=== PATIENT | male | born 1935 | race Two or more races ===

== ENCOUNTER 2020-01-14 07:43 | Outpatient (REF) | payer MEDICARE, SELFPAY ==
[2020-01-14 08:23] LABS: MANUAL DIFF FLAG NO
[2020-01-14 08:27] LABS: Basophils Absolute Auto 0.1 X10*3/uL (0.0-0.2); Basophils Percent Auto 0.8 % (0-2); Eosinophils Absolute Auto 0.1 X10*3/uL (0.0-0.4); Hematocrit 44.2 % (42-52); Imm Gran Abs Auto 0.01 X10*3/uL (0.00-0.03); Imm Gran Pct Auto 0.2 % (0.0-0.4); Lymphocytes Percent Auto 32.6 % (20-40); Mean Corpuscular HGB Conc 33.9 g/dl (31.0-36.0); Mean Corpuscular Hemoglobin 32.1 pg (27.0-33.0); Mean Corpuscular Volume 94.6 fL (80-98); Mean Platelet Volume 9.3 fL (9.4-12.4); Monocytes Absolute Auto 0.7 X10*3/uL (0.1-1.2); Monocytes Percent Auto 11.2 % (2-11); Neutrophils Absolute Auto 3.3 X10*3/uL (2.0-8.3); Neutrophils Percent Auto 54.2 % (45-73); Platelet Count 171 X10*3/uL (160-400); Red Blood Count 4.67 X10*6/uL (4.60-5.80); Red Cell Distribution Width 12.5 % (11.0-16.0); White Blood Count 6.2 X10*3/uL (4.8-10.8)
[2020-01-14 08:42] LABS: Alanine Aminotransferase 19 U/L (0-40); Alkaline Phosphatase 80 U/L (39-117); Anion Gap 11 (12-20); Aspartate Amino Transferase 17 U/L (5-37); Bilirubin Total 0.9 mg/dL (0.0-1.0); Blood Urea Nitrogen 17 mg/dL (9-16); Calcium 8.4 mg/dL (8.4-10.2); Carbon Dioxide 26 mmol/L (22-29); Chloride 109 mmol/L (96-108); Cholesterol 120 mg/dL; Estimated Glomerular Filt Rate > 60; Glucose Fasting 109 mg/dL (60-99); HDL Cholesterol 41 mg/dL; LDL Cholesterol Calculated 60 mg/dl; Potassium 4.1 mmol/l (3.3-5.1); Sodium 142 mmol/L (135-145); Total Protein 6.3 g/dL (6.5-8.0); Triglycerides 96 mg/dL
[2020-01-14 09:02] LABS: Glucose Urine UA NEG (NEG); Leukocyte Esterase Urine NEG (NEG); Nitrite Urine NEG (NEG); PH 6.5 (5.0-8.0); Urine Blood 2+ (NEG); Urine Ketones NEG (NEG); Urine Protein TRACE MG/DL (NEG-TRACE)
[2020-01-14 09:05] LABS: Appearance Urine CLEAR; Color Urine YELLOW
[2020-01-14 09:10] LABS: RBC Urine 30-49 /HPF (0); WBC Urine 0 /HPF (0-4)
[2020-01-14 09:15] LABS: Prostate Specific Antigen 1.95 ng/mL (<0.05-4.0)
[2020-01-14 09:22] LABS: Reflex LDLD? No
== END 2020-01-14 07:44 | disposition home or self-care (01) ==
LOC: HO.LAB 07:43
PROVIDERS: PCP Internal Medicine; Visit Provider Internal Medicine
DX: I10 Essential (primary) hypertension (principal); E78.00 Pure hypercholesterolemia, unspecified; R97.20 Elevated prostate specific antigen [PSA]; I25.10 Atherosclerotic heart disease of native coronary artery without angina pectoris; N40.1 Benign prostatic hyperplasia with lower urinary tract symptoms; D72.820 Lymphocytosis (symptomatic)
CPT/HCPCS: 36415; 80053; 80061; 81001; 81003; 84153; 85025

== ENCOUNTER → 2020-01-20 12:44 | Outpatient (BNVA) | payer MEDICARE, SELFPAY | PROVIDERS: PCP Internal Medicine; Visit Provider Internal Medicine Cardiovascular Disease | DX: Z45.018 Encounter for adjustment and management of other part of cardiac pacemaker (principal); I25.10 Atherosclerotic heart disease of native coronary artery without angina pectoris; R53.83 Other fatigue | CPT/HCPCS: 99212 ==

== ENCOUNTER → 2020-02-04 10:35 | Outpatient (REF) | payer MEDICARE, SELFPAY ==
--- NOTE | 2020-02-04 10:38 | CA_ITS ---
Transthoracic Echocardiogram Patient (Last, First, Middle): Faisal Leiva M Gender: Male Date of : 1935 Age: 84 Procedure Date: 02/04/2020 Procedure Type: Transthoracic Echocardiogram Location: OP Height: 180.34 cm Weight: 87.09 kg BSA: 2.07 m2 Heart Rate: bpm BP: 130 / 80 mmHg [id number] Operator: GIULIA Referring MD: Boyd Gay MD Symptoms: I10 - Essential (primary) hypertension Study Quality: Fair ECG Rhythm: Sinus Conclusions: - The left ventricular systolic function is normal. The visually estimated ejection fraction is between 55-60%. - There is mild aortic valve regurgitation. - There is mild mitral valve regurgitation. - There is mild tricuspid valve regurgitation. Findings Left Ventricle Normal left ventricular cavity size. There is mildly increased left ventricular wall thickness. The left ventricular systolic function is normal. The visually estimated ejection fraction is between 55-60%. There is no evidence of regional wall motion abnormalities. Diastolic function is normal for age. E/E prime ratio is <8, consistent with normal filling pressures. Right Ventricle Normal right ventricular cavity size and systolic function. Atria The left atrium is normal in size. The right atrium is normal in size. Aortic Valve There is a normal trileaflet aortic valve. There is mild calcification of the aortic valve. There is no aortic valve stenosis. There is mild aortic valve regurgitation. Mitral Valve The mitral valve appears normal. There is mild mitral valve regurgitation. There is no mitral valve stenosis. Pulmonic Valve The pulmonic valve was not well visualized. Tricuspid Valve Normal tricuspid valve structure. There is mild tricuspid valve regurgitation. The pulmonary artery systolic pressure is normal. Great Vessels The aortic annulus, sinuses of valsalva, and asc aorta are normal in size. Venous The inferior vena cava is normal in size and collapses greater than 50% with inspiration. Pericardium/Pleural There is no evidence of pericardial effusion. Prior Study Comparison No significant change compared to prior study dated: 02/07/2019. Measurements 2D Linear Measurements IVSd: 1.10 0.6-0.9/0.6-1.0 cm LVIDd: 4.08 3.9-5.3/4.2-5.9 cm LVIDd Index: 1.97 2.4-3.2/2.2-3.1 cm/m2 LVIDs: 3.02 2.0-3.6 cm LVPWd: 1.06 0.7-1.1 cm Ao Root: 3.50 2.1-3.5 cm LA Diam: 3.60 2.7-3.8/3.0-4.0 cm LAIDs Index: 1.74 1.5-2.3 cm/m2 LV Mass: 182.06 67-162/88-224 g LV Mass Index: 87.95 43-95/49-115 g/m2 LVOT Diam: 2.00 3.0+(-)1.3 cm 2D Systolic Function EF 4C: 61.00 >55% EF 2C: 57.50 >55% EF BiP: 59.80 >55% Mitral Valve MV Pk E: 0.55 MV PK A: 0.86 MV Decel Time: 345.00 E/A: 0.60 E'Lateral: 8.22 E'Medial: 5.80 E/E' Med: 9.40 E/E' Lat: 6.70 PHT: 101.00 MVA PHT: 2.18 Decel Benson: 1.59 Aortic Valve AoV Pk Nitin: 1.49 AoV Mn Nitin: 0.95 AoV VTI: 0.30 AoV Pk Grad: 9.00 Aov Mn Grad: 4.00 TAYLER Cont.VTI: 2.66 AI Pk Nitin: 3.41 AI Benson: 2.38 LVOT LVOT Pk Nitin: 1.07 LVOT Mn Nitin: 0.81 LVOT VTI: 0.25 LVOT Pk Grad: 5.00 LVOT Mn Grad: 3.00 LVOT Diam: 2.00 LVOT Area: 3.14 Diastolic Function MV Pk E: 0.55 MV Pk A: 0.86 E/A: 0.60 E'Medial: 5.80 E/E' Med: 9.40 E' Laterial: 8.22 E/E' Lat: 6.70 Tricuspid Valve TR Pk Nitin: 2.20 TR Pk Grad: 19.00 RA Press: 3.00 RVSP: 22.00 Great Vessels Aorta Ao Root-2D: 3.50 2.0-3.7 cm Ao Asc: 3.60 2.1-3.4 cm Ao Arch: 3.20 Updated in Other Vendor System with Status of Final Leo Hinkle MD electronically signed on 02/07/2020 12:47:26 PM with status of Final
== END ==
LOC: HO.CARD 10:35
PROVIDERS: Visit Provider Internal Medicine Cardiovascular Disease
DX: I10 Essential (primary) hypertension (principal); I25.10 Atherosclerotic heart disease of native coronary artery without angina pectoris; Z95.0 Presence of cardiac pacemaker
CPT/HCPCS: 93306

== ENCOUNTER → 2020-07-20 10:59 | Outpatient (BNVA) | payer MEDICARE, SELFPAY | PROVIDERS: PCP Internal Medicine; Referring Provider Internal Medicine; Visit Provider Internal Medicine Cardiovascular Disease | DX: I25.10 Atherosclerotic heart disease of native coronary artery without angina pectoris (principal); Z95.0 Presence of cardiac pacemaker; Z79.899 Other long term (current) drug therapy | CPT/HCPCS: 99212 ==

== ENCOUNTER 2020-07-21 10:26 | Outpatient (REF) | payer MEDICARE, SELFPAY ==
[2020-07-21 11:54] LABS: Alanine Aminotransferase 16 U/L (0-40); Albumin Level 3.9 g/dL (3.5-5.0); Alkaline Phosphatase 84 U/L (39-117); Aspartate Amino Transferase 17 U/L (5-37); Bilirubin Direct 0.4 mg/dL (0.0-0.5); Bilirubin Total 0.8 mg/dL (0.0-1.0); Cholesterol 131 mg/dL; HDL Cholesterol 45 mg/dL; LDL Cholesterol Calculated 71 mg/dl; Total Protein 6.2 g/dL (6.5-8.0); Triglycerides 76 mg/dL
[2020-07-21 12:22] LABS: Reflex LDLD? No
== END 2020-07-21 10:27 | disposition home or self-care (01) ==
LOC: HO.LNP 10:26
PROVIDERS: Visit Provider Internal Medicine
DX: E78.00 Pure hypercholesterolemia, unspecified (principal)
CPT/HCPCS: 80061; 80076

== ENCOUNTER → 2020-09-07 14:26 | Outpatient (BNVA) | payer MEDICARE, SELFPAY | PROVIDERS: PCP Internal Medicine; Referring Provider Internal Medicine; Visit Provider Internal Medicine Cardiovascular Disease ==

== ENCOUNTER → 2021-01-20 13:41 | Outpatient (REF) | payer MEDICARE, SELFPAY ==
--- NOTE | 2021-01-20 13:44 | CA_ITS ---
Transthoracic Echocardiogram Patient (Last, First, Middle): Faisal Leiva M Gender: Male Date of : 1935 Age: 85 Procedure Date: 01/20/2021 Procedure Type: Transthoracic Echocardiogram Location: OP Height: 180.34 cm Weight: 88.45 kg BSA: 2.09 m2 Heart Rate: bpm BP: 133 / 78 mmHg Director Check: GIULIA Referring MD: Boyd Gay MD Connie Cleaner: Boyd Gay MD Symptoms: I25.10 - Atherosclerotic heart disease of elim ira coronary... Study Quality: Fair ECG Rhythm: Sinus Conclusions: - 1. Normal LV systolic function with impaired relaxation filling pattern 2. Normal cardiac valvular Doppler 3. Normal RV systolic pressure 4. No gross pericardial effusion Findings Left Ventricle Normal left ventricular size, thickness, and systolic function. The visually estimated ejection fraction is between 55-60%. Spectral Doppler is indicative of an impaired relaxation filling pattern. Wall Motion Rest Echo Findings The basal inferior, mid inferior, and basal inferolateral segments are hypokinetic. All other scored wall segments showed normal motion. Right Ventricle Normal right ventricular cavity size and systolic function. Atria The left atrium is likely dilated. There is lipomatous hypertrophy of the interatrial septum. There is no evidence of interatrial shunt. The right atrium is normal in size. Aortic Valve The aortic valve was not well visualized. There is no aortic valve stenosis. There is trace (trivial) aortic valve regurgitation. Mitral Valve There is mild anterior and posterior mitral leaflet thickening. There is trace mitral valve regurgitation. There is no mitral valve stenosis. Pulmonic Valve The pulmonic valve was not well visualized. Tricuspid Valve Likely normal tricuspid valve structure and function. There is mild tricuspid valve regurgitation. The right ventricular systolic pressure is normal. The right ventricular systolic pressure is 24 mmHg. Normal right atrial pressure. There is no evidence of pulmonary hypertension. Great Vessels The aorta was not well visualized. The pulmonary artery was not well visualized. Venous The inferior vena cava is normal in size and collapses greater than 50% with inspiration. Pericardium/Pleural There is no evidence of pericardial effusion. Prior Study Comparison No significant change compared to prior study dated: 02/04/2020. wall motion abnormality is apparent on this study Measurements 2D Linear Measurements IVSd: 1.11 0.6-0.9/0.6-1.0 cm LVIDd: 4.42 3.9-5.3/4.2-5.9 cm LVIDd Index: 2.11 2.4-3.2/2.2-3.1 cm/m2 LVIDs: 2.99 2.0-3.6 cm LVPWd: 1.10 0.7-1.1 cm Ao Root: 3.20 2.1-3.5 cm LA Diam: 3.80 2.7-3.8/3.0-4.0 cm LAIDs Index: 1.82 1.5-2.3 cm/m2 LV Mass: 213.29 67-162/88-224 g LV Mass Index: 102.05 43-95/49-115 g/m2 LVOT Diam: 2.20 3.0+(-)1.3 cm 2D Systolic Function EF 4C: 53.30 >55% EF 2C: 59.00 >55% EF BiP: 57.70 >55% Mitral Valve MV Pk E: 0.53 MV PK A: 0.83 MV Decel Time: 211.00 E/A: 0.60 E'Lateral: 8.81 E'Medial: 5.87 E/E' Med: 9.00 E/E' Lat: 6.00 PHT: 62.00 MVA PHT: 3.55 Decel Kleberg: 2.49 Aortic Valve AoV Pk Nitin: 1.58 AoV Mn Nitin: 1.06 AoV VTI: 0.30 AoV Pk Grad: 10.00 Aov Mn Grad: 5.00 TAYLER Cont.VTI: 2.55 AI Pk Nitin: 3.49 AI Kleberg: 1.95 LVOT LVOT Pk Nitin: 1.06 LVOT Mn Nitin: 0.75 LVOT VTI: 0.20 LVOT Pk Grad: 4.00 LVOT Mn Grad: 2.00 LVOT Diam: 2.20 LVOT Area: 3.80 Diastolic Function MV Pk E: 0.53 MV Pk A: 0.83 E/A: 0.60 E'Medial: 5.87 E/E' Med: 9.00 E' Laterial: 8.81 E/E' Lat: 6.00 Right Ventricle TAPSE (mm): 1.94 TVS' Nitin: 9.57 Tricuspid Valve TR Pk Nitin: 2.29 TR Pk Grad: 21.00 RA Press: 3.00 RVSP: 24.00 Great Vessels Aorta Ao Root-2D: 3.20 2.0-3.7 cm Ao Asc: 3.50 2.1-3.4 cm Ao Arch: 2.30 Updated in Other Vendor System with Status of Final Boyd Gay MD electronically signed on 01/21/2021 4:28:51 PM with status of Final
== END ==
LOC: HO.CARD 13:41
PROVIDERS: PCP Internal Medicine; Visit Provider Internal Medicine Cardiovascular Disease
DX: I25.10 Atherosclerotic heart disease of native coronary artery without angina pectoris (principal); I10 Essential (primary) hypertension; R53.83 Other fatigue
CPT/HCPCS: 93306

== ENCOUNTER 2021-02-02 10:13 | Outpatient (REF) | payer MEDICARE, SELFPAY ==
[2021-02-02 10:16] LABS: MANUAL DIFF FLAG NO
[2021-02-02 10:28] LABS: Appearance Urine CLEAR; Color Urine YELLOW; Glucose Urine UA NEG (NEG); Leukocyte Esterase Urine NEG (NEG); Nitrite Urine NEG (NEG); PH 6.5 (5.0-8.0); Urine Blood NEG (NEG); Urine Ketones NEG (NEG); Urine Protein NEG (NEG-TRACE)
[2021-02-02 10:40] LABS: Basophils Percent Auto 0.4 % (0-2); Eosinophils Absolute Auto 0.1 X10*3/uL (0.0-0.4); Eosinophils Percent Auto 1.3 % (0-4); Hematocrit 46.3 % (42.0-52.0); Hemoglobin 15.7 g/dl (14.0-18.0); Imm Gran Abs Auto 0.02 X10*3/uL (0.00-0.03); Imm Gran Pct Auto 0.3 % (0.0-0.4); Lymphocytes Absolute Auto 2.5 X10*3/uL (1.2-4.9); Mean Corpuscular HGB Conc 33.9 g/dl (31.0-36.0); Mean Corpuscular Hemoglobin 32.3 pg (27.0-33.0); Mean Corpuscular Volume 95.3 fL (80.0-98.0); Mean Platelet Volume 9.2 fL (9.4-12.4); Monocytes Absolute Auto 0.9 X10*3/uL (0.1-1.2); Monocytes Percent Auto 11.9 % (2-11); Neutrophils Absolute Auto 3.6 x10*3/uL (2.0-8.3); Neutrophils Percent Auto 51.1 % (45-73); Platelet Count 173 X10*3/uL (160-400); Red Blood Count 4.86 X10*6/uL (4.60-5.80); Red Cell Distribution Width 12.7 % (11.0-16.0); White Blood Count 7.1 X10*3/uL (4.8-10.8)
[2021-02-02 11:48] LABS: Alanine Aminotransferase 38 U/L (0-40); Alkaline Phosphatase 85 U/L (39-117); Anion Gap 11 (12-20); Aspartate Amino Transferase 25 U/L (5-37); Bilirubin Total 1.1 mg/dL (0.0-1.0); Blood Urea Nitrogen 18 mg/dL (9-16); Carbon Dioxide 27 mmol/L (22-29); Chloride 109 mmol/L (96-108); Cholesterol 149 mg/dL; Estimated Glomerular Filt Rate 60; Glucose Fasting 105 mg/dL (60-99); HDL Cholesterol 47 mg/dL; LDL Cholesterol Calculated 81 mg/dl; Potassium 4.2 mmol/L (3.3-5.1); Sodium 143 mmol/L (135-145); Total Protein 6.7 g/dL (6.5-8.0); Triglycerides 105 mg/dL
[2021-02-02 11:54] LABS: PSA,Total (Free>4and<10) 2.02 ng/mL (0.00-4.00)
[2021-02-02 12:08] LABS: Reflex LDLD? No
== END 2021-02-02 10:14 | disposition home or self-care (01) ==
LOC: HO.LNP 10:13
PROVIDERS: Visit Provider Internal Medicine
DX: I10 Essential (primary) hypertension (principal); R97.20 Elevated prostate specific antigen [PSA]; D72.820 Lymphocytosis (symptomatic); Z12.5 Encounter for screening for malignant neoplasm of prostate
CPT/HCPCS: 80053; 80061; 81003; 84153; 85025

== ENCOUNTER → 2021-02-11 12:19 | Outpatient (BNVA) | payer MEDICARE, SELFPAY | PROVIDERS: PCP Internal Medicine; Referring Provider Internal Medicine; Visit Provider Internal Medicine Cardiovascular Disease | DX: Z45.018 Encounter for adjustment and management of other part of cardiac pacemaker (principal); I25.10 Atherosclerotic heart disease of native coronary artery without angina pectoris; Z79.82 Long term (current) use of aspirin | CPT/HCPCS: 99212 ==

== ENCOUNTER 2021-05-10 12:07 | Outpatient (REF) | payer MEDICARE, SELFPAY ==
--- NOTE | ~2021-05-10 | XR_ITS ---
EXAMINATION: XR HIP, RIGHT CLINICAL INFORMATION: Right hip pain COMPARISON: None TECHNIQUE: Two views of the right hip. Frontal view of the pelvis. FINDINGS: No fracture or dislocation. The femoral heads are well-seated within their acetabula. Mild joint space narrowing bilaterally with osteophyte formation. The pelvic rim is intact. The sacroiliac joints and pubic symphysis are intact. XR/XR hip RT w PEL1V IMPRESSION: Mild degenerative change of both hips. No acute osseous abnormality.
== END 2021-05-10 12:08 | disposition home or self-care (01) ==
LOC: HO.HMGCX 12:07
PROVIDERS: Visit Provider Internal Medicine
DX: M25.551 Pain in right hip (principal)
CPT/HCPCS: 73502

== ENCOUNTER 2021-08-10 10:31 | Outpatient (REF) | payer MEDICARE, SELFPAY ==
[2021-08-10 12:38] LABS: Alanine Aminotransferase 30 U/L (0-40); Alkaline Phosphatase 82 U/L (39-117); Aspartate Amino Transferase 22 U/L (5-37); Bilirubin Direct 0.4 mg/dL (0.0-0.5); Bilirubin Total 0.9 mg/dL (0.0-1.0); Cholesterol 140 mg/dL; HDL Cholesterol 45 mg/dL; LDL Cholesterol Calculated 82 mg/dl; Total Protein 6.5 g/dL (6.5-8.0); Triglycerides 69 mg/dL
[2021-08-10 13:59] LABS: Reflex LDLD? No
== END 2021-08-10 10:32 | disposition home or self-care (01) ==
LOC: HO.LNP 10:31
PROVIDERS: PCP Internal Medicine; Visit Provider Internal Medicine
DX: E78.00 Pure hypercholesterolemia, unspecified (principal)
CPT/HCPCS: 80061; 80076

== ENCOUNTER → 2021-08-17 12:42 | Outpatient (BNVA) | payer MEDICARE, SELFPAY | PROVIDERS: PCP Internal Medicine; Referring Provider Internal Medicine; Visit Provider Internal Medicine Cardiovascular Disease | DX: Z45.018 Encounter for adjustment and management of other part of cardiac pacemaker (principal); I25.10 Atherosclerotic heart disease of native coronary artery without angina pectoris | CPT/HCPCS: 93005; 93280; 99212 ==

== ENCOUNTER 2021-12-24 09:36 | Outpatient (REF) | payer MEDICARE, SELFPAY ==
[2021-12-24 11:50] LABS: Appearance Urine Cloudy; Color Urine Yellow; Glucose Urine UA Negative (Negative); Leukocyte Esterase Urine Large (3+) (Negative); Nitrite Urine Negative (Negative); PH 5.5 (5.0-9.0); Specific Gravity - Urine 1.015 (1.005-1.025); UMIC TRIGGER UA YES; Urine Blood Moderate (2+) (Negative); Urine Ketones Negative (Negative); Urine Protein Trace mg/dL (Neg-Trace)
[2021-12-24 12:00] LABS: Bacteria Urine None Seen (None Seen); Hyaline Casts Urine 0-2 /LPF (0-2); Squamous Epithelial Cell Urine 0-2 /HPF (0-2); WBC Urine >50 /HPF (0-5)
== END 2021-12-24 09:37 | disposition home or self-care (01) ==
LOC: HO.HMGCLDS 09:36
PROVIDERS: PCP Internal Medicine; Visit Provider Internal Medicine
DX: N30.00 Acute cystitis without hematuria (principal)
CPT/HCPCS: 81001; 87086; 87088; 87186

== ENCOUNTER → 2022-02-15 08:05 | Outpatient (REF) | payer MEDICARE, SELFPAY ==
--- NOTE | ~2022-02-15 | NM_ITS ---
Lexiscan Myocardial perfusion study Indication: Coronary disease, assess for ischemia Technique: The patient was brought in for a Lexiscan perfusion study on 02/15/2022 and was injected 0.4 mg of Lexiscan intravenously. Within a minute of this injection 30 mCi of sestamibi was given intravenously. Images were obtained using the SPECT gamma camera interlaced with the gating device. Images were obtained in supine position. Resting perfusion study was performed on 02/16/2022. Patient was administered 30 mCi of sestamibi intravenously at rest. Images were then obtained in supine position. Images were processed with the software and compared side to side in short axis, horizontal long axis and vertical long axis views. Total DLP 155mGy-cm. Findings: Raw acquisition reviewed. Arms by the patient's side. The stress perfusion study showed mildly diminished tracer uptake in the basal part of inferolateral wall. There is improvement with CT attenuation correction suggestive of diaphragmatic attenuation artifact. The gated study shows normal LV systolic function with calculated LVEF of > 70%. LV cavity is normal in size. The gated study shows normal wall thickening and contraction of segments. Resting study shows mildly diminished tracer uptake in the basal part of inferolateral wall. Improvement with CT attenuation correction suggestive of diaphragmatic attenuation artifact. Gating at rest reveals normal wall motion with ejection fraction at 51%. The findings are consistent with no clear reversible defects. Fixed basal inferolateral defect suspected to be from diaphragmatic attenuation artifact. NM/NM corey perf SPECT rest & str Impression: 1. Myocardial perfusion imaging study shows no clear evidence of any ischemia or infarction. Likely normal perfusion. 2. Gated LVEF is > 70% during stress. 51% during rest. 3. Transient ischemic dilatation not present. EKG component of the test reported separately.
--- NOTE | 2022-02-15 08:08 | CA_ITS ---
Acquisition Time: 2022-02-15 08:26:49 Total Exercise Time: 00:02:00 Test Indications: SOB Medications: Protocol: LEXISCAN Max HR: 102 BPM 76% of Pred: 133 BPM Max BP: 142/074 mmHG Max Work Load: 1.0 METS Pharmacological stress test with Lexiscan injection, while sitting and kicking his legs, without anginal symptoms, with isolaterd, with normotensive response to injection, with nondiagnostic EKG for ischemia. Nuclear images pending. Test reviewed with Dr Rosado. Referred By: Boyd Gay Overread By: LUIS DAVIS
== END ==
LOC: HO.CARD 08:05
PROVIDERS: PCP Internal Medicine; Visit Provider Internal Medicine Cardiovascular Disease
DX: I10 Essential (primary) hypertension (principal); I25.10 Atherosclerotic heart disease of native coronary artery without angina pectoris; Z95.0 Presence of cardiac pacemaker
CPT/HCPCS: 78452; 93017; 93280; 99212; A9500; J2785

== ENCOUNTER 2022-03-14 10:25 | Outpatient (REF) | payer MEDICARE, SELFPAY ==
[2022-03-14 10:28] LABS: MANUAL DIFF FLAG NO
[2022-03-14 11:22] LABS: Basophils Absolute Auto 0.1 X10*3/uL (0.0-0.2); Basophils Percent Auto 0.7 % (0-2); Eosinophils Absolute Auto 0.2 X10*3/uL (0.0-0.4); Eosinophils Percent Auto 2.3 % (0-4); Hematocrit 43.1 % (42.0-52.0); Hemoglobin 14.4 g/dl (14.0-18.0); Imm Gran Abs Auto 0.01 X10*3/uL (0.00-0.03); Imm Gran Pct Auto 0.1 % (0.0-0.4); Lymphocytes Absolute Auto 3.1 X10*3/uL (1.2-4.9); Lymphocytes Percent Auto 41.5 % (20-40); Mean Corpuscular HGB Conc 33.4 g/dl (31.0-36.0); Mean Corpuscular Hemoglobin 31.6 pg (27.0-33.0); Mean Corpuscular Volume 94.5 fL (80.0-98.0); Mean Platelet Volume 9.7 fL (9.4-12.4); Monocytes Absolute Auto 0.8 X10*3/uL (0.1-1.2); Monocytes Percent Auto 11.1 % (2-11); Neutrophils Absolute Auto 3.3 x10*3/uL (2.0-8.3); Neutrophils Percent Auto 44.3 % (45-73); Platelet Count 225 X10*3/uL (160-400); Red Blood Count 4.56 X10*6/uL (4.60-5.80); Red Cell Distribution Width 13.2 % (11.0-16.0); White Blood Count 7.4 X10*3/uL (4.8-10.8)
[2022-03-14 12:35] LABS: Alanine Aminotransferase 18 U/L (0-40); Albumin Level 3.8 g/dL (3.5-5.0); Alkaline Phosphatase 83 U/L (39-117); Anion Gap 11 (12-20); Aspartate Amino Transferase 16 U/L (5-37); Bilirubin Total 0.9 mg/dL (0.0-1.0); Blood Urea Nitrogen 15 mg/dL (9-16); Calcium 8.8 mg/dL (8.4-10.2); Carbon Dioxide 26 mmol/L (22-29); Chloride 110 mmol/L (96-108); Cholesterol 137 mg/dL; Estimated Glomerular Filt Rate > 60; Glucose Fasting 111 mg/dL (60-99); HDL Cholesterol 39 mg/dL; LDL Cholesterol Calculated 79 mg/dl; Potassium 3.8 mmol/L (3.3-5.1); Sodium 143 mmol/L (135-145); Total Protein 6.1 g/dL (6.5-8.0); Triglycerides 95 mg/dL
[2022-03-14 12:38] LABS: PSA,Total (Free>4and<10) 0.72 ng/mL (0.00-4.00)
== END 2022-03-14 10:26 | disposition home or self-care (01) ==
LOC: HO.LNP 10:25
PROVIDERS: Visit Provider Internal Medicine
DX: I10 Essential (primary) hypertension (principal); E78.00 Pure hypercholesterolemia, unspecified; R97.20 Elevated prostate specific antigen [PSA]; Z12.5 Encounter for screening for malignant neoplasm of prostate
CPT/HCPCS: 80053; 80061; 84153; 85025

== ENCOUNTER 2022-08-18 14:01 | Outpatient (REF) | payer MEDICARE, SELFPAY ==
[2022-08-18 15:41] LABS: Hematocrit 45.7 % (42.0-52.0); Hemoglobin 15.7 g/dl (14.0-18.0); Mean Corpuscular HGB Conc 34.4 g/dl (31.0-36.0); Mean Corpuscular Hemoglobin 31.9 pg (27.0-33.0); Mean Corpuscular Volume 92.9 fL (80.0-98.0); Mean Platelet Volume 9.2 fL (9.4-12.4); Platelet Count 170 X10*3/uL (160-400); Red Blood Count 4.92 X10*6/uL (4.60-5.80); Red Cell Distribution Width 12.8 % (11.0-16.0); White Blood Count 7.3 X10*3/uL (4.8-10.8)
[2022-08-18 16:08] LABS: Anion Gap 10 (12-20); Blood Urea Nitrogen 15 mg/dL (9-16); Calcium 9.1 mg/dL (8.4-10.2); Carbon Dioxide 27 mmol/L (22-29); Chloride 110 mmol/L (96-108); Estimated Glomerular Filt Rate > 60; Glucose Random 95 mg/dL (60-115); Potassium 4.5 mmol/L (3.3-5.1); Sodium 142 mmol/L (135-145)
== END 2022-08-18 14:02 | disposition home or self-care (01) ==
LOC: HO.LAB 14:01
PROVIDERS: PCP Internal Medicine; Visit Provider Internal Medicine Cardiovascular Disease
DX: I25.10 Atherosclerotic heart disease of native coronary artery without angina pectoris (principal); I48.0 Paroxysmal atrial fibrillation; Z95.0 Presence of cardiac pacemaker
CPT/HCPCS: 36415; 80048; 85027; 93280; 99212

== ENCOUNTER 2022-08-18 14:01 | Outpatient (AMB) | payer MEDICARE, SELFPAY ==
[2022-08-18 14:27] VITALS: BP 138/70; PULSE 64; BMI 28.0
--- NOTE | 2022-08-18 14:27 | A.OFFVIS_ITS ---
Intake Vital Signs 08/18/22 14:27 Height 5 ft 11 in Weight 200 lb 9.93 oz BMI 28.0 BP 138/70 Blood Pressure Location Lt brachial Position Sitting Pulse 64 Intake Visit Reasons: 6 mth f/up w/ pacer ck per ns Intake Note: 6 month follow-up with [facility] pacer check feeling good Glass Pulverizer Equipment Operator Required: No Project Development Manager: Project Development Manager Present Accompanied by: Spouse Allergies apixaban [From Eliquis] Allergy (Mild, Verified 02/04/22 18:16) Rash Sulfa (Sulfonamide Antibiotics) [Sulfa (Sulfonamides)] Allergy (Mild, Verified 05/10/21 11:26) RASH Medication List - Last Reconciled 08/18/22 by Boyd Gay MD atorvastatin 20 mg PO DAILY metoprolol tartrate 50 mg PO BID rivaroxaban (Xarelto) 20 mg PO DAILY vitamins A,C,V-ulqt-vfhipj 4,296 mcg-226 mg-90 mg (PreserVision AREDS) 1 cap PO BID HPI HPI Comments History of Present Illness Details Patient comes for follow-up, accompanied by his . He said he had a very bad experience when he was at [facility] for COVID infection. thinks that he has some memory issues. He denies any symptoms of palpitations or lightheadedness. Denies any exertional chest pain. Denies any shortness of breath, orthopnea, PND. Takes all his medications. No overt bleeding issues or neurologic events. [facility] Medical History CAD (coronary artery disease) Cardiac pacemaker in situ HTN (hypertension) Hyperlipidemia Left bundle branch block Second degree AV block, Mobitz type II Surgical History History of eye surgery History of heart artery stent History of permanent cardiac pacemaker placement Hx of cholecystectomy Family History Father No problems noted. Mother Cancer Brother Cancer Social History Alcohol intake: former Patient Tobacco Use Status: Former Tobacco user Quit Date: Tobacco use type: Pipe Years Smoked: 20 +/- Review of Systems Const Denies chills, Denies fatigue, Denies fever(s), Denies frequent falls, Denies weakness, Denies weight gain and Denies weight loss ENT Denies dizziness Card Denies chest pain, Denies leg edema, Denies lightheadedness, Denies palpitations, Denies dyspnea, Denies dyspnea on exertion, Denies orthopnea and Denies other (loss of consciousness) Resp Denies cough, Denies dyspnea and Denies dyspnea on exertion GI Denies hematochezia and Denies change in stool character Musc Denies abnormal gait, Denies muscle weakness, Denies numbness, Denies radiating pain into limb and Denies tingling Neuro Denies abnormal gait, Denies dizziness, Denies frequent falls, Denies numbness, Denies tingling and Denies weakness Endo Denies fatigue and Denies palpitations Physical Exam Vital Signs: Last Vital Signs Pulse 64 08/18/22 14:27 BP 138/70 08/18/22 14:27 BMI result Body Mass Index 28.0 Const General: cooperative, comfortable, no acute distress, alert and awake Nutritional Appearance: average body habitus Orientation/consciousness: patient oriented x3 Limitations: no limitations Neck Neck: Yes trachea midline, Yes supple and Yes no JVD Resp Effort & Inspection: normal respiratory effort Auscultation: clear to auscultation bilaterally Cardio Jugular venous distension: no JVD Palpation: normal PMI Rate: regular rate Rhythm: regular rhythm Heart sounds: S1 normal heart sound present and S2 normal heart sound present GI Auscultation: normal bowel sounds Skin General skin exam: no rashes or lesions noted and ecchymosis Neuro General: patient oriented x3 and no focal motor deficits Extrem General: Yes no clubbing, cyanosis or edema Psych Appearance: grossly normal Office Procedures Cardiac Device Check Cardiac Device Check Details: Dual-chamber [facility] pacemaker in place. Programmed in DDDR at 60 beats per minute. Atrial pacing 43% of time and ventricular pacing 69% of time. No significant episodes of atrial fibrillation noted. Atrial and ventricular pacing thresholds adequate and in our capture mode. Atrial ventricular sensing is adequate. Pacing lead impedance is stable. Battery life is excellent at 10.2 years [id number] Cardiac Device Check, pacemaker dual lead Procedure code (CPT) selection complete Assessment & Plan Assessment & Plan (1) Cardiac pacemaker in situ: Comment: Dual-chamber [facility]ony pacemaker placed, January 2017 for second-degree Mobitz type 2 av block with underlying left bundle-branch block Code(s): Z95.0 - Presence of cardiac pacemaker Plan: Cardiac pacemaker in-situ for advanced AV block. Patient is doing well from that perspective. Pacemaker is working well. Will continue to monitor remotely. Follow up in the clinic in 6 months time. Will follow with echocardiogram. (2) CAD (coronary artery disease): Comment: CAD status post stenting of dominant circumflex artery, July of 2003. Known chronically occluded ramus and 60% diagonal disease. Repeat catheterization in 2009 showed no changes Code(s): I25.10 - Atherosclerotic heart disease of inupiat coronary artery without angina pectoris Plan: CAD with prior stenting of the circumflex artery. Currently not having any symptoms of angina. Currently on full oral anticoagulation with Xarelto and avoid antiplatelet therapy. Continue statin therapy with target goal LDL less than 70 mg/dL. Blood pressure is currently well optimized. (3) Paroxysmal atrial fibrillation: Code(s): I48.0 - Paroxysmal atrial fibrillation Plan: Paroxysmal atrial fibrillation without any obvious significant clinical recurrence at this point time. Advise to monitor by cardiac telemetry. Continue full oral anticoagulation, currently on Xarelto therapy. No obvious complication related to it. Quarterly renal function test should be pursued. Will follow up in the clinic in 6 months time, sooner p.r.n.. Thank you for allowing me to partake in his care Orders: Orders CA echo transthoracic complete 08/18/22 I48.0 - Paroxysmal atrial fibrillation Basic Metabolic Panel 08/18/22 I48.0 - Paroxysmal atrial fibrillation Complete Blood Count no Diff 08/18/22 I48.0 - Paroxysmal atrial fibrillation Coding Level of Care Code Est Pt Level 4 (92814) Diagnoses Cardiac pacemaker in situ Z95.0 CAD (coronary artery disease) I25.10 Paroxysmal atrial fibrillation I48.0 CPT Codes Cardiac Device Check - Cardiac Device 2: 84027-DP Cardiac Device Check, pacemaker dual lead ([id number])
== END 2022-08-18 14:58 | disposition home or self-care (01) ==
PROVIDERS: Visit Provider Internal Medicine Cardiovascular Disease
DX: I25.10 Atherosclerotic heart disease of native coronary artery without angina pectoris (principal); I48.0 Paroxysmal atrial fibrillation; Z95.0 Presence of cardiac pacemaker
CPT/HCPCS: 93280; 99214

== ENCOUNTER → 2022-08-25 23:59 | Outpatient (BNV) | payer MEDICARE, SELFPAY ==
--- NOTE | 2022-09-07 12:26 | MHC.OFFVIS ---
Intake Intake Visit Reasons: Remote Device Check- [facility] Allergies apixaban [From Eliquis] Allergy (Mild, Verified 02/04/22 18:16) Rash Sulfa (Sulfonamide Antibiotics) [Sulfa (Sulfonamides)] Allergy (Mild, Verified 05/10/21 11:26) RASH [facility] Medical History CAD (coronary artery disease) Cardiac pacemaker in situ HTN (hypertension) Hyperlipidemia Left bundle branch block Second degree AV block, Mobitz type II Surgical History History of eye surgery History of heart artery stent History of permanent cardiac pacemaker placement Hx of cholecystectomy Family History Father No problems noted. Mother Cancer Brother Cancer Social History Alcohol intake: former Patient Tobacco Use Status: Former Tobacco user Quit Date: Tobacco use type: Pipe Years Smoked: 20 +/- Office Procedures Cardiac Device Check Cardiac Device Check Details: Remote pacemaker report generated 09/02/2022. Pacemaker function is adequate [id number] Cardiac Device Interrogation, pacemaker Procedure code (CPT) selection complete Coding Level of Care Code Procedure Only Diagnoses CPT Codes Cardiac Device Check - Cardiac Device 12: [id number] Cardiac Device Interrogation, pacemaker ([id number])
== END ==
PROVIDERS: PCP Internal Medicine; Visit Provider Internal Medicine Cardiovascular Disease
DX: I48.0 Paroxysmal atrial fibrillation (principal); Z95.0 Presence of cardiac pacemaker
CPT/HCPCS: 93294

== ENCOUNTER 2022-09-16 12:07 | Outpatient (REF) | payer MEDICARE, SELFPAY ==
[2022-09-16 14:44] LABS: Alanine Aminotransferase 16 U/L (0-40); Albumin Level 3.8 g/dL (3.5-5.0); Alkaline Phosphatase 81 U/L (39-117); Aspartate Amino Transferase 18 U/L (5-37); Bilirubin Direct 0.4 mg/dL (0.0-0.5); Total Protein 6.3 g/dL (6.5-8.0)
[2022-09-16 15:04] LABS: Cholesterol 135 mg/dL; HDL Cholesterol 42 mg/dL; LDL Cholesterol Calculated 76 mg/dl; Triglycerides 86 mg/dL
[2022-09-16 17:39] LABS: Reflex LDLD? No
== END 2022-09-16 12:08 | disposition home or self-care (01) ==
LOC: HO.LNP 12:07
PROVIDERS: Visit Provider Internal Medicine
DX: E78.00 Pure hypercholesterolemia, unspecified (principal)
CPT/HCPCS: 80061; 80076

== ENCOUNTER → 2022-09-19 12:39 | Outpatient (REF) | payer MEDICARE, SELFPAY ==
--- NOTE | 2022-09-19 12:43 | CA_ITS ---
Transthoracic Echocardiogram Patient (Last, First, Middle): Faisal Leiva M Gender: Male Date of : 1935 Age: 86 Procedure Date: 09/19/2022 Procedure Type: Transthoracic Echocardiogram Location: OP Height: 180.34 cm Weight: 88.91 kg BSA: 2.09 m2 Heart Rate: 60 bpm BP: 152 / 68 mmHg Engine Dispatcher: TRENA Referring MD: Boyd Gay MD Certification Officer: Boyd Gay MD Symptoms: I48.0 - Paroxysmal atrial fibrillation Study Quality: Adequate w contrast ECG Rhythm: Paced Conclusions: - 1. Normal LV ejection fraction 55-60% with impaired relaxation filling pattern 2. Normal cardiac valvular Doppler 3. Mildly dilated ascending aorta at 3.7 cm 4. No gross pericardial effusion Findings Procedure Information Contrast agent, definity, is being given per protocol without apparent complications. Left Ventricle Normal left ventricular size, thickness, and systolic function. The visually estimated ejection fraction is between 55-60%. Spectral Doppler is indicative of an impaired relaxation filling pattern. E/E prime ratio is between 8 and 15 consistent with indeterminate filling pressures. Right Ventricle Normal right ventricular cavity size and systolic function. There is a pacemaker wire seen in the right ventricle. Atria The left atrium is likely dilated. Interatrial shunt cannot be excluded. The right atrium was not well visualized. Aortic Valve There is mild calcification of the aortic valve. There is no aortic valve stenosis. There is no aortic valve regurgitation. Mitral Valve Normal mitral valve structure and function. There is trace mitral valve regurgitation. There is no mitral valve stenosis. Pulmonic Valve The pulmonic valve was not well visualized. Tricuspid Valve Likely normal tricuspid valve structure and function. Tricuspid regurgitation envelope is inadequate for calculation of right ventricular systolic pressure. Normal right atrial pressure. Great Vessels The pulmonary artery was not well visualized. There is mild dilatation of the ascending aorta measuring 3.70 cm. Venous The inferior vena cava is normal in size and collapses greater than 50% with inspiration. Pericardium/Pleural There is no evidence of pericardial effusion. Prior Study Comparison No significant change compared to prior study dated: 01/20/2021. Measurements 2D Linear Measurements IVSd: 1.08 0.6-0.9/0.6-1.0 cm LVIDd: 5.24 3.9-5.3/4.2-5.9 cm LVIDd Index: 2.51 2.4-3.2/2.2-3.1 cm/m2 LVIDs: 3.38 2.0-3.6 cm LVPWd: 0.74 0.7-1.1 cm LA Diam: 3.70 2.7-3.8/3.0-4.0 cm LAIDs Index: 1.77 1.5-2.3 cm/m2 LV Mass: 216.34 67-162/88-224 g LV Mass Index: 103.51 43-95/49-115 g/m2 LVOT Diam: 2.20 3.0+(-)1.3 cm 2D Systolic Function EF 4C: 55.50 >55% EF 2C: 57.90 >55% EF BiP: 57.70 >55% Mitral Valve MV Pk E: 0.57 MV PK A: 0.81 MV Decel Time: 229.00 E/A: 0.70 E'Lateral: 7.18 E'Medial: 5.66 E/E' Med: 10.10 E/E' Lat: 7.90 PHT: 67.00 MVA PHT: 3.28 Decel Thurston: 2.49 Aortic Valve AoV Pk Nitin: 1.53 AoV Pk Grad: 9.00 TAYLER: 2.26 AI Pk Nitin: 3.00 AI Thurston: 1.50 LVOT LVOT Pk Nitin: 1.02 LVOT Mn Nitin: 0.73 LVOT VTI: 0.21 LVOT Pk Grad: 4.00 LVOT Mn Grad: 2.00 LVOT Diam: 2.20 LVOT Area: 3.80 Diastolic Function MV Pk E: 0.57 MV Pk A: 0.81 E/A: 0.70 E'Medial: 5.66 E/E' Med: 10.10 E' Laterial: 7.18 E/E' Lat: 7.90 Right Ventricle TVS' Nitin: 10.30 Tricuspid Valve TR Pk Nitin: 2.11 TR Pk Grad: 18.00 RA Press: 3.00 Great Vessels Aorta Sinus of Valsalva: 3.50 2.0-3.5 cm Ao Asc: 3.70 2.1-3.4 cm Pulmonary Veins Pulm Vein S/D 1.60 Pulmonary Valve PV Pk Nitin: 1.18 Peak PV Grad: 6.00 Updated in Other Vendor System with Status of Final Boyd Victor Hugo MD electronically signed on 09/19/2022 4:42:44 PM with status of Final
== END ==
LOC: HO.CARD 12:39
PROVIDERS: PCP Internal Medicine; Visit Provider Internal Medicine Cardiovascular Disease
DX: I48.0 Paroxysmal atrial fibrillation (principal)
CPT/HCPCS: 93306; Q9957

== ENCOUNTER → 2022-09-19 12:43 | Outpatient (BNV) | payer MEDICARE, SELFPAY | PROVIDERS: PCP Internal Medicine; Visit Provider Internal Medicine Cardiovascular Disease | DX: I48.0 Paroxysmal atrial fibrillation (principal) | CPT/HCPCS: 93306 ==

== ENCOUNTER 2022-11-21 13:44 | Outpatient (REF) | payer MEDICARE, SELFPAY ==
[2022-11-21 16:06] LABS: Vitamin B12 262 pg/mL (200-900)
== END 2022-11-21 13:45 | disposition home or self-care (01) ==
LOC: HO.LAB 13:44
PROVIDERS: PCP Internal Medicine; Visit Provider Psychiatry & Neurology Neurology
DX: G31.83 Neurocognitive disorder with Lewy bodies (principal)
CPT/HCPCS: 36415; 82607

== ENCOUNTER → 2022-11-24 23:59 | Outpatient (BNV) | payer MEDICARE, SELFPAY ==
--- NOTE | 2022-11-28 08:24 | MHC.OFFVIS ---
Intake Intake Visit Reasons: Remote Device Check- [facility] Allergies apixaban [From Eliquis] Allergy (Mild, Verified 02/04/22 18:16) Rash Sulfa (Sulfonamide Antibiotics) [Sulfa (Sulfonamides)] Allergy (Mild, Verified 05/10/21 11:26) RASH [facility] Medical History CAD (coronary artery disease) Cardiac pacemaker in situ HTN (hypertension) Hyperlipidemia Left bundle branch block Second degree AV block, Mobitz type II Surgical History History of eye surgery History of heart artery stent History of permanent cardiac pacemaker placement Hx of cholecystectomy Family History Father No problems noted. Mother Cancer Brother Cancer Social History Alcohol intake: former Patient Tobacco Use Status: Former Tobacco user Quit Date: Tobacco use type: Pipe Years Smoked: 20 +/- Office Procedures Cardiac Device Check Cardiac Device Check Details: Remote pacemaker report generated 11/24/2022. Pacemaker function is adequate. [id number] Cardiac Device Interrogation, pacemaker Procedure code (CPT) selection complete Coding Level of Care Code Procedure Only CPT Codes Cardiac Device Check - Cardiac Device 12: [id number] Cardiac Device Interrogation, pacemaker ([id number])
== END ==
PROVIDERS: PCP Internal Medicine; Visit Provider Internal Medicine Cardiovascular Disease
DX: I44.1 Atrioventricular block, second degree (principal); Z95.0 Presence of cardiac pacemaker
CPT/HCPCS: 93294

== ENCOUNTER 2022-12-27 09:36 | Outpatient (REF) | payer MEDICARE, SELFPAY ==
--- NOTE | ~2022-12-27 | CT_ITS ---
EXAMINATION: CT HEAD WITHOUT CONTRAST CLINICAL INFORMATION: Neurocognitive disorder with Lewy body. COMPARISON: None. TECHNIQUE: Contiguous axial imaging was performed from the skull base to vertex without intravenous administration of contrast. This CT examination was performed using dose optimization techniques as appropriate, variously including the following: *Automated exposure control *Adjustment of mA and/or kV according to patient size (this includes techniques or standardized protocols for targeted exams where dose is matched to indication/reason for exam; i.e. extremities or head) *Use of iterative reconstruction technique DLP: 797 mGy-cm. FINDINGS: There is no intracranial hemorrhage, extra-axial collection, mass effect, or territorial infarction. There is moderate patchy hypoattenuation throughout the cerebral white matter, typical of chronic microangiopathy. A mild degree of brain parenchymal volume loss is noted with commensurate prominence of the ventricles and sulci. There is no evidence of hydrocephalus. Chronic lacunar infarcts are seen within the right thalamus. There is mild paranasal sinus mucosal thickening without fluid levels. Dense atheromatous calcifications are seen at the carotid siphons and intradural vertebral arteries. CT/CT head/brain wo IV con IMPRESSION: No acute intracranial abnormality. Background changes of chronic microangiopathy and mild brain parenchymal volume loss. No evidence of disproportionate brain parenchymal volume loss. Chronic right thalamic infarcts.
== END 2022-12-27 09:37 | disposition home or self-care (01) ==
LOC: HO.CT 09:36
PROVIDERS: PCP Internal Medicine; Visit Provider Psychiatry & Neurology Neurology
DX: G31.83 Neurocognitive disorder with Lewy bodies (principal)
CPT/HCPCS: 70450

== ENCOUNTER 2023-02-21 13:03 | Outpatient (REF) | payer MEDICARE, SELFPAY | END 2023-02-21 13:04 | disposition home or self-care (01) | LOC: HO.LAB 13:03 | PROVIDERS: PCP Internal Medicine; Visit Provider Internal Medicine Cardiovascular Disease | DX: I48.0 Paroxysmal atrial fibrillation (principal); I25.10 Atherosclerotic heart disease of native coronary artery without angina pectoris; Z95.0 Presence of cardiac pacemaker | CPT/HCPCS: 36415; 80048; 93005; 93280; 99212 ==

== ENCOUNTER 2023-02-21 13:03 | Outpatient (AMB) | payer MEDICARE, SELFPAY ==
--- NOTE | 2023-02-21 13:39 | MHC.OFFVIS ---
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 Currently having some more cognitive issues and currently is not driving. Although remains functionally very active. Denies any prolonged palpitation irregular heartbeat. Denies any chest pain. He is accompanied by his . Takes all his medications. No bleeding issues or neurologic events. 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 Mother Cancer Brother Cancer Social History Alcohol intake: former Patient Tobacco Use Status: Former Tobacco user Quit Date: Tobacco use type: Pipe Years Smoked: 20 +/- Review of Systems Const Denies chills, Denies fatigue, Denies fever(s), Denies frequent falls, Denies weakness, Denies weight gain and Denies weight loss ENT Denies dizziness Card Denies chest pain, Denies leg edema, Denies lightheadedness, Denies palpitations, Denies dyspnea, Denies dyspnea on exertion, Denies orthopnea and Denies other (loss of consciousness) Resp Denies cough, Denies dyspnea and Denies dyspnea on exertion GI Denies hematochezia and Denies change in stool character Musc Denies abnormal gait, Denies muscle weakness, Denies numbness, Denies radiating pain into limb and Denies tingling Neuro Denies abnormal gait, Denies dizziness, Denies frequent falls, Denies numbness, Denies tingling and Denies weakness Endo Denies fatigue and Denies palpitations Physical Exam Vital Signs: Last Vital Signs Pulse 60 02/21/23 13:40 BP 126/74 02/21/23 13:40 BMI result Body Mass Index 28.0 Const General: cooperative, comfortable, no acute distress, alert and awake Nutritional Appearance: average body habitus Orientation/consciousness: patient oriented x3 Limitations: no limitations Neck Neck: Yes trachea midline, Yes supple and Yes no JVD Resp Effort & Inspection: normal respiratory effort Auscultation: clear to auscultation bilaterally Cardio Jugular venous distension: no JVD Palpation: normal PMI Rate: regular rate Rhythm: regular rhythm Heart sounds: S1 normal heart sound present and S2 normal heart sound present GI Auscultation: normal bowel sounds Skin General skin exam: no rashes or lesions noted and ecchymosis Neuro General: patient oriented x3 and no focal motor deficits Extrem General: Yes no clubbing, cyanosis or edema Psych Appearance: grossly normal Office Procedures Cardiac Device Check Cardiac Device Check Details: Dual-chamber [facility] [place] pacemaker in place. Programmed in DDDR at 60 beats per minute. Atrial pacing 48% of time. Ventricular pacing 74% of time. No obvious episodes of atrial fibrillation noted. Atrial ventricular capture thresholds adequate. Atrial ventricular sensing is adequate. Pacing lead impedance is stable. Battery life is at 10.3 years [id number] Cardiac Device Check, pacemaker dual lead Procedure code (CPT) selection complete EKG Details: EKG shows normal sinus rhythm with ventricular paced rhythm 40593-[id number], Complete Assessment & Plan Assessment & Plan (1) Paroxysmal atrial fibrillation: Code(s): I48.0 - Paroxysmal atrial fibrillation Plan: Paroxysmal atrial fibrillation without any overt significant recurrence at this point time. Continue metoprolol therapy. Continue full oral anticoagulation, currently on Xarelto 20 mg daily which is tolerating well. Semi annual renal function test is recommended. Avoidance of stimulants was discussed. Will follow-up by pacer telemetry. No indication for antiarrhythmic drug therapy at this point time. (2) CAD (coronary artery disease): Comment: CAD status post stenting of dominant circumflex artery, July of 2003. Known chronically occluded ramus and 60% diagonal disease. Repeat catheterization in 2009 showed no changes Code(s): I25.10 - Atherosclerotic heart disease of [place] coronary artery without angina pectoris Plan: CAD status post stenting of the circumflex artery with no recurrent anginal sounding chest discomfort. Continue aggressive blood pressure control which is currently well optimized continue statin therapy with target goal LDL less than 70 mg/dL. Currently on full oral anticoagulation with Xarelto and therefore would avoid antiplatelet therapy. (3) Cardiac pacemaker in situ: Comment: Dual-chamber Saint Thony pacemaker placed, January 2017 for second-degree Mobitz type 2 av block with underlying left bundle-branch block Code(s): Z95.0 - Presence of cardiac pacemaker Plan: Cardiac pacemaker in-situ for advanced AV block. No symptoms related to it. Will follow remotely in 3 months and follow up in the clinic in 6 months time. Follow up in the clinic in 6 months time, sooner p.r.n.. Thank you for allowing me to partake in his care Orders: Orders Basic Metabolic Panel Today I48.0 - Paroxysmal atrial fibrillation Coding Level of Care Code Est Pt Level 4 (00983) Diagnoses Paroxysmal atrial fibrillation I48.0 CAD (coronary artery disease) I25.10 Cardiac pacemaker in situ Z95.0 CPT Codes Cardiac Device Check - Cardiac Device 2: [id number] Cardiac Device Check, pacemaker dual lead ([id number]) EKG - CPT: 56503-Pxemzcievsixpfoxz, Complete ([id number])
[2023-02-21 13:40] VITALS: BP 126/74; PULSE 60; BMI 28.0
== END 2023-02-21 14:00 | disposition home or self-care (01) ==
PROVIDERS: PCP Internal Medicine; Visit Provider Internal Medicine Cardiovascular Disease
DX: I48.0 Paroxysmal atrial fibrillation (principal); I25.10 Atherosclerotic heart disease of native coronary artery without angina pectoris; Z95.0 Presence of cardiac pacemaker
CPT/HCPCS: 93280; 99214

== ENCOUNTER → 2023-02-23 23:59 | Outpatient (BNV) | payer MEDICARE, SELFPAY ==
--- NOTE | 2023-02-23 10:13 | MHC.OFFVIS ---
Intake Intake Visit Reasons: Remote Device Check- 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 Mother Cancer Brother Cancer Social History Alcohol intake: former Patient Tobacco Use Status: Former Tobacco user Quit Date: Tobacco use type: Pipe Years Smoked: 20 +/- Office Procedures Cardiac Device Check Cardiac Device Check Details: Remote pacemaker report generated 02/23/2023. Pacemaker function is adequate [id number] Cardiac Device Interrogation, pacemaker Procedure code (CPT) selection complete Assessment & Plan Assessment & Plan (1) Cardiac pacemaker in situ: Comment: Dual-chamber [place]ony pacemaker placed, January 2017 for second-degree Mobitz type 2 av block with underlying left bundle-branch block Code(s): Z95.0 - Presence of cardiac pacemaker Plan: See above Coding Level of Care Code Procedure Only Diagnoses Cardiac pacemaker in situ Z95.0 CPT Codes Cardiac Device Check - Cardiac Device 12: [id number] Cardiac Device Interrogation, pacemaker ([id number])
== END ==
PROVIDERS: PCP Internal Medicine; Visit Provider Internal Medicine Cardiovascular Disease
DX: I44.1 Atrioventricular block, second degree (principal); Z95.0 Presence of cardiac pacemaker
CPT/HCPCS: 93294

== ENCOUNTER 2023-03-16 11:00 | Outpatient (REF) | payer MEDICARE, SELFPAY ==
[2023-03-16 11:05] LABS: MANUAL DIFF FLAG NO
[2023-03-16 11:34] LABS: Basophils Percent Auto 0.6 % (0-2); Eosinophils Absolute Auto 0.1 X10*3/uL (0.0-0.4); Eosinophils Percent Auto 1.1 % (0-4); Hemoglobin 15.8 g/dl (14.0-18.0); Imm Gran Abs Auto 0.01 X10*3/uL (0.00-0.03); Imm Gran Pct Auto 0.1 % (0.0-0.4); Lymphocytes Absolute Auto 2.8 X10*3/uL (1.2-4.9); Mean Corpuscular HGB Conc 34.3 g/dl (31.0-36.0); Mean Corpuscular Hemoglobin 32.2 pg (27.0-33.0); Mean Corpuscular Volume 93.9 fL (80.0-98.0); Mean Platelet Volume 9.4 fL (9.4-12.4); Monocytes Absolute Auto 0.9 X10*3/uL (0.1-1.2); Monocytes Percent Auto 11.7 % (2-11); Neutrophils Absolute Auto 3.5 x10*3/uL (2.0-8.3); Neutrophils Percent Auto 48.5 % (45-73); Platelet Count 167 X10*3/uL (160-400); Red Cell Distribution Width 12.7 % (11.0-16.0); White Blood Count 7.2 X10*3/uL (4.8-10.8)
[2023-03-16 11:51] LABS: Appearance Urine Clear; Color Urine Yellow; Glucose Urine UA Negative (Negative); Leukocyte Esterase Urine Small (1+) (Negative); Nitrite Urine Negative (Negative); PH 6.5 (5.0-9.0); UMIC TRIGGER UACC YES; Urine Blood Moderate (2+) (Negative); Urine Ketones Negative (Negative); Urine Protein Negative (Neg-Trace)
[2023-03-16 11:52] LABS: Alanine Aminotransferase 24 U/L (0-40); Alkaline Phosphatase 77 U/L (39-117); Anion Gap 11 (12-20); Aspartate Amino Transferase 20 U/L (5-37); Bilirubin Total 0.9 mg/dL (0.0-1.0); Blood Urea Nitrogen 15 mg/dL (9-16); Calcium 8.8 mg/dL (8.4-10.2); Carbon Dioxide 26 mmol/L (22-29); Chloride 108 mmol/L (96-108); Cholesterol 137 mg/dL (<200); Estimated Glomerular Filt Rate > 60; Glucose Fasting 101 mg/dL (60-99); HDL Cholesterol 43 mg/dL (>40); LDL Cholesterol Calculated 77 mg/dL (<100); Sodium 141 mmol/L (135-145); Total Protein 6.4 g/dL (6.5-8.0); Triglycerides 87 mg/dL (<150)
[2023-03-16 12:01] LABS: Bacteria Urine None Seen (None Seen); Hyaline Casts Urine 0-2 /LPF (0-2); RBC Urine >20 /HPF (0-2); Squamous Epithelial Cell Urine 0-2 /HPF (0-2); UACC Culture Trigger YES
[2023-03-16 12:08] LABS: PSA,Total (Free>4and<10) 1.17 ng/mL (0.00-4.00)
== END 2023-03-16 11:01 | disposition home or self-care (01) ==
LOC: HO.LNP 11:00
PROVIDERS: Visit Provider Internal Medicine
DX: I10 Essential (primary) hypertension (principal); R97.20 Elevated prostate specific antigen [PSA]; E78.00 Pure hypercholesterolemia, unspecified; D72.820 Lymphocytosis (symptomatic); Z12.5 Encounter for screening for malignant neoplasm of prostate
CPT/HCPCS: 80053; 80061; 81001; 84153; 85025; 87086

== ENCOUNTER → 2023-05-25 23:59 | Outpatient (BNV) | payer MEDICARE, SELFPAY ==
--- NOTE | 2023-05-25 14:41 | MHC.OFFVIS ---
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 Mother Cancer Brother Cancer Social History Alcohol intake: former Patient Tobacco Use Status: Former Tobacco user Quit Date: Tobacco use type: Pipe Years Smoked: 20 +/- Office Procedures Cardiac Device Check Cardiac Device Check Details: Remote pacemaker report generated 05/25/2023. Pacemaker function is adequate [id number] Cardiac Device Interrogation, pacemaker Procedure code (CPT) selection complete Assessment & Plan Assessment & Plan (1) Cardiac pacemaker in situ: Comment: Dual-chamber [place] Thony pacemaker placed, January 2017 for second-degree Mobitz type 2 av block with underlying left bundle-branch block Code(s): Z95.0 - Presence of cardiac pacemaker Category: Medical Plan: See above
== END ==
PROVIDERS: PCP Internal Medicine; Visit Provider Internal Medicine Cardiovascular Disease
DX: Z45.018 Encounter for adjustment and management of other part of cardiac pacemaker (principal)
CPT/HCPCS: 93294

== ENCOUNTER 2023-08-24 13:04 | Outpatient (AMB) | payer MEDICARE, SELFPAY ==
--- NOTE | 2023-08-24 13:30 | A.OFFVIS_ITS ---
Vital Signs 08/24/23 13:31 Height 5 ft 11 in Weight 198 lb 6.656 oz BMI 27.7 BP 126/68 Blood Pressure Location Lt brachial Position Sitting Pulse 70 Intake Visit Reasons: 6 mth w/ pacer ck Intake Note: 6 month follow-up st thony Crisis Manager Required: No Chief Nurse Anesthetist: Chief Nurse Anesthetist Present Accompanied by: Spouse Allergies apixaban [From Eliquis] Allergy (Mild, Verified 02/04/22 18:16) Rash Sulfa (Sulfonamide Antibiotics) [Sulfa (Sulfonamides)] Allergy (Mild, Verified 05/10/21 11:26) RASH Medication List - Last Reconciled 08/24/23 by Boyd Gay MD atorvastatin 20 mg PO DAILY memantine 5 mg PO BID metoprolol tartrate 50 mg PO BID rivaroxaban (Xarelto) 20 mg PO DAILY vitamins A,C,S-emfr-crggea 4,296 mcg-226 mg-90 mg (PreserVision AREDS) 1 cap PO BID HPI Comments Details: Faisal comes for follow-up, accompanied by his . He has been overall doing well but he said he has been getting recently bilateral jaw discomfort when he is rushing to do something or doing LV exertional activity. This is a new symptom in the last few days. The last episode was this morning when he was rushing to crab picker quickly from his yd. Denies any prolonged palpitation irregular heartbeat. No lightheadedness, syncope. No orthopnea, PND, leg edema. No bleeding issues or neurologic events. 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 Mother Cancer Brother Cancer Social History Alcohol intake: former Patient Tobacco Use Status: Former Tobacco user Tobacco use type: Pipe Years Smoked: 20 +/- Review of Systems Const Denies chills, Denies fatigue, Denies fever(s), Denies frequent falls, Denies weakness, Denies weight gain and Denies weight loss ENT Denies dizziness Card Denies chest pain, Denies leg edema, Denies lightheadedness, Denies palpitations, Denies dyspnea, Denies dyspnea on exertion, Denies orthopnea and Denies other (loss of consciousness) Resp Denies cough, Denies dyspnea and Denies dyspnea on exertion GI Denies hematochezia and Denies change in stool character Musc Denies abnormal gait, Denies muscle weakness, Denies numbness, Denies radiating pain into limb and Denies tingling Neuro Denies abnormal gait, Denies dizziness, Denies frequent falls, Denies numbness, Denies tingling and Denies weakness Endo Denies fatigue and Denies palpitations Physical Exam Vital Signs: Last Vital Signs Pulse 70 08/24/23 13:31 BP 126/68 08/24/23 13:31 BMI result Body Mass Index 27.7 Const General: cooperative, comfortable, no acute distress, alert and awake Nutritional Appearance: average body habitus Orientation/consciousness: patient oriented x3 Limitations: no limitations Neck Neck: Yes trachea midline, Yes supple and Yes no JVD Resp Effort & Inspection: normal respiratory effort Auscultation: clear to auscultation bilaterally Cardio Jugular venous distension: no JVD Palpation: normal PMI Rate: regular rate Rhythm: regular rhythm Heart sounds: S1 normal heart sound present and S2 normal heart sound present GI Auscultation: normal bowel sounds Skin General skin exam: no rashes or lesions noted and ecchymosis Neuro General: patient oriented x3 and no focal motor deficits Extrem General: Yes no clubbing, cyanosis or edema Psych Appearance: grossly normal Office Procedures Cardiac Device Check Cardiac Device Check Details: Dual-chamber [place]ony pacemaker in place. Programmed in DDDR at 60 beats per minute. Ventricular pacing 87% of time. No episodes of atrial fibrillation noted. Atrial sensing was excellent. Pacing thresholds adequate. Pacing lead impedance is stable. Battery life is adequate. [id number] Cardiac Device Check, pacemaker dual lead Procedure code (CPT) selection complete Assessment & Plan Assessment & Plan (1) CAD (coronary artery disease): Comment: CAD status post stenting of dominant circumflex artery, July of 2003. Known chronically occluded ramus and 60% diagonal disease. 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 However recently he is having symptoms which are concerning for exertional angina with bilateral jaw discomfort with exertional activity. Would suggest a vasodilating myocardial perfusion imaging to assess for myocardial ischemia and further treatment based on the findings. Continue metoprolol therapy as well as atorvastatin therapy. Based on the myocardial perfusion imaging treatment might be conservative and medical. Currently on Xarelto therapy will avoid aspirin therapy to reduce bleeding risk. Continue statin therapy with target goal LDL less than 70 mg/dL. Blood pressure is currently well optimized. (2) Paroxysmal atrial fibrillation: Code(s): I48.0 - Paroxysmal atrial fibrillation Category: Medical Plan: Paroxysmal atrial fibrillation has remained suppressed. Continue to monitor by pacer telemetry. Continue metoprolol therapy. No indication for antiarrhythmic drug therapy at this point time. Continue full oral anticoagulation, currently on Xarelto 20 mg daily. (3) Cardiac pacemaker in situ: Comment: Dual-chamber Saint Thony pacemaker placed, January 2017 for second-degree Mobitz type 2 av block with underlying left bundle-branch block Code(s): Z95.0 - Presence of cardiac pacemaker Category: Medical Plan: Cardiac pacemaker in-situ, for complete heart block. Patient is currently mostly pacer dependent. Pacemaker is working well. Will follow remotely. Follow up in the clinic in 6 months time, sooner p.r.n.. Thank you for allowing me to partake in his care Orders: Orders CA lexiscan stress w corey 08/24/23 I20.89 - Other forms of angina pectoris, I25.10 - Atherosclerotic heart disease of [place] coronary artery without angina pectoris Coding Level of Care Code Est Pt Level 4 (71613) Diagnoses CAD (coronary artery disease) I25.10 Paroxysmal atrial fibrillation I48.0 Cardiac pacemaker in situ Z95.0 CPT Codes Cardiac Device Check - Cardiac Device 2: [id number] Cardiac Device Check, pacemaker dual lead ([id number])
[2023-08-24 13:31] VITALS: BP 126/68; PULSE 70; BMI 27.7
== END 2023-08-24 14:16 | disposition home or self-care (01) ==
PROVIDERS: PCP Internal Medicine; Visit Provider Internal Medicine Cardiovascular Disease
DX: I44.2 Atrioventricular block, complete (principal); I48.0 Paroxysmal atrial fibrillation; Z95.0 Presence of cardiac pacemaker
CPT/HCPCS: 93280; 99214

== ENCOUNTER → 2023-08-24 13:04 | Outpatient (BNVA) | payer MEDICARE, SELFPAY | PROVIDERS: PCP Internal Medicine; Visit Provider Internal Medicine Cardiovascular Disease | DX: I25.118 Atherosclerotic heart disease of native coronary artery with other forms of angina pectoris (principal); I48.0 Paroxysmal atrial fibrillation; Z45.018 Encounter for adjustment and management of other part of cardiac pacemaker; Z87.891 Personal history of nicotine dependence | CPT/HCPCS: 93280; 99212 ==

== ENCOUNTER → 2023-08-24 23:59 | Outpatient (BNV) | payer MEDICARE, SELFPAY ==
--- NOTE | 2023-08-28 16:02 | MHC.OFFVIS ---
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 Mother Cancer Brother Cancer Social History Alcohol intake: former Patient Tobacco Use Status: Former Tobacco user Tobacco use type: Pipe Years Smoked: 20 +/- Office Procedures Cardiac Device Check Cardiac Device Check Details: Remote pacemaker report generated 08/24/2023. Pacemaker function is adequate [id number] Cardiac Device Interrogation, pacemaker Procedure code (CPT) selection complete Assessment & Plan Assessment & Plan (1) Cardiac pacemaker in situ: Comment: Dual-chamber [place]ony pacemaker placed, January 2017 for second-degree Mobitz type 2 av block with underlying left bundle-branch block Code(s): Z95.0 - Presence of cardiac pacemaker Category: Medical Plan: See above Coding Level of Care Code Procedure Only Diagnoses Cardiac pacemaker in situ Z95.0 CPT Codes Cardiac Device Check - Cardiac Device 12: [id number] Cardiac Device Interrogation, pacemaker ([id number])
== END ==
PROVIDERS: PCP Internal Medicine; Visit Provider Internal Medicine Cardiovascular Disease
DX: I44.1 Atrioventricular block, second degree (principal); Z95.0 Presence of cardiac pacemaker
CPT/HCPCS: 93294

== ENCOUNTER → 2023-09-04 07:39 | Outpatient (REF) | payer MEDICARE, SELFPAY ==
--- NOTE | ~2023-09-04 | NM_ITS ---
Myocardial perfusion study Indication: Exertional chest pain to evaluate for myocardial ischemia Technique: The patient was brought in for a Lexiscan perfusion study on 09/04/2023. Patient performed low-level exercise and was injected 0.4 mg of Lexiscan intravenously. Within a minute of injection, 30 mCi of sestamibi was given intravenously. Images were obtained using the SPECT gamma camera interlaced with the gating device. Images were obtained in supine position. Resting perfusion study was performed on 09/05/2023. Patient was administered 30 mCi of sestamibi intravenously at rest. Images were then obtained in supine position. Images obtained with and without CT attenuation. Total DLP 144 mGy-cm. Images were processed with the software and compared side to side in short axis, horizontal long axis and vertical long axis views. Findings: The stress perfusion study showed non attenuated images show mildly to moderately reduced uptake in the basal and mid inferolateral wall of the LV myocardium. Remainder of the LV myocardium is normally perfused. Attenuation corrected images are suboptimal.. The gated study shows normal LV systolic function with calculated LVEF of 65%. LV cavity is normal in size. The gated study shows systolic wall thickening and contraction of segments. Resting study shows uptake in the basal and mid inferolateral wall suggestive of ischemia. Gating at rest was not performed.. The findings are consistent with mild to moderate intensity basal and mid inferolateral reversible defect suggestive of ischemia in circumflex.. NM/NM corey perf SPECT rest & str Impression: 1. Myocardial perfusion imaging study shows mild to moderate inferolateral ischemia in circumflex territory 2. Gated LVEF is 65% 3. Transient ischemic dilatation not present EKG is nondiagnostic for ischemia
--- NOTE | 2023-09-04 07:44 | CA_ITS ---
Acquisition Time: 2023-09-04 07:57:49 Total Exercise Time: 00:02:00 Test Indications: CP, AFIB, LBBB Medications: SEE H Protocol: LEXISCAN Max HR: 093 BPM 70% of Pred: 132 BPM Max BP: 172/078 mmHG Max Work Load: 1.0 METS Pharmacological stress test with Lexiscan injection while sitting, without anginal symptoms, with episodes of PMT, isolated PVCs, with normotensive response to injection, with nondiagnoisitic EKGs. Aminophylline 75mg IVP given to reverse Lexiscan. Nuclear images pending. Test reviewed with Dr. Rosado Referred By: Boyd Gay Overread By: Felicitas Parnell
== END ==
LOC: HO.CARD 07:39
PROVIDERS: Visit Provider Internal Medicine Cardiovascular Disease
DX: I25.119 Atherosclerotic heart disease of native coronary artery with unspecified angina pectoris (principal)
CPT/HCPCS: 78452; 93017; A9500; J0280; J2785

== ENCOUNTER → 2023-09-04 07:44 | Outpatient (BNV) | payer MEDICARE, SELFPAY | PROVIDERS: Visit Provider Nurse Practitioner | DX: R07.9 Chest pain, unspecified (principal); I49.9 Cardiac arrhythmia, unspecified; Z95.0 Presence of cardiac pacemaker | CPT/HCPCS: 78452; 93016; 93018 ==

== ENCOUNTER 2023-09-14 10:21 | Outpatient (AMB) | payer MEDICARE, SELFPAY ==
--- NOTE | 2023-09-14 10:48 | AM.OFFWIN_ITS ---
Intake Vital Signs 09/14/23 10:49 Height 5 ft 11 in Weight 196 lb BMI 27.3 BP 122/70 Blood Pressure Location Rt brachial Position Sitting Pulse 60 Pulse Source Pulse Oximeter Temp 97.8 F Temp Source Oral Pulse Oximetry (%) 95 Oxygen Delivery Method Room Air Intake Visit Reasons: EP- RT ear blocked Intake Note: pt c/o RT ear blocked Patient Tobacco Use Status: Former Tobacco user Allergies apixaban [From Eliquis] Allergy (Mild, Verified 09/14/23 10:48) Rash Sulfa (Sulfonamide Antibiotics) [Sulfa (Sulfonamides)] Allergy (Mild, Verified 09/14/23 10:48) RASH Do you need a note to return to daycare/school/sports/work: No HPI HPI Comments History of Present Illness Details Patient is an 87-year-old male complaining of wax impaction in his right ear. He states he went to the hearing aid placed to find out why his hearing aid was not working in his right ear. They removed his hearing aids and said that his right ear was completely impacted with wax and that he should come to this clinic to have the wax removed. He denies any pain or fevers or change in hearing besides the reduction from his hearing aid. 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 Mother Cancer Brother Cancer Social History Alcohol intake: former Patient Tobacco Use Status: Former Tobacco user Tobacco use type: Pipe Years Smoked: 20 +/- Review of Systems Const All systems reviewed & are unremarkable except as noted in HPI and below Physical Exam Vital Signs: Last Vital Signs Temp 97.8 F 09/14/23 10:49 Pulse 60 09/14/23 10:49 BP 122/70 09/14/23 10:49 Pulse Ox 95 09/14/23 10:49 Oxygen Delivery Method Room Air 09/14/23 10:49 BMI result Body Mass Index 27.3 Const General: cooperative, healthy appearing, comfortable and no acute distress Orientation/consciousness: patient oriented x3 HEENT Head: Yes normal to inspection Ears: TM normal on the left, mastoids normal, Abnormal EAC present (right side) cerumen impaction and unable to visualize TM (cerumen blockage) on the right General nose exam: Normal external nose present Face and sinus: Yes normal facial exam Resp Effort & Inspection: normal respiratory effort and able to speak in complete sentences Neuro General: patient oriented x3 Office Procedures Cerumen Removal Details: Able to scoop some of the cerumen out, tried irrigation but unable to get all the cerumen out From which ear canal was the cerumen removed: right Removal: irrigation and cerumen loop/spoon Notes: patient tolerated procedure well and no complications [id number] Wax Removal by Spoon/Curette Assessment & Plan Assessment & Plan (1) Cerumen impaction: Code(s): H61.20 - Impacted cerumen, unspecified ear Qualifiers: Laterality: right Qualified Code(s): H61.21 - Impacted cerumen, right ear Plan: Removed with curette and then irrigated to try to get all the cerumen out but we are unsuccessful, recommended patient purchase Debrox drops use him for the next 4-5 nights and then return next week for a 2nd flush to try to remove all of the cerumen. Plan See above Coding Level of Care Code Est Pt Level 3 (93168) Diagnoses Impacted cerumen of right ear H61.21 Laterality: right CPT Codes Office Procedure - CPT: 67656-Ouu Wax Removal by Spoon/Curette ([id number])
[2023-09-14 10:49] VITALS: BP 122/70; PULSE 60; TEMP 36.6; O2SAT 95; BMI 27.3
== END 2023-09-14 12:04 | disposition home or self-care (01) ==
PROVIDERS: PCP Internal Medicine; Visit Provider Physician Assistant
DX: H61.21 Impacted cerumen, right ear (principal)
CPT/HCPCS: 69210; 99213

== ENCOUNTER 2023-09-15 10:33 | Outpatient (REF) | payer MEDICARE, SELFPAY ==
[2023-09-15 11:40] LABS: Alanine Aminotransferase 24 U/L (0-40); Alkaline Phosphatase 80 U/L (39-117); Aspartate Amino Transferase 17 U/L (5-37); Bilirubin Direct 0.2 mg/dL (0.0-0.5); Bilirubin Total 0.8 mg/dL (0.0-1.0); Cholesterol 128 mg/dL (<200); HDL Cholesterol 41 mg/dL (>40); LDL Cholesterol Calculated 70 mg/dL (<100); Total Protein 6.4 g/dL (6.5-8.0); Triglycerides 87 mg/dL (<150)
[2023-09-15 12:24] LABS: Reflex LDLD? No
== END 2023-09-15 10:34 | disposition home or self-care (01) ==
LOC: HO.LNP 10:33
PROVIDERS: Visit Provider Internal Medicine
DX: E78.00 Pure hypercholesterolemia, unspecified (principal)
CPT/HCPCS: 80061; 80076

== ENCOUNTER 2023-09-18 13:41 | Outpatient (AMB) | payer MEDICARE, SELFPAY ==
--- NOTE | 2023-09-18 13:41 | MHC.OFFWIV ---
Intake Vital Signs 09/18/23 13:42 Height 5 ft 11 in Weight 196 lb BMI 27.3 BP 122/68 Blood Pressure Location Rt brachial Position Sitting Pulse 73 Pulse Source Pulse Oximeter Temp 98.2 F Temp Source Oral Pulse Oximetry (%) 98 Oxygen Delivery Method Room Air Intake Visit Reasons: EP- RT ear blocked Intake Note: pt here for RT ear lavage. Patient Tobacco Use Status: Former Tobacco user Allergies apixaban [From Eliquis] Allergy (Mild, Verified 09/18/23 13:42) Rash Sulfa (Sulfonamide Antibiotics) [Sulfa (Sulfonamides)] Allergy (Mild, Verified 09/18/23 13:42) RASH Do you need a note to return to daycare/school/sports/work: No HPI HPI Comments History of Present Illness Details Patient is an 87-year-old male who was here last week complaining of his hearing aids not working. He was found to have a cerumen impaction in his right ear. We were able to scoop some out but could not flush it completely so he was told to go home and use Debrox drops for the next 4 or 5 days and to come back for us to flush them today. 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 Mother Cancer Brother Cancer Social History Alcohol intake: former Patient Tobacco Use Status: Former Tobacco user Tobacco use type: Pipe Years Smoked: 20 +/- Review of Systems Const All systems reviewed & are unremarkable except as noted in HPI and below Physical Exam Vital Signs: Last Vital Signs Temp 98.2 F 09/18/23 13:42 Pulse 73 09/18/23 13:42 BP 122/68 09/18/23 13:42 Pulse Ox 98 09/18/23 13:42 Oxygen Delivery Method Room Air 09/18/23 13:42 BMI result Body Mass Index 27.3 Const General: cooperative, healthy appearing, comfortable and no acute distress Orientation/consciousness: patient oriented x3 HEENT Head: Yes normal to inspection Ears: TM normal on the left, mastoids normal, Abnormal EAC present cerumen impaction and unable to visualize TM (cerumen blockage) on the right General nose exam: Normal external nose present Face and sinus: Yes normal facial exam Resp Effort & Inspection: normal respiratory effort and able to speak in complete sentences Neuro General: patient oriented x3 Office Procedures Cerumen Removal From which ear canal was the cerumen removed: right Removal: irrigation Notes: patient tolerated procedure well, no complications and ear canal clear [id number] Irrigation/Lavage Assessment & Plan Assessment & Plan (1) Impacted cerumen of right ear: Code(s): H61.21 - Impacted cerumen, right ear Plan: Flushed right ear with success, ear canal clean, patient tolerated procedure well. Plan See above Coding Level of Care Code Est Pt Level 3 (39949) Diagnoses Impacted cerumen of right ear H61.21 CPT Codes Office Procedure - CPT: 63925-Yjx Irrigation/Lavage ([id number])
[2023-09-18 13:42] VITALS: BP 122/68; PULSE 73; TEMP 36.8; O2SAT 98; BMI 27.3
== END 2023-09-18 14:27 | disposition home or self-care (01) ==
PROVIDERS: PCP Internal Medicine; Visit Provider Physician Assistant
DX: H61.21 Impacted cerumen, right ear (principal)
CPT/HCPCS: 69209; 99213

== ENCOUNTER → 2023-11-23 23:59 | Outpatient (BNV) | payer MEDICARE, SELFPAY ==
--- NOTE | 2023-12-11 17:33 | MHC.OFFVIS ---
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 Mother Cancer Brother Cancer Social History Alcohol intake: former Patient Tobacco Use Status: Former Tobacco user Tobacco use type: Pipe Years Smoked: 20 +/- Office Procedures Cardiac Device Check Cardiac Device Check Details: Remote pacemaker report generated 11/23/2023. Pacemaker function is adequate [id number] Cardiac Device Interrogation, pacemaker Procedure code (CPT) selection complete Assessment & Plan Assessment & Plan (1) Cardiac pacemaker in situ: Comment: Dual-chamber [employer]ony pacemaker placed, January 2017 for second-degree Mobitz type 2 av block with underlying left bundle-branch block Code(s): Z95.0 - Presence of cardiac pacemaker Category: Medical Plan: See above Coding Level of Care Code Procedure Only Diagnoses Cardiac pacemaker in situ Z95.0 CPT Codes Cardiac Device Check - Cardiac Device 12: [id number] Cardiac Device Interrogation, pacemaker ([id number])
== END ==
PROVIDERS: PCP Internal Medicine; Visit Provider Internal Medicine Cardiovascular Disease
DX: Z45.018 Encounter for adjustment and management of other part of cardiac pacemaker (principal)
CPT/HCPCS: 93294

== ENCOUNTER 2024-02-20 12:37 | Outpatient (AMB) | payer MEDICARE, SELFPAY ==
[2024-02-20 12:47] VITALS: BP 130/80; PULSE 61; BMI 27.1
--- NOTE | 2024-02-20 12:47 | MHC.OFFVIS ---
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: Electric Stop Installer Present Accompanied by: Spouse Allergies apixaban [From Eliquis] Allergy (Mild, Verified 09/18/23 13:42) Rash Sulfa (Sulfonamide Antibiotics) [Sulfa (Sulfonamides)] Allergy (Mild, Verified 09/18/23 13:42) RASH Medication List - Last Reconciled 02/20/24 by Boyd Gay MD atorvastatin 20 mg PO DAILY isosorbide mononitrate ER 30 mg PO DAILY memantine 5 mg PO BID metoprolol tartrate 50 mg PO BID rivaroxaban (Xarelto) 20 mg PO DAILY vitamins A,C,D-gsvi-iqdyzz 4,296 mcg-226 mg-90 mg (PreserVision AREDS) 1 cap PO BID HPI Comments Details: Faisal comes for follow-up after 6 months. He is accompanied by his . Continues to have some cognitive decline but overall doing well. Remains active. Denies any exertional chest pain or shortness of breath. Denies any orthopnea, PND, leg edema. No prolonged palpitation irregular heartbeat. No lightheadedness, syncope. No bleeding issues or neurologic events. 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 Mother Cancer Brother Cancer Social History Alcohol intake: former Patient Tobacco Use Status: Former Tobacco user Tobacco use type: Pipe Years Smoked: 20 +/- Review of Systems Const Denies chills, Denies fatigue, Denies fever(s), Denies frequent falls, Denies weakness, Denies weight gain and Denies weight loss ENT Denies dizziness Card Denies chest pain, Denies leg edema, Denies lightheadedness, Denies palpitations, Denies dyspnea, Denies dyspnea on exertion, Denies orthopnea and Denies other (loss of consciousness) Resp Denies cough, Denies dyspnea and Denies dyspnea on exertion GI Denies hematochezia and Denies change in stool character Musc Denies abnormal gait, Denies muscle weakness, Denies numbness, Denies radiating pain into limb and Denies tingling Neuro Denies abnormal gait, Denies dizziness, Denies frequent falls, Denies numbness, Denies tingling and Denies weakness Endo Denies fatigue and Denies palpitations Physical Exam Vital Signs: Last Vital Signs Pulse 61 02/20/24 12:47 BP 130/80 02/20/24 12:47 BMI result Body Mass Index 27.1 Const General: cooperative, comfortable, no acute distress, alert and awake Nutritional Appearance: average body habitus Orientation/consciousness: patient oriented x3 Limitations: no limitations Neck Neck: Yes trachea midline, Yes supple and Yes no JVD Resp Effort & Inspection: normal respiratory effort Auscultation: clear to auscultation bilaterally Cardio Jugular venous distension: no JVD Palpation: normal PMI Rate: regular rate Rhythm: regular rhythm Heart sounds: S1 normal heart sound present and S2 normal heart sound present GI Auscultation: normal bowel sounds Skin General skin exam: no rashes or lesions noted and ecchymosis Neuro General: patient oriented x3 and no focal motor deficits Extrem General: Yes no clubbing, cyanosis or edema Psych Appearance: grossly normal Office Procedures Cardiac Device Check Cardiac Device Check Details: Dual-chamber [place] pacemaker in place. Programmed in DDDR at 60 beats per minute. Atrial pacing 36% of time. Ventricular pacing 55% of time. Episodes of PMT noted. Atrial sensing is excellent. Ventricular sensing is borderline. Atrial ventricular capture thresholds are adequate. Pacing lead impedance is stable. Battery life is at 3.3 years [id number] Cardiac Device Check, pacemaker dual lead Procedure code (CPT) selection complete EKG Details: EKG shows normal sinus rhythm with ventricular pacing [id number], Complete Assessment & Plan Assessment & Plan (1) Paroxysmal atrial fibrillation: Code(s): I48.0 - Paroxysmal atrial fibrillation Category: Medical Plan: Paroxysmal atrial fibrillation without any overt symptoms. Continue current medical issues. No indication for antiarrhythmic drug therapy as he is not having significant burden of atrial fibrillation. Continue full oral anticoagulation, currently on Xarelto 20 mg daily. Semi annual renal function test should be pursued. (2) CAD (coronary artery disease): Comment: CAD status post stenting of dominant circumflex artery, July of 2003. Known chronically occluded ramus and 60% diagonal disease. Repeat catheterization in 2009 showed no changes Code(s): I25.10 - Atherosclerotic heart disease of [place] coronary artery without angina pectoris Category: Medical Plan: CAD with remote stenting of the circumflex artery. No current symptoms. No further interventions or invasive procedure testing required. Continue high-intensity statin therapy. Target goal LDL less than 70 mg/dL. Currently on Xarelto therapy and therefore would advised to avoid antiplatelet therapy to reduce bleeding risk. Continue aggressive blood pressure control. Advised to maintain activity level as tolerated. (3) Cardiac pacemaker in situ: Comment: Dual-chamber [employer]ony pacemaker placed, January 2017 for second-degree Mobitz type 2 av block with underlying left bundle-branch block Code(s): Z95.0 - Presence of cardiac pacemaker Category: Medical Plan: Cardiac pacemaker in-situ, working well. Reprogrammed for adequate function. Will follow remotely. Follow up in the clinic in 6 months time, sooner p.r.n.. Thank you for allowing me to partake in his care Coding Level of Care Code Est Pt Level 4 (90414) Complex EM visit Add On G2211 Diagnoses Paroxysmal atrial fibrillation I48.0 CAD (coronary artery disease) I25.10 Cardiac pacemaker in situ Z95.0 CPT Codes Cardiac Device Check - Cardiac Device 2: [id number] Cardiac Device Check, pacemaker dual lead ([id number]) EKG - CPT: 68955-[id number], Complete ([id number])
--- OUTSIDE RECORDS SUMMARY | 2024-02-20 14:40 | XMS_ITS ---
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 Press Operator Name Role Phone Yeyo Mason Primary Care Provider [phone] ALLERGIES Allergen (clinical drug ingredient) Drug/Non Drug Allergy documented on EMR Reaction Allergy Type Onset Date Status Substance with sulfonamide structure and antibacterial mechanism of action (substance) sulfa (uncoded) rash Allergy Active REASON FOR VISIT 6 MO F/U, Accompanied by MEDICATIONS Medication SIG (Take, Route, Frequency, Duration) Notes Start Date End Date Status Isosorbide Mononitrate ER 30 MG 1 tablet in the morning Orally Once a day for 30 day(s) Active Xarelto 20 MG 1 tablet with food Orally Once a day for 30 day(s) 02/08/2022 Active PreserVision AREDS - as directed Orally Active Memantine HCl 5 MG 1 tablet Orally Twic e a day Active Metoprolol Tartrate 50 MG TAKE ONE TABLE T BY MOUTH TWICE A DAY for 90 Active Atorvastatin Calcium 20 MG TAKE ONE TABLET BY MOUTH EVERY DAY for 90 Active Cipro 500 MG 1 tablet Orally ever y 12 hrs for 7 days 12/23/2021 Not-Taking PROBLEMS Problem Type ICD Code Onset Dates Problem Status W/U Status Risk SNOMED Code Notes Problem Angina pectoris (I20.9) Active confirmed [id number] VITAL SIGNS BMI 29.38 kg/m2 09/22/2023 Blood pressure systolic 132 mm Hg 09/22/19 24 Blood pressure diastolic 66 mm Hg 024 Height 69 in 09/22/2023 Weight 199 lbs 09/22/2023 weight is up 3 pounds since 01-01-23 Encounters Encounter Location Date Provider Diagnosis Yeyo Mason MD [address] [place] [address] [address] [place], [place] [phone] 09/22/2023 Yeyo Mason Angina pectoris I20. 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 Neurocognitive disorder with Lewy bodies is being seen by dr jay in [place] History of coronary artery stent placeme nt sounds as though it was positive stress test Next Appt Details Provider Name:Yeyo Esteban suzanne, 03/19/2024 07:30:00 AM, [address], [address], [place], [place], [phone], Provider Name:Yeyo Esteban suzanne, 03/26/2024 01:00:00 PM, [address], [address], [place], [place], [id number], Progress Notes * Examination Category Sub-Category Detail Notes General Examination GENERAL APPEARANCE: alert, w ell hydrated, in no distress HEAD: normocephalic HEART: no murmurs, rubs, ga llops, regular rate and rhythm LUNGS: no wheezes, rales, r honchi, good air movement, clear to auscultation bilaterally SKIN: good turgor
--- OUTSIDE RECORDS SUMMARY | 2024-02-20 14:40 | XMS_ITS | Data Portability ---
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 illnesses(HTN, DM, CA, chronic respiratorydisease, SC, CVA, arthritis (or RA), CKD, or liver disease): NoWeight loss > 5% in the past 6 months: noneScore: 1 (Robust: 0, Pre-frail: 1-2, Frail: >=3) Social History:[place]Educational level: HSLiving situation: [facility]ual orientation: straightPartnership status: marriedOccupation:retire d, [employer] [facility] IChildren: 2In contact with them? yesETOH: used to drink but quitConcern about amount of ETOH? noTobacco: no, used to smoke a pipeOther drugs: n/a FH: non contributoryFather left family when Maxwell was very young Anat Lees MD [address], [address], [email or web address] 08/27/2023 07:56:28 4 text/html Subjective:Since last visit: date: 08/2023 Falls/change in gait: noED visits/hospitalizations: noChanges in function: noChanges in medication: A little jaw pain, gave him a stress test, now on isosorbide.Was diagnosis from initial visit discussed?: Briefly.We talked about moving to a smaller place - she has always wanted to move to a smaller but he wanted to stay there. It is a lot to keep up for her. It is too much for her. Maxwell now says he would be open to moving. Faisal is wearing his hearing aides - which is amazing. Right ear was full of wax, he had it cleaned. Feeling okay overall.Mood: Says his mood is okay, denies anxiety. Anat Lees MD [address] [address], [place], [address], [email or web address] 10/18/2023 14:07:55
--- OUTSIDE RECORDS SUMMARY | 2024-02-20 14:40 | XMS_ITS ---
Author Organization Yeyo Mason MD Address [address] [place] [phone] Care Team Providers Care Bee Producer Name Role Phone Yeyo Mason Primary Care Provider [phone] REASON FOR VISIT fill out HCP and Mo MEDICATIONS Medication SIG (Take, Route, Frequency, Duration) Notes Start Date End Date Status Cipro 500 MG 1 tablet Orally ever y 12 hrs for 7 days 12/23/2021 Not-Taking Atorvastatin Calcium 20 MG TAKE ONE TABLET BY MOUTH EVERY DAY for 90 Active Metoprolol Tartrate 50 MG TAKE ONE TABLE T BY MOUTH TWICE A DAY for 90 Active Memantine HCl 5 MG 1 tablet Orally Twic e a day Active Xarelto 20 MG 1 tablet with food Orally Once a day for 30 day(s) 02/08/2022 Active PreserVision AREDS - as directed Orally Active Isosorbide Mononitrate ER 30 MG 1 tablet in the morning Orally Once a day for 30 day(s) Active VITAL SIGNS BMI 29.68 kg/m2 12/28/2023 Blood pressure systolic 130 mm Hg 12/28/19 24 Blood pressure diastolic 80 mm Hg 024 Height 69 in 12/28/2023 Weight 201 lbs 12/28/2023 201 Encounters Encounter Location Date Provider Diagnosis Yeyo Mason MD [address] [place] [phone] 12/28/2023 Yeyo Mason Memory loss R41.3 ; 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 and Advance care planning Z71.89 ASSESSMENTS Encounter Date Diagnosis Assessment Notes Treatment Notes Treatment Clinical Notes 12/28/2023 Memory loss (ICD-10 - R41.3) staying stable 12/28/2023 Neurocognitive disorder with Lewy bodies (ICD-10 - G31.83) seems stable 12/28/2023 Advance care plannin g (ICD-10 - Z71.89) discused MOLST with patient and , patient verbalized understanding, document signed and scanned into chart. PLAN OF TREATMENT Treatment Notes Assessment Notes Memory loss staying stable Neurocognitive disorder with Lewy bodies seems stable Advance care planning discused MOLST wit h patient and , patient verbalized understanding, document signed and scanned into chart. Next Appt Details Provider Name:Yeyo palacios, 03/19/2024 07:30:00 AM, [address] [place] [address], [phone], Provider Name:Yeyo palacios, 03/26/2024 01:00:00 PM, [address] [place] [address], [place], [place], [phone], Progress Notes * Examination Category Sub-Category Detail Notes General Examination GENERAL APPEARANCE: alert, w ell hydrated, in no distress HEART: regular rate and rhy thm , no murmurs, rubs, gallops LUNGS: no wheezes, rales, r honchi , good air movement , clear to auscultation bilaterally SKIN: good turgor
--- OUTSIDE RECORDS SUMMARY | 2024-02-20 14:41 | XMS_ITS | Patient Health Record ---
Author Organization Yeyo Mason MD Address [address] [place], [place] [id number] Care Team Providers Care Cross Country And Track And Field Coach Name Role Phone Yeyo Mason Primary Care Provider ALLERGIES Allergen (clinical drug ingredient) Drug/Non Drug Allergy documented on EMR Reaction Allergy Type Onset Date Status Substance with sulfonamide structure and antibacterial mechanism of action (substance) sulfa (uncoded) rash Allergy Active RESULTS Component Value Reference Range Notes Urine Culture Reviewed date:03/18/2023 06:45:36 PM Interpretation: Performing Lab:[address] [phone] Notes/Report: Urine Culture No growth. Complete Blood Count Auto Di ff Reviewed date:03/16/2023 12:40:51 PM Interpretation: Performing Lab:[address] [phone] Notes/Report: White Blood Count 7.2 4.8-10.8 X10*3/uL Red Blood Count 4.90 4.60-5.80 X10*6/uL Hemoglobin 15.8 14.0-18.0 g/dl Hematocrit 46.0 42.0-52.0 % Mean Corpuscular Volume 93.9 80.0-98.0 fL Mean Corpuscular Hemoglobin 32.2 27.0-33.0 pg Mean Corpuscular HGB Conc 34.3 31.0-36.0 g/dl Red Cell Distribution Width 12.7 11.0-16.0 % Platelet Count 167 160-400 X10*3/uL Mean Platelet Volume 9.4 9.4-12.4 fL Neutrophils Percent Auto 48.5 45-73 % Imm Gran Pct Auto 0.1 0.0-0.4 % Lymphocytes Percent Auto 38.0 20-40 % Monocytes Percent Auto 11.7 2-11 % Eosinophils Percent Auto 1.1 0-4 % Basophils Percent Auto 0.6 0-2 % NRBC Pct Auto 0.0 0.0-0.2 /100WBC Neutrophils Absolute Auto 3.5 2.0-8.3 x10*3/u L Imm Gran Abs Auto 0.01 0.00-0.03 X10*3/uL Lymphocytes Absolute Auto 2.8 1.2-4.9 X10*3/u L Monocytes Absolute Auto 0.9 0.1-1.2 X10*3/uL Eosinophils Absolute Auto 0.1 0.0-0.4 X10*3/u L Basophils Absolute Auto 0.0 0.0-0.2 X10*3/uL NRBC Abs Auto 0.000 0.0-0.012 X10*3/uL Comprehensive [place]. Panel Fa st Reviewed date:03/16/2023 12:44:30 PM Interpretation: Performing Lab:[facility], [address] [place] [phone] Notes/Report: Sodium 141 135-145 mmol/L Potassium 4.0 3.3-5.1 mmol/L Chloride 108 96-108 mmol/L Carbon Dioxide 26 22-29 mmol/L Anion Gap 11 12-20 Blood Urea Nitrogen 15 9-16 mg/dL Creatinine 0.95 0.5-1.4 mg/dL Estimated Glomerular Filt Rate > 60 NOTE: For -Mosotho individuals, multiply the result by 1.210. Chronic Kidney Disease: Estimated GFR < 60 mL/min/1.73m2 Severe Kidney Disease: Estimated GFR < 15 mL/min/1.73m2 Glucose Fasting 101 60-99 mg/dL A fasting glucose from 100-125 mg/dl is considered impaired (pre-diabetes). Calcium 8.8 8.4-10.2 mg/dL Bilirubin Total 0.9 0.0-1.0 mg/dL Aspartate Amino Transferase 20 5-37 U/L Alanine Aminotransferase 24 0-40 U/L Total Protein 6.4 6.5-8.0 g/dL Albumin Level 4.0 3.5-5.0 g/dL Alkaline Phosphatase 77 39-117 U/L Lipid Panel Reviewed date:03/16/2023 12:35:17 PM Interpretation: Performing Lab:[address] [phone] Notes/Report: Triglycerides 87 <150 mg/dL Desirable Triglyceride: less than 150 mg/dL Borderline High Triglyceride 150-199 mg/dL High Triglyceride: 200-499 mg/dL Very High Triglyceride: greater than or equal to 5OO mg/dL Cholesterol 137 <200 mg/dL Desirable Cholesterol: less than 200 mg/dL Borderline High Cholesterol: 200-239 mg/dL High Cholesterol: greater than 239 mg/dL LDL Cholesterol Calculated 77 <100 mg/dL Desirable LDL: less than 100 mg/dL Near Optimal/Above Optimal LDL: 110-129 mg/dL Borderline High LDL: 130-159 mg/dL High LDL: 160-189 mg/dL Very High LDL: greater than or equal to 190 mg/dL HDL Cholesterol 43 >40 mg/dL Desirable HDL: greater than 40 mg/dL Note: This HDL assay may give artificially low results in patients with liver disease. PSA,Total (Free>4and<10) Reviewed date:03/16/2023 12:31:52 PM Interpretation: Performing Lab:[address] [phone] Notes/Report: PSA,Total (Free>4and<10) 1.17 0.00-4.00 ng/mL A Free PSA was not performed: The percentage of Free PSA can be used to enhance the differentiation of prostate cancer from benign prostatic disease in subjects whose PSA levels are between 4.0 and 10.0 ng/mL. For subjects whose PSA levels are below 4.0 or above 10.0 ng/mL, the risk of prostate cancer is determined on the basis of the PSA alone. Therefore the % Free PSA is recommended only for those subjects whose PSA levels are between 4.0 and 10.0 ng/mL. PSA methodology: Morris Alinity i Chemiluminescent Microparticle Immunoassay (CMIA) UA ClnCatch+Micro w/rflx Cul t Reviewed date:03/23/2023 02:20:43 PM Interpretation:see back 03-23-2023 Performing Lab:[facility], [address] [place] [phone] Notes/Report: [id number] Urine, Clean Catch Color Urine Yellow Appearance Urine Clear PH 6.5 5.0-9.0 Glucose Urine UA Negative Negative mg/dL Urine Blood Moderate (2+) Negative Specific Coyle - Urine 1.020 1.005-1.025 Urine Protein Negative Neg-Trace mg/dL Urine Ketones Negative Negative mg/dL Nitrite Urine Negative Negative Leukocyte Esterase Urine Small (1+) Negative RBC Urine >20 0-2 /HPF WBC Urine 6-10 0-5 /HPF Squamous Epithelial Cell Urine 0-2 0-2 /HPF Bacteria Urine None Seen None Seen Hyaline Casts Urine 0-2 0-2 /LPF Hold Reinaldo Reviewed date:09/15/2023 03:26:44 PM Interpretation: Performing Lab:[facility], [address] [place] [phone] Notes/Report: Daylin Najera See Note Specimen held untested for 24 hours; Call to request Chemistry testing. Liver Panel Reviewed date:09/15/2023 03:29:24 PM Interpretation: Performing Lab:[address] [phone] Notes/Report: Bilirubin Total 0.8 0.0-1.0 mg/dL Bilirubin Direct 0.2 0.0-0.5 mg/dL Aspartate Amino Transferase 17 5-37 U/L Alanine Aminotransferase 24 0-40 U/L Total Protein 6.4 6.5-8.0 g/dL Albumin Level 4.0 3.5-5.0 g/dL Alkaline Phosphatase 80 39-117 U/L Lipid Panel with Reflex Reviewed date:09/15/2023 03:38:04 PM Interpretation: Performing Lab:[facility], [address] [place] [phone] Notes/Report: Triglycerides 87 <150 mg/dL Desirable Triglyceride: less than 150 mg/dL Borderline High Triglyceride 150-199 mg/dL High Triglyceride: 200-499 mg/dL Very High Triglyceride: greater than or equal to 5OO mg/dL Cholesterol 128 <200 mg/dL Desirable Cholesterol: less than 200 mg/dL Borderline High Cholesterol: 200-239 mg/dL High Cholesterol: greater than 239 mg/dL LDL Cholesterol Calculated 70 <100 mg/dL Desirable LDL: less than 100 mg/dL Near Optimal/Above Optimal LDL: 110-129 mg/dL Borderline High LDL: 130-159 mg/dL High LDL: 160-189 mg/dL Very High LDL: greater than or equal to 190 mg/dL HDL Cholesterol 41 >40 mg/dL Desirable HDL: greater than 40 mg/dL Note: This HDL assay may give artificially low results in patients with liver disease. REASON FOR REFERRAL No Information MEDICATIONS Medication SIG (Take, Route, Frequency, Duration) Notes Start Date End Date Status PreserVision AREDS - as directed Orally Active Isosorbide Mononitrate ER 30 MG 1 tablet in the morning Orally Once a day for 30 day(s) Active Cipro 500 MG 1 tablet Orally [...] a day for 30 day(s) 02/08/2022 Active IMMUNIZATIONS Vaccine Route Administration Date Status Comme nts Flu Vaccine Unknown 11/16/2011 Administered [facility] Fluarix Quadrivalent IM Intramuscular 12/01/2014 Administered Flu Vaccine Unknown 11/26/2015 Administered thinks abou t 4 days ago at [facility] Flu Vaccine IM Intramuscular 11/21/2016 Administered pt wa s given the vaccine at [facility]. Tetanus Unknown 03/13/2017 Administered Pt was given the vaccine in [facility] urgent care Influenza High Dose IM Intramuscular 10/26/2017 Administered pt was given th e vaccine at [place] Fluarix Quadrivalent Unknown 11/13/2017 Administered [facility] Fluarix Quadrivalent Unknown 11/01/2018 Administered [facility] Influenza High Dose Unknown 11/18/2019 Administered [facility] SARS-COV-2 Moderna Unknown 03/17/2020 Administered SARS-COV-2 Moderna Unknown 04/14/2020 Administered SARS-COV-2 Moderna Unknown 12/16/2020 Administered Influenza High Dose Unknown 11/04/2020 Administered Influenza High Dose Unknown 11/30/2021 Administered [facility] Flu Vaccine Unknown 11/05/2013 Refused PPSV23 (Pnemovax) Unknown 11/07/2013 Refused PPSV23 (Pnemovax) Unknown 05/15/2014 Refused Shingles Unknown 12/08/2014 Refused PPSV23 (Pnemovax) Unknown 12/08/2014 Refused Prevnar 13 Unknown 01/20/2017 Refused PPSV23 (Pnemovax) Unknown 03/23/2017 Refused Prevnar 13 Unknown 03/23/2017 Refused PPSV23 (Pnemovax) Unknown 07/03/2018 Refused Prevnar 13 Unknown 07/03/2018 Refused PPSV23 (Pnemovax) Unknown 07/15/2019 Refused Prevnar 13 Unknown 07/15/2019 Refused SOCIAL HISTORY Tobacco Use: Social History Observation Description Date Details (start date - stop date) Former Smoker NA - NA Sex Assigned At : Social History Observation Description Sex Assigned At Unknown Tobacco Use/Smoking Question Answer Notes Patient is a former smoker How long has it been since y ou last smoked? > 10 years Additional Findings: Tobacco Non-User Fo rmer smoker, currently using no form of tobacco Alcohol Screen Question Answer Notes Did you have a drink containing alcohol in the p ast year? 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) Active confirmed 96931965 Problem Lymphocytosis (D72.820) Active confirmed 70589425 Problem Essential hypertension (I10) Active confirmed 67615107 Problem Memory loss (R41.3) Active confirmed 48 599331 Problem History of coronary artery stent placement (Z95.5) Active confirmed 959488213 Problem Angina pectoris (I20.9) Active confirmed 484996454 Problem History of cardiac pacemaker (Z95.0) Active confirmed 394562846 Problem Atrial fibrillation, unspecified type (I48.91) Active confirmed 03430536 Problem LBBB (left bundle branch block) (I44.7) Active confirmed 72921720 Problem 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) Active confirmed 775944967 Problem Pure hypercholesterolemia (E78.00) Active confirmed 776363952 Problem Elevated PSA (R97.20) Active confirmed 884999330 Problem CHRISTINE (obstructive sleep apnea) (G47.33) Active confirmed 51984494 Problem Hallucination (R44.3) Active confirmed 0369497 Problem Elevated serum cholesterol (E78.9) Active confirmed 083515975 Problem 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 213816022 VITAL SIGNS Blood pressure diastolic 80 mm Hg 12/28/2023 201 Height 69 in 12/28/2023 201 Blood pressure systolic 130 mm Hg 12/28/2023 201 Weight 201 lbs 12/28/2023 201 BMI 29.68 kg/m2 12/28/2023 201 Encounters Encounter Location Date Provider Diagnosis Yeyo Mason MD [address] [place] [id number] 03/23/2023 Yeyo Mason Essential hypertensi on I10 ; Pure hypercholesterolemia E78.00 ; Elevated PSA R97.20 ; Atherosclerotic heart disease of morongo coronary artery without angina pectoris I25.10 ; 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 and Advance care planning Z71.89 Yeyo Mason MD [address] [place] [id number] 08/04/2023 Yeyo Mason MD [address] [place] [id number] 02/28/2023 Yeyo Mason Hallucination R44.3 ; 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 and URI, acute J06.9 ASSESSMENTS Encounter Date Diagnosis Assessment Notes Treatment Notes Treatment Clinical Notes 03/23/2023 Essential hypertensi on (ICD-10 - I10) bp at goal 03/23/2023 Pure hypercholestero lemia (ICD-10 - E78.00) well controllled on med 03/16/2023 Essential hypertensi on (ICD-10 - I10) 03/16/2023 Elevated PSA (ICD-10 - R97.20) 09/15/2023 Pure hypercholestero lemia (ICD-10 - E78.00) 09/22/2023 Angina pectoris (ICD -10 - I20.9) need the results from stress test in august/ that he get some nitro and he doesn't want any/ REQUEST MADE TO HIM @ [facility], Total time spent on the date of the encounter is 35 minutes including both face to face time spent and time spent reviewing documentation, and counseling the patient. 09/22/2023 Neurocognitive disor juno with Lewy bodies (ICD-10 - G31.83) is being seen by dr jay in [place] 12/28/2023 Memory loss (ICD-10 - R41.3) staying stable 12/28/2023 Neurocognitive disor juno with Lewy bodies (ICD-10 - G31.83) seems stable 02/28/2023 Hallucination (ICD-1 0 - R44.3) sounds stable. 02/28/2023 Neurocognitive disor juno with Lewy bodies (ICD-10 - G31.83) stable 03/23/2023 Elevated PSA (ICD-10 - R97.20) has had a turp. followed by urology 03/16/2023 Pure hypercholestero lemia (ICD-10 - E78.00) 09/22/2023 History of coronary artery stent placement (ICD-10 - Z95.5) sounds as though it was positive stress test 12/28/2023 Advance care plannin joi (ICD-10 - Z71.89) discused MOLST with patient and , patient verbalized understanding, document signed and scanned into chart. 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 not having any chest pain 03/16/2023 Lymphocytosis (ICD-1 0 - D72.820) 03/23/2023 Neurocognitive disor juno with Lewy bodies (ICD-10 - G31.83) had a long discussion with he and his about the medicines that are unhelpful and that there is no way of knnowing a time frame of what the disease will do 03/23/2023 Atrial fibrillation, unspecified type (ICD-10 - I48.91) well controlled rate and taking anticoags 03/23/2023 Microscopic hematuri a (ICD-10 - R31.29) he is going to see dr garcia in next few weeks and will discuss it with him PLAN OF TREATMENT Pending Test Test Name Order Date Electrocardiogram (EKG) 12/11/2015 Electrocardiogram (EKG) 12/23/2016 Electrocardiogram (EKG) 01/10/2019 Next Appt Details Provider Name:Yeyo palacios, 03/19/2024 07:30:00 AM, [address] [place] [address], [address], [place], [place], [phone], Provider Name:Yeyo palacios, 03/26/2024 01:00:00 PM, [address] [place] [address], [address], [place], [place], [phone], Insurance Providers Payer Name Payer Address Payer Phone Subscriber Number Group Number Insured Name Patient Relationship to Insured Coverage Start Date Coverage End Date [employer] [address] [place] [address] [id number] Faisal Leiva Self - patient is the insured [employer] [id number] [place] [phone] [id number] Faisal Leiva Self - patient is the insured MEDICAL (GENERAL) HISTORY Medical History History ICD Code angioplasty 2004 colonoscopy 2008; colonoscop y - 01/20/2014 Dr. Sanchez - no further colonoscopies necessary; HX of tubular adenoma of colon Hx Bloody Stools
--- OUTSIDE RECORDS SUMMARY | 2024-02-20 14:41 | XMS_ITS ---
Author Organization Yeyo Mason MD Address [address] [place] [id number] Care Team Providers Care Recruiting Team Lead Name Role Phone Yeyo Mason Primary Care Provider [phone] RESULTS Component Value Reference Range Notes Liver Panel Reviewed date:09/15/2023 03:29:24 PM Interpretation: Performing Lab:[facility], [address] [place] [phone] Notes/Report: Bilirubin Total 0.8 0.0-1.0 mg/dL Bilirubin Direct 0.2 0.0-0.5 mg/dL Aspartate Amino Transferase 17 5-37 U/L Alanine Aminotransferase 24 0-40 U/L Total Protein 6.4 6.5-8.0 g/dL Albumin Level 4.0 3.5-5.0 g/dL Alkaline Phosphatase 80 39-117 U/L Lipid Panel with Reflex Reviewed date:09/15/2023 03:38:04 PM Interpretation: Performing Lab:[facility], [address] [place] [address] Notes/Report: Triglycerides 87 <150 mg/dL Desirable Triglyceride: [...] in patients with liver disease. REASON FOR VISIT FASTING LIPIDS Encounters Encounter Location Date Provider Diagnosis Yeyo Mason MD [address] [place] [address] [place] [id number] 09/15/2023 Yeyo Mason Pure hypercholestero lemia E78.00 ASSESSMENTS Encounter Date Diagnosis Assessment Notes Treatment Notes Treatment Clinical Notes 09/15/2023 Pure hypercholestero lemia (ICD-10 - E78.00) PLAN OF TREATMENT Next Appt Details Provider Name:Yeyo palacios, 03/19/2024 07:30:00 AM, [address] [place] [address], Suite [facility], [place], [place], [phone], Provider Name:Yeyo palacios, 03/26/2024 01:00:00 PM, [address] [place] [address], Suite [facility], [place], [place], [phone],
== END 2024-02-20 13:13 | disposition home or self-care (01) ==
PROVIDERS: PCP Internal Medicine; Visit Provider Internal Medicine Cardiovascular Disease
DX: I48.0 Paroxysmal atrial fibrillation (principal); I25.10 Atherosclerotic heart disease of native coronary artery without angina pectoris; Z95.0 Presence of cardiac pacemaker
CPT/HCPCS: 93010; 93280; 99214; G2211

== ENCOUNTER → 2024-02-20 12:37 | Outpatient (BNVA) | payer MEDICARE, SELFPAY | PROVIDERS: PCP Internal Medicine; Visit Provider Internal Medicine Cardiovascular Disease | DX: Z45.018 Encounter for adjustment and management of other part of cardiac pacemaker (principal); I48.0 Paroxysmal atrial fibrillation; I25.10 Atherosclerotic heart disease of native coronary artery without angina pectoris; R94.31 Abnormal electrocardiogram [ECG] [EKG] | CPT/HCPCS: 93005; 93280; 99212 ==

== ENCOUNTER → 2024-02-22 23:59 | Outpatient (BNV) | payer MEDICARE, SELFPAY ==
--- NOTE | 2024-02-27 13:42 | MHC.OFFVIS ---
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 Mother Cancer Brother Cancer Social History Alcohol intake: former Patient Tobacco Use Status: Former Tobacco user Tobacco use type: Pipe Years Smoked: 20 +/- Office Procedures Cardiac Device Check Cardiac Device Check Details: Remote pacemaker report generated 02/21/2023. Pacemaker function is adequate [id number] Cardiac Device Interrogation, pacemaker Procedure code (CPT) selection complete Assessment & Plan Assessment & Plan (1) Cardiac pacemaker in situ: Comment: Dual-chamber [facility] pacemaker placed, January 2017 for second-degree Mobitz type 2 av block with underlying left bundle-branch block Code(s): Z95.0 - Presence of cardiac pacemaker Category: Medical Plan: See above Coding Level of Care Code Procedure Only Diagnoses Cardiac pacemaker in situ Z95.0 CPT Codes Cardiac Device Check - Cardiac Device 12: [id number] Cardiac Device Interrogation, pacemaker ([id number])
== END ==
PROVIDERS: PCP Internal Medicine; Visit Provider Internal Medicine Cardiovascular Disease
DX: I44.1 Atrioventricular block, second degree (principal); Z95.0 Presence of cardiac pacemaker
CPT/HCPCS: 93294

== ENCOUNTER 2024-03-19 11:11 | Outpatient (REF) | payer MEDICARE, SELFPAY ==
[2024-03-19 11:14] LABS: MANUAL DIFF FLAG NO
[2024-03-19 11:29] LABS: Appearance Urine Clear; Color Urine Yellow; Glucose Urine UA Negative (Negative); Leukocyte Esterase Urine Trace (Negative); Nitrite Urine Negative (Negative); Specific Gravity - Urine 1.025 (1.005-1.025); UMIC TRIGGER UACC YES; Urine Blood Negative (Negative); Urine Ketones Negative (Negative); Urine Protein Negative (Neg-Trace)
[2024-03-19 11:31] LABS: Basophils Percent Auto 0.5 % (0-2); Eosinophils Percent Auto 0.7 % (0-4); Hemoglobin 15.3 g/dl (14.0-18.0); Imm Gran Abs Auto 0.01 X10*3/uL (0.00-0.03); Imm Gran Pct Auto 0.2 % (0.0-0.4); Lymphocytes Absolute Auto 2.2 X10*3/uL (1.2-4.9); Lymphocytes Percent Auto 37.2 % (20-40); Mean Corpuscular HGB Conc 33.3 g/dl (31.0-36.0); Mean Corpuscular Hemoglobin 32.3 pg (27.0-33.0); Mean Platelet Volume 9.5 fL (9.4-12.4); Monocytes Absolute Auto 0.7 X10*3/uL (0.1-1.2); Monocytes Percent Auto 10.9 % (2-11); Neutrophils Percent Auto 50.5 % (45-73); Platelet Count 153 X10*3/uL (160-400); Red Blood Count 4.74 X10*6/uL (4.60-5.80); Red Cell Distribution Width 12.7 % (11.0-16.0)
[2024-03-19 11:48] LABS: Bacteria Urine None Seen (None Seen); Hyaline Casts Urine 0-2 /LPF (0-2); RBC Urine 0-2 /HPF (0-2); Squamous Epithelial Cell Urine 0-2 /HPF (0-2); WBC Urine 0-5 /HPF (0-5)
[2024-03-19 11:55] LABS: Alanine Aminotransferase 19 U/L (0-40); Alkaline Phosphatase 78 U/L (39-117); Anion Gap 8 (12-20); Aspartate Amino Transferase 24 U/L (5-37); Bilirubin Total 1.2 mg/dL (0.0-1.0); Blood Urea Nitrogen 19 mg/dL (9-16); Calcium 8.6 mg/dL (8.4-10.2); Carbon Dioxide 27 mmol/L (22-29); Chloride 113 mmol/L (96-108); Cholesterol 128 mg/dL (<200); Estimated Glomerular Filt Rate > 60; Glucose Fasting 96 mg/dL (60-99); HDL Cholesterol 44 mg/dL (>40); LDL Cholesterol Calculated 68 mg/dL (<100); Sodium 144 mmol/L (135-145); Total Protein 6.6 g/dL (6.5-8.0); Triglycerides 82 mg/dL (<150)
--- OUTSIDE RECORDS SUMMARY | 2024-03-19 12:47 | XMS_ITS ---
Author Organization Yeyo Mason MD Address [address] [place] [phone] Care Team Providers Care Game Manager Name Role Phone Yeyo Mason Primary Care Provider Allergies Allergen (clinical drug ingredient) Drug/Non Drug Allergy documented on EMR Reaction Allergy Type Onset Date Status Substance with sulfonamide structure and antibacterial mechanism of action (substance) sulfa (uncoded) rash Allergy Active REASON FOR VISIT 6 MO F/U, Accompanied by Medications Medication SIG (Take, Route, Frequency, Duration) Notes [...] 12 hrs for 7 days 12/23/2021 Not-Taking Problems Problem Type SNOMED Code ICD Code Onset Dates Problem Status W/U Status Risk Notes Problem [id number] Angina pectoris (I20.9) Active confirmed Vital Signs Blood pressure systolic 132 mm Hg 09/22/19 24 Blood pressure diastolic 66 mm Hg 024 Height 69 in 09/22/2023 Weight 199 lbs 09/22/2023 BMI 29.38 kg/m2 09/22/2023 weight is up 3 pounds since 01-01-23 Encounters Encounter Location Date Provider Diagnosis Yeyo Mason MD [address] [place] [address] [address] [place], [place] [phone] 09/22/2023 Yeyo Mason Angina pectoris I20. 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 09/22/2023 Neurocognitive disorder with Lewy bodies (ICD-10 - G31.83) is being seen by dr jay in [place] 09/22/2023 History of coronary artery stent placement (ICD-10 - Z95.5) sounds as though it was positive stress test Plan Of Treatment Treatment Notes Assessment Notes Angina pectoris need the results fro m stress test in august/ suggested that he get some nitro and he doesn't want any/ REQUEST MADE TO HIM @ [facility], Total time spent on the date of the encounter is 35 minutes including both face to face time spent and time spent reviewing documentation, and counseling the patient. Neurocognitive disorder with Lewy bodies is being seen by dr jay in [place] History of coronary artery stent placeme nt sounds as though it was positive stress test Next Appt Details Provider Name:Yeyo Esteban ier, 03/26/2024 01:00:00 PM, [address], [address], [place], [place], [phone], Progress Notes * Faisal GARCIA MDOB:[birth year] (87 yo M)Acc No.[id number]:09/22/2023 Progress Notes Patient:?VietMaxwellFaisal Shayla Provider:?Yeyo Mason MD :1935???Age:87 Y???Sex:Male Mitul e:09/22/2023 Address:[address] [place] [address] [id number] Subjective: * Chief Complaints: * ???6 MO F/UAccompanied by marcos miramontes * HPI: ???Symptom(s):? vernell is a 87 yo male here for 6 month follow up visit. had been at walk in for ear wax. * ROS:?General/Constitutional:?Denies?Chills.?Denies?Fatigue.?Denies?Fever.?Denies?Headache.?ENT:?Patient denies?decreased sense of smell , any loss of taste , sore throat.?Denies?Sore throat.?Respiratory:?Denies?Cough.?Denies?Shortness of breath at rest.?Denies?Shortness of breath with exertion.?Cardiovascular:?Comments?had jaw pain and dr gay did stress test that was okay.?Gastrointestinal:?Denies?Diarrhea.?Denies?Nausea.?Musculoskeletal:?Patient denies?muscle aches.?Peripheral Vascular:?Patient denies?red and blue toes.? * Medical History:? * Surgical History:? * Hospitalization/Major Diagno stic Procedure:? * Medications:?TakingIsosorbid e Mononitrate ER 30 MG Tablet Extended Release 24 Hour 1 tablet in the morning Orally Once a dayPreserVision AREDS - Capsule as directed Orally Memantine HCl 5 MG Tablet 1 tablet Orally Twice a dayXarelto 20 MG Tablet 1 tablet with food Orally Once a dayMetoprolol Tartrate 50 MG Tablet TAKE ONE TABLET BY MOUTH TWICE A DAY Atorvastatin Calcium 20 MG Tablet TAKE ONE TABLET BY MOUTH EVERY DAY Taking Isosorbide Mononitrate ER 30 MG Tablet Extended Release 24 Hour 1 tablet in the morning Orally Once a dayTaking PreserVision AREDS - Capsule as directed Orally Taking Memantine HCl 5 MG Tablet 1 tablet Orally Twice a dayTaking Xarelto 20 MG Tablet 1 tablet with food Orally Once a dayTaking Metoprolol Tartrate 50 MG Tablet TAKE ONE TABLET BY MOUTH TWICE A DAY Taking Atorvastatin Calcium 20 MG Tablet TAKE ONE TABLET BY MOUTH EVERY DAY Not-Taking/PRNCipro 500 MG Tablet 1 tablet Orally every 12 hrsNot-Taking/PRN Cipro 500 MG Tablet 1 tablet Orally every 12 hrsDiscontinuedIsosorbide Mononitrate 10 MG Tablet 1 tablet Orally Twice a dayMedication List reviewed and reconciled with the patientDiscontinued Isosorbide Mononitrate 10 MG Tablet 1 tablet Orally Twice a dayMedication List reviewed and reconciled with the patient * Allergies:?sulfa: keyshas[Macho wheeler Verified] Objective: * Vitals:?Ht: 69, Wt:199, BMI: 29.38, BP:132/66 weight is up 3 pounds since 01-01-23. * ???Past Orders: ???Lab:Liver Panel (Order Da te - 09/15/2023) (Collection Date - 09/15/2023) ? Value Reference Range ?Bilirubin Total 0.8 0.0- 1.0 - mg/dL ?Bilirubin Direct 0.2 0.0 -0.5 - mg/dL ?Aspartate Amino Transferase 17 5-37 - U/L ?Alanine Aminotransferase 24 0-40 - U/L ?Total Protein 6.4 L 6.5-8. 0 - g/dL ?Albumin Level 4.0 3.5-5. 0 - g/dL ?Alkaline Phosphatase 80 39-117 - U/L ???Lab:Lipid Panel with Refl ex (Order Date - 09/15/2023) (Collection Date - 09/15/2023) ? Value Reference Range ?Triglycerides 87 <150 - mg/dL ?Cholesterol 128 <200 - m g/dL ?LDL Cholesterol Calculated 70 <100 - mg/dL ?HDL Cholesterol 41 >40 - mg/dL * Examination: ???General Examination: ?GENERAL APPEARANCE:? alert, well hydrated, in no distress .?HEAD:? normocephalic.?SKIN:? good turgor.?HEART:? no murmurs, rubs, gallops, regular rate and rhythm.?LUNGS:? no wheezes, rales, rhonchi, good air movement, clear to auscultation bilaterally.? Assessment: * Assessment: 1.?Angina pectoris - I20.9 ( Primary)?2.?Neurocognitive disorder with Lewy bodies - G31.83?3.?History of coronary artery stent placement - Z95.5? Plan: * Treatment: 2.?Neurocognitive disorder w ith Lewy bodies? Notes: is being seen by dr jay in [place].?? 3.?History of coronary arter y stent placement? Notes: sounds as though it was positive stress test.?? * Procedure Codes:? * * Sign off status: Completed true * Provider:?Yeyo Mason MD Date:?0 09/22/2023 Generated for Saturnino gallegos/Sumeet/eTarmindaitting on:?03/19/2024 12:47 PM EST History and Physical Notes * HPI (History of Present Illness) Category Sub-Category Detail Notes Category Not es Symptom(s) vernell is a 87 yo male here for 6 month follow up visit. had been at walk in for ear wax Examination Category Sub-Category Detail Notes Category Not es General Examination GENERAL APPEARANCE: alert, w ell hydrated, in no distress HEAD: normocephalic HEART: no murmurs, rubs, ga llops, regular rate and rhythm LUNGS: no wheezes, rales, r honchi, good air movement, clear to auscultation bilaterally SKIN: good turgor
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
--- OUTSIDE RECORDS SUMMARY | 2024-03-19 12:47 | XMS_ITS ---
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 Role Phone Yeyo Mason Primary Care Provider [phone] Results Component Value Reference Range Notes Complete Blood Count Auto Di ff (Not yet reviewed by provider) Interpretation: Performing Lab:[facility], [address] [place] [phone] Notes/Report: White Blood Count 6.0 4.8-10.8 X10*3/uL [...] X10*3/uL NRBC Abs Auto 0.000 0.0-0.012 X10*3/uL UA ClnCatch+Micro w/rflx Cul t (Not yet reviewed by provider) Interpretation: Performing Lab:[facility], [address] [place] [phone] Notes/Report: Urine, Clean Catch Color Urine Yellow Appearance Urine Clear PH 6.0 5.0-9.0 Glucose Urine UA Negative Negative mg/dL Urine Blood Negative Negative Specific [place] - Urine 1.025 1.005-1.025 Urine Protein Negative [...] Date Provider Diagnosis Yeyo Mason MD [address] [place], [place] [phone] 03/19/2024 Yeyo Mason Blood tests for rout [...] (ICD-1 0 - D72.820) Plan Of Treatment Pending Test Test Name Order Date Complete Blood Count Auto Diff 5 Comprehensive [place]. Panel Fast 5 Lipid Panel 03/19/2024 PSA,Total (Free>4and<10) 03/19/2024 UA ClnCatch+Micro w/rflx Cult 03/19/2024 Next Appt Details Provider Name:Yeyo Esteban ier, 03/26/2024 01:00:00 PM, [address] [facility], [address], [place], [place], [phone], Progress Notes * Faisal GARCIA MDOB:[birth year] (88 yo M)Acc No.[id number]:03/19/2024 Progress Note Patient:?Faisal GARCIA Provider:?Yeyo Mason MD :1935???Age:88 Y???Sex:Male Mitul e:03/19/2024 Address:[address] [place] [address] [id number] Subjective: * Chief Complaints: * ???1. FASTING LABS. * Medical History:? Objective: * Vitals:? Assessment: * Assessment: 1.?Blood tests for routine g eneral physical examination - Z00.00 (Primary)???2.?Essential hypertension - I10???3.?Pure hypercholesterolemia - E78.00???4.?Elevated PSA - R97.20???5.?Lymphocytosis - D72.820??? Plan: * Treatment: 2.?Essential hypertension?LAB: Complete Blood Count Auto Diff (Collection Date & Time - 03/19/2024 07:30 AM) ?LAB: Comprehensive [place]. Panel Fast ?LAB: Lipid Panel ?LAB: PSA,Total (Free>4and<10) ?LAB: UA ClnCatch+Micro w/rflx Cult (Collection Date & Time - 03/19/2024 07:30 AM) 3.?Pure hypercholesterolemia ?LAB: Complete Blood Count Auto Diff (Collection Date & Time - 03/19/2024 07:30 AM) ?LAB: Comprehensive [place]. Panel Fast ?LAB: Lipid Panel ?LAB: PSA,Total (Free>4and<10) ?LAB: UA ClnCatch+Micro w/rflx Cult (Collection Date & Time - 03/19/2024 07:30 AM) 4.?Elevated PSA?LAB: Complete Blood Count Auto Diff (Collection Date & Time - 03/19/2024 07:30 AM) ?LAB: Comprehensive [place]. Panel Fast ?LAB: Lipid Panel ?LAB: PSA,Total (Free>4and<10) ?LAB: UA ClnCatch+Micro w/rflx Cult (Collection Date & Time - 03/19/2024 07:30 AM) 5.?Lymphocytosis?LAB: Complete Blood Count Auto Diff (Collection Date & Time - 03/19/2024 07:30 AM) ?LAB: Comprehensive [place]. Panel Fast ?LAB: Lipid Panel ?LAB: PSA,Total (Free>4and<10) ?LAB: UA ClnCatch+Micro w/rflx Cult (Collection Date & Time - 03/19/2024 07:30 AM) * Procedure Codes:?12802 VENIP UNCT, ROUTINE* * * The named appointment provid er may or may not be the originator of this progress note, and it is not deemed complete until electronically signed by the appointment provider. Sign off status: Pending * Provider:?Yeyo Mason MD Date:?0 03/19/2024 Generated for Saturnino gallegos/Sumeet/George on:?03/19/2024 12:47 PM EST
--- OUTSIDE RECORDS SUMMARY | 2024-03-19 12:47 | XMS_ITS ---
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 Phone Yeyo Mason Primary Care Provider REASON FOR VISIT fill out HCP and Mo Medications Medication SIG (Take, Route, Frequency, Duration) [...] Once a day for 30 day(s) Active Vital Signs Blood pressure systolic 130 mm Hg 12/28/19 24 Blood pressure diastolic 80 mm Hg 024 Height 69 in 12/28/2023 Weight 201 lbs 12/28/2023 BMI 29.68 kg/m2 12/28/2023 201 Encounters Encounter Location Date Provider Diagnosis Yeyo Mason MD [address] [place] [address] [address] [place], [place] [phone] 12/28/2023 Yeyo Mason Memory loss R41.3 ; 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 Plan Of Treatment Treatment Notes Assessment Notes Memory loss staying stable Neurocognitive disorder with Lewy bodies seems stable Advance care planning discused MOLST wit h patient and , patient verbalized understanding, document signed and scanned into chart. Next Appt Details Provider Name:Yeyo arandar, 03/26/2024 01:00:00 PM, [address] [place] [address], [address], [place], [place], [phone], Progress Notes * Faisal GARCIA MDOB:[birth year] (88 yo M)Acc No.[id number]:12/28/2023 Progress Notes Patient:?Faisal GARCIA Provider:?Yeyo Mason MD :1935???Age:88 Y???Sex:Male Mitul e:12/28/2023 Address:[address] [place] [address] [id number] Subjective: * Chief Complaints: * ???1. fill out HCP and Mo. * HPI: ???Symptom(s):? patient is a 88 yo male here to complete paperwork, for advanced care planning. * ROS:?General/Constitutional:?Patient denies?chills, fatigue, fever, headache.?ENT:?Patient denies?decreased sense of smell, any loss of taste, sore throat.?Musculoskeletal:?Patient denies?muscle aches.?Peripheral Vascular:?Patient denies?red and blue toes.? * Medical History:? * Medications:?Taking Isosorbi de Mononitrate ER 30 MG Tablet Extended Release 24 Hour 1 tablet in the morning Orally Once a day , Taking PreserVision AREDS - Capsule as directed Orally , Taking Memantine HCl 5 MG Tablet 1 tablet Orally Twice a day , Taking Xarelto 20 MG Tablet 1 tablet with food Orally Once a day , Taking Atorvastatin Calcium 20 MG Tablet TAKE ONE TABLET BY MOUTH EVERY DAY , Taking Metoprolol Tartrate 50 MG Tablet TAKE ONE TABLET BY MOUTH TWICE A DAY , Not-Taking/PRN Cipro 500 MG Tablet 1 tablet Orally every 12 hrs , Medication List reviewed and reconciled with the patient Objective: * Vitals:?Ht: 69, Wt:201, BMI: 29.68, BP:130/80. 201. * Examination: ???General Examination: ?GENERAL APPEARANCE:?alert, well hydrated, in no distress.?SKIN:?good turgor.?HEART:?regular rate and rhythm , no murmurs, rubs, gallops.?LUNGS:?no wheezes, rales, rhonchi , good air movement , clear to auscultation bilaterally.? 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 Plan: * Treatment: 2.?Neurocognitive disorder w ith Lewy bodies? Notes: seems stable?? 3.?Advance care planning? Notes: discused MOLST with patient and , patient verbalized understanding, document signed and scanned into chart. ?? * * The named appointment provid er may or may not be the originator of this progress note, and it is not deemed complete until electronically signed by the appointment provider. Sign off status: Pending * Provider:?Yeyo Mason MD Date:?1 02/26/2023 Generated for Saturnino gallegos/Sumeet/Deepikasmitting on:?03/19/2024 12:47 PM EST History and Physical Notes * HPI (History of Present Illness) Category Sub-Category Detail Notes Category Not es Symptom(s) patient is a 88 yo male here to complete paperwork, for advanced care planning Examination Category Sub-Category Detail Notes Category Not es General Examination GENERAL APPEARANCE: alert, w ell hydrated, in no distress HEART: regular rate and rhy thm , no murmurs, rubs, gallops LUNGS: no wheezes, rales, r honchi , good air movement , clear to auscultation bilaterally SKIN: good turgor
[2024-03-19 13:15] LABS: PSA,Total (Free>4and<10) 1.16 ng/mL (0.00-4.00)
== END 2024-03-19 11:12 | disposition home or self-care (01) ==
LOC: HO.LNP 11:11
PROVIDERS: Visit Provider Internal Medicine
DX: Z00.00 Encounter for general adult medical examination without abnormal findings (principal); I10 Essential (primary) hypertension; E78.00 Pure hypercholesterolemia, unspecified; R97.20 Elevated prostate specific antigen [PSA]; D72.820 Lymphocytosis (symptomatic); Z12.5 Encounter for screening for malignant neoplasm of prostate
CPT/HCPCS: 80053; 80061; 81001; 84153; 85025

== ENCOUNTER 2024-05-16 11:46 | Observation (INO) | payer MEDICARE, SELFPAY ==
--- NOTE | ~2024-05-16 | XR_ITS ---
EXAMINATION: XR CHEST CLINICAL INFORMATION: cp COMPARISON: 01/14/2017 TECHNIQUE: 2 views of the chest were obtained. FINDINGS: Left-sided dual-lead pacer device in place with leads extending into the right atrium and right ventricle. Borderline cardiac enlargement. The hilar and mediastinal contours are normal. Aortic mural calcifications. The lungs are mildly hyperaerated, however clear bilaterally. Mild stable biapical pleural thickening/scarring. There is no pneumothorax or pleural effusion. There is no focal osseous or soft tissue abnormality. There are spinal degenerative changes. XR/XR chest 2V IMPRESSION: No active pulmonary disease. Electronically signed by: Christoph Parnell MD 05/16/2024 12:29 PM EDT
--- NOTE | 2024-05-16 11:47 | ECG_ITS ---
Test Reason : chest pain Blood Pressure : */* mmHG Vent. Rate : 64 BPM Atrial Rate : 64 BPM P-R Int : 246 ms QRS Dur : 152 ms QT Int : 420 ms P-R-T Axes : 42 -75 82 degrees QTcB Int : 433 ms AV dual-paced rhythm with prolonged AV conduction with Premature atrial complexes with Aberrant conduction Abnormal ECG When compared with ECG of 14-Jan-2017 11:01, Electronic ventricular pacemaker has replaced Sinus rhythm Referred By: Generic ED Physician Electronically Signed By: Jeronimo Rosado
--- NOTE | 2024-05-16 11:59 | ED.CHESTPAIN ---
HPI - Chest Pain General Chief Complaint: Chest Pain Stated Complaint: CP, jaw pain down to shoulders Time Seen by Provider: 05/16/24 12:48 Related Data Home Medications ?Medication ?Instructions ?Recorded ?Confirmed atorvastatin 20 mg tablet 20 mg PO DAILY 01/20/20 02/20/24 metoprolol tartrate 50 mg tablet 50 mg PO BID 01/20/20 02/20/24 vitamins A,C,W-lqlb-flnwvx 4,296 1 cap PO BID 01/20/20 02/20/24 mcg-226 mg-90 mg capsule (PreserVision AREDS) memantine 5 mg tablet 5 mg PO BID 08/24/23 02/20/24 Previous Rx's ?Medication ?Instructions ?Recorded rivaroxaban 20 mg tablet (Xarelto) 20 mg PO DAILY #30 tabs 05/23/23 isosorbide mononitrate 30 mg 30 mg PO DAILY #30 tabs 03/01/24 tablet,extended release 24 hr Allergies Allergy/AdvReac Type Severity Reaction Status Date / Time apixaban [From Eliquis] Allergy Mild Rash Verified 05/16/24 12:02 Sulfa (Sulfonamide Allergy Mild RASH Verified 05/16/24 12:02 Antibiotics) [Sulfa (Sulfonamides)] [facility] Past Medical History Medical History CAD (coronary artery disease) Left bundle branch block Hyperlipidemia HTN (hypertension) Cardiac pacemaker in situ Second degree AV block, Mobitz type II Surgical History History of permanent cardiac pacemaker placement History of eye surgery History of heart artery stent Hx of cholecystectomy Family History Family History Father No problems noted. Mother Cancer Brother Cancer Social History Social History Alcohol intake: former Patient Tobacco Use Status: Former Tobacco user Tobacco use type: Pipe Years Smoked: 20 +/- Smoked in Last 30 Days: No Use of substances other than those prescribed or required for medical reasons: No Advance Directives: Yes Advance Directives Information Provided: No Advance Directives on File: No Physical Exam Vital Signs: Vital Signs: Last Vital Signs Temp 97.6 F 05/16/24 14:01 Pulse 60 05/16/24 14:01 Resp 18 05/16/24 14:01 BP 130/69 05/16/24 14:01 Pulse Ox 94 05/16/24 14:01 O2 Del Method Room Air 05/16/24 13:16 BMI result Body Mass Index 26.9 Course Course Course Narrative: This is a Rapid Medical Exam performed in triage by Natalie August PA-C. Full HPI, ROS and PE to be performed by primary ED provider. 88 yo M w/PMMHx CAD s/p stent, pacemaker, HLD, A.fib, presenting to the ED c/o CP yesterday while on walk radiating to jaw & shoulder. States sx resolved with rest but recurred this AM during walk again. Admits to some assoc SOB & dizziness. denies CP at present. On Xarelto PE: ambulating w/steady gait, talking in complete sentences, nontoxic appearing. Plan: EKG, labs, CXR, SARs Medical Decision Making Medical Decision Making [facility] Narrative: Patient is 88 years old presented today with a history of coronary artery disease. History of atrial fibrillation currently on Eliquis. Has a good history for possibly angina. Patient claims when he ambulates he gets short of breath and he had pressure in his chest that goes to his neck in his arm. Troponin x2 sets were negative. When patient rested the symptoms goes away any tried to walk again today the symptoms returned. He then came to the ED. I discussed his case with cardiology agreed patient needs further risk stratification agreed patient should be admitted for stress test. Patient's case was further consulted by the hospitalist team. Being admitted for angina. Differential Diagnosis Differential Diagnoses: The differential diagnosis associated with the presentation includes Unstable angina, ACS, musculoskeletal chest pain Admission/Observation Consideration of admission/observation: Escalation of care including admission/observation considered Consult Healthcare Provider Management of the patient was discussed with: Hospitalist and Manager Clinical Research ( cardiology) Lab Data [facility] Lab Attestation statement: I reviewed the patient's lab results. 05/16/24 11:59 05/16/24 11:59 Labs: Lab Results 05/16/24 05/16/24 05/16/24 Range/Units 11:59 12:09 14:11 WBC 6.6 (4.8-10.8) X10*3/uL RBC 4.68 (4.60-5.80) X10*6/uL Hgb 15.6 (14.0-18.0) g/dl Hct 43.3 (42.0-52.0) % MCV 92.5 (80.0-98.0) fL MCH 33.3 H (27.0-33.0) pg MCHC 36.0 (31.0-36.0) g/dl RDW 12.9 (11.0-16.0) % Plt Count 145 L (160-400) X10*3/uL MPV 8.9 L (9.4-12.4) fL Immature Gran % (Auto) 0.5 H (0.0-0.4) % Neut % (Auto) 62.1 (45-73) % Lymph % (Auto) 26.2 (20-40) % [place] % (Auto) 9.8 (2-11) % Eos % (Auto) 0.9 (0-4) % Baso % (Auto) 0.5 (0-2) % Lymph # (Auto) 1.7 (1.2-4.9) X10*3/uL [place] # (Auto) 0.7 (0.1-1.2) X10*3/uL Eos # (Auto) 0.1 (0.0-0.4) X10*3/uL Baso # (Auto) 0.0 (0.0-0.2) X10*3/uL Abs Immat Gran (auto) 0.03 (0.00-0.03) X10*3/uL Absolute Neuts (auto) 4.1 (2.0-8.3) x10*3/uL Absolute Nucleated RBC 0.000 (0.0-0.012) X10*3/uL Nucleated RBC % (auto) 0.0 (0.0-0.2) /100WBC PT 16.9 H (10.9-12.4) SEC INR 1.4 H (0.9-1.1) Sodium 144 (135-145) mmol/L Potassium 4.0 (3.3-5.1) mmol/L Chloride 114 H (96-108) mmol/L Carbon Dioxide 23 (22-29) mmol/L Anion Gap 11 L (12-20) BUN 22 H (9-16) mg/dL Creatinine 0.92 (0.5-1.4) mg/dL Estim Creat Clear Calc 57.9 Estimated GFR > 60 Random Glucose 121 H (60-115) mg/dL Calcium 8.5 (8.4-10.2) mg/dL Magnesium 2.2 (1.6-2.6) mg/dL Total Bilirubin 0.9 (0.0-1.0) mg/dL Direct Bilirubin 0.3 (0.0-0.5) mg/dL AST 21 (5-37) U/L ALT 22 (0-40) U/L Alkaline Phosphatase 82 (39-117) U/L Troponin I High Sens 5.7 8.0 (<3.5-35.0) ng/L Total Protein 6.1 L (6.5-8.0) g/dL Albumin 3.9 (3.5-5.0) g/dL Influenza Type A (PCR) NEGATIVE (Negative) Influenza Type B (PCR) NEGATIVE (Negative) RSV RNA Qual (PCR) NEGATIVE (Negative) SARS-CoV-2 RNA (RT-PCR) NEGATIVE (Negative) Independent Interpretation I performed an independent interpretation of an: EKG ( paste) and Plain X-Ray ( grossly negative) Radiology Impression Discussion of test interpretation with radiology: I have reviewed the radiologist's reading. External Record Review External record reviewed: Inpatient record and Office record Chronic Conditions Patient?s care impacted by: Hypertension Social Determinants Patient?s care significantly limited by Social Determinants of Health including: Problems related to primary support group Discharge Plan Discharge Clinical Impression: Angina of effort Patient Disposition: Admitted As Inpatient Prescriptions: No Action Xarelto 20 mg tablet 20 mg PO DAILY Qty: 30 11RF Rx Instructions: must administer with evening meal isosorbide mononitrate 30 mg tablet extended release 24 hr 30 mg PO DAILY Qty: 30 5RF metoprolol tartrate 50 mg tablet 50 mg PO BID atorvastatin 20 mg tablet 20 mg PO DAILY PreserVision AREDS [id number],[id number] wxmc-wm-[id number] capsule 1 cap PO BID memantine 5 mg tablet 5 mg PO BID Print Language: Kyrgyz
[2024-05-16 12:00] VITALS: BP 144/78; PULSE 59; RESP 18; TEMP 36.5; O2SAT 95; BMI 26.9
[2024-05-16 12:04] LABS: MANUAL DIFF FLAG NO
[2024-05-16 12:11] LABS: Basophils Percent Auto 0.5 % (0-2); Eosinophils Absolute Auto 0.1 X10*3/uL (0.0-0.4); Eosinophils Percent Auto 0.9 % (0-4); Hematocrit 43.3 % (42.0-52.0); Hemoglobin 15.6 g/dl (14.0-18.0); Imm Gran Abs Auto 0.03 X10*3/uL (0.00-0.03); Imm Gran Pct Auto 0.5 % (0.0-0.4); Lymphocytes Absolute Auto 1.7 X10*3/uL (1.2-4.9); Lymphocytes Percent Auto 26.2 % (20-40); Mean Corpuscular Hemoglobin 33.3 pg (27.0-33.0); Mean Corpuscular Volume 92.5 fL (80.0-98.0); Mean Platelet Volume 8.9 fL (9.4-12.4); Monocytes Absolute Auto 0.7 X10*3/uL (0.1-1.2); Monocytes Percent Auto 9.8 % (2-11); Neutrophils Absolute Auto 4.1 x10*3/uL (2.0-8.3); Neutrophils Percent Auto 62.1 % (45-73); Platelet Count 145 X10*3/uL (160-400); Red Blood Count 4.68 X10*6/uL (4.60-5.80); Red Cell Distribution Width 12.9 % (11.0-16.0); White Blood Count 6.6 X10*3/uL (4.8-10.8)
[2024-05-16 12:14] LABS: INTERNATIONAL NORM RATIO 1.4 (0.9-1.1); Prothrombin Time 16.9 SEC (10.9-12.4)
[2024-05-16 12:22] LABS: Alanine Aminotransferase 22 U/L (0-40); Albumin Level 3.9 g/dL (3.5-5.0); Alkaline Phosphatase 82 U/L (39-117); Anion Gap 11 (12-20); Aspartate Amino Transferase 21 U/L (5-37); Bilirubin Direct 0.3 mg/dL (0.0-0.5); Bilirubin Total 0.9 mg/dL (0.0-1.0); Blood Urea Nitrogen 22 mg/dL (9-16); Calcium 8.5 mg/dL (8.4-10.2); Carbon Dioxide 23 mmol/L (22-29); Chloride 114 mmol/L (96-108); Creatinine Clr Calc Pharmacy 57.9; Estimated Glomerular Filt Rate > 60; Glucose Random 121 mg/dL (60-115); Magnesium 2.2 mg/dL (1.6-2.6); Sodium 144 mmol/L (135-145); Total Protein 6.1 g/dL (6.5-8.0)
[2024-05-16 12:30] LABS: Troponin-I High Sensitivity 5.7 ng/L (<3.5-35.0)
[2024-05-16 12:55] LABS: Influenza A PCR NEGATIVE (Negative); Influenza B PCR NEGATIVE (Negative); Resp Syncy Virus RNA Qual PCR NEGATIVE (Negative); SARS COV2 PCR INHOUSE NEGATIVE (Negative)
[2024-05-16 12:59] VITALS: PULSE 76
[2024-05-16 13:16] VITALS: BP 130/79; PULSE 60; RESP 18; O2SAT 96
[2024-05-16 14:01] VITALS: BP 130/69; PULSE 60; RESP 18; TEMP 36.4; O2SAT 94
[2024-05-16 15:43] LABS: Troponin-I High Sensitivity 8.2 ng/L (<3.5-35.0)
--- NOTE | 2024-05-16 15:43 | PM.IMHP ---
History of Present Illness Date of Service: 05/16/24 Chief Complaint: chest pain 88M Pafib on xarelto, CAD with stent to circ in 2003, second degree AVB s/p pacer, presented with chest pain. Patient reports that he routinely walks 1 mile every day. On his walk the past 2 days he has had to stop for midsternal chest pain radiating to jaw and shortness of breath that was similar to previous symptoms that led to his stent. Pain resolves quickly at rest. Denies any fever, cough, nausea vomiting. 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 Mother Cancer Brother Cancer Surgical History History of permanent cardiac pacemaker placement History of eye surgery History of heart artery stent Hx of cholecystectomy Social History Alcohol intake: former Patient Tobacco Use Status: Former Tobacco user Tobacco use type: Pipe Years Smoked: 20 +/- Smoked in Last 30 Days: No Use of substances other than those prescribed or required for medical reasons: No Advance Directives: Yes Advance Directives Information Provided: No Advance Directives on File: No Meds Allergies Allergy/AdvReac Type Severity Reaction Status Date / Time apixaban [From Eliquis] Allergy Mild Rash Verified 05/16/24 12:02 Sulfa (Sulfonamide Allergy Mild RASH Verified 05/16/24 12:02 Antibiotics) [Sulfa (Sulfonamides)] Active Medications: Current Medications Acetaminophen (Acetaminophen 325 Mg Tablet) 650 mg PO Q6H PRN PRN Reason: Pain, Mild 1-3,fever,headache Calcium Carbonate (Calcium Carbonate 750 Mg Tab.Chew) 750 mg PO Q4H PRN PRN Reason: Heartburn Magnesium Hydroxide (Milk Of Magnesia 30 Ml Oral.Susp) 30 ml PO DAILY PRN PRN Reason: Constipation Melatonin (Melatonin 3 Mg Tablet) 6 mg PO BEDTIME PRN PRN Reason: Insomnia Sodium Chloride (0.9 % Sodium Chloride Flush 3 Ml Syringe) 3 ml IVFLUSH QSHIFT [facility] Medications ?Medication ?Instructions ?Recorded ?Confirmed ?Last Taken ?Type atorvastatin 20 mg tablet 20 mg PO DAILY 01/20/20 02/20/24 Unknown History metoprolol tartrate 50 mg tablet 50 mg PO BID 01/20/20 02/20/24 Unknown History vitamins A,C,J-sagg-cjgbfy 4,296 1 cap PO BID 01/20/20 02/20/24 Unknown History mcg-226 mg-90 mg capsule (PreserVision AREDS) memantine 5 mg tablet 5 mg PO BID 08/24/23 02/20/24 Unknown History Physical Exam Vital Signs and Narrative: Vital Signs: Last Vital Signs Temp 97.6 F 05/16/24 14:01 Pulse 60 05/16/24 14:01 Resp 18 05/16/24 14:01 BP 130/69 05/16/24 14:01 Pulse Ox 94 05/16/24 14:01 O2 Del Method Room Air 05/16/24 13:16 BMI result Body Mass Index 26.9 General: AO X 3, no acute distress Resp: CTA bilateral, no accessory muscles used CVS: S1,S2,RRR GI: soft, non tender, non distended Neuro: motor grossly intact, alert Psych: appropriate affect, appropriate insight Results Labs 05/16/24 11:59 05/16/24 11:59 Labs: Laboratory Results - last 24 hr 05/16/24 05/16/24 11:59 12:09 MCV 92.5 MCH 33.3 H MCHC 36.0 RDW 12.9 Plt Count 145 L MPV 8.9 L Immature Gran % (Auto) 0.5 H Neut % (Auto) 62.1 Lymph % (Auto) 26.2 [place] % (Auto) 9.8 Eos % (Auto) 0.9 Baso % (Auto) 0.5 Lymph # (Auto) 1.7 [place] # (Auto) 0.7 Eos # (Auto) 0.1 Baso # (Auto) 0.0 Abs Immat Gran (auto) 0.03 Absolute Neuts (auto) 4.1 Absolute Nucleated RBC 0.000 Nucleated RBC % (auto) 0.0 PT 16.9 H INR 1.4 H Anion Gap 11 L Estim Creat Clear Calc 57.9 Estimated GFR > 60 Random Glucose 121 H Calcium 8.5 Magnesium 2.2 Total Bilirubin 0.9 Direct Bilirubin 0.3 AST 21 ALT 22 Alkaline Phosphatase 82 Total Protein 6.1 L Albumin 3.9 Influenza Type A (PCR) NEGATIVE Influenza Type B (PCR) NEGATIVE RSV RNA Qual (PCR) NEGATIVE SARS-CoV-2 RNA (RT-PCR) NEGATIVE Imaging Radiologist's Impressions: Impressions Chest X-Ray 05/16/24 11:54 IMPRESSION: No active pulmonary disease. Electronically signed by: Christoph Parnell MD 05/16/2024 12:29 PM EDT RP Assessment and Plan (1) CAD (coronary artery disease): Status: Acute Plan 88M Pafib on xarelto, CAD with stent to circ in 2003, second degree AVB s/p pacer, presented with chest pain Chest pain and known Cad - unstable angina Follow up troponin, continue statin, Imdur hold xarelto - heparin iv potential [place] [facility] Paroxysmal afib hep iv, metoprolol DVT prophylaxis on hep iv DNR/dNI Quality Stroke Does the patient have a stroke diagnosis?: No VTE Prior VTE?: No VTE Risk Level:: Medical - moderate - high VTE Device Contraindication: Treatment Not Indicated VTE Drug Contraindication: N/A - Med Ordered
--- NOTE | 2024-05-16 16:05 | P.CONCA_ITS ---
History of Present Illness History of Present Illness Date of Service: 05/16/24 Requesting physician: Yaron Dumont Chief complaint: Unstable angina Narrative: [age] year gentleman who we have been asked to assess for unstable angina. He has known history of coronary disease with previous circumflex PCI in the past. The details are unclear to me what I will look at his record at [facility]. He said he was stable and was able to walk 1 mi few days ago but yesterday while walking he started feeling discomfort in his shoulders and jaw along with shortness of breath. He said he stopped and then continued to walk. Today while walking even shorter distance than yesterday he started having same symptoms. He decided to come to the emergency department. He has known history of atrial fibrillation and is currently on Xarelto. He also has a permanent pacemaker and has a paced rhythm. Biomarkers so far were negative. No bleeding issues. He has history of Lewy body dementia which is a new diagnosis for him. He is independent and walks and does activities without any problem. He does have mild memory problems and at times hallucinating due to leave body dementia. 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 Mother Cancer Brother Cancer Surgical History Surgical History History of permanent cardiac pacemaker placement History of eye surgery History of heart artery stent Hx of cholecystectomy Social History Social History Alcohol intake: former Patient Tobacco Use Status: Former Tobacco user Tobacco use type: Pipe Years Smoked: 20 +/- Smoked in Last 30 Days: No Use of substances other than those prescribed or required for medical reasons: No Advance Directives: Yes Advance Directives Information Provided: No Advance Directives on File: No Meds Allergies Allergy/AdvReac Type Severity Reaction Status Date / Time apixaban [From Eliquis] Allergy Mild Rash Verified 05/16/24 12:02 Sulfa (Sulfonamide Allergy Mild RASH Verified 05/16/24 12:02 Antibiotics) [Sulfa (Sulfonamides)] Active Medications: Current Medications Acetaminophen (Acetaminophen 325 Mg Tablet) 650 mg PO Q6H PRN PRN Reason: Pain, Mild 1-3,fever,headache Calcium Carbonate (Calcium Carbonate 750 Mg Tab.Chew) 750 mg PO Q4H PRN PRN Reason: Heartburn Magnesium Hydroxide (Milk Of Magnesia 30 Ml Oral.Susp) 30 ml PO DAILY PRN PRN Reason: Constipation Melatonin (Melatonin 3 Mg Tablet) 6 mg PO BEDTIME PRN PRN Reason: Insomnia Sodium Chloride (0.9 % Sodium Chloride Flush 3 Ml Syringe) 3 ml IVFLUSH QSHIFT [facility] Home Medications ?Medication ?Instructions ?Recorded ?Confirmed ?Last Taken ?Type atorvastatin 20 mg tablet 20 mg PO DAILY 01/20/20 05/16/24 05/15/24 History yes metoprolol tartrate 50 mg tablet 50 mg PO BID 01/20/20 05/16/24 05/16/24 History 50 mg vitamins A,C,K-ibjj-jfvvbd 4,296 1 cap PO BID 01/20/20 05/16/24 05/16/24 History mcg-226 mg-90 mg capsule 1 cap (PreserVision AREDS) memantine 5 mg tablet 10 mg PO BID 08/24/23 05/16/24 05/16/24 History yes Physical Exam 2 Vital Signs: Vital Signs: Last Vital Signs Temp 97.6 F 05/16/24 14:01 Pulse 60 05/16/24 14:01 Resp 18 05/16/24 14:01 BP 130/69 05/16/24 14:01 Pulse Ox 94 05/16/24 14:01 O2 Del Method Room Air 05/16/24 13:16 BMI result Body Mass Index 26.9 GENERAL APPEARANCE: in no acute distress, pleasant. NECK: no carotid bruit, no jugular venous distention. SKIN: no suspicious lesions, warm and dry. HEART: no murmurs, regular rate and rhythm. LUNGS: clear to auscultation bilaterally. ABDOMEN: soft, nontender. EXTREMITIES: no edema. PERIPHERAL PULSES: equal. NEUROLOGIC: No gross deficits, AAO X 3 Objective Labs and Meds 05/16/24 17:45 05/16/24 11:59 Lab results: Laboratory Results - last 24 hr 05/16/24 05/16/24 05/16/24 11:59 12:09 14:11 WBC 6.6 RBC 4.68 Hgb 15.6 Hct 43.3 MCV 92.5 MCH 33.3 H MCHC 36.0 RDW 12.9 Plt Count 145 L MPV 8.9 L Immature Gran % (Auto) 0.5 H Neut % (Auto) 62.1 Lymph % (Auto) 26.2 [place] % (Auto) 9.8 Eos % (Auto) 0.9 Baso % (Auto) 0.5 Lymph # (Auto) 1.7 [place] # (Auto) 0.7 Eos # (Auto) 0.1 Baso # (Auto) 0.0 Abs Immat Gran (auto) 0.03 Absolute Neuts (auto) 4.1 Absolute Nucleated RBC 0.000 Nucleated RBC % (auto) 0.0 PT 16.9 H INR 1.4 H Sodium 144 Potassium 4.0 Chloride 114 H Carbon Dioxide 23 Anion Gap 11 L BUN 22 H Creatinine 0.92 Estim Creat Clear Calc 57.9 Estimated GFR > 60 Random Glucose 121 H Calcium 8.5 Magnesium 2.2 Total Bilirubin 0.9 Direct Bilirubin 0.3 AST 21 ALT 22 Alkaline Phosphatase 82 Troponin I High Sens 5.7 8.0 Total Protein 6.1 L Albumin 3.9 Influenza Type A (PCR) NEGATIVE Influenza Type B (PCR) NEGATIVE RSV RNA Qual (PCR) NEGATIVE SARS-CoV-2 RNA (RT-PCR) NEGATIVE 05/16/24 15:16 WBC RBC Hgb Hct MCV MCH MCHC RDW Plt Count MPV Immature Gran % (Auto) Neut % (Auto) Lymph % (Auto) [place] % (Auto) Eos % (Auto) Baso % (Auto) Lymph # (Auto) [place] # (Auto) Eos # (Auto) Baso # (Auto) Abs Immat Gran (auto) Absolute Neuts (auto) Absolute Nucleated RBC Nucleated RBC % (auto) PT INR Sodium Potassium Chloride Carbon Dioxide Anion Gap BUN Creatinine Estim Creat Clear Calc Estimated GFR Random Glucose Calcium Magnesium Total Bilirubin Direct Bilirubin AST ALT Alkaline Phosphatase Troponin I High Sens 8.2 Total Protein Albumin Influenza Type A (PCR) Influenza Type B (PCR) RSV RNA Qual (PCR) SARS-CoV-2 RNA (RT-PCR) Imaging Radiologist's impression: Impressions Chest X-Ray 05/16/24 11:54 IMPRESSION: No active pulmonary disease. Electronically signed by: Christoph Parnell MD 05/16/2024 12:29 PM EDT RP Assessment and Plan (1) Unstable angina: Status: Acute Plan [age] year gentleman who is presenting with unstable angina. He has known history of coronary disease with previous circumflex PCI. Clinical story is quite concerning with exertional symptoms which are rapidly progressive over the last 2 days. EKGs paced. He is on Xarelto which we will hold for now. Give him full-dose aspirin and start him on baby aspirin. Start heparin drip. I have discussed with him in detail about cardiac catheterization. He is 88 years old but he is a robust gentleman who is independent and has been quite active walking up to 1 mi per day till few days ago. I think he is a reasonable candidate to do diagnostic angiography and potential PCI. He is agreeable after discussing the pros and cons and we will transfer to [facility]. Keep NPO after midnight PA potential cardiac catheterization tomorrow. Thank you for allowing me to participate in the care of your patient. Please feel free to contact me if you have any questions. Procedures Date of Service Date of Service: 05/16/24
[2024-05-16 16:07] VITALS: BP 142/80; PULSE 60; RESP 18; O2SAT 96
[2024-05-16] MEDS: 0.9 % Sodium Chloride Flush 3 ML SYRINGE IVFLUSH (16:26)
--- NOTE | 2024-05-16 16:37 | P.DS_ITS ---
DS: Providers Provider Date of Service: 05/16/24 Date of admission: 05/16/24 15:41 Date of discharge: 05/16/24 Primary care physician: Yeyo Mason MD Consults: 05/16/24 15:41 Consult to Cardiology Routine Consulting Provider: [facility] Reason for consultation: cad, chest pain Has provider been notified: Yes DS: Diagnosis Discharge Diagnosis (1) CAD (coronary artery disease): Status: Acute DS: Summary Hospital Course Hospital Course: from initial hpi: 88M Pafib on xarelto, CAD with stent to circ in 2003, second degree AVB s/p pacer, presented with chest pain. Patient reports that he routinely walks 1 mile every day. On his walk the past 2 days he has had to stop for midsternal chest pain radiating to jaw and shortness of breath that was similar to previous symptoms that led to his stent. Pain resolves quickly at rest. Denies any fever, cough, nausea vomiting. In ED EKG shows paced rhythm, troponins negative, chest x-ray unremarkable hospital course: Patient was admitted for unstable angina started on IV heparin, statin, Imdur fine to transfer to [facility] for cardiac catheterization. Troponins were negative. For paroxysmal AFib continued on heparin, metoprolol, Xarelto held Time Attestation Discharge Coordination Time (in mins): 33 Quality: Safe Use of Opioids Does Pt have an Active Cancer Diagnosis on the Problem List?: No Quality: Stroke Does the patient have a stroke diagnosis?: No Physical Exam Vital Signs: Vital Signs: Last Vital Signs Temp 97.6 F 05/16/24 14:01 Pulse 60 05/16/24 16:07 Resp 18 05/16/24 16:07 BP 142/80 H 05/16/24 16:07 Pulse Ox 96 05/16/24 16:07 O2 Del Method Room Air 05/16/24 16:07 BMI result Body Mass Index 26.9 General: AO X 3, no acute distress Resp: CTA bilateral, no accessory muscles used CVS: S1,S2,RRR GI: soft, non tender, non distended Neuro: motor grossly intact, alert Psych: appropriate affect, appropriate insight DS: Data Data Completed and Pending Labs on day of discharge: Laboratory Results - last 24 hr 05/16/24 05/16/24 05/16/24 11:59 12:09 14:11 WBC 6.6 RBC 4.68 Hgb 15.6 Hct 43.3 MCV 92.5 MCH 33.3 H MCHC 36.0 RDW 12.9 Plt Count 145 L MPV 8.9 L Immature Gran % (Auto) 0.5 H Neut % (Auto) 62.1 Lymph % (Auto) 26.2 [place] % (Auto) 9.8 Eos % (Auto) 0.9 Baso % (Auto) 0.5 Lymph # (Auto) 1.7 [place] # (Auto) 0.7 Eos # (Auto) 0.1 Baso # (Auto) 0.0 Abs Immat Gran (auto) 0.03 Absolute Neuts (auto) 4.1 Absolute Nucleated RBC 0.000 Nucleated RBC % (auto) 0.0 PT 16.9 H INR 1.4 H Sodium 144 Potassium 4.0 Chloride 114 H Carbon Dioxide 23 Anion Gap 11 L BUN 22 H Creatinine 0.92 Estim Creat Clear Calc 57.9 Estimated GFR > 60 Random Glucose 121 H Calcium 8.5 Magnesium 2.2 Total Bilirubin 0.9 Direct Bilirubin 0.3 AST 21 ALT 22 Alkaline Phosphatase 82 Troponin I High Sens 5.7 8.0 Total Protein 6.1 L Albumin 3.9 Influenza Type A (PCR) NEGATIVE Influenza Type B (PCR) NEGATIVE RSV RNA Qual (PCR) NEGATIVE SARS-CoV-2 RNA (RT-PCR) NEGATIVE 05/16/24 15:16 WBC RBC Hgb Hct MCV MCH MCHC RDW Plt Count MPV Immature Gran % (Auto) Neut % (Auto) Lymph % (Auto) [place] % (Auto) Eos % (Auto) Baso % (Auto) Lymph # (Auto) [place] # (Auto) Eos # (Auto) Baso # (Auto) Abs Immat Gran (auto) Absolute Neuts (auto) Absolute Nucleated RBC Nucleated RBC % (auto) PT INR Sodium Potassium Chloride Carbon Dioxide Anion Gap BUN Creatinine Estim Creat Clear Calc Estimated GFR Random Glucose Calcium Magnesium Total Bilirubin Direct Bilirubin AST ALT Alkaline Phosphatase Troponin I High Sens 8.2 Total Protein Albumin Influenza Type A (PCR) Influenza Type B (PCR) RSV RNA Qual (PCR) SARS-CoV-2 RNA (RT-PCR) Discharge Plan Discharge Anticipated Discharge Date/Time: 05/16/24 16:34 Patient Disposition: [facility] Discharge Diagnosis: unstable angina Referrals: Yeyo Mason MD [Primary Care Provider] - 1 Week Discharge Medications: Continued isosorbide mononitrate 30 mg tablet extended release 24 hr 30 mg PO DAILY Qty: 30 5RF metoprolol tartrate 50 mg tablet 50 mg PO BID atorvastatin 20 mg tablet 20 mg PO DAILY Patient Comments: took dose last night PreserVision AREDS [id number] mgin-pz-odto capsule 1 cap PO BID memantine 5 mg tablet 10 mg PO BID Held Xarelto 20 mg tablet 20 mg PO DAILY Qty: 30 11RF Hold Instructions: Resume on 05/21/24. Rx Instructions: must administer with evening meal Diet: Advance to usual diet Activity on Discharge: As tolerated Stand Alone Forms: Patient Portal Discharge page Print Language: Spanish Care Plan Goals: manage unstable angina Health Concerns: unstable angina Plan of Treatment: transfer to [facility] for cath Assessment: see above Discharge Date/Time: 05/16/24 19:51
--- OUTSIDE RECORDS SUMMARY | 2024-05-16 16:46 | XMS_ITS | Patient Health Record ---
Author Organization Yeyo Mason MD Address [address] [place], [place] [id number] Care Team Providers Care Customs Director Name Role Phone Yeyo Mason Primary Care Provider Allergies Allergen (clinical drug ingredient) Drug/Non Drug Allergy documented on EMR Reaction Allergy Type Onset Date Status Substance with sulfonamide structure and antibacterial mechanism of action (substance) sulfa (uncoded) rash Allergy Active Results Component Value Reference Range Notes Liver Panel Reviewed date:09/15/2023 03:29:24 PM Interpretation: Performing Lab:[facility], [address] [place] [phone] Notes/Report: Bilirubin Total 0.8 0.0-1.0 mg/dL Bilirubin Direct 0.2 0.0-0.5 mg/dL Aspartate Amino Transferase 17 5-37 U/L Alanine Aminotransferase 24 0-40 U/L Total Protein 6.4 6.5-8.0 g/dL Albumin Level 4.0 3.5-5.0 g/dL Alkaline Phosphatase 80 39-117 U/L Lipid Panel with Reflex Reviewed date:09/15/2023 03:38:04 PM Interpretation: Performing Lab:[facility], [address] [place] [phone] Notes/Report: Triglycerides 87 <150 mg/dL Desirable Triglyceride: [...] low results in patients with liver disease. Complete Blood Count Auto Di ff Reviewed date:03/22/2024 05:34:13 PM Interpretation: Performing Lab:[facility], [address] [place] [phone] Notes/Report: White Blood Count 6.0 4.8-10.8 X10*3/uL [...] NRBC Abs Auto 0.000 0.0-0.012 X10*3/uL Comprehensive [place]. Panel Fa st Reviewed date:03/22/2024 05:05:12 PM Interpretation: Performing Lab:[address] [phone] Notes/Report: Sodium 144 135-145 mmol/L Potassium 4.0 [...] Panel Reviewed date:03/22/2024 05:04:48 PM Interpretation: Performing Lab:[address] [phone] Notes/Report: Triglycerides 82 <150 mg/dL Desirable Triglyceride: [...] (Free>4and<10) Reviewed date:03/22/2024 05:04:56 PM Interpretation: Performing Lab:[address] [phone] Notes/Report: PSA,Total (Free>4and<10) 1.16 0.00-4.00 ng/mL A [...] t Reviewed date:03/26/2024 01:33:19 PM Interpretation: Performing Lab:[address] [phone] Notes/Report: Urine, Clean Catch Color Urine Yellow Appearance Urine Clear PH 6.0 5.0-9.0 Glucose Urine UA Negative Negative mg/dL Urine Blood Negative Negative Specific [place] - Urine 1.025 1.005-1.025 Urine Protein Negative Neg-Trace mg/dL Urine Ketones Negative Negative mg/dL Nitrite Urine Negative Negative Leukocyte Esterase Urine Trace Negative RBC Urine 0-2 0-2 /HPF WBC Urine 0-5 0-5 /HPF Squamous Epithelial Cell Urine 0-2 0-2 /HPF Bacteria Urine None Seen None Seen Hyaline Casts Urine 0-2 0-2 /LPF Hold Gold Reviewed date:09/15/2023 03:26:44 PM Interpretation: Performing Lab:[facility], [address] [place] [phone] Notes/Report: Daylin Najera See Note Specimen held untested for 24 hours; Call to request Chemistry testing. Complete Blood Count Auto Di ff (Not yet reviewed by provider) Interpretation: Performing Lab:[facility], [address] [place] [phone] Notes/Report: White Blood Count 6.6 4.8-10.8 X10*3/uL Red Blood Count 4.68 4.60-5.80 X10*6/uL Hemoglobin 15.6 14.0-18.0 g/dl Hematocrit 43.3 42.0-52.0 % Mean Corpuscular Volume 92.5 80.0-98.0 fL Mean Corpuscular Hemoglobin 33.3 27.0-33.0 pg Mean Corpuscular HGB Conc 36.0 31.0-36.0 g/dl Red Cell Distribution Width 12.9 11.0-16.0 % Platelet Count 145 160-400 X10*3/uL Mean Platelet Volume 8.9 9.4-12.4 fL Neutrophils Percent Auto 62.1 45-73 % Imm Gran Pct Auto 0.5 0.0-0.4 % Lymphocytes Percent Auto 26.2 20-40 % Monocytes Percent Auto 9.8 2-11 % Eosinophils Percent Auto 0.9 0-4 % Basophils Percent Auto 0.5 0-2 % NRBC Pct Auto 0.0 0.0-0.2 /100WBC Neutrophils Absolute Auto 4.1 2.0-8.3 x10*3/u L Imm Gran Abs Auto 0.03 0.00-0.03 X10*3/uL Lymphocytes Absolute Auto 1.7 1.2-4.9 X10*3/u L Monocytes Absolute Auto 0.7 0.1-1.2 X10*3/uL Eosinophils Absolute Auto 0.1 0.0-0.4 X10*3/u L Basophils Absolute Auto 0.0 0.0-0.2 X10*3/uL NRBC Abs Auto 0.000 0.0-0.012 X10*3/uL Prothrombin Time INR (Not y et reviewed by provider) Interpretation: Performing Lab:[address] [phone] Notes/Report: Prothrombin Time 16.9 10.9-12.4 SEC INTERNATIONAL NORM RATIO 1.4 0.9-1.1 INTERNATIONAL NORMALIZED RATIO (INR) REFERENCE RANGES Reference Range For patients not on anticoagulant therapy: 0.9 - 1.1 INR ranges for oral anticoagulant therapy: For prevention and treatment of venous thrombosis and pulmonary embolism: 2.0 - 3.0 For acute myocardial infarction with aspirin therapy: 2.0 - 3.0 For acute myocardial infarction without aspirin therapy: 3.0 - 4.0 For patients with mechanical prosthetic heart valves: 2.5 - 3.5 Liver Panel (Not yet reviewe d by provider) Interpretation: Performing Lab:[address] [phone] Notes/Report: Bilirubin Total 0.9 0.0-1.0 mg/dL Bilirubin Direct 0.3 0.0-0.5 mg/dL Aspartate Amino Transferase 21 5-37 U/L Alanine Aminotransferase 22 0-40 U/L Total Protein 6.1 6.5-8.0 g/dL Albumin Level 3.9 3.5-5.0 g/dL Alkaline Phosphatase 82 39-117 U/L Basic Metabolic Panel (Not y et reviewed by provider) Interpretation: Performing Lab:[address] [phone] Notes/Report: Sodium 144 135-145 mmol/L Potassium 4.0 3.3-5.1 mmol/L Chloride 114 96-108 mmol/L Carbon Dioxide 23 22-29 mmol/L Anion Gap 11 12-20 Blood Urea Nitrogen 22 9-16 mg/dL Creatinine 0.92 0.5-1.4 mg/dL Creatinine Clr Calc Pharmacy 57.9 eGFR (calculated from the MDRD study equation) and eCrCl (calculated from the Cockcroft-Gault equation) are based on different parameters and may not yield comparable results. If eCrCl result is absurd, please check patient's height/weight. Estimated Glomerular Filt Rate > 60 Chronic Kidney Disease: Estimated GFR < 60 mL/min/1.73m2 Severe Kidney Disease: Estimated GFR < 15 mL/min/1.73m2 Glucose Random 121 60-115 mg/dL Calcium 8.5 8.4-10.2 mg/dL Magnesium (Not yet reviewed by provider) Interpretation: Performing Lab:[address] [phone] Notes/Report: Magnesium 2.2 1.6-2.6 mg/dL Troponin-I High Sensitivity (Not yet reviewed by provider) Interpretation: Performing Lab:[address] [phone] Notes/Report: Troponin-I High Sensitivity 5.7 <3.5-35.0 ng/L [place] high sensitivity Troponin-I results should be used in conjunction with other diagnostic information such as ECG, clinical observations and information, and patient symptoms to aid in the diagnosis of VA. SARS-CoV2/FLU/RSV (Not yet r eviewed by provider) Interpretation: Performing Lab:[address] [id number] Notes/Report: Influenza A PCR NEGATIVE Negative Influenza B PCR NEGATIVE Negative Resp Syncy Virus RNA Qual PCR NEGATIVE Negative SARS COV2 PCR INHOUSE NEGATIVE Negative All test results must be correlated with clinical findings. Negative results do not preclude SARS-CoV2, influenza A virus, influenza B virus and/or RSV infection and should not be used as the sole basis for treatment or other patient management decisions. Negative results must be combined with clinical observations, patient history, and epidemiological information. This test has not been evaluated for monitoring treatment of infection. This test has been authorized by the FDA under an Emergency Use Authorization (EUA) for use by authorized laboratories. Testing performed on the [employer] GeneXpert utilizing real-time RT-PCR. All SARS CoV2 and positive influenza A/B results are reported to [facility]. XR chest 2V (Not yet reviewe d by provider) Interpretation: Performing Lab: Notes/Report: [address] [place] [address] XRay Report Signed Patient: Faisal Levia MR#: [id number] : 1935 Acct:[id number] Age/Sex: 88 / M ADM Date: 05/16/24 Loc: HO.ED Attending Dr: Ordering Physician: Natalie August Date of Service: 05/16/24 Procedure(s): XR chest 2V Accession Number(s): [id number] cc: Yeyo Mason MD; Natalie August EXAMINATION: XR CHEST CLINICAL INFORMATION: cp COMPARISON: 01/14/2017 TECHNIQUE: 2 views of the chest were obtained. FINDINGS: Left-sided dual-lead pacer device in place with leads extending into the right atrium and right ventricle. Borderline cardiac enlargement. The hilar and mediastinal contours are normal. Aortic mural calcifications. The lungs are mildly hyperaerated, however clear bilaterally. Mild stable biapical pleural thickening/scarring. There is no pneumothorax or pleural effusion. There is no focal osseous or soft tissue abnormality. There are spinal degenerative changes. XR/XR chest 2V IMPRESSION: No active pulmonary disease. Electronically signed by: Christoph Parnell MD 05/16/2024 12:29 PM EDT Dictated By: Christoph Parnell MD Signed By: <Electronically signed by Christoph Parnell MD in OV> 05/16/24 1229 DD/ 1154 TD/TT: 05/16/24 1214 Extension Service Specialist: [place] [address] XRay Report Signed Patient: Ashley Leiva nd MR#: [id number] : 1935 Acct:[id number] Age/Sex: 88 / M ADM Date: 05/16/24 Loc: .ED Attending Dr: Ordering Physician: Natalie August Date of Service: 05/16/24 Procedure(s): XR sarah st 2V Accession Number(s): [id number] cc: Yeyo Mason MD; Natalie August EXAMINATION: XR CHEST CLINICAL INFORMATION: cp COMPARISON: 01/14/2017 TECHNIQUE: 2 views of the chest were obtained. FINDINGS: Left-sided dual-lead pacer device in place with leads extending into the right atrium and right ventricle. Borderline cardiac enlargement. The hilar and mediastinal contours are normal. Aortic mural calcifications. The lungs are mildly hyperaerated, however clear bilaterally. Mild stable biapical pleural thickening/scarring. There is no pneumothorax or pleural effusion. There is no focal osseous or soft tissue abnormality. There are spinal degenerative changes. XR/XR chest 2V IMPRESSION: No active pulmonary disease. Electronically dora d by: Christoph Parnell MD 05/16/2024 12:29 PM EDT RP Dictated By: Christoph Parnell MD Signed By: <Electronically signed by Christoph Parnell MD in OV> 05/16/24 1229 DD/ 1154 TD/TT: 05/16/24 1214 Extension Service Specialist: Troponin-I High Sensitivity (Not yet reviewed by provider) Interpretation: Performing Lab:[facility], [address] [place] [phone] Notes/Report: Troponin-I High Sensitivity 8.0 <3.5-35.0 ng/L [place] high sensitivity Troponin-I results should be used in conjunction with other diagnostic information such as ECG, clinical observations and information, and patient symptoms to aid in the diagnosis of VA. Troponin-I High Sensitivity (Not yet reviewed by provider) Interpretation: Performing Lab:[facility], [address] [place] [phone] Notes/Report: Troponin-I High Sensitivity 8.2 <3.5-35.0 ng/L [place] high sensitivity Troponin-I results should be used in conjunction with other diagnostic information such as ECG, clinical observations and information, and patient symptoms to aid in the diagnosis of VA. Reason For Referral No Information Medications Medication SIG (Take, Route, Frequency, Duration) Notes Start Date End Date Status Cipro 500 MG 1 tablet Orally ever y 12 hrs for 7 days 12/23/2021 Not-Taking Isosorbide Mononitrate ER 30 MG 1 tablet in the morning Orally Once a day Active Xarelto 20 MG 1 tablet with food Orally Once a day 02/08/2022 Active Metoprolol Tartrate 50 MG TAKE ONE TABLE T BY MOUTH TWICE A DAY Active Atorvastatin Calcium 20 MG TAKE ONE TABLET BY MOUTH EVERY DAY Active Memantine HCl 5 MG 1 tablet Orally Twic e a day Active PreserVision AREDS - as directed Orally Active Immunizations Vaccine Route Administration Date Status Comme nts Flu Vaccine Unknown 11/16/2011 Administered [facility] Fluarix Quadrivalent IM Intramuscular 12/01/2014 Administered Flu Vaccine Unknown 11/26/2015 Administered thinks abou t 4 days ago at [facility] Flu Vaccine IM Intramuscular 11/21/2016 Administered pt wa s given the vaccine at [facility] in [place]. Tetanus Unknown 03/13/2017 Administered Pt was given the vaccine in [facility] Influenza High Dose IM Intramuscular 10/26/2017 Administered pt was given th e vaccine at [facility]. Fluarix Quadrivalent Unknown 11/13/2017 Administered [facility] Fluarix Quadrivalent Unknown 11/01/2018 [facility] Influenza High Dose Unknown 11/18/2019 Administered [facility] [...] 07/15/2019 Refused Prevnar 13 Unknown 07/15/2019 Refused Social History Tobacco Use: Social History Observation [...] ast year? 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33) Active confirmed Problem 9732387 Hallucination (R44.3) Active confirmed Problem 873837173 Elevated serum cholesterol (E78.9) Active confirmed Problem 178355449 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 Vital Signs Blood pressure diastolic 60 mm Hg 03/26/2024 Height 69 in 03/26/2024 Blood pressure systolic 132 mm Hg 03/26/2024 Weight 192 lbs 03/26/2024 BMI 28.35 kg/m2 03/26/2024 Encounters Encounter Location Date Provider Diagnosis Yeyo Mason MD [address] [place], [place] [id number] 09/15/2023 Yeyo Mason Pure hypercholestero lemia E78.00 Yeyo Mason MD [address] [place], [place] [id number] 12/28/2023 Yeyo Mason Memory loss R41.3 ; 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 and Advance care planning Z71.89 Yeyo Mason MD [address] [place] [id number] 03/19/2024 Yeyo Mason Blood tests for rout ine general physical examination Z00.00 ; Essential hypertension I10 ; Pure hypercholesterolemia E78.00 ; Elevated PSA R97.20 and Lymphocytosis D72.820 Yeyo Mason MD [address] [place] [address] Drive [address] [place] [id number] 09/22/2023 Yeyo Mason Angina pectoris I20. 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 and History of coronary artery stent placement Z95.5 Yeyo Mason MD [address] [place] [address] Drive [address] [place] [id number] 03/26/2024 Yeyo Mason Essential hypertensi on I10 ; Pure hypercholesterolemia E78.00 ; Atherosclerotic heart disease of [place] coronary artery without angina pectoris I25.10 ; Atrial fibrillation, unspecified type I48.91 ; Colon cancer screening Z12.11 and Depression screening Z13.31 Yeyo Mason MD [address] [place] [address] Drive [address] [place] [id number] 08/04/2023 Yeyo Mason Assessments Encounter Date Diagnosis (ICD Code) Assessment Notes Treatment Notes Treatment Clinical Notes Section Notes 09/15/2023 Pure hypercholesterolemia (ICD-10 - E78.00) 12/28/2023 Memory loss (ICD-10 - R41.3) staying stable 12/28/2023 Neurocognitive disor juno with [place] (ICD-10 - G31.83) seems stable 03/19/20[address] ine general physical examination (ICD-10 - Z00.00) 09/22/2023 Angina pectoris (ICD -10 - I20.9) need the results from stress test in august/ suggested that he get some nitro and he doesn't want any/ REQUEST MADE TO HIM @ [facility], Total time spent on the date of the encounter is 35 minutes including both face to face time spent and time spent reviewing documentation, and counseling the patient. 09/22/2023 Neurocognitive disor juno with [place] (ICD-10 - G31.83) is being seen by dr jay in [place] 03/26/2024 Essential hypertensi on (ICD-10 - I10) doing well with good control, ill continue current regiment 03/26/2024 Pure hypercholesterolemia (ICD-10 - E78.00) well controlled, will continue current regiment 12/28/2023 Advance care plannin joi (ICD-10 - Z71.89) discused MOLST with patient and , patient verbalized understanding, document signed and scanned into chart. 03/19/2024 Essential hypertensi on (ICD-10 - I10) 09/22/2023 History of coronary artery stent placement (ICD-10 - Z95.5) sounds as though it was positive stress test 03/26/2024 Atherosclerotic hear t disease of [place] coronary artery without angina pectoris (ICD-10 - I25.10) not having any complaints 03/19/2024 Pure hypercholesterolemia (ICD-10 - E78.00) 03/26/2024 Atrial fibrillation, unspecified type (ICD-10 - I48.91) stable, will continue current regiment 03/19/2024 Elevated PSA (ICD-10 - R97.20) 03/26/2024 Colon cancer screeni ng (ICD-10 - Z12.11) guaiac negative 03/19/2024 Lymphocytosis (ICD-1 0 - D72.820) 03/26/2024 Depression screening (ICD-10 - Z13.31) negative screen Plan Of Treatment Pending Test Test Name Order Date Electrocardiogram (EKG) 12/11/2015 Electrocardiogram (EKG) 12/23/2016 Electrocardiogram (EKG) 01/10/2019 Complete Blood Count Auto Diff Prothrombin Time INR 05/16/2024 Liver Panel 05/16/2024 Basic Metabolic Panel 05/16/2024 Magnesium 05/16/2024 Troponin-I High Sensitivity 05/16/2024 Troponin-I High Sensitivity 05/16/2024 Troponin-I High Sensitivity 05/16/2024 XR chest 2V 05/16/2024 SARS-CoV2/FLU/RSV 05/16/2024 Next Appt Details Provider Name:Yeyo palacios, 09/16/2024 07:30:00 AM, [address] [place] [address], [address], [phone], Provider Name:Yeyo palacios, 09/23/2024 01:30:00 PM, [address] [place] [address], [address], [place], [place], [phone], Provider Name:Yeyo Esteban suzanne, 03/21/2025 07:45:00 AM, [address] [facility], [address], [place], [phone], Provider Name:Yeyo Esteban manojr, 03/28/2025 01:00:00 PM, [address] [facility], [address], [place], [place], [phone], Insurance Providers Payer Name Payer Address Payer Phone Subscriber Number Group Number Insured Name Patient Relationship to Insured Coverage Start Date Coverage End Date MEDICARE NHIC [address] [place] [address] [id number] Faisal Leiva Self - patient is the insured MEDEX [facility] [address] [place] [address] [id number] CaliMaxwellFaisal Self - patient is the insured Medical (General) History Medical History History ICD Code angioplasty 2004 colonoscopy 2008; colonoscop y - 01/20/2014 Dr. Sanchez - no further colonoscopies necessary; HX of tubular adenoma of colon Hx Bloody Stools
--- OUTSIDE RECORDS SUMMARY | 2024-05-16 16:46 | XMS_ITS ---
Author Organization Yeyo Mason MD Address [address] [place] [phone] Care Team Providers Care Inventory Controller Name Role Phone Yeyo Mason Primary Care Provider [phone] REASON FOR VISIT fill out HCP and [...] Location Date Provider Diagnosis Yeyo Mason MD [address] [place] [phone] 12/28/2023 Yeyo Mason Memory loss R41.3 ; [...] chart. Next Appt Details Provider Name:Yeyo palacios, 09/16/2024 07:30:00 AM, [address] [place] [address], [phone], Provider Name:Yeyo palacios, 09/23/2024 01:30:00 PM, [address] [place] [address], [phone], Provider Name:Yeyo palacios, 03/21/2025 07:45:00 AM, [address] [place] [address], [phone], Provider Name:Yeyo palacios, 03/28/2025 01:00:00 PM, [address] [place] [address], [phone], Progress Notes * Faisal GARCIA MDOB:[birth year] (88 yo M)Acc No.[id number]:12/28/2023 Progress Notes Patient:?Faisal GARCIA Provider:?Yeyo Mason MD :1935???Age:88 Y???Sex:Male Mitul e:12/28/2023 Address:[address] [place] [address] [id number] Subjective: * Chief Complaints: * ???1. fill [...] MD Date:?1 02/26/2023 Generated for Saturnino gallegos/Sumeet/Deepikasmitting on:?05/16/2024 04:46 PM EDT History and Physical Notes * HPI [...]
--- OUTSIDE RECORDS SUMMARY | 2024-05-16 16:46 | XMS_ITS ---
Author Organization Yeyo Mason MD Address [address] [place], [place] [id number] Care Team Providers Care Field Tech Name Role Phone Yeyo Mason Primary Care Provider Results Component Value Reference Range Notes Complete Blood Count Auto Di ff Reviewed date:03/22/2024 05:34:13 PM Interpretation: Performing Lab:[facility], [address] [place] [phone] Notes/Report: White Blood Count 6.0 4.8-10.8 X10*3/uL [...] NRBC Abs Auto 0.000 0.0-0.012 X10*3/uL Comprehensive [place]. Panel Fa st Reviewed date:03/22/2024 05:05:12 PM Interpretation: Performing Lab:[facility], [address] [place] [phone] Notes/Report: Sodium 144 135-145 mmol/L Potassium 4.0 [...] Panel Reviewed date:03/22/2024 05:04:48 PM Interpretation: Performing Lab:[facility], [address] [place] [phone] Notes/Report: Triglycerides 82 <150 mg/dL Desirable Triglyceride: [...] (Free>4and<10) Reviewed date:03/22/2024 05:04:56 PM Interpretation: Performing Lab:[facility], [address] [place] [phone] Notes/Report: PSA,Total (Free>4and<10) 1.16 0.00-4.00 ng/mL A [...] t Reviewed date:03/26/2024 01:33:19 PM Interpretation: Performing Lab:[facility], [address] [facility], [place] [phone] Notes/Report: Urine, Clean Catch Color Urine Yellow Appearance Urine Clear PH 6.0 5.0-9.0 Glucose Urine UA Negative Negative mg/dL Urine Blood Negative Negative Specific [place] - Urine 1.025 1.005-1.025 Urine Protein Negative [...] Location Date Provider Diagnosis Yeyo Mason MD [address] [place] [address] [place] [phone] 03/19/2024 Yeyo Mason Blood tests for rout [...] Treatment Next Appt Details Provider Name:Yeyo palacios, 09/16/2024 07:30:00 AM, [address] [place] [address], Suite [facility], [place], [place], [phone], Provider Name:Yeyo palacios, 09/23/2024 01:30:00 PM, [address] [place] [address], [address], [phone], Provider Name:Yeyo palacios, 03/21/2025 07:45:00 AM, [address], [address], [place], [phone], Provider Name:Yeyo Esteban ier, 03/28/2025 01:00:00 PM, [address], [address], [place], [phone], Progress Notes * Faisal GARCIA MDOB:[birth year] (88 yo M)Acc No.[id number]:03/19/2024 Progress Note Patient:?Maxwell GARCIAmond Shayla Provider:?Yeyo Mason MD :1935???Age:88 Y???Sex:Male Mitul e:03/19/2024 Address:[address] [place] [address] [id number] Subjective: * Chief Complaints: * ???1. FASTING LABS. * Medical History:? Objective: * Vitals:? Assessment: * Assessment: 1.?Blood tests for routine g eneral physical examination - Z00.00 (Primary)???2.?Essential hypertension - I10???3.?Pure hypercholesterolemia - E78.00???4.?Elevated PSA - R97.20???5.?Lymphocytosis - D72.820??? Plan: * Treatment: 2.?Essential hypertension?LAB: Complete Blood Count Auto Diff (Collection Date & Time - 03/19/2024 07:30 AM) ?LAB: Comprehensive [place]. Panel Fast (Collection Date & Time - 03/19/2024 07:30 AM) ?LAB: Lipid Panel (Collection Date & Time - 03/19/2024 07:30 AM) ?LAB: PSA,Total (Free>4and<10) (Collection Date & Time - 03/19/2024 07:30 AM) ?LAB: UA ClnCatch+Micro w/rflx Cult (Collection Date & Time - 03/19/2024 07:30 AM) 3.?Pure hypercholesterolemia ?LAB: Complete Blood Count Auto Diff (Collection Date & Time - 03/19/2024 07:30 AM) ?LAB: Comprehensive [place]. Panel Fast (Collection Date & Time - 03/19/2024 07:30 AM) ?LAB: Lipid Panel (Collection Date & Time - 03/19/2024 07:30 AM) ?LAB: PSA,Total (Free>4and<10) (Collection Date & Time - 03/19/2024 07:30 AM) ?LAB: UA ClnCatch+Micro w/rflx Cult (Collection Date & Time - 03/19/2024 07:30 AM) 4.?Elevated PSA?LAB: Complete Blood Count Auto Diff (Collection Date & Time - 03/19/2024 07:30 AM) ?LAB: Comprehensive [place]. Panel Fast (Collection Date & Time - 03/19/2024 07:30 AM) ?LAB: Lipid Panel (Collection Date & Time - 03/19/2024 07:30 AM) ?LAB: PSA,Total (Free>4and<10) (Collection Date & Time - 03/19/2024 07:30 AM) ?LAB: UA ClnCatch+Micro w/rflx Cult (Collection Date & Time - 03/19/2024 07:30 AM) 5.?Lymphocytosis?LAB: Complete Blood Count Auto Diff (Collection Date & Time - 03/19/2024 07:30 AM) ?LAB: Comprehensive [place]. Panel Fast (Collection Date & Time - 03/19/2024 07:30 AM) ?LAB: Lipid Panel (Collection Date & Time - 03/19/2024 07:30 AM) ?LAB: PSA,Total (Free>4and<10) (Collection Date & Time - 03/19/2024 07:30 AM) ?LAB: UA ClnCatch+Micro w/rflx Cult (Collection Date & Time - 03/19/2024 07:30 AM) * Procedure Codes:?34235 VENIP UNCT, ROUTINE* * * The named appointment provid er may or may not be the originator of this progress note, and it is not deemed complete until electronically signed by the appointment provider. Sign off status: Pending * Provider:?Yeyo Mason MD Date:?0 03/19/2024 Generated for Saturnino gallegos/Sumeet/George on:?05/16/2024 04:45 PM EDT
--- OUTSIDE RECORDS SUMMARY | 2024-05-16 16:46 | XMS_ITS ---
Author Organization Yeyo Mason MD Address [address] [place] [phone] Care Team Providers Care Customer Complaint Clerk Name Role Phone Yeyo Mason Primary Care Provider [phone] Allergies Allergen (clinical drug ingredient) Drug/Non Drug [...] Location Date Provider Diagnosis Yeyo Mason MD [address] [place] [address] [address] [place], [place] [phone] 03/26/2024 Yeyo Mason Essential hypertensi on I10 ; Pure hypercholesterolemia E78.00 ; Atherosclerotic heart disease of [place] coronary artery without angina pectoris I25.10 ; [...] regiment 03/26/2024 Atherosclerotic hear t disease of [place] coronary artery without angina pectoris (ICD-10 - [...] current regiment Atherosclerotic heart diseas e of [place] coronary artery without angina pectoris not having any complaints Atrial fibrillation, unspecified type st able, will continue current regiment Colon cancer screening guaiac negative Depression screening negative screen Next Appt Details Follow Up: 6 Months, Reason: Provider Name:Yeyo palacios, 09/16/2024 07:30:00 AM, [address] [place] [address], Suite [facility], [place], [place], [phone], Provider Name:Yeyo palacios, 09/23/2024 01:30:00 PM, [address] [place] [address], Suite [facility], [place], [place], [phone], Provider Name:Yeyo palacios, 03/21/2025 07:45:00 AM, [address] [place] [address], Suite [facility], [place], [place], [phone], Provider Name:Yeyo palacios, 03/28/2025 01:00:00 PM, [address] [place] [address], Suite [facility], [place], [place], [phone], Progress Notes * Faisal GARCIA MDOB:[birth year] (88 yo M)Acc No.[id number]:03/26/2024 Patient:?Faisal GARCIA Provider:?Yeyo Mason MD :1935???Age:88 Y???Sex:Male Mitul e:03/26/2024 Address:[address] [place] [address] [id number] Subjective: * Chief Complaints: * ???Review labsAccompanied by * HPI: ???Depression Screening:?PHQ-9?Little interest or pleasure in doing things?Not at all,?Feeling down, depressed, or hopeless?Not at all,?Trouble falling or staying asleep, or sleeping too much?Not at all,?Feeling tired or having little energy?Not at all,?Poor appetite or overeating?Not at all,?Feeling bad about yourself or that you are a failure, or have let yourself or your family down?Not at all,?Trouble concentrating on things, such as reading the newspaper or watching television?Not at all,?Moving or speaking so slowly that other people could have noticed; or the opposite, being so fidgety or restless that you have been moving around a lot more than usual?Not at all,?Thoughts that you would be better off or of hurting yourself in some way?Not at all,?Total Score?0.?Interpretation and Intervention?Depression Screening Findings?Negative,?Follow-Up for Depression?: review of PHQ-9 found negative result, no follow-up needed.?Communication Needs:?Communication Needs?Does the patient have a hearing impairment?Yes,?If yes, what is the hearing impairment??Hard of hearing, Hearing Aids,?Does the patient have a vision impairment??Yes,?If yes, what is the vision impairment??Glasses,?Does the patient have a cognition impairment??No.?Fall Risk:?History?Have you had any falls with injury in the past year??No,?Have you had two or more falls in the past year??No.?SDOH Questions:?SDOH Questions?In the past year have you been worried about losing housing??No,?In the past year have you or any family members you live with been unable to get any of the following when it was really needed? Check all that apply:?None.?Symptom(s):? patient is a 88 yo male here for review of recent labs and follow up of chronic issues. * ROS:?General/Constitutional:?Patient denies?fatigue, headache.?Change in appetite?denies.?Chills?denies.?Fever?denies.?Ophthalmologic:?Blurred vision?denies.?Discharge?denies.?Pain?denies.?ENT:?Patient denies?decreased sense of smell, any loss of taste, sore throat.?Decreased hearing?denies.?Sore throat?denies.?Swollen glands?denies.?Endocrine:?Cold intolerance?denies.?Excessive thirst?denies.?Heat intolerance?denies.?Weight loss?denies.?Respiratory:?Cough?denies.?Shortness of breath at rest?denies.?Shortness of breath with exertion?denies.?Wheezing?denies.?Cardiovascular:?Chest pain at rest?denies.?Chest pain with exertion?denies.?Irregular heartbeat?denies.?Shortness of breath?denies.?Gastrointestinal:?Abdominal pain?denies.?Change in bowel habits?denies.?Diarrhea?denies.?Nausea?denies.?Rectal bleeding?denies.?Vomiting?denies .?Genitourinary:?Blood in urine?denies.?Difficulty urinating?denies.?Frequent urination?denies.?Musculoskeletal:?Patient denies?muscle aches.?Painful joints?denies.?Weakness?denies.?Peripheral Vascular:?Patient denies?red and blue toes.?Skin:?Dry skin?denies.?Itching?denies.?Denies?Mole(s),? changes in moles, new moles or any lesions of concern.?Denies?Photosensitivity.?Rash?denies.?Neurologic:?Dizziness?denies.?Fainting?denies.?Headache?denies.? * Medical History:? * Surgical History:? * Hospitalization/Major Diagno stic Procedure:? * Family History:?Father: dece ased, not known.?Mother: 84 yrs, colon cancer, coronary artery disease.?1 daughter(s) - healthy. .? Brother - cancer all over; sister in [facility] - leg amputation Son - car accident 1 sister 87 Cancer, No pertinent family medical history, Denies mental health/substance abuse family history, Denies mental health/substance abuse family history, Denies mental health/substance abuse family history. * Social History:?Tobacco Use:?Tobacco Use/Smoking?Patient is a?former smoker,?How long has it been since you last smoked??> 10 years,?Additional Findings: Tobacco Non-User?Former smoker, currently using no form of tobacco.?Drugs/Alcohol:?Alcohol Screen?Did you have a drink containing alcohol in the past year??No,?Points?0,?Interpretation?Negative.?Miscellaneous:?Caffeine: no. Children: yes. Community involvements: no. Exercise: yes, walks a mile [employer]. Home smoke detector use: yes. Housing: owning. Living with: spouse. Marital status: . Occupation: retired. Pets: none, 1 cat. Travel outside of the [place]: no. * Medications:?TakingIsosorbid e Mononitrate ER 30 MG [...] and reconciled with the patient * Allergies:?sulfa: lynetteyes[Macho wheeler Verified] Objective: * Vitals:?Ht: 69, Wt: 192, BMI :28.35, BP:132/60, Wt-k.09. * ???Past Orders: ???Lab:PSA,Total (Free>4and< 10) (Order Date - 03/19/2024) (Collection Date & Time - 03/19/2024 07:30 AM) ? Value Reference Range ?PSA,Total (Free>4and<10) 1.16 0.00-4.00 - ng/mL ???Lab:UA ClnCatch+Micro w/r flx Cult (Order Date - 03/19/2024) (Collection Date & Time - 03/19/2024 07:30 AM) ? Value Reference Range ?Color Urine Yellow - ?Appearance Urine Clear - ?PH 6.0 5.0-9.0 - ?Glucose Urine UA Negative Neg ative - mg/dL ?Urine Blood Negative Negative - ?Specific [place] - Urine 1.025 1.005-1.025 - ?Urine Protein Negative Neg-Tr deepa - mg/dL ?Urine Ketones Negative Negati ve - mg/dL ?Nitrite Urine Negative Negati ve - ?Leukocyte Esterase Urine Trace A Negative - ?RBC Urine 0-2 0-2 - /HPF ?WBC Urine 0-5 0-5 - /HPF ?Squamous Epithelial Cell Urine 0-2 0-2 - /HPF ?Bacteria Urine None Seen None Seen - ?Hyaline Casts Urine 0-2 0-2 - /LPF ???Lab:Complete Blood Count Auto Diff (Order Date - 03/19/2024) (Collection Date & Time - 03/19/2024 07:30 AM) ? Value Reference Range ?White Blood Count 6.0 4. 8-10.8 - X10*3/uL ?Red Blood Count 4.74 4.60 -5.80 - X10*6/uL ?Hemoglobin 15.3 14.0-18.0 - g/dl ?Hematocrit 46.0 42.0-52.0 - % ?Mean Corpuscular Volume 97.0 80.0-98.0 - fL ?Mean Corpuscular Hemoglobin 32.3 27.0-33.0 - pg ?Mean Corpuscular HGB Conc 33.3 31.0-36.0 - g/dl ?Red Cell Distribution Width 12.7 11.0-16.0 - % ?Platelet Count 153 L 160-4 00 - X10*3/uL ?Mean Platelet Volume 9.5 9.4-12.4 - fL ?Neutrophils Percent Auto 50.5 45-73 - % ?Imm Gran Pct Auto 0.2 0. 0-0.4 - % ?Lymphocytes Percent Auto 37.2 20-40 - % ?Monocytes Percent Auto 10.9 2-11 - % ?Eosinophils Percent Auto 0.7 0-4 - % ?Basophils Percent Auto 0.5 0-2 - % ?NRBC Pct Auto 0.0 0.0-0. 2 - /100WBC ?Neutrophils Absolute Auto 3.0 2.0-8.3 - x10*3/uL ?Imm Gran Abs Auto 0.01 0. 00-0.03 - X10*3/uL ?Lymphocytes Absolute Auto 2.2 1.2-4.9 - X10*3/uL ?Monocytes Absolute Auto 0.7 0.1-1.2 - X10*3/uL ?Eosinophils Absolute Auto 0.0 0.0-0.4 - X10*3/uL ?Basophils Absolute Auto 0.0 0.0-0.2 - X10*3/uL ?NRBC Abs Auto 0.000 0.0-0. 012 - X10*3/uL ???Lab:Lipid Panel (Order Da te - 03/19/2024) (Collection Date & Time - 03/19/2024 07:30 AM) ? Value Reference Range ?Triglycerides 82 <150 - mg/dL ?Cholesterol 128 <200 - m g/dL ?LDL Cholesterol Calculated 68 <100 - mg/dL ?HDL Cholesterol 44 >40 - mg/dL ???Lab:Comprehensive [place]. P pollo Fast (Order Date - 03/19/2024) (Collection Date & Time - 03/19/2024 07:30 AM) ? Value Reference Range ?Sodium 144 135-145 - mmo l/L ?Bilirubin Total 1.2 H 0.0- 1.0 - mg/dL ?Aspartate Amino Transferase 24 5-37 - U/L ?Alanine Aminotransferase 19 0-40 - U/L ?Total Protein 6.6 6.5-8. 0 - g/dL ?Albumin Level 4.0 3.5-5. 0 - g/dL ?Alkaline Phosphatase 78 39-117 - U/L ?Potassium 4.0 3.3-5.1 - mmol/L ?Chloride 113 H 96-108 - mm ol/L ?Carbon Dioxide 27 22-29 - mmol/L ?Anion Gap 8 L 12-20 - ?Blood Urea Nitrogen 19 H 9-16 - mg/dL ?Creatinine 0.96 0.5-1.4 - mg/dL ?Estimated Glomerular Filt Rate > 60 - ?Glucose Fasting 96 60-9 9 - mg/dL ?Calcium 8.6 8.4-10.2 - m g/dL * Examination: ???General Examination: ?GENERAL APPEARANCE:?well developed, well nourished, in no acute distress.?HEAD:?normocephalic, atraumatic.?EYES:?pupils equal, round, reactive to light and accommodation, sclera non-icteric.?EARS:?normal.?ORAL CAVITY:?mucosa moist.?THROAT:?clear.?NECK/THYROID:?neck supple, full range of motion, no cervical lymphadenopathy, no bruits.?SKIN:?warm and dry, no suspicious lesions.?HEART:?regular rate and rhythm, S1, S2 normal, no murmurs.?LUNGS:?clear to auscultation bilaterally.?ABDOMEN:?soft, nontender, nondistended, bowel sounds present, normal, no organomegaly , no masses palpable.?RECTAL EXAM:?normal tone, no external hemorrhoids, no masses palpable, prostate normal, stool guaiac negative.?MALE GENITOURINARY:?circumcised, testes descended bilaterally.?EXTREMITIES:?no clubbing, cyanosis, or edema.?NEUROLOGIC:?nonfocal, motor strength normal upper and lower extremities, sensory exam intact.? 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 ?5.?Colon cancer screening - Z12.11???6.?Depression screening - Z13.31??? Plan: * Treatment: 2.?Pure hypercholesterolemia ? Continue Atorvastatin Calcium Tablet, 20 MG, TAKE ONE TABLET BY MOUTH EVERY DAY.?? Notes: well controlled, will continue current regiment?? 3.?Atherosclerotic heart dis ease of [place] coronary artery without angina pectoris? Notes: not having any complaints?? 4.?Atrial fibrillation, unsp ecified type? Continue Xarelto Tablet, 20 MG, 1 tablet with food, Orally, Once a day;?Continue Metoprolol Tartrate Tablet, 50 MG, TAKE ONE TABLET BY MOUTH TWICE A DAY.?? Notes: stable, will continue current regiment?? 5.?Colon cancer screening? Notes: guaiac negative?? 6.?Depression screening? Notes: negative screen?? * Procedure Codes:? * Preventive Medicine:? ??Counseling:?Care goal follow-up plan:?Counseling for abnormal BMI provided?Yes,?Above Normal BMI Follow-up?Giving encouragement to exercise.? * Follow Up:?6 Months * * Sign off status: Completed true * Provider:?Yeyo Mason MD Date:?0 03/26/2024 Generated for Saturnino gallegos/Sumeet/eTadolphsmitting on:?05/16/2024 04:45 PM EDT History and Physical Notes * [...] Total Score: 0 Interpretation and Intervention Depression Deborah temple Findings: Negative Follow-Up for Depression: : review [...] had two or more falls in the year?: No Communication Needs Communication Needs Does the patient have a hearing impairment: Yes ?If yes, what is the hearing impairment? : Hard of hearing, Hearing Aids Does the patient have a vision impairmen t?: Yes ?If yes, what is the vision impairment?: Glasses Does the patient have a cognition impair ment?: No Examination Category Sub-Category Detail Notes Category Not es General Examination GENERAL APPEARANCE: well dev eloped, well nourished, in no acute distress HEAD: normocephalic, atrau matic EYES: pupils equal, round, reactive to light and accommodation, sclera non- icteric EARS: normal THROAT: clear NECK/THYROID: neck supple, [...]
--- OUTSIDE RECORDS SUMMARY | 2024-05-16 16:46 | XMS_ITS | Data Portability ---
Author Organization [place] - [employer] [facility], [facility] Address [address] [address] Care Team Providers Care Unit Aide Tech Name Role Phone EDWARD ANGELO Primary Care [...] syndrome (CBS) , after the 18th century Brazilian clinical laboratory scientist and philosopher who first described the [...] dysfunction: Never Reviewed hospital admission: admitted to [facility] 01/12/22 after an episode of gibberish, [...] Reviewed: Finances: would work with real estate services coordinator to ensure that assets are in [...] Bonnet syndrome (CBS), 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 Function: a. Campo ADL: 6 b. [place] IADL: 4 - help with driving, shopping, [...] They are working on this with the hand crown pouncer. d. MOLST: they will ask Dr Angelo for the MOLST form. He would want to be DNR/DNI e. POA: Working on this f. Is there an emergency plan in case the caregiver is unable to provide care?: They have a daughter in [place]. Patient and caregiver resources discussed and/or handed out More than 50% of this 70 minute visit was spent face to face with the patient and/or family caregiver, providing counseling, decision making, and coordination of care. Written plan discussed with and given to the patient and/or family caregiver. 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 MOCA 8.1, done 08/21/23 score 20/30 VIsuospatial/execut yanet: 2/5 could draw contour and [...] dysfunction: Never Reviewed hospital admission: admitted to [facility] 01/12/22 after an episode of gibberish, found to have complicated UTI, also with COVID. Noted during that hospital stay to have mild hypoxia; was placed on 2L nasal cannula and started on dexamethasone and remdesivir. They found first visit very helpful. They went to a caregiver session run by Lillian Jones. They loved her but she hasn't had any groups since. Since last visit, they seem to be doing okay. He is walking one mile a day. Nia is getting a TKR and is worried about that. Nia says he has always been very forgetful - but doesnt think it is worse. Plan: W/u: Ensure B12, TSH, folate, MMA have been checked - we will check in [employer] system. Could consider further neuropsych testing for more [...] 6 months. Currently on memantine 5 mg bid - we will increase to 10 mg bid. Would consider staring donepezil - indicated for mild-moderate dementia - they want to think about it. Great he is wearing his hearing aides. Consider getting assessed for sleep apnea if not done already Reviewed: Finances: completed will and trust No longer driving He does meds and has a system [...] but start off slow and build up he is walking one mile daily. Mental activity - learning a new skill Social activity Meditation and/or Rei Chi can help Minimize TV watching. Diagnosis reviewed? yes 2. Function: a. Campo ADL: 6 b. [place]-Lio IADL: 4 from 4 - help with driving, shopping, never did food prep, never managed finances, rarely wrote checks. He is able to microwave meals. He takes his own medications. c. Plan: manages everything. She was going to get someone to clean the house which is great Maxwell does a lot - folds laundry, dries dishes, takes care of the cat. She is watching him pay bills. 3. Stage of cognitive impairment: a. Dementia Severity Rating Scale (DSRS) : Mild - 10 from 3 some impairment of memory, speech, time, ability to make decisions, social activity, home activities. b. Plan: i. Continue to think about planning for the future based on stages and care recommendations Maxwell is eligible for the [facility] and has the packet completed. Nia thinks his memory is about the same but having a little problem with money. 4. Decision-making: a. 3 level rating scale global clinician judgement: able to make his needs known b. (Able to make own decisions, not able to , uncertain/needs more evaluation) c. Plan: able to make his own decisions at this time. 5. Neuropsychiatric symptoms: Some agitation, apathy, disinhibition, irritability, motor disturbance, nightime behaviors, appetite. Denies depression or anxiety a. Assessment tool: NPI-Q (12 items) Severity: 5/ Distress to caregiver: none b. Plan: Consider starting a SSRI like sertraline to help with mood and irritabiilty. Plan: Could consider starting SSRI such as sertraline which can help with mood and irritability. Also important to realize that he likely wont change much at this time in his life - Nia worries about him and he gets irritated when she tells him what not to do - so may just want to back away if possible. 6. Medication review and reconciliation: a. Medications reviewed and reconciled: Yes b. PIMs (Potentially Inappropriate Medications) identified: No c. Administration: helps with medications but Maxwell has a system - 5 in am, 4 at night. He would prefer not using a pill box. I asked Nia to monitor the bottles and ensure they are being refilled and # are appropriate. 7. Safety: a. Safety Assessment Guide: i. [...] Plan: No safety concerns at this time. He is walking one mile daily which is amazing. 8. Caregiver identification and needs assessment: a. Assessment tool: Stress thermometer: a little ; ZARIT-12: 16 from 9 b. Plan: Legal things are in order which are great. She is going to support/caregiver services. Nia doesnt have a computer so wants an inperson caregiver support session - would look at [employer]. Nia is due to get TKR and is nervous about if she can go to rehab - which is increasing her stress level. 9. Advance care planning: a. Checklist reviewed b. Plan (Preferences and legal needs): c. HCP: Completed, Nia primary, then Gertrudis wen MOLST: completed, DNR/DNI e. POA: Completed. f. Is there an emergency plan in case the caregiver is unable to provide care?: They have a daughter in [place]. Patient and caregiver resources discussed and/or handed out More than 50% of this 70 minute visit was spent face to face with the patient and/or family caregiver, providing counseling, decision making, and coordination of care. Written plan discussed with and given to the patient and/or family caregiver. Written plan shared with PCP I have maintained a long-term (or longitudinal) relationship with the patient as their consulting physician managing the care of the diagnoses listed. This has significantly influenced my decision-making and treatment plans during today's encounter. Will f/u in 6 months for repeat CCP Not available 04/24/2024 15:45:37 Plan of Treatment Reminders Order Date Submit Date Provider Last Modified By Organization Details Last Modified Time Details Appointments COGNITIVE CARE PLANS 2024 02:30P M Anat Lees MD Not available Not available Not available Lab None recorded. Referral None recorded. Procedures None recorded. Surgeries None recorded. Imaging None recorded. Medication Orders memantine 10 mg tablet 2024 025 [facility], [address] [facility], [place], [address], 04/24/2024 15:22:13 Patient TargetsNo targets recorded. Patient Instructions Encounter Date Encounter Id Patient Instructions Last Modified By Organization Details Last Modified Time 08/21/2023 hearing loss: care instructions Not available 08/27/2023 07:44:48 Reason for Referral None Reported. Results Created Date Observation Date Name Description Value Unit Range Abnormal Flag Note LastModifiedBy Organization Detail LastModifiedTime 08/16/19 24 12/27/2022 CT, head + brain , w/o contr ast No observ ation record ed. [email or web address] Not Available 2023 17:06:55 Result Notes None recorded. Problems Name Problem SNOMED Code Status Onset Date Resolution Date Notes Provider Name and Address Organization Details Recorded Time Impaired cognition 478959168 Active 2023 Anat Lees MD [address], [place], [address], MD.[employer] 4 17:20:08 Visual hallucinations 45295145 Active 2023 Anat Lees MD [address], [place], [address], MD.[employer] [facility] 4 17:20:17 Hearing loss 03835648 Active 2023 Anat Lees MD [address], [place], [address], MD.[employer] [facility] 4 17:20:32 Hypertensive disorder 06463075 Active 2023 Anat Lees MD [address], [place], [address], MD.[employer] [facility] 4 17:20:39 Disorder of cardiovascular system 51576779 Active 2023 Anat Lees MD [address], [place], [address], MD.[employer] [facility] 4 17:20:47 Abnormal gait 07952692 Active 2023 Anat Lees MD [address], [address], [employer] 4 17:48:37 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 Procedures [...] n rash Not available Not available 08/21/2023 71112 8003 SNOMED Anat Lees MD [address], [address], [employer] 4 10:52:45 Medications Name Sig Start Date [...] Not Available Not Available Not Available memantine 10 mg tablet Take 1 tablet twice a day by oral route. 2024 active Not Available Not Available Not Avai lable memantine 5 mg tablet TAKE ONE TABLET [...] Updated DateTime 4 173.99 cm 29.8 kg/m2 38930.8 8 g 90 /min 95 % 95 % 118 mm[Hg] 80 mm[Hg] [facility] [place] [employer] [place] [facility] 4 13:09:53 Date Recorded Body height Body mass index (BMI) Body weight Oxygen saturation Oxygen saturation in Arterial blood by Pulse oximetry Heart rate Provider Name and Address Organization Details Last Updated DateTime 5 173.99 cm 29.2 kg/m2 16957.7 9 g 95 % 95 % 64 /min [facility] 5 14:33:20 Date Recorded Body weight Oxygen saturation Oxygen saturation in Arterial blood by Pulse oximetry Body mass index (BMI) Body height Provider Name and Address Organization Details Last Updated DateTime 08/21/2023 88405.47 g 96 % 96 % 30 kg/m2 173.99 cm Maryann [employer] [place] [facility] 4 14:33:40 Social History None recorded. Functional Status None recorded. Mental Status None recorded. Family History Nothing Reported. Medical History No medical history recorded. Past Encounters Encounter ID Performer Location Encounter Start Date Encounter Closed Date Diagnosis/Indication Diagnosis SNOMED-CT Code Diagnosis ICD10 Code Diagnosis Note [id number] MD [facility] [address] 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 Abnormal gait 24905471 R 26.9 notes gait changes x ~ 6 months, unclear etiology, does not appear to be shuffling gait but more like a steppage gaitWould ensure that she notifies PCP and Neurologis t - she is aware and will do so. 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 [address] [place] [address] 10/18/2023 12:53:07 10/18/2023 14:08:29 Abnormal gait 91381022 R26.9 notes gait changes x ~ 6 months, unclear etiology, does not appear to be shuffling gait but more like a steppage gaitWould ensure that she notifies PCP and Neurologis t - she is aware and will do so. Impaired cognition 77877 6002 R41.89 1273 Anat Lees MD [facility] [address] [facility] [address] [place] [address] 04/24/2024 14:13:19 04/24/2024 15:46:23 Impaired cognition 812744988 R41.89 as above. Abnormal gait 28767735 R 26.9 notes gait changes x ~ 6 months, unclear etiology, does not appear to be shuffling gait but more like a steppage gaitAs before, would ensure that she notifies PCP and Neurologis t - she is aware and will do so. Health Concerns Section Related Observation LastModified by Organization Detai ls LastModified Time None Recorded Concern Status LastModified by Organization Details LastModified Time None Recorded Advance Directives Directive None Recorded Payers Encounter Date Sequence Insurance Name Policy Number Policy Pinto Covered Member ID Pinto Member ID Guarantor Name 08/21/2023 2 [place] [id number] Faisal [facility] [id number] [facility] 08/21/2023 1 [place] [employer] Faisal [facility] [id number] 1 [facility] 10/18/2023 2 [place] [id number] Faisal Leiva [id number] Faisal Leiva 10/18/2023 1 [place] [facility] Faisal Leiva [id number] 1 Faisal Leiva 04/24/2024 2 [place] [id number] Faisal Leiva [id number] Faisal Leiva 04/24/2024 1 [place] [facility] Faisal Leiva [id number] 1 Faisal Leiva Notes Date Note Type Note Provider Name [...] ornery.In Jan 2023, they took him to [facility] because he was quite confused. It was a terrible experience ? he was put in a room with someone who had killed someone and was in [facility]. Maxwell found the entire experience quite traumatic [...] > 5 illnesses(HTN, DM, CA, chronic respiratorydisease, NE, CVA, arthritis (or RA), CKD, or liver disease): NoWeight loss > 5% in the past 6 months: noneScore: 1 (Robust: 0, Pre-frail: 1-2, Frail: >=3) Social History:[place]ational level[place] HSLiving situation: HSexual orientation: straightPartnership status: marriedOccupation:retire d, [employer] IChildren: 2In contact with them? yesETOH: used to drink but quitConcern about amount of ETOH? noTobacco: no, used to smoke a pipeOther drugs: n/a FH: non contributoryFather left family when Ray was very young Anat Lees MD [address] [address], [place], [address], [employer] 08/27/2023 07:56:28 4 text/html Subjective:Since last visit: [...] okay, denies anxiety. Anat Lees MD [address] [address], [place], [address], [employer] 10/18/2023 14:07:55 5 text/html Subjective:Since last visit: date: [facility] 10.18.23 They have lived in their own house for 57 years, 2 [address] but bedroom on main floor.Faisal has signed up for the [facility]. He is walking a mile every day - he walks at [employer]. He feels like he is grat. He doesnt get irritable so much. Memory: good days and bad days. Short term memory is not great. Nia:They talk about the future; Maxwell is eligible for [facility].She would like to go to a [facility] long-term - she loves Kaitlyn Bliss. She has not looked into this yet. They had a will made out and a trust. Falls/change in gait:ED visits/hospitalizations: Changes in function:Changes in medication:Was diagnosis from initial visit discussed?: Anat Lees MD [address] [address], [place], [address], [employer] 04/24/2024 15:46:00
[2024-05-16 16:50] VITALS: BMI 26.6
--- NOTE | 2024-05-16 16:52 | PC.NURSE ---
Per pt. and pt. statement, pt. takes Memantine 10 mg BID, no longer takes 5 mg BID. Informed and clarified with pharmacy as well.
[2024-05-16] MEDS: Heparin Sodium,Porcine/1/2NS 25,000 UNIT/250 ML IV.SOLN 10 UNIT IVCONT (17:32)
[2024-05-16 17:57] LABS: INTERNATIONAL NORM RATIO 1.4 (0.9-1.1); Prothrombin Time 16.1 SEC (10.9-12.4)
[2024-05-16 17:59] LABS: PTT Heparin Drip 38.3 SEC (53-77.9)
[2024-05-16 18:00] VITALS: BP 149/67; PULSE 87; RESP 18; O2SAT 95
[2024-05-16 18:00] LABS: Hematocrit 44.3 % (42.0-52.0); Hemoglobin 14.9 g/dl (14.0-18.0); Mean Corpuscular HGB Conc 33.6 g/dl (31.0-36.0); Mean Corpuscular Hemoglobin 32.3 pg (27.0-33.0); Mean Corpuscular Volume 96.1 fL (80.0-98.0); Mean Platelet Volume 8.9 fL (9.4-12.4); Platelet Count 137 X10*3/uL (160-400); Red Blood Count 4.61 X10*6/uL (4.60-5.80); Red Cell Distribution Width 12.9 % (11.0-16.0); White Blood Count 7.3 X10*3/uL (4.8-10.8)
--- NOTE | 2024-05-16 18:39 | PC.NURSE ---
Report called to ZACK Espinal at [facility], pt. going to room 21 B. Will call back when update on shredder picker time.
--- NOTE | 2024-05-16 19:48 | PC.NURSE ---
Report given to EMS transport, [facility] called to inform on pt. updates and when pt. is arriving.
--- NOTE | 2024-05-16 19:50 | PC.NURSE ---
vs: 128/56; HR-65; Oxygen @ 95%, 18 RR. Temp: 98.5F, oral.
--- NOTE | 2024-05-16 19:57 | PC.NURSE ---
Pt. left with heparin drip running at set rate of 10 with EMS, transport.
== END 2024-05-16 19:51 | disposition short-term general hospital (02) ==
LOC: HO.ED 15:27 → HO.EDOVER 16:07
PROVIDERS: Physician Assistant; Admitting Provider Internal Medicine; Emergency Provider Emergency Medicine Emergency Medical Services; PCP Internal Medicine; Visit Provider Internal Medicine
DX: I25.110 Atherosclerotic heart disease of native coronary artery with unstable angina pectoris (principal); I10 Essential (primary) hypertension; R07.9 Chest pain, unspecified; E78.5 Hyperlipidemia, unspecified; I48.91 Unspecified atrial fibrillation; Z79.01 Long term (current) use of anticoagulants; Z95.0 Presence of cardiac pacemaker; Z03.818 Encounter for observation for suspected exposure to other biological agents ruled out
CPT/HCPCS: 0241U; 36415; 71046; 80048; 80076; 83735; 84484; 85025; 85027; 85610; 85730; 93005; 99221; 99285; J1644

== ENCOUNTER → 2024-05-16 11:54 | Outpatient (BNV) | payer MEDICARE, SELFPAY | PROVIDERS: PCP Internal Medicine; Visit Provider Radiology Diagnostic Radiology | DX: R07.9 Chest pain, unspecified (principal) | CPT/HCPCS: 71046 ==

== ENCOUNTER → 2024-05-16 15:41 | Outpatient (BNV) | payer MEDICARE, SELFPAY | PROVIDERS: Admitting Provider Internal Medicine; Emergency Provider Emergency Medicine Emergency Medical Services; PCP Internal Medicine; Visit Provider Internal Medicine Cardiovascular Disease | DX: I20.0 Unstable angina (principal) | CPT/HCPCS: 93010; 99223 ==

== ENCOUNTER → 2024-05-16 15:41 | Outpatient (BNV) | payer MEDICARE, SELFPAY | PROVIDERS: Admitting Provider Internal Medicine; Emergency Provider Emergency Medicine Emergency Medical Services; PCP Internal Medicine; Visit Provider Internal Medicine | DX: I25.10 Atherosclerotic heart disease of native coronary artery without angina pectoris (principal) | CPT/HCPCS: 99223; 99499 ==

== ENCOUNTER → 2024-05-17 23:59 | Outpatient (BNV) | payer MEDICARE, SELFPAY | PROVIDERS: PCP Internal Medicine; Visit Provider Internal Medicine Cardiovascular Disease | DX: I20.0 Unstable angina (principal) | CPT/HCPCS: 93458; 99152 ==

== ENCOUNTER → 2024-05-23 23:59 | Outpatient (BNV) | payer MEDICARE, SELFPAY ==
--- NOTE | 2024-05-24 11:49 | MHC.OFFVIS ---
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 Mother Cancer Brother Cancer Social History Alcohol intake: former Patient Tobacco Use Status: Former Tobacco user Tobacco use type: Pipe Years Smoked: 20 +/- Office Procedures Cardiac Device Check Cardiac Device Check Details: Remote pacemaker report generated 05/23/2024. Pacemaker function is adequate [id number] Cardiac Device Interrogation, pacemaker Procedure code (CPT) selection complete Assessment & Plan Assessment & Plan (1) Cardiac pacemaker in situ: Comment: Dual-chamber [place]ony pacemaker placed, January 2017 for second-degree Mobitz type 2 av block with underlying left bundle-branch block Code(s): Z95.0 - Presence of cardiac pacemaker Category: Medical Plan: See above Coding Level of Care Code Procedure Only Diagnoses Cardiac pacemaker in situ Z95.0 CPT Codes Cardiac Device Check - Cardiac Device 12: [id number] Cardiac Device Interrogation, pacemaker ([id number])
== END ==
PROVIDERS: PCP Internal Medicine; Visit Provider Internal Medicine Cardiovascular Disease
DX: I44.1 Atrioventricular block, second degree (principal); I44.7 Left bundle-branch block, unspecified; Z95.0 Presence of cardiac pacemaker
CPT/HCPCS: 93294

== ENCOUNTER 2024-05-30 08:20 | Outpatient (AMB) | payer MEDICARE, SELFPAY ==
--- OUTSIDE RECORDS SUMMARY | 2024-05-30 08:38 | XMS_ITS | Data Portability ---
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 who first described the [...] dysfunction: Never Reviewed hospital admission: admitted to [facility] 01/12/22 after an episode of gibberish, found [...] done already Reviewed: Finances: would work with lawyer real estate to ensure that assets are in a [...] Bonnet syndrome (CBS), 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 Function: a. [place] ADL: 6 b. [place] IADL: 4 - help with driving, shopping, [...] They are working on this with the flat polisher. d. MOLST: they will ask Dr Angelo for the MOLST form. He would want to be DNR/DNI e. POA: Working on this f. Is there an emergency plan in case the caregiver is unable to provide care?: They have a daughter in [place]. 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 Could consider further neuropsych testing for [...] care recommendations Maxwell is eligible for the [facility] and has the packet completed. Nia [...] caregiver support session - would look at [employer]. Nia is due to get TKR and [...] provide care?: They have a daughter in [place]. Patient and caregiver resources discussed and/or handed [...] [facility], [address] [facility], [place], [address], 04/24/2024 15:22:13 Patient TargetsNo targets recorded. Patient [...] Address Organization Details Recorded Time Impaired cognition 534071342 Active 2023 Anat Lees MD [address], [place], [address], [employer] 4 17:20:08 Visual hallucinations 40261889 Active 2023 Anat Lees MD [address], [place], [address], [employer] [facility] [facility] 4 17:20:17 Hearing loss 91193166 Active 2023 Anat Lees MD [address], [place], [address], [employer] [facility] [facility] 4 17:20:32 Hypertensive disorder 22072642 Active 2023 Anat Lees MD [address], [place], [address], [employer] [facility] [facility] 4 17:20:39 Disorder of cardiovascular system 59955629 Active 2023 Anat Lees MD [address], [place], [address], [employer] [facility] [facility] 4 17:20:47 Abnormal gait 29609826 Active 2023 Anat Lees MD [address], [address], [place] [facility] 4 17:48:37 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 Procedures [...] n rash Not available Not available 08/21/2023 [id number] SNOMED Anat Lees MD [address], [address], [facility] 4 10:52:45 Medications Name Sig Start Date [...] Updated DateTime 4 173.99 cm 29.8 kg/m2 14951.8 8 g 90 /min 95 % 95 % 118 mm[Hg] 80 mm[Hg] [facility] [place] [facility] [place] [facility] 4 13:09:53 Date Recorded Body height Body mass index (BMI) Body weight Oxygen saturation Oxygen saturation in Arterial blood by Pulse oximetry Heart rate Provider Name and Address Organization Details Last Updated DateTime 5 173.99 cm 29.2 kg/m2 23126.7 9 g 95 % 95 % 64 /min Brent [facility]erg[facility] 5 14:33:20 Date Recorded Body weight Oxygen saturation Oxygen saturation in Arterial blood by Pulse oximetry Body mass index (BMI) Body height Provider Name and Address Organization Details Last Updated DateTime 08/21/2023 61819.47 g 96 % 96 % 30 kg/m2 173.99 cm Maryann [facility] [place] [facility] 4 14:33:40 Social History None recorded. Functional Status None recorded. Mental Status None recorded. Family History Nothing Reported. Medical History No medical history recorded. 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 Abnormal gait 04130995 R 26.9 notes gait changes x ~ 6 months, unclear etiology, does not appear to be shuffling gait but more like a steppage gaitWould ensure that she notifies PCP and Neurologis t - she is aware and will do so. 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 Impaired cognition 45923 6002 R41.89 [id number] Anat Lees MD [facility] [address] [facility] [address] [place] [address] 04/24/2024 14:13:19 04/24/2024 15:46:23 Impaired cognition 916058053 R41.89 as above. Abnormal gait 67253858 R 26.9 notes gait changes x ~ [...] Name 08/21/2023 2 [place] [id number] Faisal [facility] [id number] 59 [facility] 08/21/2023 1 [place] [employer] Faisal [facility] [id number] 1 [facility] 10/18/2023 2 [place] [id number] Faisal Leiva [id number] 59 Faisal Leiva 10/18/2023 1 [place]: [facility] Faisal Leiva [id number] 1 Faisal Leiva 04/24/2024 2 [place] [id number] Faisal Leiva [id number] 59 Faisal Leiva 04/24/2024 1 [place] [facility] Faisal Leiva [id number] 1 Faisal Leiva Notes Date Note Type [...] ornery.In Jan 2023, they took him to [facility] because he was quite confused. It was a terrible experience ? he was put in a room with someone who had killed someone and was in [facility]. Maxwell found the entire experience quite traumatic [...] > 5 illnesses(HTN, DM, CA, chronic respiratorydisease, MD, CVA, arthritis (or RA), CKD, or liver disease): NoWeight loss > 5% in the past 6 months: noneScore: 1 (Robust: 0, Pre-frail: 1-2, Frail: >=3) Social History:[place]raised[place]Educational level[place] HSLiving situation: HSexual orientation: straightPartnership status: marriedOccupation:retire d, [employer] IChildren: 2In contact with them? yesETOH: used to drink but quitConcern about amount of ETOH? noTobacco: no, used to smoke a pipeOther drugs: n/a FH: non contributoryFather left family when Ray was very young Anat Lees MD [address] [address], [place], [address], [place] [facility] 08/27/2023 07:56:28 4 text/html Subjective:Since last visit: [...] okay, denies anxiety. Anat Lees MD [address] [address], [place], [address], [place] 10/18/2023 14:07:55 5 text/html Subjective:Since last visit: date: [facility] 10.18.23 They have lived in their own house for 57 years, 2 [address] but bedroom on main floor.Faisal has signed up for the [facility]. He is walking a mile every day - he walks at [employer]. He feels like he is grat. He doesnt get irritable so much. Memory: good days and bad days. Short term memory is not great. Nia:They talk about the future; Maxwell [facility].She would like to go to a [facility] shelter - she loves Kaitlyn Bliss. She has not looked into this yet. They had a will made out and a trust. Falls/change in gait:ED visits/hospitalizations: Changes in function:Changes in medication:Was diagnosis from initial visit discussed?: Anat Lees MD [address] [address], [place], [address], [place] 04/24/2024 15:46:00
--- OUTSIDE RECORDS SUMMARY | 2024-05-30 08:38 | XMS_ITS ---
Author Organization Yeyo Mason MD Address [address] [place] [phone] Care Team Providers Care Ground Water Technician Name Role Phone Yeyo Mason Primary Care Provider REASON FOR VISIT Discharge Encounters Encounter Location Date Provider Diagnosis Yeyo Mason MD [address] [facility] [address] [place] [phone] 05/17/2024 Yeyo Mason Plan Of Treatment Next Appt Details Provider Name:Yeyo palacios, 05/31/2024 09:00:00 AM, [address] [place] [address], [address], [phone], Provider Name:Yeyo palacios, 09/16/2024 07:30:00 AM, [address] [place] [address], [address] [address], [place], [place], [phone], Provider Name:Yeyo Esteban ier, 09/23/2024 01:30:00 PM, [address], [address], [place], [phone], Provider Name:Yeyo Esteban ier, 03/21/2025 07:45:00 AM, [address] [facility] [address], [address], [place], [phone], Provider Name:Yeyo Esteban ier, 03/28/2025 01:00:00 PM, [address] [facility], [address], [place], [phone], Progress Notes * Faisal GARCIA MDOB:[birth year] (88 yo M)Acc No.[id number]:05/17/2024 Patient:?Faisal GARCIA :1935???Age:88 Y???Sex:Male Address:[address] [place] [address] [place] [address] * true * Date:? Generated for Saturnino gallegos/Sumeet/eTransmitting on:?05/30/2024 08:38 AM EDT
--- OUTSIDE RECORDS SUMMARY | 2024-05-30 08:39 | XMS_ITS ---
Author Organization Yeyo Mason MD Address [address] [place] [phone] Care Team Providers Care Sweet Pickled Fruit Maker Name Role Phone Yeyo Mason Primary Care Provider [phone] Allergies Allergen (clinical drug ingredient) Drug/Non Drug [...] Location Date Provider Diagnosis Yeyo Mason MD [address] [place] [address] [address] [place], [place] [phone] 03/26/2024 Yeyo Mason Essential hypertensi on I10 ; Pure hypercholesterolemia E78.00 ; Atherosclerotic heart disease of [place] coronary artery without angina pectoris I25.10 ; [...] regiment 03/26/2024 Atherosclerotic hear t disease of [place] coronary artery without angina pectoris (ICD-10 - [...] current regiment Atherosclerotic heart diseas e of [place] coronary artery without angina pectoris not having any complaints Atrial fibrillation, unspecified type st able, will continue current regiment Colon cancer screening guaiac negative Depression screening negative screen Next Appt Details Follow Up: 6 Months, Reason: Provider Name:Yeyo palacios, 05/31/2024 09:00:00 AM, [address] [place] [address], [address], [phone], Provider Name:Yeyo palacios, 09/16/2024 07:30:00 AM, [address] [place] [address], [address], [phone], Provider Name:Yeyo palacios, 09/23/2024 01:30:00 PM, [address] [place] [address], [address], [phone], Provider Name:Yeyo palacios, 03/21/2025 07:45:00 AM, [address] [place] [address], [address], [phone], Provider Name:Yeyo palacios, 03/28/2025 01:00:00 PM, [address] [place] [address], [address], [phone], Progress Notes * Faisal GARCIA MDOB:[birth year] (88 yo M)Acc No.[id number]:03/26/2024 Patient:?Faisal GARCIA Provider:?Yeyo Mason MD :1935???Age:88 Y???Sex:Male Mitul e:03/26/2024 Address:[address] [place] [address] [place]-[address] Subjective: * Chief Complaints: * ???Review labsAccompanied [...] Brother - cancer all over; sister in [facility] - leg amputation Son - car accident [...] no. Exercise: yes, walks a mile [employer]. Home smoke detector use: yes. Housing: owning. [...] and reconciled with the patient * Allergies:?sulfa: henrique[Al summer Verified] Objective: * Vitals:?Ht: 69, Wt: 192, [...] mg/dL ?Urine Blood Negative Negative - ?Specific [place] - Urine 1.025 1.005-1.025 - ?Urine Protein [...] ?HDL Cholesterol 44 >40 - mg/dL ???Lab:Comprehensive [place]. P pollo Fast (Order Date - 03/19/2024) [...] (Primary)???2.?Pure hypercholesterolemia - E78.00???3.?Atherosclerotic heart disease of [place] coronary artery without angina pectoris - I25.10???4.?Atrial fibrillation, unspecified type - I48.91? ?5.?Colon cancer screening - Z12.11???6.?Depression screening - Z13.31??? Plan: * Treatment: 2.?Pure hypercholesterolemia ? Continue Atorvastatin Calcium Tablet, 20 MG, TAKE ONE TABLET BY MOUTH EVERY DAY.?? Notes: well controlled, will continue current regiment?? 3.?Atherosclerotic heart dis ease of [place] coronary artery without angina pectoris? Notes: not [...] Mason MD Date:?0 03/26/2024 Generated for Saturnino gallegos/Sumeet/Marisabelitting on:?05/30/2024 08:38 AM EDT History and Physical Notes * [...]
--- OUTSIDE RECORDS SUMMARY | 2024-05-30 08:39 | XMS_ITS | Patient Health Record ---
Author Organization Yeyo Mason MD Address [address] [place], [place] [id number] Care Team Providers Care Sebd Teacher Name Role Phone Yeyo Mason Primary Care Provider [phone] Allergies Allergen (clinical drug ingredient) Drug/Non Drug Allergy documented on EMR Reaction Allergy Type Onset Date Status Substance with sulfonamide structure and antibacterial mechanism of action (substance) sulfa (uncoded) rash Allergy Active Results Component Value Reference Range Notes Liver Panel Reviewed date:09/15/2023 03:29:24 PM Interpretation: Performing Lab:[facility], [address] [place] [phone] Notes/Report: Bilirubin Total 0.8 0.0-1.0 mg/dL Bilirubin Direct 0.2 0.0-0.5 mg/dL Aspartate Amino Transferase 17 5-37 U/L Alanine Aminotransferase 24 0-40 U/L Total Protein 6.4 6.5-8.0 g/dL Albumin Level 4.0 3.5-5.0 g/dL Alkaline Phosphatase 80 39-117 U/L Lipid Panel with Reflex Reviewed date:09/15/2023 03:38:04 PM Interpretation: Performing Lab:[facility], [address] [place] [phone] Notes/Report: Triglycerides 87 <150 mg/dL Desirable Triglyceride: [...] ff Reviewed date:03/22/2024 05:34:13 PM Interpretation: Performing Lab:[facility], [address] [place] [phone] Notes/Report: White Blood Count 6.0 4.8-10.8 X10*3/uL [...] NRBC Abs Auto 0.000 0.0-0.012 X10*3/uL Comprehensive [place]. Panel Fa st Reviewed date:03/22/2024 05:05:12 PM Interpretation: Performing Lab:[address] [phone] Notes/Report: Sodium 144 135-145 mmol/L Potassium 4.0 [...] Panel Reviewed date:03/22/2024 05:04:48 PM Interpretation: Performing Lab:[address] [phone] Notes/Report: Triglycerides 82 <150 mg/dL Desirable Triglyceride: [...] (Free>4and<10) Reviewed date:03/22/2024 05:04:56 PM Interpretation: Performing Lab:[address] [phone] Notes/Report: PSA,Total (Free>4and<10) 1.16 0.00-4.00 ng/mL A [...] t Reviewed date:03/26/2024 01:33:19 PM Interpretation: Performing Lab:[address] [phone] Notes/Report: Urine, Clean Catch Color Urine Yellow Appearance Urine Clear PH 6.0 5.0-9.0 Glucose Urine UA Negative Negative mg/dL Urine Blood Negative Negative Specific [place] - Urine 1.025 1.005-1.025 Urine Protein Negative Neg-Trace mg/dL Urine Ketones Negative Negative mg/dL Nitrite Urine Negative Negative Leukocyte Esterase Urine Trace Negative RBC Urine 0-2 0-2 /HPF WBC Urine 0-5 0-5 /HPF Squamous Epithelial Cell Urine 0-2 0-2 /HPF Bacteria Urine None Seen None Seen Hyaline Casts Urine 0-2 0-2 /LPF Hold Gold Reviewed date:09/15/2023 03:26:44 PM Interpretation: Performing Lab:[facility], [address] [place] [phone] Notes/Report: Daylin Najera See Note Specimen held untested for 24 hours; Call to request Chemistry testing. Complete Blood Count no Diff Reviewed date:05/16/2024 06:11:58 PM Interpretation: Performing Lab:[address] [phone] Notes/Report: White Blood Count 7.3 4.8-10.8 X10*3/uL Red Blood Count 4.61 4.60-5.80 X10*6/uL Hemoglobin 14.9 14.0-18.0 g/dl Hematocrit 44.3 42.0-52.0 % Mean Corpuscular Volume 96.1 80.0-98.0 fL Mean Corpuscular Hemoglobin 32.3 27.0-33.0 pg Mean Corpuscular HGB Conc 33.6 31.0-36.0 g/dl Red Cell Distribution Width 12.9 11.0-16.0 % Platelet Count 137 160-400 X10*3/uL Mean Platelet Volume 8.9 9.4-12.4 fL NRBC Pct Auto 0.0 0.0-0.2 /100WBC NRBC Abs Auto 0.000 0.0-0.012 X10*3/uL Complete Blood Count Auto Di ff Reviewed date:05/16/2024 06:19:04 PM Interpretation: Performing Lab:[address] [phone] Notes/Report: White Blood Count 6.6 4.8-10.8 X10*3/uL [...] Auto 0.000 0.0-0.012 X10*3/uL Prothrombin Time INR Reviewed date:05/16/2024 06:20:38 PM Interpretation: Performing Lab:[facility], [address] [place] [phone] Notes/Report: Prothrombin Time 16.9 10.9-12.4 SEC INTERNATIONAL [...] mechanical prosthetic heart valves: 2.5 - 3.5 PTT Heparin Drip Reviewed date:05/16/2024 06:12:11 PM Interpretation: Performing Lab:[facility], [address] [place] [phone] Notes/Report: PTT Heparin Drip 38.3 53-77.9 SEC For information regarding the monitoring of heparin therapy, please refer to Pharmacy. Liver Panel Reviewed date:05/16/2024 06:13:54 PM Interpretation: Performing Lab:[facility], [address] [place] [phone] Notes/Report: Bilirubin Total 0.9 0.0-1.0 mg/dL Bilirubin Direct 0.3 0.0-0.5 mg/dL Aspartate Amino Transferase 21 5-37 U/L Alanine Aminotransferase 22 0-40 U/L Total Protein 6.1 6.5-8.0 g/dL Albumin Level 3.9 3.5-5.0 g/dL Alkaline Phosphatase 82 39-117 U/L Basic Metabolic Panel Reviewed date:05/16/2024 06:21:01 PM Interpretation: Performing Lab:[facility], [address] [place] [phone] Notes/Report: Sodium 144 135-145 mmol/L Potassium 4.0 [...] 60-115 mg/dL Calcium 8.5 8.4-10.2 mg/dL Magnesium Reviewed date:05/16/2024 06:13:11 PM Interpretation: Performing Lab:[address] [phone] Notes/Report: Magnesium 2.2 1.6-2.6 mg/dL Troponin-I High Sensitivity Reviewed date:05/16/2024 06:11:28 PM Interpretation: Performing Lab:[facility], [address] [place] [phone] Notes/Report: Troponin-I High Sensitivity 5.7 <3.5-35.0 ng/L [place] high sensitivity Troponin-I results should be used in conjunction with other diagnostic information such as ECG, clinical observations and information, and patient symptoms to aid in the diagnosis of NH. SARS-CoV2/FLU/RSV Reviewed date:05/16/2024 06:11:13 PM Interpretation: Performing Lab:[facility], [address] [place] [phone] Notes/Report: Influenza A PCR NEGATIVE Negative Influenza [...] by authorized laboratories. Testing performed on the [employer] GeneXpert utilizing real-time RT-PCR. All SARS CoV2 and positive influenza A/B results are reported to [facility]. XR chest 2V Reviewed date:05/16/2024 06:12:54 PM Interpretation: Performing Lab: Notes/Report: [address] [address] XRay Report Signed Patient: Faisal Leiva MR#: [id number] 714 : 1935 Acct:[id number] Age/Sex: 88 / M ADM Date: 05/16/24 Loc: .ED Attending Dr: Ordering Physician: Natalie August Date of Service: 05/16/24 Procedure(s): XR chest 2V Accession Number(s): [id number] cc: Yeyo Mason MD; Natalie August EXAMINATION: [...] 05/16/24 1229 DD/ 1154 TD/TT: 05/16/24 1214 Learning Coordinator: [place] [address] XRay Report Signed Patient: Ashley Leiva nd MR#: [id number] 714 : 1935 Acct:[id number] Age/Sex: 88 / M ADM Date: 05/16/24 Loc: .ED Attending Dr: Ordering Physician: Natalie August Date of Service: 05/16/24 Procedure(s): XR sarah st 2V Accession Number(s): [id number] cc: Yeyo Mason MD; Natalie August EXAMINATION: [...] 05/16/24 1229 DD/ 1154 TD/TT: 05/16/24 1214 Learning Coordinator: Troponin-I High Sensitivity Reviewed date:05/16/2024 06:11:39 PM Interpretation: Performing Lab:[facility], [address] [place] [phone] Notes/Report: Troponin-I High Sensitivity 8.0 <3.5-35.0 ng/L [place] high sensitivity Troponin-I results should be used in conjunction with other diagnostic information such as ECG, clinical observations and information, and patient symptoms to aid in the diagnosis of NH. Troponin-I High Sensitivity Reviewed date:05/16/2024 06:10:59 PM Interpretation: Performing Lab:[facility], [address] [place] [phone] Notes/Report: Troponin-I High Sensitivity 8.2 <3.5-35.0 ng/L [place] high sensitivity Troponin-I results should be used in conjunction with other diagnostic information such as ECG, clinical observations and information, and patient symptoms to aid in the diagnosis of NH. Prothrombin Time INR Reviewed date:05/16/2024 06:10:51 PM Interpretation: Performing Lab:[facility], [address] [place] [phone] Notes/Report: Prothrombin Time 16.1 10.9-12.4 SEC INTERNATIONAL NORM RATIO 1.4 0.9-1.1 [...] mechanical prosthetic heart valves: 2.5 - 3.5 Reason For Referral No Information Medications Medication [...] Comme nts Flu Vaccine Unknown 11/16/2011 Administered [facility] Fluarix Quadrivalent IM Intramuscular 12/01/2014 Administered Flu Vaccine Unknown 11/26/2015 Administered thinks abou t 4 days ago at [facility] Flu Vaccine IM Intramuscular 11/21/2016 Administered pt wa s given the vaccine at [facility] in [place]. Tetanus Unknown 03/13/2017 Administered Pt was given the vaccine in [facility] Influenza High Dose IM Intramuscular 10/26/2017 Administered pt was given th e vaccine at [facility]. Fluarix Quadrivalent Unknown 11/13/2017 Administered [facility] Fluarix Quadrivalent Unknown 11/01/2018 Administered [facility] Influenza High Dose Unknown 11/18/2019 [...] W/U Status Risk Notes Problem Pure hypercholesterolemia (726370366) Pure hypercholesterolemia (E78.0) Active confirmed Problem 99620173 Atherosclerotic heart disease of [place] coronary artery without angina pectoris (I25.10) Active confirmed Problem 37177989 Lymphocytosis (D72.820) Active confirmed Problem 11370372 Essential hypertension (I10) Active confirmed Problem 84593113 Memory loss (R41.3) Active confirmed Problem 585313527 History of coron desiree artery stent placement (Z95.5) Active confirmed Problem 498005866 Angina pectoris (I20.9) Active confirmed Problem 392309233 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) Active confirmed Problem 80086898 Atrial fibrillat ion, unspecified type (I48.91) Active confirmed Problem 12788033 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) Active confirmed Problem 815747212 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) Active confirmed Problem 904754672 Pure hypercholesterolemia (E78.00) Active confirmed Problem 706473118 Elevated PSA (R97.20) Active confirme d Problem 01894775 CHRISTINE (obstructive sleep apnea) (G47.33) Active confirmed Problem 8974010 Hallucination (R44.3) Active confirmed Problem 404120482 Elevated serum cholesterol (E78.9) Active confirmed Problem 033827315 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 Vital Signs Blood pressure diastolic 60 mm Hg 03/26/2024 Height 69 in 03/26/2024 Blood pressure systolic 132 mm Hg 03/26/2024 Weight 192 lbs 03/26/2024 BMI 28.35 kg/m2 03/26/2024 Encounters Encounter Location Date Provider Diagnosis Yeyo Mason MD [address] [place], [place] [phone] 09/15/2023 Yeyo Mason Pure hypercholestero lemia E78.00 Yeyo Mason MD [address] [place] [id number] 12/28/2023 Yeyo Mason Memory loss R41.3 ; 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 and Advance care planning Z71.89 Yeyo Mason MD [address] [place] [id number] 03/19/2024 Yeyo Mason Blood tests for rout ine general physical examination Z00.00 ; Essential hypertension I10 ; Pure hypercholesterolemia E78.00 ; Elevated PSA R97.20 and Lymphocytosis D72.820 Yeyo Mason MD [address] [place] [id number] 09/22/2023 Yeyo Mason Angina pectoris I20. 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 and History of coronary artery stent placement Z95.5 Yeyo Mason MD [address] [place] [id number] 03/26/2024 Yeyo Mason Essential hypertensi on I10 ; Pure hypercholesterolemia E78.00 ; Atherosclerotic heart disease of [place] coronary artery without angina pectoris I25.10 ; Atrial fibrillation, unspecified type I48.91 ; Colon cancer screening Z12.11 and Depression screening Z13.31 Yeyo Mason MD [address] [place] [id number] 08/04/2023 Yeyo Mason MD [address] [id number] 05/17/2024 Yeyo Mason MD [address] [place] [id number] 05/23/2024 Yeyo Mason Assessments Encounter Date Diagnosis (ICD [...] want any/ REQUEST MADE TO HIM @ [facility] [place], Total time spent on the date of the encounter is 35 minutes including both face to face time spent and time spent reviewing documentation, and counseling the patient. 09/22/2023 Neurocognitive disor juno with [place] bodies (ICD-10 - G31.83) is being seen by dr jay in [place] 03/26/2024 Essential hypertensi on (ICD-10 - I10) doing well with good control, ill continue current regiment 03/26/2024 Pure hypercholesterolemia (ICD-10 - E78.00) well controlled, will continue current regiment 12/28/2023 Advance care plannijeny joi (ICD-10 - Z71.89) discused MOLST with patient and , patient verbalized understanding, document signed and scanned into chart. 03/19/2024 Essential hypertensi on (ICD-10 - I10) 09/22/2023 History of coronary artery stent placement (ICD-10 - Z95.5) sounds as though it was positive stress test 03/26/2024 Atherosclerotic hear t disease of [place] coronary artery without angina pectoris (ICD-10 - [...] 01/10/2019 Next Appt Details Provider Name:Yeyo palacios, 05/31/2024 09:00:00 AM, [address] [place] [address], [address], [place], [place], [phone], Provider Name:Yeyo Esteban ier, 09/16/2024 07:30:00 AM, [address] [place] [address], [address], [place], [place], [phone], Provider Name:Yeyo Esteban ier, 09/23/2024 01:30:00 PM, [address] [place] [address], [address], [place], [place], [phone], Provider Name:Yeyo Esteban ier, 03/21/2025 07:45:00 AM, [address] [place] [address], Suite [facility], [place], [place], [phone], Provider Name:Yeyo Esteban ier, 03/28/2025 01:00:00 PM, [address] [place] [address], Suite [facility], [place], [place], [phone], Insurance Providers Payer Name Payer Address Payer Phone Subscriber Number Group Number Insured Name Patient Relationship to Insured Coverage Start Date Coverage End Date MEDICARE NH[address] [place] [address] [id number] CaliMaxwellFaisal Self - patient is the insured [employer] [place] [address] [place] [phone] [id number] CaliMaxwellFaisal Self - patient is the insured Medical (General) History Medical History History ICD Code angioplasty 2004 colonoscopy 2008; colonoscop y - 01/20/2014 Dr. Sanchez - no further colonoscopies necessary; HX of tubular adenoma of colon Hx Bloody Stools
--- OUTSIDE RECORDS SUMMARY | 2024-05-30 08:39 | XMS_ITS ---
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 Name Role Phone Yeyo Mason Primary Care Provider REASON FOR VISIT blood pressure Encounters Encounter Location Date Provider Diagnosis Yeyo Mason MD [address] [place] [id number] 05/23/2024 Yeyo Mason Plan Of Treatment Next Appt Details Provider Name:Yeyo palacios, 05/31/2024 09:00:00 AM, [address] [place] [address], Suite [facility] [place], [place], [phone], Provider Name:Yeyo palacios, 09/16/2024 07:30:00 AM, [address] [place] [address], Suite [facility] [place], [place], [phone], Provider Name:Yeyo Esteban ier, 09/23/2024 01:30:00 PM, [address], [address], [place], [phone], Provider Name:Yeyo Esteban ier, 03/21/2025 07:45:00 AM, [address], [address], [place], [phone], Provider Name:Yeyo Esteban ier, 03/28/2025 01:00:00 PM, [address], [address], [place], [phone], Progress Notes * Faisal GARCIA MDOB:[birth year] (88 yo M)Acc No.[id number]:05/23/2024 Patient:?Faisal GARCIA :1935???Age:88 Y???Sex:Male Address:[address] [place] [address] [place] [address] * true * Date:? Generated for Saturnino gallegos/Sumeet/eTransmitting on:?05/30/2024 08:39 AM EDT
--- NOTE | 2024-05-30 08:43 | A.OFFVIS_ITS ---
Vital Signs 05/30/24 08:45 Height 5 ft 11 in Weight 194 lb 0.108 oz BMI 27.1 BP 130/78 Blood Pressure Location Lt brachial Position Sitting Pulse 60 Intake Visit Reasons: follow-up [facility] dc cath Intake Note: Follow-up after [facility] dc and cath feeling good Manager Intern Required: No Employment Case Manager: Employment Case Manager Present Accompanied by: Spouse Allergies apixaban [From Eliquis] Allergy (Mild, Verified 05/16/24 12:02) Rash Sulfa (Sulfonamide Antibiotics) [Sulfa (Sulfonamides)] Allergy (Mild, Verified 05/16/24 12:02) RASH Medication List - Last Reconciled 05/30/24 by Boyd Gay MD amiloride 5 mg PO DAILY atorvastatin 20 mg PO DAILY isosorbide mononitrate ER 30 mg PO DAILY memantine 10 mg PO BID metoprolol tartrate 50 mg PO BID rivaroxaban (Xarelto) 20 mg PO QPM vitamins A,C,H-nbjb-zsxyiw 4,296 mcg-226 mg-90 mg (PreserVision AREDS) 1 cap PO BID HPI Comments Details: Faisal comes for follow-up. He was recently admitted with concerning symptoms for unstable angina and subsequently underwent a cardiac catheterization. This revealed nonobstructive disease in the left system with 80% disease in the mid RCA which is a non dominant vessel and unchanged from many years ago. Unlikely to cause of his symptoms. Most likely related to either vaso spasm elevated blood pressure. He was then started on amlodipine and is currently on 5 mg, however he has not been doing the exertional activity. He comes in today for follow-up. Overall doing well. Blood pressure still intermittently are elevated. Patient denies any lightheadedness, syncope. Denies any shortness of breath, orthopnea, PND. No prolonged palpitation irregular heartbeat. Takes all his medications. 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 Mother Cancer Brother Cancer Social History Alcohol intake: former Patient Tobacco Use Status: Former Tobacco user Tobacco use type: Pipe Years Smoked: 20 +/- Review of Systems Const Denies chills, Denies fatigue, Denies fever(s), Denies frequent falls, Denies weakness, Denies weight gain and Denies weight loss ENT Denies dizziness Card Denies chest pain, Denies leg edema, Denies lightheadedness, Denies palpitations, Denies dyspnea, Denies dyspnea on exertion, Denies orthopnea and Denies other (loss of consciousness) Resp Denies cough, Denies dyspnea and Denies dyspnea on exertion GI Denies hematochezia and Denies change in stool character Musc Denies abnormal gait, Denies muscle weakness, Denies numbness, Denies radiating pain into limb and Denies tingling Neuro Denies abnormal gait, Denies dizziness, Denies frequent falls, Denies numbness, Denies tingling and Denies weakness Endo Denies fatigue and Denies palpitations Physical Exam Vital Signs: Last Vital Signs Pulse 60 05/30/24 08:45 BP 130/78 05/30/24 08:45 BMI result Body Mass Index 27.1 Const General: cooperative, comfortable, no acute distress, alert and awake Nutritional Appearance: average body habitus Orientation/consciousness: patient oriented x3 Limitations: no limitations Neck Neck: Yes trachea midline, Yes supple and Yes no JVD Resp Effort & Inspection: normal respiratory effort Auscultation: clear to auscultation bilaterally Cardio Jugular venous distension: no JVD Palpation: normal PMI Rate: regular rate Rhythm: regular rhythm Heart sounds: S1 normal heart sound present and S2 normal heart sound present GI Auscultation: normal bowel sounds Skin General skin exam: no rashes or lesions noted and ecchymosis Neuro General: patient oriented x3 and no focal motor deficits Extrem General: Yes no clubbing, cyanosis or edema Psych Appearance: grossly normal Office Procedures Cardiac Device Check Cardiac Device Check Details: Dual-chamber [place] pacemaker in place. Programmed in DDDR at 60 beats per minute. Atrial pacing 71% of time. Ventricular pacing 99% of the time. Atrial and ventricular capture thresholds adequate. Atrial sensing is excellent. Pacing lead impedance is stable. Battery life is at 2.9 years 44311-[id number] Cardiac Device Check, pacemaker dual lead Procedure code (CPT) selection complete Assessment & Plan Assessment & Plan (1) CAD (coronary artery disease): Comment: CAD status post stenting of dominant circumflex artery, July of 2003. Known chronically occluded ramus and 60% diagonal disease. Repeat catheterization in 2009 showed no changes Code(s): I25.10 - Atherosclerotic heart disease of [place] coronary artery without angina pectoris Category: Medical Plan: CAD with recent admission with concerning symptoms for unstable angina, can subsequently other cardiac catheterization no change in coronary anatomy. At this point time most likely cause for his symptoms could be the currently vaso spasm or uncontrolled blood pressure. At this point time I have seen that his blood pressure remains not well controlled. Will increase amlodipine to 10 mg at the same time discontinue isosorbide therapy. Continue metoprolol therapy. Overall unchanged coronary anatomy is good given that he is well optimized with statins with his LDL. Encouraged to participate in phase 2 cardiac rehabilitation to restart his exercise activity which she is very keen to do. (2) Cardiac pacemaker in situ: Comment: Dual-chamber [place] pacemaker placed, January 2017 for second-degree Mobitz type 2 av block with underlying left bundle-branch block Code(s): Z95.0 - Presence of cardiac pacemaker Category: Medical Plan: Cardiac pacemaker in-situ, completely pacer dependent in the ventricle at this point time. Will continue to monitor remotely and in the clinic in 3 months time. (3) Paroxysmal atrial fibrillation: Code(s): I48.0 - Paroxysmal atrial fibrillation Category: Medical Plan: Paroxysmal atrial fibrillation without any obvious recurrence at this point time. Currently doing well. Continue metoprolol therapy. Avoidance of stimulants was discussed. Continue full oral anticoagulation, currently on Xarelto 20 mg daily. Will follow up in the clinic in 3 months time, sooner p.r.n.. Thank you for allowing me to partake in his care Orders: Orders Cardiac Rehab Today I20.0 - Unstable angina Medications: New amlodipine 10 mg PO DAILY 30 tabs 5RF I20.0 - Unstable angina Discontinued isosorbide mononitrate ER Discontinued Reason: Doctor's Order 30 mg PO DAILY 30 tabs 5RF Coding Level of Care Code Est Pt Level 4 (85111) Complex EM visit Add On G2211 Diagnoses CAD (coronary artery disease) I25.10 Cardiac pacemaker in situ Z95.0 Paroxysmal atrial fibrillation I48.0 CPT Codes Cardiac Device Check - Cardiac Device 2: [id number] Cardiac Device Check, pacemake r dual lead ([id number])
[2024-05-30 08:45] VITALS: BP 130/78; PULSE 60; BMI 27.1
== END 2024-05-30 09:08 | disposition home or self-care (01) ==
LOC: HO.HCS 08:20
PROVIDERS: PCP Internal Medicine; Visit Provider Internal Medicine Cardiovascular Disease
DX: I25.10 Atherosclerotic heart disease of native coronary artery without angina pectoris (principal); Z95.0 Presence of cardiac pacemaker; I48.0 Paroxysmal atrial fibrillation
CPT/HCPCS: 93280; 99214; G2211

== ENCOUNTER → 2024-05-30 08:20 | Outpatient (BNVA) | payer MEDICARE, SELFPAY | PROVIDERS: PCP Internal Medicine; Visit Provider Internal Medicine Cardiovascular Disease | DX: I25.10 Atherosclerotic heart disease of native coronary artery without angina pectoris (principal); I48.0 Paroxysmal atrial fibrillation; Z95.0 Presence of cardiac pacemaker | CPT/HCPCS: 93280; 99212 ==

== ENCOUNTER 2024-07-02 11:26 | Outpatient (REF) | payer MEDICARE, SELFPAY ==
--- NOTE | ~2024-07-02 | XR_ITS ---
EXAMINATION: XR ANKLE, LEFT CLINICAL INFORMATION: M25.572 - Pain in left ankle and joints of left foot COMPARISON: None available. TECHNIQUE: AP, lateral, and mortise views of the left ankle. FINDINGS: No fracture, dislocation, or suspicious bone lesion. There is normal alignment. The mortise is intact. The talar dome is normal. The subtalar joints and calcaneus are intact. The midfoot appears normal. There are moderate-sized plantar and dorsal calcaneal spurs. Soft tissues demonstrate mild subcutaneous edema. There are diffuse vascular calcifications. XR/XR ankle LT min 3V IMPRESSION: No acute findings of the left ankle. Electronically signed by: Christoph Parnell MD 07/02/2024 02:03 PM EDT
== END 2024-07-02 11:27 | disposition home or self-care (01) ==
LOC: HO.HMGCX 11:26
PROVIDERS: PCP Internal Medicine; Visit Provider Physician Assistant
DX: M25.572 Pain in left ankle and joints of left foot (principal)
CPT/HCPCS: 73610; 99212

== ENCOUNTER 2024-07-02 11:26 | Outpatient (AMB) | payer MEDICARE, SELFPAY ==
--- OUTSIDE RECORDS SUMMARY | 2024-07-02 12:10 | XMS_ITS ---
Author Organization Yeyo Mason MD Address [address] [place] [phone] Care Team Providers Care Tunneller Name Role Phone Yeyo Mason Primary Care Provider REASON FOR VISIT Discharge Encounters Encounter Location Date Provider Diagnosis Yeyo Mason MD [address] [place] [phone] 05/17/2024 Yyeo Mason Plan Of Treatment Next Appt Details Provider Name:Yeyo palacios, 09/16/2024 07:30:00 AM, [address] [place] [address], [address], [phone], Provider Name:Yeyo palacios, 09/23/2024 01:30:00 PM, [address] [place] [address], [address], [phone], Provider Name:Yeyo Esteban ier, 03/21/2025 07:45:00 AM, [address], [address], [place], [phone], Provider Name:Yeyo Esteban ier, 03/28/2025 01:00:00 PM, [address], [address], [place], [phone], Progress Notes * Faisal GARCIA MDOB:[birth year] (88 yo M)Acc No.[id number]:05/17/2024 Patient:?Faisal GARCIA :1935???Age:88 Y???Sex:Male Address:[address] [place] [address] [place] [address] * true * Date:? Generated for Saturnino gallegos/Sumeet/eTransmitting on:?07/02/2024 12:10 PM EDT
--- NOTE | 2024-07-02 13:02 | MHC.OFFWIV ---
Intake Vital Signs 07/02/24 13:08 Weight 197 lb BP 130/78 Blood Pressure Location Lt brachial Position Sitting Pulse 61 Pulse Source Pulse Oximeter Pulse Oximetry (%) 98 Oxygen Delivery Method Room Air Intake Visit Reasons: EP LT ankle sprain? Intake Note: Patient here for left ankle sprain that happened yesterday. Patient Tobacco Use Status: Former Tobacco user Allergies apixaban [From Eliquis] Allergy (Mild, Verified 07/02/24 13:11) Rash Sulfa (Sulfonamide Antibiotics) [Sulfa (Sulfonamides)] Allergy (Mild, Verified 07/02/24 13:11) RASH Do you need a note to return to daycare/school/sports/work: No HPI HPI Comments History of Present Illness Details History of Present Illness - The patient is an 88-year-old male presenting with left ankle pain following an incident where he stepped into a hole, twisting his left ankle outward the previous day. - The pain was immediate, but the patient was able to walk shortly after. - The patient reports persistence of pain only with certain movements - He applied ice and took tylenol twice since the incident to manage the symptoms. - No history of osteoporosis. Hx of wrist fx. - Pain is primarily located on the lateral aspect of the left ankle. Physical Exam General: Cooperative, healthy appearing, comfortable, no acute distress and well developed Orientation: Patient oriented x3 Limitations: No limitations Head: Normal to inspection Ears: Hearing grossly normal bilaterally Nose: Normal External nose present Face and sinus: Normal facial exam Eyes: Appearance normal, both eyes and all related structures Neck: Normal visual inspection and Yes full ROM Respiratory: Normal respiratory effort and able to speak in complete sentences. Skin: No rashes or lesions noted Neuro: Patient oriented x3, normal gait Extremities: TTP left ankle posterior malleolus, full ROM, no TTP left heel, mid foot or remainder of foot, full ROM toes and all toes NVI. no ecchymosis or other skin changes. 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 Mother Cancer Brother Cancer Social History Alcohol intake: former Patient Tobacco Use Status: Former Tobacco user Tobacco use type: Pipe Years Smoked: 20 +/- Review of Systems Const All systems reviewed & are unremarkable except as noted in HPI and below Physical Exam Vital Signs: Last Vital Signs Pulse 61 07/02/24 13:08 BP 130/78 07/02/24 13:08 Pulse Ox 98 07/02/24 13:08 Oxygen Delivery Method Room Air 07/02/24 13:08 Assessment & Plan Assessment & Plan (1) Acute left ankle pain: Code(s): M25.572 - Pain in left ankle and joints of left foot Plan: TTP left posterior lateral malleolus, as per [facility] Ankle rules, will get XR. An X-ray of the left ankle is arranged to definitively exclude a fracture and will be followed by a reassessment to finalize the treatment plan. Upon clearance of fracture concerns, ongoing management will focus on symptomatic relief and reducing inflammation. My interpretation of the left ankle x-ray is perhaps a small chip on the distal tibia, no acute fractures or dislocations noted. Advised patient that once the radiologist reads it, if anything changes that we will call him. The acute left ankle sprain will be managed with a supportive DEVIN bandage and continuous ice application, with Tylenol recommended for pain control due to the patient's concurrent blood thinner use. Wrapping instructions and considerations for monitoring improvement or symptom changes will be provided. Patient was informed and verbally consented to the use of an ambient scribe for clinic note documentation during this visit. Orders: Orders XR ankle LT min 3V Today M25.572 - Pain in left ankle and joints of left foot Coding Level of Care Code Est Pt Level 4 (71359) Diagnoses Acute left ankle pain M25.572
[2024-07-02 13:08] VITALS: BP 130/78; PULSE 61; O2SAT 98
== END 2024-07-02 14:19 | disposition home or self-care (01) ==
PROVIDERS: PCP Internal Medicine; Visit Provider Physician Assistant
DX: M25.572 Pain in left ankle and joints of left foot (principal)

== ENCOUNTER → 2024-07-02 13:29 | Outpatient (BNV) | payer MEDICARE, SELFPAY | PROVIDERS: PCP Internal Medicine; Visit Provider Radiology Diagnostic Radiology | DX: M25.572 Pain in left ankle and joints of left foot (principal) | CPT/HCPCS: 73610 ==

== ENCOUNTER 2024-08-20 14:13 | Outpatient (AMB) | payer MEDICARE, SELFPAY ==
--- OUTSIDE RECORDS SUMMARY | 2024-05-17 07:15 | XMS_ITS ---
Author Organization Yeyo Mason MD Address [address] [place] [phone] Care Team Providers Care Street Car Inspector Name Role Phone Yeyo Mason Primary Care Provider REASON FOR VISIT Discharge Encounters Encounter Location Date Provider Diagnosis Yeyo Mason MD [address] [place] [phone] 05/17/2024 Yeyo Mason Plan Of Treatment Next Appt Details Provider Name:Yeyo palacios, 09/16/2024 07:30:00 AM, [address] [place] [address], [address], [phone], Provider Name:Yeyo palacios, 09/23/2024 01:30:00 PM, [address] [place] [address], [address], [phone], Provider Name:Yeyo Esteban ier, 03/21/2025 07:45:00 AM, [address], [place], [phone], Provider Name:Yeyo Esteban ier, 03/28/2025 01:00:00 PM, [address], [place], [phone], Progress Notes * Faisal GARCIA MDOB:[birth year] (88 yo M)Acc No.[id number]:05/17/2024 Patient: Cheikh Faisal MCCOY :1935 A ge:88 Y S ex:Male Address:[address] [place] [address] EL[place] Hawley [address] * true * Date: Generated for Saturnino gallegos/Sumeet/Marisabelitting on: 0 08/20/2024 03:29 PM EDT
--- NOTE | 2024-08-20 14:22 | A.OFFVIS_ITS ---
Vital Signs 08/20/24 14:23 Height 5 ft 11 in Weight 202 lb 13.204 oz BMI 28.3 BP 110/70 Blood Pressure Location Lt brachial Position Sitting Pulse 62 Intake Visit Reasons: 3 mth f/up Intake Note: 3 month follow-up [facility] check feeling good [employer] Software Consultant Required: No Allergies apixaban (From Eliquis) Allergy (Mild, Verified 07/02/24 13:11) Rash Sulfa (Sulfonamide Antibiotics) (Sulfa (Sulfonamides)) Allergy (Mild, Verified 07/02/24 13:11) RASH Medication List - Last Reconciled 08/20/24 by Boyd Gay MD amlodipine 10 mg PO DAILY atorvastatin 20 mg PO DAILY memantine 10 mg PO BID metoprolol tartrate 50 mg PO BID rivaroxaban (Xarelto) 20 mg PO QPM vitamins A,C,E-blbu-emxlql 4,296 mcg-226 mg-90 mg (PreserVision AREDS) 1 cap PO BID HPI Comments Details: Faisal comes for follow-up. He is status post 3 month follow-up on increased dose of amlodipine. He is doing well. Had no anginal symptoms. Currently participate in phase 2 cardiac rehab. No fall issues. No heart failure symptoms. Comes for cardiac follow-up. 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 Mother Cancer Brother Cancer Social History Alcohol intake: former Patient Tobacco Use Status: Former Tobacco user Tobacco use type: Pipe Years Smoked: 20 +/- Review of Systems Const Denies chills, Denies fatigue, Denies fever(s), Denies frequent falls, Denies weakness, Denies weight gain and Denies weight loss ENT Denies dizziness Card Denies chest pain, Denies leg edema, Denies lightheadedness, Denies palpitations, Denies dyspnea, Denies dyspnea on exertion, Denies orthopnea and Denies other (loss of consciousness) Resp Denies cough, Denies dyspnea and Denies dyspnea on exertion GI Denies hematochezia and Denies change in stool character Musc Denies abnormal gait, Denies muscle weakness, Denies numbness, Denies radiating pain into limb and Denies tingling Neuro Denies abnormal gait, Denies dizziness, Denies frequent falls, Denies numbness, Denies tingling and Denies weakness Endo Denies fatigue and Denies palpitations Physical Exam Vital Signs: Last Vital Signs Pulse 62 08/20/24 14:23 BP 110/70 08/20/24 14:23 BMI result Body Mass Index 28.3 Const General: cooperative, comfortable, no acute distress, alert and awake Nutritional Appearance: average body habitus Orientation/consciousness: patient oriented x3 Limitations: no limitations Neck Neck: Yes trachea midline, Yes supple and Yes no JVD Resp Effort & Inspection: normal respiratory effort Auscultation: clear to auscultation bilaterally Cardio Jugular venous distension: no JVD Palpation: normal PMI Rate: regular rate Rhythm: regular rhythm Heart sounds: S1 normal heart sound present and S2 normal heart sound present GI Auscultation: normal bowel sounds Skin General skin exam: no rashes or lesions noted and ecchymosis Neuro General: patient oriented x3 and no focal motor deficits Extrem General: Yes no clubbing, cyanosis or edema Psych Appearance: grossly normal Office Procedures Cardiac Device Check Cardiac Device Check Details: Dual-chamber Saint Thony pacemaker in place. Programmed in DDDR at 60 beats per minute. Atrial pacing 68% of time. Ventricular pacing 62% of the time. Atrial ventricular capture thresholds adequate and in auto capture mode. Atrial ventricular sensing is adequate. Pacing lead impedance is stable. Battery life is at 2.7 years. No episodes of atrial fibrillation noted [id number] Cardiac Device Check, pacemaker dual lead Procedure code (CPT) selection complete Assessment & Plan Assessment & Plan (1) CAD (coronary artery disease): Comment: CAD status post stenting of dominant circumflex artery, July of 2003. Known chr onically occluded ramus and 60% diagonal disease. Repeat catheterization in 2009 showed no changes Code(s): I25.10 - Atherosclerotic heart disease of [place] coronary artery without angina pectoris Category: Medical Plan: Coronary artery disease with stable mid RCA stenosis with no recurrent symptoms of increase his amlodipine and better blood pressure control. Currently participate in phase 2 cardiac rehabilitation. Advised to finish the program. Continue current therapy. Importance of regular physical activity was discussed. Continue amlodipine and metoprolol therapy. Currently on full oral anticoagulation with Xarelto and therefore would avoid aspirin therapy. Continue high-intensity statin therapy with target goal LDL less than 70 mg/dL. (2) Paroxysmal atrial fibrillation: Code(s): I48.0 - Paroxysmal atrial fibrillation Category: Medical Plan: Paroxysmal atrial fibrillation, suppressed on current metoprolol therapy. No recurrence on pacer telemetry. At this point time will pursue rhythm control approach. No indication for antiarrhythmic drug therapy. Continue full oral anticoagulation, currently on Xarelto 20 mg daily. Given his age I would pursue renal function has every 3 months. (3) Cardiac pacemaker in situ: Comment: Dual-chamber Saint Thony pacemaker placed, January 2017 for second-degree Mobitz type 2 av block with underlying left bundle-branch block Code(s): Z95.0 - Presence of cardiac pacemaker Category: Medical Plan: Cardiac pacemaker in-situ, working well. High rates of ventricular pacing noted. No symptoms related to it. Pacemaker is working well. Reprogrammed for adequate function. Will follow remotely in 3 months. Follow up in the clinic in 6 months time, sooner p.r.n.. Thank you for allowing me to partake in his care Coding Level of Care Code Est Pt Level 4 (89887) Complex EM visit Add On G2211 Diagnoses CAD (coronary artery disease) I25.10 Paroxysmal atrial fibrillation I48.0 Cardiac pacemaker in situ Z95.0 CPT Codes Cardiac Device Check - Cardiac Device 2: [id number] Cardiac Device Check, pacemaker dual lead ([id number])
[2024-08-20 14:23] VITALS: BP 110/70; PULSE 62; BMI 28.3
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
== END 2024-08-20 15:14 | disposition home or self-care (01) ==
LOC: HO.HCS 14:14
PROVIDERS: PCP Internal Medicine; Visit Provider Internal Medicine Cardiovascular Disease
DX: I25.10 Atherosclerotic heart disease of native coronary artery without angina pectoris (principal); I48.0 Paroxysmal atrial fibrillation; Z95.0 Presence of cardiac pacemaker
CPT/HCPCS: 93280; 99214; G2211

== ENCOUNTER → 2024-08-20 14:13 | Outpatient (BNVA) | payer MEDICARE, SELFPAY | PROVIDERS: PCP Internal Medicine; Visit Provider Internal Medicine Cardiovascular Disease | DX: Z45.018 Encounter for adjustment and management of other part of cardiac pacemaker (principal); I25.10 Atherosclerotic heart disease of native coronary artery without angina pectoris; I48.0 Paroxysmal atrial fibrillation | CPT/HCPCS: 93280; 99212 ==

== ENCOUNTER 2024-09-13 13:30 | Outpatient (RCR) | payer MEDICARE, SELFPAY | END 2024-09-18 11:23 | disposition home or self-care (01) | LOC: HO.CR 13:30 | PROVIDERS: PCP Internal Medicine; Visit Provider Internal Medicine Cardiovascular Disease | DX: I20.0 Unstable angina (principal) | CPT/HCPCS: 93798 ==

== ENCOUNTER 2024-10-20 20:51 | Emergency (ER) | payer MEDICARE, SELFPAY ==
--- OUTSIDE RECORDS SUMMARY | 2024-05-17 07:15 | XMS_ITS ---
Author Organization Yeyo Mason MD Address [address] [place] [phone] Care Team Providers Care Database Development Project Manager Name Role Phone Yeyo Mason Primary Care Provider [phone] REASON FOR VISIT Discharge Encounters Encounter Location Date Provider Diagnosis Yeyo Mason MD [address] [facility] [address] [place] [phone] 05/17/2024 Yeyo Mason Plan Of Treatment Next Appt Details Provider Name:Yeyo palacios, 03/21/2025 07:45:00 AM, [address] [place] [address], [address], [phone], Provider Name:Yeyo palacios, 03/28/2025 01:00:00 PM, [address] [place] [address], [address], [phone], Progress Notes * Faisal GARCIA MDOB:[birth year] (88 yo M)Acc No.[id number]:05/17/2024 Patient: Cheikh MCCOY Faisal Shayla :1935 A ge:88 Y S ex:Male Address:[address] [place] [address] [place] [address] * true * Date: Generated for Saturnino gallegos/Sumeet/Deepikasmitting on: 0 10/20/2024 10:42 PM EDT
--- OUTSIDE RECORDS SUMMARY | 2024-05-23 04:57 | XMS_ITS ---
Author Organization Yeyo Mason MD Address [address] [place] [phone] Care Team Providers Care Electric Detector Operator Name Role Phone Yeyo Mason Primary Care Provider REASON FOR VISIT blood pressure Encounters Encounter Location Date Provider Diagnosis Yeyo aMson MD 10 [facility] [address] [place] [phone] 05/23/2024 Yeyo Mason Plan Of Treatment Next Appt Details Provider Name:Yeyo palacios, 03/21/2025 07:45:00 AM, [address] [place] [address], [address] [address], [place], [place], [phone], Provider Name:Yeyo palacios, 03/28/2025 01:00:00 PM, [address] [place] [address], [address] [address], [place], [phone], Progress Notes * Faisal GARCIA MDOB:[birth year] (88 yo M)Acc No.[id number]:05/23/2024 Patient: Cheikh MCCOY Faisal Shayla :1935 A ge:88 Y S ex:Male Address:[address] [place] [address] EL[place] Haw[place] [address] * true * Date: Generated for Saturnino gallegos/Sumeet/eTransmitting on: 0 10/20/2024 10:43 PM EDT
--- OUTSIDE RECORDS SUMMARY | 2024-05-31 05:00 | XMS_ITS ---
Author Organization Yeyo Mason MD Address [address] [place] [phone] Care Team Providers Care Level Vial Inspector Name Role Phone Yeyo Mason Primary Care Provider Allergies Allergen (clinical drug ingredient) Drug/Non Drug Allergy documented on EMR Reaction Allergy Type Onset Date Status Substance with sulfonamide structure and antibacterial mechanism of action (substance) sulfa (uncoded) rash Allergy Active REASON FOR VISIT PH/TCM, Accompanied by Medications Medication SIG (Take, Route, Frequency, Duration) Notes Start Date End Date Status Memantine HCl 5 MG 1 tablet Orally Twic e a day Active Xarelto 20 MG 1 tablet with food O rally Once a day 02/08/2022 Active amLODIPine Besylate 10 MG 1 tablet Orall y Once a day Active Atorvastatin Calcium 20 MG TAKE ONE TABL ET BY MOUTH EVERY DAY Active Metoprolol Tartrate 50 MG TAKE ONE TABLE T BY MOUTH TWICE A DAY Active PreserVision AREDS - as directed Orally Active Vital Signs Blood pressure systolic 122 mm Hg 06/01/19 Blood pressure diastolic 60 mm Hg Height 69 in 05/31/2024 Weight 198 lbs 05/31/2024 BMI 29.24 kg/m2 05/31/2024 weight is up 6 pounds since 03-26-24 Encounters Encounter Location Date Provider Diagnosis Yeyo Mason MD [address] [place], [place] [phone] 05/31/2024 Yeyo Mason Essential hypertensi on I10 and Atherosclerotic heart disease of [place] coronary artery without angina pectoris I25.10 Assessments Encounter Date Diagnosis (ICD Code) Assessment Notes Treatment Notes Treatment Clinical Notes Section Notes 05/31/2024 Essential hypertension (ICD-10 - I10) seems likely the cause of his pain according to the charts. review of all the records failed to show signjificant cad 05/31/2024 Atherosclerotic heart disease of [place] coronary artery without angina pectoris (ICD-10 - I25.10) is going to go to cardiac rehab in order that he can see if he can exercise without pain. pain certainly sounded cardiac and have explained that if it comes back he should treat it as though. have offered him some nitro to have and he declines Plan Of Treatment Medication Medication Name Sig Start Date Stop Date Notes amLODIPine Besylate 10 MG 1 tablet Orally Once a day Atorvastatin Calcium 20 MG TAKE ONE TABL ET BY MOUTH EVERY DAY Treatment Notes Assessment Notes Essential hypertension seems likely the cause of his pain according to the charts. review of all the records failed to show signjificant cad Atherosclerotic heart diseas e of [place] coronary artery without angina pectoris is going to go to cardiac rehab in order that he can see if he can exercise without pain. pain certainly sounded cardiac and have explained that if it comes back he should treat it as though. have offered him some nitro to have and he declines Next Appt Details Follow Up: 3 Months, Reason: Provider Name:Yeyo palacios, 03/21/2025 07:45:00 AM, [address], [address], [place], [place], [phone], Provider Name:Yeyo palacios, 03/28/2025 01:00:00 PM, [address] [facility], [address], [place], [place], [phone], Progress Notes * Faisal GARCIA MDOB:[birth year] (88 yo M)Acc No.[id number]:05/31/2024 Patient: Faisal LONG Provider: Adelso Mason MD :1935 A ge:88 Y S ex:Male Date:05/31/2024 Address:[address] [place] [address] [id number] Subjective: * Chief Complaints: * P H/TCMAccompanied by * HPI: S ymptom(s): patient is a 88 yo male here for transitional care management visit. Discharge summary has been reviewed and medications reconcilled/ patient was admitted with chest pain that radiated into jaw when he was out walking. stopped when he stopped and resumed when he walked again. had neg cardiac cath and enzymes. they felt it was related to his blood pressure being high. * ROS: G eneral/Constitutional: Denies C hills. D enies F atigue. D enies F ever. D enies H eadache. E NT: Denies S ore throat. R espiratory: Denies C ough. D enies S hortness of breath at rest. D enies S hortness of breath with exertion. C ardiovascular: Denies C hest pain at rest. D enies C hest pain with exertion. D enies D izziness. D enies P alpitations. D enies S hortness of breath. G astrointestinal: Denies D iarrhea. D enies N ausea. * Medical History: * Surgical History: * Hospitalization/Major Diagno stic Procedure: * Medications: T akingamLODIPine Besylate 10 MG Tablet 1 tablet Orally Once a day PreserVision AREDS - Capsule as directed Orally Memantine HCl 5 MG Tablet 1 tablet Orally Twice a day Xarelto 20 MG Tablet 1 tablet with food Orally Once a day Atorvastatin Calcium 20 MG Tablet TAKE ONE TABLET BY MOUTH EVERY DAY Metoprolol Tartrate 50 MG Tablet TAKE ONE TABLET BY MOUTH TWICE A DAY Medication List reviewed and reconciled with the patientTaking amLODIPine Besylate 10 MG Tablet 1 tablet Orally Once a day Taking PreserVision AREDS [...] ONE TABLET BY MOUTH TWICE A DAY Medication List reviewed and reconciled with the patient * Allergies: s ulfa: rash Objective: * Vitals: H t: 69, Wt: 198, BMI:29.24, BP:122/60, Wt-k.81. weight is up 6 pounds since 03-26-24. * Examination: G eneral Examination: GENERAL APPEARANCE: a lert, well hydrated, in no distress.? HEAD: n ormocephalic. SKIN: g ood turgor. HEART: n o murmurs, rubs, gallops, regular rate and rhythm.? LUNGS: n o wheezes, rales, rhonchi, good air movement, clear to auscultation bilaterally. Assessment: * Assessment: 1. E ssential hypertension - I10 (Primary) 2 . A therosclerotic heart disease of [place] coronary artery without angina pectoris - I25.10 Plan: * Treatment: 2. 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 Notes: is going to go to cardiac rehab in order that he can see if he can exercise without pain. pain certainly sounded cardiac and have explained that if it comes back he should treat it as though. have offered him some nitro to have and he declines * Procedure Codes: * Follow Up: 3 Months * * Sign off status: Completed true * Provider: Adelso Mason MD Date: 05/31/2024 Generated for Saturnino gallegos/Sumeet/Marisabelitting on: 0 10/20/2024 10:42 PM EDT History and Physical Notes * HPI (History of Present Illness) Category Sub-Category Detail Notes Category Not es Symptom(s) patient is a 88 yo male here for transitional care management visit. Discharge summary has been reviewed and medications reconcilled/ patient was admitted with chest pain that radiated into jaw when he was out walking. stopped when he stopped and resumed when he walked again. had neg cardiac cath and enzymes. they felt it was related to his blood pressure being high Examination Category Sub-Category Detail Notes Category Not es General Examination GENERAL APPEARANCE: alert, w ell hydrated, in no distress HEAD: normocephalic HEART: no murmurs, rubs, ga llops, regular rate and rhythm LUNGS: no wheezes, rales, r honchi, good air movement, clear to auscultation bilaterally SKIN: good turgor
--- OUTSIDE RECORDS SUMMARY | 2024-09-13 05:00 | XMS_ITS ---
Author Organization Yeyo Mason MD Address [address] [place] [phone] Care Team Providers Care Critical Care Transport Nurse Name Role Phone Yeyo Mason Primary Care Provider Results Component Value Reference Range Notes Liver Panel Reviewed date:09/13/2024 04:31:04 PM Interpretation: Performing Lab:[facility], [address] [place] [phone] Notes/Report: Bilirubin Total 0.8 0.0-1.0 mg/dL Bilirubin Direct 0.3 0.0-0.5 mg/dL Aspartate Amino Transferase 38 5-37 U/L Slight Hemolysis.Interpret result with caution. Alanine Aminotransferase 30 0-40 U/L Total Protein 6.7 6.5-8.0 g/dL Albumin Level 4.2 3.5-5.0 g/dL Alkaline Phosphatase 92 39-117 U/L Lipid Panel with Reflex Reviewed date:09/13/2024 04:30:43 PM Interpretation: Performing Lab:[facility], [address] [place] [phone] Notes/Report: Triglycerides 77 <150 mg/dL Desirable Triglyceride: less than 150 mg/dL Borderline High Triglyceride 150-199 mg/dL High Triglyceride: 200-499 mg/dL Very High Triglyceride: greater than or equal to 5OO mg/dL Cholesterol 134 <200 mg/dL Desirable Cholesterol: less than 200 mg/dL Borderline High Cholesterol: 200-239 mg/dL High Cholesterol: greater than 239 mg/dL LDL Cholesterol Calculated 71 <100 mg/dL Desirable LDL: less than 100 mg/dL Near Optimal/Above Optimal LDL: 110-129 mg/dL Borderline High LDL: 130-159 mg/dL High LDL: 160-189 mg/dL Very High LDL: greater than or equal to 190 mg/dL HDL Cholesterol 48 >40 mg/dL Desirable HDL: greater than 40 mg/dL Note: This HDL assay may give artificially low results in patients with liver disease. REASON FOR VISIT fasting lipids Encounters Encounter Location Date Provider Diagnosis Yeyo Mason MD [address] [place] [phone] 09/13/2024 Yeyo Mason Pure hypercholestero lemia E78.00 Assessments Encounter Date Diagnosis (ICD Code) Assessment Notes Treatment Notes Treatment Clinical Notes Section Notes 09/13/2024 Pure hypercholesterolemia (ICD-10 - E78.00) Plan Of Treatment Next Appt Details Provider Name:Yeyo palacios, 03/21/2025 07:45:00 AM, [address] [place] [address], [address], [phone], Provider Name:Yeyo palacios, 03/28/2025 01:00:00 PM, [address] [place] [address], [address], [phone], Progress Notes * Faisal GARCIA MDOB:[birth year] (88 yo M)Acc No.[id number]:09/13/2024 Progress Note Patient: Cheikh DARIUS Faisal Mcguire Provider: Adelso Mason MD :1935 A ge:88 Y S ex:Male Date:09/13/2024 Address:[address] [place], [place] [address]che[id number] Subjective: * Chief Complaints: * 1 . Fasting lipids. * Medical History: Objective: * Vitals: Assessment: * Assessment: 1. P ure hypercholesterolemia - E78.00 (Primary) Plan: * Treatment: * Procedure Codes: 3 6415 VENIPUNCT, ROUTINE* * * The named appointment provid er may or may not be the originator of this progress note, and it is not deemed complete until electronically signed by the appointment provider. Sign off status: Pending * Provider: Adelso Mason MD Date: 0 09/13/2024 Generated for Saturnino gallegos/uSmeet/Marisabelitting on: 0 10/20/2024 10:42 PM EDT
--- OUTSIDE RECORDS SUMMARY | 2024-09-23 09:30 | XMS_ITS ---
Author Organization Yeyo Mason MD Address [address] [place] [phone] Care Team Providers Care Class C Driver Name Role Phone Yeyo Mason Primary Care [...] Location Date Provider Diagnosis Yeyo Mason MD [address] [place] [phone] 09/23/2024 Yeyo Mason Neurocognitive disorder with Lewy [...] Provider Name:Yeyo palacios, 03/21/2025 07:45:00 AM, [address] [place] [address], [place] [address], [place], [place], [phone], Provider Name:Yeyo palacios, 03/28/2025 01:00:00 PM, [address] [place] [address], [place] [address], [place], [place], [phone], Progress Notes * Faisal GARCIA MDOB:[birth year] (88 yo M)Acc No.[id number]:09/23/2024 Progress Notes Patient: Cheikh Faisal MCCOY Provider: Adelso Mason MD :1935 A ge:88 Y S ex:Male Date:09/23/2024 Address:[address] [place] [address] [id number] Subjective: * Chief Complaints: * 6 month [...] off status: Completed true * Provider: Adelso aMson MD Date: 0 09/23/2024 Generated for Saturnino gallegos/Sumeet/Marisabelitting on: 0 10/20/2024 [...]
--- NOTE | ~2024-10-20 | CT_ITS ---
CLINICAL HISTORY: fall head strike, on anti-coags CT head without contrast Comparison: CT/SR - CT HEAD WITHOUT IV CONTRAST - 12/27/22 10:15 EST Findings: Scattered subcortical and periventricular hypoattenuation, likely in keeping with chronic small vessel ischemic disease. Parenchymal volume loss with compensatory prominence of the ventricles and CSF spaces. No acute territorial infarction, intracranial hemorrhage, midline shift or hydrocephalus. There is no sinus or mastoid fluid. Bilateral lens extraction. Tortuosity of the optic nerves, nonspecific. Right frontal scalp/forehead and periorbital lacerations with soft tissue edema/hematomas. No skull fracture. IMPRESSION: 1. No acute intracranial abnormality. 2. Additional findings as described. This document has been electronically signed by: Guerrero Smith MD on 10/20/2024 22:22:57
--- NOTE | ~2024-10-20 | CT_ITS ---
CLINICAL HISTORY: pain, fall CT cervical spine without contrast Comparison: None provided Findings: Exaggeration of the cervical lordosis. Osteopenia. Multilevel spondylosis with osteophytosis, uncovertebral hypertrophy, facet arthropathy and degenerative disc disease. Ankylosis at C3-C4. Diffuse heterogeneous lucencies throughout the spine is nonspecific. Focal sclerosis along the right aspect at T1 may reflect a bone island however is nonspecific. No erosions. Diffuse spinal canal narrowing, for example moderate to severe at C3-C4 with severe right and moderate left bilateral foraminal stenoses. No acute fractures or dislocations. Soft tissues of the neck are normal. Lung apices are clear. IMPRESSION: No acute findings. Additional findings as described. This document has been electronically signed by: Guerrero Smith MD on 10/20/2024 22:28:46
--- NOTE | 2024-10-20 20:54 | ED.GENADULT ---
HPI - General Adult General Chief complaint: Wound/Laceration Stated complaint: right eye injury (blood thinners) fall Time Seen by Provider: 10/20/24 23:28 Related Data Home Medications ?Medication ?Instructions ?Recorded ?Confirmed atorvastatin 20 mg tablet 20 mg PO DAILY 01/20/20 08/20/24 metoprolol tartrate 50 mg tablet 50 mg PO BID 01/20/20 08/20/24 vitamins A,C,P-macp-vylqku 4,296 1 cap PO BID 01/20/20 08/20/24 mcg-226 mg-90 mg capsule (PreserVision AREDS) memantine 5 mg tablet 10 mg PO BID 08/24/23 08/20/24 Previous Rx's ?Medication ?Instructions ?Recorded rivaroxaban 20 mg tablet (Xarelto) 20 mg PO QPM #30 tabs 05/22/24 amlodipine 10 mg tablet 10 mg PO DAILY #30 tabs 05/30/24 Allergies Allergy/AdvReac Type Severity Reaction Status Date / Time apixaban (From [employer]) Allergy Mild Rash Verified 10/20/24 20:58 Sulfa (Sulfonamide Allergy Mild RASH Verified 10/20/24 20:58 Antibiotics) (Sulfa (Sulfonamides)) [facility] Past Medical History Medical History Angina of effort Unstable angina CAD (coronary artery disease) Left bundle branch block Hyperlipidemia HTN (hypertension) Cardiac pacemaker in situ Second degree AV block, Mobitz type II Surgical History History of permanent cardiac pacemaker placement History of eye surgery History of heart artery stent Hx of cholecystectomy Family History Family History Father No problems noted. Mother Cancer Brother Cancer Social History Social History Alcohol intake: former Patient Tobacco Use Status: Former Tobacco user Tobacco use type: Pipe Years Smoked: 20 +/- Smoked in Last 30 Days: No Use of substances other than those prescribed or required for medical reasons: No Advance Directives: No Advance Directives Information Provided: Yes Physical Exam ED Vital Signs: Vital Signs - 24 hr 10/20/24 20:55 Temperature 97.9 F Pulse Rate 71 Respiratory Rate 18 Blood Pressure 176/83 H Pulse Oximetry 97 Oxygen Delivery Method Room Air BMI result Body Mass Index 28.6 Course Course Course Narrative: Rapid medical examination performed in triage by Tiffanie Kaminski PA-C. Patient is an 88 year old assigned male at presenting to the emergency department with a right forehead laceration. Patient tripped and fell, hitting his head on the end table. Detailed physical exam and review of systems are deferred to the [place] operator. Imaging ordered. Patient placed back in the waiting room pending room availability and results. Medications Administered Discontinued Medications Generic Name Dose Route Start Last Admin Trade Name Freq PRN Reason Stop Dose Admin Diphtheria/Tetanus/Acell Pertussis 0.5 ml 10/20/24 20:55 10/20/24 22:26 Diphth,Pertus(Acell),Tet Adult 0.5 Ml Syringe IM 10/20/24 20:56 Not Given .ONCE ONE Discharge Plan Discharge Clinical Impression: CAD (coronary artery disease), Head injury, Face lacerations Patient Disposition: Home, Self-Care Instructions: Laceration (DC), Head Injury (DC) Additional Instructions: Suture removal in approximately 5-7 days. Prescriptions: No Action Xarelto 20 mg tablet 20 mg PO QPM Qty: 30 11RF metoprolol tartrate 50 mg tablet 50 mg PO BID atorvastatin 20 mg tablet 20 mg PO DAILY Patient Comments: took dose last night PreserVision AREDS [id number] capsule 1 cap PO BID amlodipine 10 mg tablet 10 mg PO DAILY Qty: 30 5RF memantine 5 mg tablet 10 mg PO BID Referrals: Yeyo Mason MD [Primary Care Provider, Medical] Referral Note: Please follow-up with Dr. Mason on an outpatient basis SanchezDeya MD [Emergency Provider, Emergency Medicine] Referral Note: Suture removal in 5-7 days Print Language: French
[2024-10-20 20:55] VITALS: BP 176/83; PULSE 71; RESP 18; TEMP 36.6; O2SAT 97; BMI 28.6
--- OUTSIDE RECORDS SUMMARY | 2024-10-20 22:43 | XMS_ITS | Patient Health Record ---
Author Organization [facility] Address [address] [place] [phone] Care Team Providers Care Acds Block 1 Operator Name Role Phone Yeyo Mason MD Primary Care Provider Oscar Ellsworth [phone] Allergies Allergen (clinical drug ingredient) Drug/Non Drug Allergy documented on EMR Reaction Allergy Type Onset Date Status Sulfa Unknown Drug Allergy Active Reason For Referral No Information Medications Medication SIG (Take, Route, Frequency, Duration) Notes Start Date End Date Status Colyte w Flavor Packs 240 GM as directed Orally as directed for 1 day(s) 11/30/2013 Active Atorvastatin Calcium 20 MG 1 tablet Oral ly Once a day Active Aspir-81 81 MG 1 tablet Orally Once a day Active Metoprolol Tartrate 50 MG 1 tablet Orall y Twice a day Active Problems Problem Type SNOMED Code ICD Code Onset Dates Problem Status W/U Status Risk Notes Problem History of adenomatous polyp of colon (220152891) History of adenomatous polyp of colon (V12.72) Active confirmed Problem Feces contents abnormal (192841529) Heme + stool (792.1) Active confirmed Plan Of Treatment Future Test Test Name Order Date COLONOSCOPY 11/29/2013 Insurance Providers Payer Name Payer Address Payer Phone Subscriber Number Group Number Insured Name Patient Relationship to Insured Coverage Start Date Coverage End Date MEDICARE OF [place] [address] [place] [address] [phone] [id number] SAEED GARCIA Self - patient is the insured [employer] ATT[employer] CLAIMS [address] [place] [phone] [id number] SAEED GARCIA Self - patient is the insured Medical (General) History Medical History History ICD Code Colonoscoy 12-22-2008--neg e xcept for diverticulosis and internal hemorrhoids Colon polyps--tubular adenomas removed i n 1998, 2001 and 2005 HTN Denies DM,CVA,Lung disease,renal disease CAD-stent placed in 2003-? Of preceding DC Hyperlipidemia Surgical History Surgery Date(Month/Year) appendectomy cholecystectomy 05/21/2007 cataract-lens implants
--- OUTSIDE RECORDS SUMMARY | 2024-10-20 22:43 | XMS_ITS | Patient Health Record ---
Author Organization Yeyo Mason MD Address [address] [place], [place] [id number] Care Team Providers Care News Library Director Name Role Phone Yeyo Mason Primary Care Provider [phone] Allergies Allergen (clinical drug ingredient) Drug/Non Drug Allergy documented on EMR Reaction Allergy Type Onset Date Status Substance with sulfonamide structure and antibacterial mechanism of action (substance) sulfa (uncoded) rash Allergy Active Results Component Value Reference Range Notes Complete Blood Count Auto Di ff Reviewed date:03/22/2024 05:34:13 PM Interpretation: Performing Lab:[facility], [address] [place] [phone] Notes/Report: White Blood Count 6.0 4.8-10.8 X10*3/uL [...] NRBC Abs Auto 0.000 0.0-0.012 X10*3/uL Comprehensive Ararat. Panel Fa st Reviewed date:03/22/2024 05:05:12 PM Interpretation: Performing Lab:[facility], [address] [place] [phone] Notes/Report: Sodium 144 135-145 mmol/L Potassium 4.0 [...] Panel Reviewed date:03/22/2024 05:04:48 PM Interpretation: Performing Lab:[address] [phone] Notes/Report: Triglycerides 82 <150 mg/dL Desirable Triglyceride: [...] (Free>4and<10) Reviewed date:03/22/2024 05:04:56 PM Interpretation: Performing Lab:[address] [phone] Notes/Report: PSA,Total (Free>4and<10) 1.16 0.00-4.00 ng/mL A [...] t Reviewed date:03/26/2024 01:33:19 PM Interpretation: Performing Lab:[address] [phone] Notes/Report: Urine, Clean Catch Color Urine Yellow Appearance Urine Clear PH 6.0 5.0-9.0 Glucose Urine UA Negative Negative mg/dL Urine Blood Negative Negative Specific [place] - Urine 1.025 1.005-1.025 Urine Protein Negative Neg-Trace mg/dL Urine Ketones Negative Negative mg/dL Nitrite Urine Negative Negative Leukocyte Esterase Urine Trace Negative RBC Urine 0-2 0-2 /HPF WBC Urine 0-5 0-5 /HPF Squamous Epithelial Cell Urine 0-2 0-2 /HPF Bacteria Urine None Seen None Seen Hyaline Casts Urine 0-2 0-2 /LPF Liver Panel Reviewed date:09/13/2024 04:31:04 PM Interpretation: Performing Lab:[facility], [address] [place] [phone] Notes/Report: Bilirubin Total 0.8 0.0-1.0 mg/dL Bilirubin Direct 0.3 0.0-0.5 mg/dL Aspartate Amino Transferase 38 5-37 U/L Slight Hemolysis.Interpret result with caution. Alanine Aminotransferase 30 0-40 U/L Total Protein 6.7 6.5-8.0 g/dL Albumin Level 4.2 3.5-5.0 g/dL Alkaline Phosphatase 92 39-117 U/L Lipid Panel with Reflex Reviewed date:09/13/2024 04:30:43 PM Interpretation: Performing Lab:[address] [phone] Notes/Report: Triglycerides 77 <150 mg/dL Desirable Triglyceride: [...] patients with liver disease. Complete Blood Count no Diff Reviewed date:05/16/2024 06:11:58 PM Interpretation: Performing Lab:[facility], [address] [place] [phone] Notes/Report: White Blood Count 7.3 4.8-10.8 X10*3/uL [...] ff Reviewed date:05/16/2024 06:19:04 PM Interpretation: Performing Lab:[facility], [address] [place] [phone] Notes/Report: White Blood Count 6.6 4.8-10.8 X10*3/uL [...] INR Reviewed date:05/16/2024 06:20:38 PM Interpretation: Performing Lab:[address] [phone] Notes/Report: Prothrombin Time 16.9 10.9-12.4 SEC INTERNATIONAL [...] Drip Reviewed date:05/16/2024 06:12:11 PM Interpretation: Performing Lab:[address] [phone] Notes/Report: PTT Heparin Drip 38.3 53-77.9 SEC For information regarding the monitoring of heparin therapy, please refer to Pharmacy. Liver Panel Reviewed date:05/16/2024 06:13:54 PM Interpretation: Performing Lab:[address] [phone] Notes/Report: Bilirubin Total 0.9 0.0-1.0 mg/dL Bilirubin Direct 0.3 0.0-0.5 mg/dL Aspartate Amino Transferase 21 5-37 U/L Alanine Aminotransferase 22 0-40 U/L Total Protein 6.1 6.5-8.0 g/dL Albumin Level 3.9 3.5-5.0 g/dL Alkaline Phosphatase 82 39-117 U/L Basic Metabolic Panel Reviewed date:05/16/2024 06:21:01 PM Interpretation: Performing Lab:[address] [phone] Notes/Report: Sodium 144 135-145 mmol/L Potassium 4.0 [...] Magnesium Reviewed date:05/16/2024 06:13:11 PM Interpretation: Performing Lab:[address] [phone] Notes/Report: Magnesium 2.2 1.6-2.6 mg/dL Troponin-I High Sensitivity Reviewed date:05/16/2024 06:11:28 PM Interpretation: Performing Lab:[address] [phone] Notes/Report: Troponin-I High Sensitivity 5.7 <3.5-35.0 ng/L [facility] [place] high sensitivity Troponin-I results should be used in conjunction with other diagnostic information such as ECG, clinical observations and information, and patient symptoms to aid in the diagnosis of [facility]. SARS-CoV2/FLU/RSV Reviewed date:05/16/2024 06:11:13 PM Interpretation: Performing Lab:[facility], [address] [place] [phone] Notes/Report: Influenza A PCR NEGATIVE Negative Influenza [...] by authorized laboratories. Testing performed on the [employer] GeneXpert utilizing real-time RT-PCR. All SARS CoV2 and positive influenza A/B results are reported to [facility]. XR chest 2V Reviewed date:05/16/2024 06:12:54 PM Interpretation: Performing Lab: Notes/Report: [address] [address] XRay Report Signed Patient: Faisal Leiva MR#: [id number] 714 : 1935 Acct:[id number] Age/Sex: 88 / M ADM Date: 05/16/24 Loc: HO.ED Attending Dr: Ordering Physician: Natalie August Date of Service: 05/16/24 Procedure(s): XR chest 2V Accession Number(s): [id number] cc: Yeyo Mason MD; Natalie August EXAMINATION: [...] 05/16/24 1229 DD/ 1154 TD/TT: 05/16/24 1214 Restaurant Assistant: [place] [address] XRay Report Signed Patient: Ashley Leiva nd MR#: [id number] 714 : 1935 Acct:[id number] Age/Sex: 88 / M ADM Date: 05/16/24 Loc: .ED Attending Dr: Ordering Physician: Natalie August Date of Service: 05/16/24 Procedure(s): XR sarah st 2V Accession Number(s): [id number] cc: Yeyo Mason MD; Natalie August EXAMINATION: [...] 05/16/24 1229 DD/ 1154 TD/TT: 05/16/24 1214 Restaurant Assistant: Troponin-I High Sensitivity Reviewed date:05/16/2024 06:11:39 PM Interpretation: Performing Lab:[facility], [address] [place] [phone] Notes/Report: Troponin-I High Sensitivity 8.0 <3.5-35.0 ng/L [facility] [place] high sensitivity Troponin-I results should be used in conjunction with other diagnostic information such as ECG, clinical observations and information, and patient symptoms to aid in the diagnosis of VA. Troponin-I High Sensitivity Reviewed date:05/16/2024 06:10:59 PM Interpretation: Performing Lab:[facility], [address] [place] [phone] Notes/Report: Troponin-I High Sensitivity 8.2 <3.5-35.0 ng/L [facility] [place] high sensitivity Troponin-I results should be used in conjunction with other diagnostic information such as ECG, clinical observations and information, and patient symptoms to aid in the diagnosis of VA. Prothrombin Time INR Reviewed date:05/16/2024 06:10:51 PM Interpretation: Performing Lab:[facility], [address] [place] [phone] Notes/Report: Prothrombin Time 16.1 10.9-12.4 SEC INTERNATIONAL [...] mechanical prosthetic heart valves: 2.5 - 3.5 XR ankle LT min 3V Reviewed date:07/04/2024 04:28:46 PM Interpretation: Performing Lab: Notes/Report: [facility] [address] [place] [address] XRay Report Signed Patient: Faisal Leiva MR#: [id number] 714 : 1935 Acct:[id number] Age/Sex: 88 / M ADM Date: 07/02/24 [facility]: [facility] Attending Dr: Trish Carr PA-C Ordering Physician: Trish Carr PA-C Date of Service: 07/02/24 Procedure(s): XR ankle LT min 3V Accession Number(s): [id number] cc: Yeyo Mason MD; Trish Carr PA-C EXAMINATION: XR ANKLE, LEFT CLINICAL INFORMATION: M25.572 - Pain in left ankle and joints of left foot COMPARISON: None available. TECHNIQUE: AP, lateral, and mortise views of the left ankle. FINDINGS: No fracture, dislocation, or suspicious bone lesion. There is normal alignment. The mortise is intact. The talar dome is normal. The subtalar joints and calcaneus are intact. The midfoot appears normal. There are moderate-sized plantar and dorsal calcaneal spurs. Soft tissues demonstrate mild subcutaneous edema. There are diffuse vascular calcifications. XR/XR ankle LT min 3V IMPRESSION: No acute findings of the left ankle. Electronically signed by: Christoph Parnell MD 07/02/2024 02:03 PM EDT Dictated By: Christoph Parnell MD Signed By: <Electronically signed by Christoph Parnell MD in OV> 07/02/24 1403 DD/ 1329 TD/TT: 07/02/24 1334 Restaurant Assistant: [facility] [address] [place] [address] [place] [address] XRay Report Signed Patient: Ashley Leiva nd M MR#: [id number] 714 : 1935 Acct:[id number] Age/Sex: 88 / M ADM Date: 07/02/24 Loc: HO.[facility] Attending Dr: Gianna Carr PA-C Ordering Physician: Trish Carr PA-C Date of Service: 07/02/24 Procedure(s): XR ank le LT min 3V Accession Number(s): [id number] cc: Yeyo Mason MD; Trish Carr PA-C EXAMINATION: XR ANKLE, LEFT CLINICAL INFORMATION: M25.572 - Pain in le ft ankle and joints of left foot COMPARISON: None available. TECHNIQUE: AP, lateral, and mortise views of the left ankle. FINDINGS: No fracture, dislocation, or suspicious bone lesion. There is normal alignment. The mortise is intac t. The talar dome is normal. The subtalar joints and calcaneus are intact. The midfoot appears normal. There are moderate-sized plantar and dorsal calcaneal spurs. Soft tissues demonstrate mild subcutaneous edema. There are diffuse vascular calcifications. XR/XR ankle LT min 3V IMPRESSION: No acute findings of the left ankle. Electronically dora d by: Christoph Parnell MD 07/02/2024 02:03 PM EDT RP Dictated By: Christoph Parnell MD Signed By: <Electronically signed by Christoph Parnell MD in OV> 07/02/24 1403 DD/ 1329 TD/TT: 07/02/24 1334 Restaurant Assistant: Daylin Najera Reviewed date:09/13/2024 04:37:48 PM Interpretation: Performing Lab:[facility], [address] [place] [phone] Notes/Report: Daylin Najera See Note Specimen held untested for 24 hours; Call to request Chemistry testing. Reason For Referral No Information Medications Medication [...] T BY MOUTH TWICE A DAY Active Immunizations Vaccine Route Administration Date Status Comme nts Flu Vaccine Unknown 11/16/2011 Administered [facility] Flu[facility]ix Quadrivalent IM Intramuscular 12/01/2014 Administered Flu Vaccine Unknown 11/26/2015 Administered thinks abou t 4 days ago at [facility] Flu Vaccine IM Intramuscular 11/21/2016 Administered pt wa s given the vaccine at [facility]. Tetanus Unknown 03/13/2017 Administered Pt was given the vaccine in [facility] urgent care Influenza High Dose IM Intramuscular 10/26/2017 Administered pt was given th e vaccine at [place] [facility] Fluarix Quadrivalent Unknown 11/13/2017 Administered [facility] Fluarix Quadrivalent Unknown 11/01/2018 Administered [...] W/U Status Risk Notes Problem Pure hypercholesterolemia (200300297) Pure hypercholesterolemia (E78.0) Active confirmed Problem 30686622 Atherosclerotic heart disease of [place] coronary artery without angina pectoris (I25.10) Active confirmed Problem 42570480 Lymphocytosis (D72.820) Active confirmed Problem 45551143 Essential hypertension (I10) Active confirmed Problem 00871683 Memory loss (R41.3) Active confirmed Problem 189456393 History of coron desiree artery stent placement (Z95.5) Active confirmed Problem 471416001 Angina pectoris (I20.9) Active confirmed Problem 196704548 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) Active confirmed Problem 28834026 Atrial fibrillat ion, unspecified type (I48.91) Active confirmed Problem 24384772 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) Active confirmed Problem 670668731 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) Active confirmed Problem 180804895 Pure hypercholesterolemia (E78.00) Active confirmed Problem 766841526 Elevated PSA (R97.20) Active confirme d Problem 70357554 CHRISTINE (obstructive sleep apnea) (G47.33) Active confirmed Problem 5415224 Hallucination (R44.3) Active confirmed Problem 583766636 Elevated serum cholesterol (E78.9) Active confirmed Problem 331745000 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 Vital Signs Blood pressure diastolic 60 mm Hg 09/23/2024 danielle ght is up 6 pounds since 05-31-24 Height 69 in 09/23/2024 weight is up 6 pounds since 05-31-24 Blood pressure systolic 138 mm Hg 09/23/2024 weig ht is up 6 pounds since 05-31-24 Weight 204 lbs 09/23/2024 weight is up 6 pounds since 05-31-24 BMI 30.12 kg/m2 09/23/2024 weight is up 6 pounds since 05-31-24 Encounters Encounter Location Date Provider Diagnosis Yeyo Mason MD [address] [place] [id number] 12/28/2023 Yeyo Mason Memory loss R41.3 ; 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 and Advance care planning Z71.89 Yeyo Mason MD [address] [place], [place] [id number] 03/19/2024 Yeyo Mason Blood tests for rout ine general physical examination Z00.00 ; Essential hypertension I10 ; Pure hypercholesterolemia E78.00 ; Elevated PSA R97.20 and Lymphocytosis D72.820 Yeyo Mason MD [address] [place] [id number] 09/13/2024 Yeyo Mason Pure hypercholestero lemia E78.00 Yeyo Mason MD [address] [place], [place] [id number] 03/26/2024 Yeyo Mason Essential hypertensi on I10 ; Pure hypercholesterolemia E78.00 ; Atherosclerotic heart disease of [place] coronary artery without angina pectoris I25.10 ; Atrial fibrillation, unspecified type I48.91 ; Colon cancer screening Z12.11 and Depression screening Z13.31 Yeyo Mason MD [address] [place] [id number] 05/31/2024 Yeyo Mason Essential hypertensi on I10 and Atherosclerotic heart disease of [place] coronary artery without angina pectoris I25.10 Yeyo Mason MD [address] [place] [address] Drive [address] [place] [id number] 09/23/2024 Yeyo Mason Neurocognitive disor juno with Lewy bodies G31.83 ; Atrial fibrillation, unspecified type I48.91 and Elevated serum cholesterol E78.9 Yeyo Mason MD [address] [place] [address] [id number] 05/17/2024 Yeyo Mason MD [address] [place] [id number] 05/23/2024 Yeyo Mason Assessments Encounter Date Diagnosis (ICD Code) Assessment Notes Treatment Notes Treatment Clinical Notes Section Notes 12/28/2023 Memory loss (ICD-10 - R41.3) staying stable 12/28/2023 Neurocognitive disor juno with Lewy bodies (ICD-10 - G31.83) seems stable 03/19/2024 [address] tests [address] ine general physical examination (ICD-10 - Z00.00) 09/13/2024 Pure hypercholesterolemia (ICD-10 - E78.00) 03/26/2024 Essential hypertensi on (ICD-10 - I10) doing well with good control, ill continue current regiment 03/26/2024 Pure hypercholesterolemia (ICD-10 - E78.00) well controlled, will continue current regiment 05/31/2024 Essential hypertensi on (ICD-10 - I10) seems likely the cause of his pain according to the charts. review of all the records failed to show signjificant cad 09/23/2024 Neurocognitive disor juno with Lewy bodies (ICD-10 - G31.83) doing well. does not appear to have any dementia at all 12/28/2023 Advance care plannin joi (ICD-10 - Z71.89) discused MOLST with patient and , patient verbalized understanding, document signed and scanned into chart. 03/19/2024 Essential hypertensi on (ICD-10 - I10) 03/26/2024 Atherosclerotic hear t disease of [place] coronary artery without angina pectoris (ICD-10 - I25.10) not having any complaints 05/31/2024 Atherosclerotic hear t disease of [place] coronary artery without angina pectoris (ICD-10 - I25.10) is going to go to cardiac rehab in order that he can see if he can exercise without pain. pain certainly sounded cardiac and have explained that if it comes back he should treat it as though. have offered him some nitro to have and he declines 09/23/2024 Atrial fibrillation, unspecified type (ICD-10 - I48.91) taking blood thinner 03/19/2024 Pure hypercholesterolemia (ICD-10 - E78.00) 03/26/2024 Atrial fibrillation, unspecified type (ICD-10 - I48.91) stable, will continue current regiment 09/23/2024 Elevated serum cholesterol (ICD-10 - E78.9) well controlled, will continue current regiment 03/19/2024 Elevated PSA (ICD-10 - R97.20) 03/26/2024 Colon cancer screeni ng (ICD-10 - Z12.11) guaiac negative 03/19/2024 Lymphocytosis (ICD-1 0 - D72.820) 03/26/2024 Depression screening (ICD-10 - Z13.31) negative screen Plan Of Treatment Pending Test Test Name Order Date Electrocardiogram (EKG) 12/11/2015 Electrocardiogram (EKG) 12/23/2016 Electrocardiogram (EKG) 01/10/2019 Next Appt Details Provider Name:Yeyo palacios, 03/21/2025 07:45:00 AM, [address] [place] [address], [address], [place], [place], [phone], Provider Name:Yeyo palacios, 03/28/2025 01:00:00 PM, [address] [place] [address], [address], [place], [place], [phone], Insurance Providers Payer Name Payer Address Payer Phone Subscriber Number Group Number Insured Name Patient Relationship to Insured Coverage Start Date Coverage End Date [employer] [address] [place] [address] [id number] Faisal Leiva Self - patient is the insured [employer] [id number] [place] [phone] [id number] Faisal Leiva Self - patient is the insured Medical (General) History Medical History History ICD Code angioplasty 2004 colonoscopy 2008; colonoscop y - 01/20/2014 Dr. Sanchez - no further colonoscopies necessary; HX of tubular adenoma of colon Hx Bloody Stools
--- NOTE | 2024-10-21 00:12 | ED.WOUNDLAC ---
HPI - Wound/Laceration General Chief Complaint: Wound/Laceration Stated Complaint: right eye injury (blood thinners) fall Time Seen by Provider: 10/20/24 23:28 History of Present Illness HPI narrative: Patient is an 88-year-old male tripped on a rug at his home. Complaining of pain to the right eyebrow area. Denies loss of consciousness denies any dizziness. Patient claims the fall was completely accidental has a history being on Eliquis. History of coronary artery disease history of atrial fibrillation. No nausea no vomiting no focal weakness Related Data Home Medications ?Medication ?Instructions ?Recorded ?Confirmed atorvastatin 20 mg tablet 20 mg PO DAILY 01/20/20 08/20/24 metoprolol tartrate 50 mg tablet 50 mg PO BID 01/20/20 08/20/24 vitamins A,C,A-otoy-vishxq 4,296 1 cap PO BID 01/20/20 08/20/24 mcg-226 mg-90 mg capsule (PreserVision AREDS) memantine 5 mg tablet 10 mg PO BID 08/24/23 08/20/24 Previous Rx's ?Medication ?Instructions ?Recorded rivaroxaban 20 mg tablet (Xarelto) 20 mg PO QPM #30 tabs 05/22/24 amlodipine 10 mg tablet 10 mg PO DAILY #30 tabs 05/30/24 Allergies Allergy/AdvReac Type Severity Reaction Status Date / Time apixaban (From Solovis) Allergy Mild Rash Verified 10/20/24 20:58 Sulfa (Sulfonamide Allergy Mild RASH Verified 10/20/24 20:58 Antibiotics) (Sulfa (Sulfonamides)) Review of Systems Review of Systems: Positive head injury Yes all other systems are reviewed and are negative [facility] Past Medical History Attestation statement: The following information was validated with the patient. Medical History Angina of effort Unstable angina CAD (coronary artery disease) Left bundle branch block Hyperlipidemia HTN (hypertension) Cardiac pacemaker in situ Second degree AV block, Mobitz type II Surgical History History of permanent cardiac pacemaker placement History of eye surgery History of heart artery stent Hx of cholecystectomy Family History Family History Father No problems noted. Mother Cancer Brother Cancer Social History Social History Alcohol intake: former Patient Tobacco Use Status: Former Tobacco user Tobacco use type: Pipe Years Smoked: 20 +/- Smoked in Last 30 Days: No Use of substances other than those prescribed or required for medical reasons: No Advance Directives: No Advance Directives Information Provided: Yes Physical Exam Exam: Exam: Appearance: Alert. Oriented X3. No acute distress. Eyes: Pupils equal, round and reactive to light. Patient's vision grossly intact bilaterally. Extraocular muscle intact. ENT: Pharynx normal. Significant swelling around the right eye and in the right frontal area. Multiple laceration there noted. Neck: Normal inspection. Neck supple. No lymph nodes noted. No crepitus. C-spine was immobilized secondary to distracting injury CVS: Normal heart rate and rhythm. Pulses normal. Normal S1 and S2 Respiratory: No respiratory distress. Breath sounds normal. No Wheezing. No rales. No chest wall tenderness no crepitus elicited on palpation Abdomen: Soft and nontender. No rigidity. No distention. good BS x4 Skin: Skin warm and dry. Normal skin color. Normal skin turgor. Extremities: No lower extremity edema. Neurovascular intact to all extremities. No Lacerations. No Rash Neuro: Oriented X 3. No motor deficit. No sensory deficit. Moving all extermities. No slurred speech Vital Signs: Vital Signs: Last Vital Signs Temp 97.9 F 10/20/24 20:55 Pulse 71 10/20/24 20:55 Resp 18 10/20/24 20:55 BP 176/83 H 10/20/24 20:55 Pulse Ox 97 10/20/24 20:55 O2 Del Method Room Air 10/20/24 20:55 BMI result Body Mass Index 28.6 Medications Administered Discontinued Medications Generic Name Dose Route Start Last Admin Trade Name Freq PRN Reason Stop Dose Admin Diphtheria/Tetanus/Acell Pertussis 0.5 ml 10/20/24 20:55 10/20/24 22:26 Diphth,Pertus(Acell),Tet Adult 0.5 Ml Syringe IM 10/20/24 20:56 Not Given .ONCE ONE Medical Decision Making Medical Decision Making MDM Narrative: 88 years old status post accidental fall positive head injury positive laceration CT scan of the head by my interpretation was grossly negative I reviewed radiology's reading which was the same. CT scan of the C-spine per Radiology were negative. Patient's wound was closed. Given head injury precaution. Tetanus was updated. Currently in stable condition Patient's wound was suture please see procedure note. Tetanus updated. Patient to be discharged home head injury precaution. Differential Diagnosis Differential Diagnoses: The differential diagnosis associated with the presentation includes Head injury intracranial bleed Admission/Observation Consideration of admission/observation: Escalation of care including admission/observation considered Lab Data MDM Lab Attestation statement: I reviewed the patient's lab results. Independent Interpretation I performed an independent interpretation of an: CT Scan (CT head negative for intracranial bleed) Radiology Impression Discussion of test interpretation with radiology: I have reviewed the radiologist's reading. Chronic Conditions Atrial fibrillation, coronary artery disease Social Determinants Patient?s care significantly limited by Social Determinants of Health including: Problems related to primary support group Procedures Laceration Over the right forehead: Site: face Side (If applicable): right Size (cm): 6 Description: linear and irregular Depth: simple, single layer Local Anesthetic: lidocaine 1% Amount of anesthesia used (mL): 5 Skin layer closed with: nylon Size (cm): 5-0 Number of sutures: 8 Discharge Plan Discharge Clinical Impression: CAD (coronary artery disease), Head injury, Face lacerations Patient Disposition: Home, Self-Care Instructions: Head Injury (DC), Laceration (DC) Additional Instructions: Suture removal in approximately 5-7 days. Prescriptions: No Action Xarelto 20 mg tablet 20 mg PO QPM Qty: 30 11RF metoprolol tartrate 50 mg tablet 50 mg PO BID atorvastatin 20 mg tablet 20 mg PO DAILY Patient Comments: took dose last night PreserVision AREDS [id number],[id number] moir-fo-rmjn capsule 1 cap PO BID amlodipine 10 mg tablet 10 mg PO DAILY Qty: 30 5RF memantine 5 mg tablet 10 mg PO BID Referrals: Yeyo Mason MD [Primary Care Provider, Medical] Referral Note: Please follow-up with Dr. Mason on an outpatient basis SanchezDeya MD [Emergency Provider, Emergency Medicine] Referral Note: Suture removal in 5-7 days Print Language: Sammarinese
[2024-10-21] MEDS: Lidocaine HCl 1 % MPF 5 ML VIAL 10 ML SUBCUT (01:21)
[2024-10-21 01:24] VITALS: BP 176/83; PULSE 71; RESP 18; TEMP 36.6; O2SAT 97
== END 2024-10-21 01:25 | disposition home or self-care (01) ==
PROVIDERS: Emergency Provider Emergency Medicine Emergency Medical Services; PCP Internal Medicine
DX: S01.81XA Laceration without foreign body of other part of head, initial encounter (principal); R51.9 Headache, unspecified; M54.2 Cervicalgia; I25.10 Atherosclerotic heart disease of native coronary artery without angina pectoris; W01.10XA Fall on same level from slipping, tripping and stumbling with subsequent striking against unspecified object, initial encounter; Z91.81 History of falling; Y93.9 Activity, unspecified; Y92.9 Unspecified place or not applicable; Y99.8 Other external cause status; Z79.899 Other long term (current) drug therapy; Z87.891 Personal history of nicotine dependence
CPT/HCPCS: 12014; 70450; 72125; 99284; J2003

== ENCOUNTER 2024-10-22 11:33 | Outpatient (REF) | payer MEDICARE, SELFPAY ==
--- OUTSIDE RECORDS SUMMARY | 2024-05-23 04:57 | XMS_ITS ---
Author Organization Yeyo Mason MD Address [address] [place] [phone] Care Team Providers Care Caregiver Assisted Living Name Role Phone Yeyo Mason Primary Care Provider [phone] REASON FOR VISIT blood pressure Encounters Encounter Location Date Provider Diagnosis Yeyo Mason MD [address] [place] [phone] 05/23/2024 Yeyo Mason Plan Of Treatment Next Appt Details Provider Name:Yeyo palacios, 10/28/2024 11:45:00 AM, [address] [place] [address], Suite [facility], [place], [place], [phone], Provider Name:Yeyo palacios, 03/21/2025 07:45:00 AM, [address] [place] [address], Suite [facility], [place] Kong, [phone], Provider Name:Yeyo Esteban ier, 03/28/2025 01:00:00 PM, [address], [address], [place], [phone], Progress Notes * Faisal GARCIA MDOB:[birth year] (88 yo M)Acc No.[id number]:05/23/2024 Patient: Cheikh Faisal MCCOY :1935 A ge:88 Y S ex:Male Address:[address] [place] [address] [place] [address] * true * Date: Generated for Saturnino gallegos/Sumeet/Marisabelitting on: 0 10/22/2024 03:47 PM EDT
--- OUTSIDE RECORDS SUMMARY | 2024-05-31 05:00 | XMS_ITS ---
Author Organization Yeyo Mason MD Address [address] [place] [phone] Care Team Providers Care Cook Relief Name Role Phone Yeyo Mason Primary Care [...] Provider Diagnosis Yeyo Mason MD [address] [place], [place] [phone] 05/31/2024 Yeyo Mason Essential hypertensi on I10 and Atherosclerotic heart disease of [place] coronary artery without angina pectoris I25.10 Assessments Encounter Date Diagnosis (ICD Code) Assessment Notes Treatment Notes Treatment Clinical Notes Section Notes 05/31/2024 Essential hypertension (ICD-10 - I10) seems likely the cause of his pain according to the charts. review of all the records failed to show signjificant cad 05/31/2024 Atherosclerotic heart disease of [place] coronary artery without angina pectoris (ICD-10 - [...] signjificant cad Atherosclerotic heart diseas e of [place] coronary artery without angina pectoris is going to go to cardiac rehab in order that he can see if he can exercise without pain. pain certainly sounded cardiac and have explained that if it comes back he should treat it as though. have offered him some nitro to have and he declines Next Appt Details Follow Up: 3 Months, Reason: Provider Name:Yeyo palacios, 10/28/2024 11:45:00 AM, [address], [address], [place], [place], [phone], Provider Name:Yeyo palacios, 03/21/2025 07:45:00 AM, [address], [address], [place], [place], [phone], Provider Name:Yeyo Esteban ier, 03/28/2025 01:00:00 PM, [address], [address], [place], [place], [phone], Progress Notes * Faisal GARCIA MDOB:[birth year] (88 yo M)Acc No.[id number]:05/31/2024 Patient: Faisal LONG Provider: Adelso Mason MD :1935 A ge:88 Y S ex:Male Date:05/31/2024 Address:[address] [place] [address] [id number] Subjective: * Chief Complaints: * P H/TCMAccompanied [...] 2 . A therosclerotic heart disease of [place] coronary artery without angina pectoris - I25.10 Plan: * Treatment: 2. A therosclerotic heart disease of [place] coronary artery without angina pectoris Continue Atorvastatin [...] MD Date: 0 05/31/2024 Generated for Saturnino gallegos/Sumeet/eTransmitting on: 0 10/22/2024 03:47 PM EDT History and Physical Notes * [...]
--- OUTSIDE RECORDS SUMMARY | 2024-09-13 05:00 | XMS_ITS ---
Author Organization Yeyo Mason MD Address [address] [place] [phone] Care Team Providers Care Collar Runner Name Role Phone Yeyo Mason Primary Care Provider Results Component Value Reference Range Notes Liver Panel Reviewed date:09/13/2024 04:31:04 PM Interpretation: Performing Lab:[facility], [address] [place] [phone] Notes/Report: Bilirubin Total 0.8 0.0-1.0 mg/dL Bilirubin Direct 0.3 0.0-0.5 mg/dL Aspartate Amino Transferase 38 5-37 U/L Slight Hemolysis.Interpret result with caution. Alanine Aminotransferase 30 0-40 U/L Total Protein 6.7 6.5-8.0 g/dL Albumin Level 4.2 3.5-5.0 g/dL Alkaline Phosphatase 92 39-117 U/L Lipid Panel with Reflex Reviewed date:09/13/2024 04:30:43 PM Interpretation: Performing Lab:[facility], [address] [place] [phone] Notes/Report: Triglycerides 77 <150 mg/dL Desirable Triglyceride: [...] Location Date Provider Diagnosis Yeyo Mason MD [address] [place] [address] [address] [place] [phone] 09/13/2024 Yeyo Mason Pure hypercholestero lemia E78.00 Assessments Encounter Date Diagnosis (ICD Code) Assessment Notes Treatment Notes Treatment Clinical Notes Section Notes 09/13/2024 Pure hypercholesterolemia (ICD-10 - E78.00) Plan Of Treatment Next Appt Details Provider Name:Yeyo palacios, 10/28/2024 11:45:00 AM, [address] [place] [address], [address] [place] [address], [phone], Provider Name:Yeyo palacios, 03/21/2025 07:45:00 AM, [address] [place] [address], [address], [phone], Provider Name:Yeyo palacios, 03/28/2025 01:00:00 PM, [address] [place] [address], [address], [phone], Progress Notes * Faisal GARCIA MDOB:[birth year] (88 yo M)Acc No.[id number]:09/13/2024 Progress Note Patient: Faisal LONG Provider: Adelso Mason MD :1935 A ge:88 Y S ex:Male Date:09/13/2024 Address:[address] [place], [place] [phone] Subjective: * Chief Complaints: * 1 . [...] MD Date: 0 09/13/2024 Generated for Saturnino gallegos/Sumeet/Marisabelitting on: 0 10/22/2024 03:47 PM EDT
--- OUTSIDE RECORDS SUMMARY | 2024-09-23 09:30 | XMS_ITS ---
Author Organization Yeyo Mason MD Address [address] [place] [phone] Care Team Providers Care Belt Tender Name Role Phone Yeyo Mason Primary Care Provider [phone] Allergies Allergen (clinical drug ingredient) Drug/Non Drug [...] Location Date Provider Diagnosis Yeyo Mason MD [address] [place] [phone] 09/23/2024 Yeyo Mason Neurocognitive disorder with Lewy [...] regiment Next Appt Details Provider Name:Yeyo palacios, 10/28/2024 11:45:00 AM, [address] [place] [address], [place] [address], [place], [place], [phone], Provider Name:Yeyo palacios, 03/21/2025 07:45:00 AM, [address] [place] [address], [place] [address], [place], [place], [phone], Provider Name:Yeyo palacios, 03/28/2025 01:00:00 PM, [address] [place] [address], [place] [address], [place], [place], [phone], Progress Notes * HOPFE, Faisal MADDOXOB:[birth year] (88 yo M)Acc No.[id number]:09/23/2024 Progress Notes Patient: Faisal LONG Provider: Adelso Mason MD :1935 A ge:88 Y S ex:Male Date:09/23/2024 Address:[address] [place] [address] [facility] Subjective: * Chief Complaints: * 6 month [...] with the patient * Allergies: s ulfa: henrique[Allergies Verified] Objective: * Vitals: H t: [...] 09/23/2024 Generated for Saturnino gallegos/Sumeet/Marisabelitting on: 0 10/22/2024 03:47 PM EDT History [...]
--- OUTSIDE RECORDS SUMMARY | 2024-10-21 09:28 | XMS_ITS ---
Author Organization Yeyo Mason MD Address [address] [place] [phone] Care Team Providers Care Telegraph Equipment Maintainer Name Role Phone Yeyo Mason Primary Care Provider REASON FOR VISIT ER Encounters Encounter Location Date Provider Diagnosis Yeyo Mason MD [address] [place] [phone] 10/21/2024 Yeyo Mason Plan Of Treatment Next Appt Details Provider Name:Yeyo Esteban iead, 10/28/2024 11:45:00 AM, [address] [place] [address], [address], [phone], Provider Name:Yeyo palacios, 03/21/2025 07:45:00 AM, [address] [place] [address], Suite [facility], [place], [place], [phone], Provider Name:Yeyo Esteban ier, 03/28/2025 01:00:00 PM, [address], [address], [place], [phone], Progress Notes * Faisal GARCIA MDOB:[birth year] (88 yo M)Acc No.[id number]:10/21/2024 Patient: Cheikh Faisal MCCOY :1935 A ge:88 Y S ex:Male Address:[address] [place] [address] [place] [address] * true * Date: Generated for Saturnino gallegos/Sumeet/Marisabelitting on: 0 10/22/2024 03:47 PM EDT
[2024-10-22 13:02] LABS: Anion Gap 11 (12-20); Blood Urea Nitrogen 19 mg/dL (9-16); Calcium 9.7 mg/dL (8.4-10.2); Carbon Dioxide 27 mmol/L (22-29); Chloride 110 mmol/L (96-108); Estimated Glomerular Filt Rate > 60; Potassium 4.4 mmol/L (3.3-5.1); Sodium 144 mmol/L (135-145)
[2024-10-22 13:15] LABS: NT Pro B Type Natriuretic Pept 269.2 pg/mL (<300)
--- OUTSIDE RECORDS SUMMARY | 2024-10-22 15:48 | XMS_ITS | Patient Health Record ---
Author Organization Yeyo Mason MD Address [address] [place], [place] [phone] Care Team Providers Care Refinery Operator Coking Name Role Phone Yeyo Mason Primary Care Provider [phone] Allergies Allergen (clinical drug ingredient) Drug/Non Drug Allergy documented on EMR Reaction Allergy Type Onset Date Status Substance with sulfonamide structure and antibacterial mechanism of action (substance) sulfa (uncoded) rash Allergy Active Results Component Value Reference Range Notes Complete Blood Count Auto Di ff Reviewed date:03/22/2024 05:34:13 PM Interpretation: Performing Lab:[facility], [address] [place] [phone] Notes/Report: White Blood Count 6.0 4.8-10.8 X10*3/uL [...] NRBC Abs Auto 0.000 0.0-0.012 X10*3/uL Comprehensive [place]. Panel Fa st Reviewed date:03/22/2024 05:05:12 PM Interpretation: Performing Lab:[facility], [address] [place] [phone] Notes/Report: Sodium 144 135-145 mmol/L Potassium 4.0 [...] Panel Reviewed date:03/22/2024 05:04:48 PM Interpretation: Performing Lab:[address] [address] Notes/Report: Triglycerides 82 <150 mg/dL Desirable Triglyceride: [...] (Free>4and<10) Reviewed date:03/22/2024 05:04:56 PM Interpretation: Performing Lab:[address] [address] Notes/Report: PSA,Total (Free>4and<10) 1.16 0.00-4.00 ng/mL A [...] t Reviewed date:03/26/2024 01:33:19 PM Interpretation: Performing Lab:[address] [address] Notes/Report: Urine, Clean Catch Color Urine Yellow Appearance Urine Clear PH 6.0 5.0-9.0 Glucose Urine UA Negative Negative mg/dL Urine Blood Negative Negative Specific [place] - Urine 1.025 1.005-1.025 Urine Protein Negative Neg-Trace mg/dL Urine Ketones Negative Negative mg/dL Nitrite Urine Negative Negative Leukocyte Esterase Urine Trace Negative RBC Urine 0-2 0-2 /HPF WBC Urine 0-5 0-5 /HPF Squamous Epithelial Cell Urine 0-2 0-2 /HPF Bacteria Urine None Seen None Seen Hyaline Casts Urine 0-2 0-2 /LPF Liver Panel Reviewed date:09/13/2024 04:31:04 PM Interpretation: Performing Lab:[facility], [address] [place] [phone] Notes/Report: Bilirubin Total 0.8 0.0-1.0 mg/dL Bilirubin Direct 0.3 0.0-0.5 mg/dL Aspartate Amino Transferase 38 5-37 U/L Slight Hemolysis.Interpret result with caution. Alanine Aminotransferase 30 0-40 U/L Total Protein 6.7 6.5-8.0 g/dL Albumin Level 4.2 3.5-5.0 g/dL Alkaline Phosphatase 92 39-117 U/L Lipid Panel with Reflex Reviewed date:09/13/2024 04:30:43 PM Interpretation: Performing Lab:[address] [address] Notes/Report: Triglycerides 77 <150 mg/dL Desirable Triglyceride: [...] Diff Reviewed date:05/16/2024 06:11:58 PM Interpretation: Performing Lab:[facility], [address] [place] [phone] Notes/Report: White Blood Count 7.3 4.8-10.8 X10*3/uL [...] ff Reviewed date:05/16/2024 06:19:04 PM Interpretation: Performing Lab:[facility], [address] [place] [phone] Notes/Report: White Blood Count 6.6 4.8-10.8 X10*3/uL [...] INR Reviewed date:05/16/2024 06:20:38 PM Interpretation: Performing Lab:[address] [address] Notes/Report: Prothrombin Time 16.9 10.9-12.4 SEC INTERNATIONAL [...] Drip Reviewed date:05/16/2024 06:12:11 PM Interpretation: Performing Lab:[address] [address] Notes/Report: PTT Heparin Drip 38.3 53-77.9 SEC For information regarding the monitoring of heparin therapy, please refer to Pharmacy. Liver Panel Reviewed date:05/16/2024 06:13:54 PM Interpretation: Performing Lab:[address] [address] Notes/Report: Bilirubin Total 0.9 0.0-1.0 mg/dL Bilirubin Direct 0.3 0.0-0.5 mg/dL Aspartate Amino Transferase 21 5-37 U/L Alanine Aminotransferase 22 0-40 U/L Total Protein 6.1 6.5-8.0 g/dL Albumin Level 3.9 3.5-5.0 g/dL Alkaline Phosphatase 82 39-117 U/L Basic Metabolic Panel Reviewed date:05/16/2024 06:21:01 PM Interpretation: Performing Lab:[address] [address] Notes/Report: Sodium 144 135-145 mmol/L Potassium 4.0 [...] Magnesium Reviewed date:05/16/2024 06:13:11 PM Interpretation: Performing Lab:[address] [address] Notes/Report: Magnesium 2.2 1.6-2.6 mg/dL Troponin-I High Sensitivity Reviewed date:05/16/2024 06:11:28 PM Interpretation: Performing Lab:[address] [address] Notes/Report: Troponin-I High Sensitivity 5.7 <3.5-35.0 ng/L [place] high sensitivity Troponin-I results should be used in conjunction with other diagnostic information such as ECG, clinical observations and information, and patient symptoms to aid in the diagnosis of AK. SARS-CoV2/FLU/RSV Reviewed date:05/16/2024 06:11:13 PM Interpretation: Performing Lab:[facility], [address] [place] [phone] Notes/Report: Influenza A PCR NEGATIVE Negative Influenza [...] by authorized laboratories. Testing performed on the 5151tuan GeneXpert utilizing real-time RT-PCR. All SARS CoV2 and positive influenza A/B results are reported to [facility]. XR chest 2V Reviewed date:05/16/2024 06:12:54 PM Interpretation: Performing Lab: Notes/Report: [address] [address] XRay Report Signed Patient: Faisal Leiva MR#: [id number] 714 : 1935 Acct:[id number] Age/Sex: 88 / M ADM Date: 05/16/24 Loc: HO.ED Attending Dr: Ordering Physician: Natalie August Date of Service: 05/16/24 Procedure(s): XR chest 2V Accession Number(s): [id number] cc: Yeyo Mason MD; Natalie August EXAMINATION: [...] 05/16/24 1229 DD/ 1154 TD/TT: 05/16/24 1214 Evaluation Specialist: [place] [address] XRay Report Signed Patient: Ashley Leiva nd MR#: [id number] 714 : 1935 Acct:[id number] Age/Sex: 88 / M ADM Date: 05/16/24 Loc: .ED Attending Dr: Ordering Physician: Natalie August Date of Service: 05/16/24 Procedure(s): XR sarah st 2V Accession Number(s): [id number] cc: Yeyo Mason MD; Natalie August EXAMINATION: [...] 05/16/24 1229 DD/ 1154 TD/TT: 05/16/24 1214 Evaluation Specialist: Troponin-I High Sensitivity Reviewed date:05/16/2024 06:11:39 PM Interpretation: Performing Lab:[facility], [address] [place] [phone] Notes/Report: Troponin-I High Sensitivity 8.0 <3.5-35.0 ng/L [place] high sensitivity Troponin-I results should be used in conjunction with other diagnostic information such as ECG, clinical observations and information, and patient symptoms to aid in the diagnosis of AK. Troponin-I High Sensitivity Reviewed date:05/16/2024 06:10:59 PM Interpretation: Performing Lab:[facility], [address] [place] [phone] Notes/Report: Troponin-I High Sensitivity 8.2 <3.5-35.0 ng/L [place] high sensitivity Troponin-I results should be used in conjunction with other diagnostic information such as ECG, clinical observations and information, and patient symptoms to aid in the diagnosis of AK. Prothrombin Time INR Reviewed date:05/16/2024 06:10:51 PM Interpretation: Performing Lab:[facility], [address] [place] [phone] Notes/Report: Prothrombin Time 16.1 10.9-12.4 SEC INTERNATIONAL [...] date:07/04/2024 04:28:46 PM Interpretation: Performing Lab: Notes/Report: [facility] [address] [place] [address] XRay Report Signed Patient: Faisal Leiva MR#: [id number] 714 : 1935 Acct:[id number] Age/Sex: 88 / M ADM Date: 07/02/24 [facility] Attending Dr: Trish Carr PA-C Ordering Physician: Trish Carr PA-C Date of Service: 07/02/24 Procedure(s): XR ankle LT min 3V Accession Number(s): [id number] cc: Yeyo Mason MD; Trish Carr PA-C [...] 07/02/24 1403 DD/ 1329 TD/TT: 07/02/24 1334 Evaluation Specialist: [facility] [address] [place] [address] [place] [address] XRay Report Signed Patient: Ashley Leiva nd M MR#: [id number] 714 : 1935 Acct:[id number] Age/Sex: 88 / M ADM Date: 07/02/24 Loc: HO.[facility] Attending Dr: Gianna Carr PA-C Ordering Physician: Trish Carr PA-C Date of Service: 07/02/24 Procedure(s): XR ank le LT min 3V Accession Number(s): [id number] cc: Yeyo Mason MD; Trish Carr PA-C [...] 07/02/24 1403 DD/ 1329 TD/TT: 07/02/24 1334 Evaluation Specialist: Daylin Najera Reviewed date:09/13/2024 04:37:48 PM Interpretation: Performing Lab:[address] [address] Notes/Report: Daylin Najera See Note Specimen held untested for 24 hours; Call to request Chemistry testing. Basic Metabolic Panel Reviewed date:10/22/2024 02:40:26 PM Interpretation: Performing Lab:[address] [address] Notes/Report: Sodium 144 135-145 mmol/L Potassium 4.4 3.3-5.1 mmol/L Chloride 110 96-108 mmol/L Carbon Dioxide 27 22-29 mmol/L Anion Gap 11 12-20 Blood Urea Nitrogen 19 9-16 mg/dL Creatinine 1.11 0.5-1.4 mg/dL Estimated Glomerular Filt Rate > 60 Chronic Kidney Disease: Estimated GFR < 60 mL/min/1.73m2 Severe Kidney Disease: Estimated GFR < 15 mL/min/1.73m2 Glucose Random 95 60-115 mg/dL Calcium 9.7 8.4-10.2 mg/dL NT Pro B Type Natriuretic Pe pt Reviewed date:10/22/2024 02:40:11 PM Interpretation: Performing Lab:[address] [address] Notes/Report: NT Pro B Type Natriuretic Pept 269.2 <300 pg/mL Reference Range: Age Group (years) NT-proBNP (pg/ml) Interpretation All <300 Negative: HF unlikely For patients presenting to the ED with clinical suspicion of new onset or worsening HF, see below: 18 to <50 >299.9 to <450.0 Grayzone: Consider 50 to 75 >299.9 to <900.0 other causes of >75 >299.9 to <1800.0 NT-proBNP elevation 18 to <50 >449.9 Positive: HF likely 50-75 >899.9 >75 >1799.9 Note: Elevated NT-proBNP levels should be interpreted in the context of other clinical information. Reason For Referral No Information Medications Medication [...] Comme nts Flu Vaccine Unknown 11/16/2011 Administered [facility] Flu[facility]ix Quadrivalent IM Intramuscular 12/01/2014 Administered Flu Vaccine Unknown 11/26/2015 Administered thinks abou t 4 days ago at [facility] Flu Vaccine IM Intramuscular 11/21/2016 Administered pt wa s given the vaccine at [facility] in [place]. Tetanus Unknown 03/13/2017 Administered Pt was given the vaccine in [facility] urgent care Influenza High Dose IM Intramuscular 10/26/2017 Administered pt was given th e vaccine at [facility]. Fluarix Quadrivalent Unknown 11/13/2017 Administered [facility] Fluarix Quadrivalent Unknown 11/01/2018 [facility]ered [facility] Influenza High Dose Unknown 11/18/2019 Administered [facility] SARS-COV-2 Moderna Unknown 03/17/2020 Administered SARS-COV-2 Moderna Unknown 04/14/2020 Administered SARS-COV-2 Moderna Unknown 12/16/2020 Administered Influenza High Dose Unknown 11/04/2020 Administered Influenza High Dose Unknown 11/30/2021 Administered [facility] Flu Vaccine Unknown 11/05/2013 Refused PPSV23 (Pnemovax) [...] W/U Status Risk Notes Problem Pure hypercholesterolemia (481737798) Pure hypercholesterolemia (E78.0) Active confirmed Problem 53255358 Atherosclerotic heart disease of [place] coronary artery without angina pectoris (I25.10) Active confirmed Problem 71555464 Lymphocytosis (D72.820) Active confirmed Problem 43841332 Essential hypertension (I10) Active confirmed Problem 63648949 Memory loss (R41.3) Active confirmed Problem 174366252 History of coron desiree artery stent placement (Z95.5) Active confirmed Problem 394524694 Angina pectoris (I20.9) Active confirmed Problem 705816881 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) Active confirmed Problem 18846246 Atrial fibrillat ion, unspecified type (I48.91) Active confirmed Problem 37045741 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) Active confirmed Problem 625926687 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) Active confirmed Problem 498753957 Pure hypercholesterolemia (E78.00) Active confirmed Problem 381899691 Elevated PSA (R97.20) Active confirme d Problem 77188438 CHRISTINE (obstructive sleep apnea) (G47.33) Active confirmed Problem 8733464 Hallucination (R44.3) Active confirmed Problem 947790471 Elevated serum cholesterol (E78.9) Active confirmed Problem 165402869 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) Active [...] Yeyo Mason MD [address] [place] [id number] 12/28/2023 Yeyo Mason Memory loss R41.3 ; 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 and Advance care planning Z71.89 Yeyo Mason MD [address] [place] [id number] 03/19/2024 Yeyo Mason Blood tests for rout ine general physical examination Z00.00 ; Essential hypertension I10 ; Pure hypercholesterolemia E78.00 ; Elevated PSA R97.20 and Lymphocytosis D72.820 Yeyo Mason MD [address] [place] [id number] 09/13/2024 Yeyo Mason Pure hypercholestero lemia E78.00 Yeyo Mason MD [address] [place] [id number] 03/26/2024 Yeyo Mason Essential hypertensi on I10 ; Pure hypercholesterolemia E78.00 ; Atherosclerotic heart disease of [place] coronary artery without angina pectoris I25.10 ; Atrial fibrillation, unspecified type I48.91 ; Colon cancer screening Z12.11 and Depression screening Z13.31 Yeyo Mason MD [address] [place] [id number] 05/31/2024 Yeyo Bombardier Essential hypertensi on I10 and Atherosclerotic heart disease of [place] coronary artery without angina pectoris I25.10 Yeyo Mason MD [address] [place] [id number] 09/23/2024 Yeyo Mason Neurocognitive disor juno with Lewy bodies G31.83 ; Atrial fibrillation, unspecified type I48.91 and Elevated serum cholesterol E78.9 Yeyo Mason MD [address] [place] [id number] 05/17/2024 Yeyo Mason MD [address] [place] [id number] 05/23/2024 Yeyo Mason MD [address] [place] [id number] 10/21/2024 Yeyo Mason Assessments Encounter Date Diagnosis (ICD [...] I10) 03/26/2024 Atherosclerotic hear t disease of [place] coronary artery without angina pectoris (ICD-10 - I25.10) not having any complaints 05/31/2024 Atherosclerotic hear t disease of [place] coronary artery without angina pectoris (ICD-10 - [...] 01/10/2019 Next Appt Details Provider Name:Yeyo palacios, 10/28/2024 11:45:00 AM, [address] [place] [address], [phone], Provider Name:Yeyo palacios, 03/21/2025 07:45:00 AM, [address] [place] [address], [phone], Provider Name:Yeyo palacios, 03/28/2025 01:00:00 PM, [address] [place] [address], [phone], Insurance Providers Payer Name Payer Address Payer Phone Subscriber Number Group Number Insured Name Patient Relationship to Insured Coverage Start Date Coverage End Date [employer] [address] [place] [address] [id number] Faisal Leiva Self - patient is the insured [employer] OF [employer] [address] [place] [address] [id number] Faisal Leiva Self - patient is the insured Medical (General) History Medical History History ICD Code angioplasty 2003 colonoscopy 2008; colonoscop y - 01/20/2014 Dr. Sanchez - no further colonoscopies necessary; HX of tubular adenoma of colon Hx Bloody Stools
--- OUTSIDE RECORDS SUMMARY | 2024-10-22 15:48 | XMS_ITS | Patient Health Record ---
Author Organization [facility] Address [address] [place] [id number] Care Team Providers Care Insurance Checker Name Role Phone Yeyo Mason MD Primary Care Provider Oscar Ellsworth [phone] Allergies Allergen (clinical drug ingredient) Drug/Non Drug [...] Problem History of adenomatous polyp of colon (586412476) History of adenomatous polyp of colon (V12.72) Active confirmed Problem Feces contents abnormal (834215480) Heme + stool (792.1) Active confirmed Plan Of Treatment Future Test Test Name Order Date COLONOSCOPY 11/29/2013 Insurance Providers Payer Name Payer Address Payer Phone Subscriber Number Group Number Insured Name Patient Relationship to Insured Coverage Start Date Coverage End Date MEDICARE OF [place] [address] [place] [id number] SAEED GARCIA Self - patient is the insured [employer] ATT[employer] CLAIMS [address] [place] [phone] [id number] SAEED GARCIA Self - patient is the insured Medical (General) History Medical History History ICD Code Colonoscoy 12-22-2008--neg e xcept for diverticulosis and internal hemorrhoids Colon polyps--tubular adenomas removed i n 1998, 2001 and 2005 HTN Denies DM,CVA,Lung disease,renal disease CAD-stent placed in 2003-? Of preceding [place] Hyperlipidemia Surgical History Surgery Date(Month/Year) appendectomy cholecystectomy 05/21/2007 cataract-lens implants
== END 2024-10-22 11:34 | disposition home or self-care (01) ==
LOC: HO.LAB 11:33
PROVIDERS: PCP Internal Medicine; Visit Provider Internal Medicine Cardiovascular Disease
DX: I10 Essential (primary) hypertension (principal); I25.10 Atherosclerotic heart disease of native coronary artery without angina pectoris
CPT/HCPCS: 36415; 80048; 83880

== ENCOUNTER → 2024-11-21 23:59 | Outpatient (BNV) | payer MEDICARE, SELFPAY ==
--- NOTE | 2024-11-26 17:22 | MHC.OFFVIS ---
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 Mother Cancer Brother Cancer Social History Alcohol intake: former Patient Tobacco Use Status: Former Tobacco user Tobacco use type: Pipe Years Smoked: 20 +/- Office Procedures Cardiac Device Check Cardiac Device Check Details: Remote pacemaker report generated 11/21/2024. Pacemaker function is adequate. [id number] Cardiac Device Interrogation, pacemaker Procedure code (CPT) selection complete Assessment & Plan Assessment & Plan (1) Cardiac pacemaker in situ: Comment: Dual-chamber [employer] pacemaker placed, January 2017 for second-degree Mobitz type 2 av block with underlying left bundle-branch block Code(s): Z95.0 - Presence of cardiac pacemaker Category: Medical Plan: See above Coding Level of Care Code Procedure Only Diagnoses Cardiac pacemaker in situ Z95.0 CPT Codes Cardiac Device Check - Cardiac Device 12: [id number] Cardiac Device Interrogation, pacemaker ([id number])
== END ==
PROVIDERS: PCP Internal Medicine; Visit Provider Internal Medicine Cardiovascular Disease
DX: I44.39 Other atrioventricular block (principal); Z95.0 Presence of cardiac pacemaker
CPT/HCPCS: 93294

== ENCOUNTER 2024-11-23 10:37 | Outpatient (AMB) | payer MEDICARE, SELFPAY ==
--- OUTSIDE RECORDS SUMMARY | 2024-03-19 03:30 | XMS_ITS ---
Author Organization Yeyo Mason MD Address [address] [place], [place] [id number] Care Team Providers Care Lead Investigator Name Role Phone Yeyo Mason Primary Care Provider Results Component Value Reference Range Notes Complete Blood Count Auto Di ff Reviewed date:03/22/2024 05:34:13 PM Interpretation: Performing Lab:[facility], [address] [place] [phone] Notes/Report: White Blood Count 6.0 4.8-10.8 X10*3/uL Red Blood Count 4.74 4.60-5.80 X10*6/uL Hemoglobin 15.3 14.0-18.0 g/dl Hematocrit 46.0 42.0-52.0 % Mean Corpuscular Volume 97.0 80.0-98.0 fL Mean Corpuscular Hemoglobin 32.3 27.0-33.0 pg Mean Corpuscular HGB Conc 33.3 31.0-36.0 g/dl Red Cell Distribution Width 12.7 11.0-16.0 % Platelet Count 153 160-400 X10*3/uL Mean Platelet Volume 9.5 9.4-12.4 fL Neutrophils Percent Auto 50.5 45-73 % Imm Gran Pct Auto 0.2 0.0-0.4 % Lymphocytes Percent Auto 37.2 20-40 % Monocytes Percent Auto 10.9 2-11 % Eosinophils Percent Auto 0.7 0-4 % Basophils Percent Auto 0.5 0-2 % NRBC Pct Auto 0.0 0.0-0.2 /100WBC Neutrophils Absolute Auto 3.0 2.0-8.3 x10*3/u L Imm Gran Abs Auto 0.01 0.00-0.03 X10*3/uL Lymphocytes Absolute Auto 2.2 1.2-4.9 X10*3/u L Monocytes Absolute Auto 0.7 0.1-1.2 X10*3/uL Eosinophils Absolute Auto 0.0 0.0-0.4 X10*3/u L Basophils Absolute Auto 0.0 0.0-0.2 X10*3/uL NRBC Abs Auto 0.000 0.0-0.012 X10*3/uL Comprehensive [place]. Panel Fa st Reviewed date:03/22/2024 05:05:12 PM Interpretation: Performing Lab:[facility], [address] [place] [phone] Notes/Report: Sodium 144 135-145 mmol/L Potassium 4.0 3.3-5.1 mmol/L Chloride 113 96-108 mmol/L Carbon Dioxide 27 22-29 mmol/L Anion Gap 8 12-20 Blood Urea Nitrogen 19 9-16 mg/dL Creatinine 0.96 0.5-1.4 mg/dL Estimated Glomerular Filt Rate > 60 Chronic Kidney Disease: Estimated GFR < 60 mL/min/1.73m2 Severe Kidney Disease: Estimated GFR < 15 mL/min/1.73m2 Glucose Fasting 96 60-99 mg/dL Calcium 8.6 8.4-10.2 mg/dL Bilirubin Total 1.2 0.0-1.0 mg/dL Aspartate Amino Transferase 24 5-37 U/L Alanine Aminotransferase 19 0-40 U/L Total Protein 6.6 6.5-8.0 g/dL Albumin Level 4.0 3.5-5.0 g/dL Alkaline Phosphatase 78 39-117 U/L Lipid Panel Reviewed date:03/22/2024 05:04:48 PM Interpretation: Performing Lab:[facility], [address] [place] [phone] Notes/Report: Triglycerides 82 <150 mg/dL Desirable Triglyceride: less than 150 mg/dL Borderline High Triglyceride 150-199 mg/dL High Triglyceride: 200-499 mg/dL Very High Triglyceride: greater than or equal to 5OO mg/dL Cholesterol 128 <200 mg/dL Desirable Cholesterol: less than 200 mg/dL Borderline High Cholesterol: 200-239 mg/dL High Cholesterol: greater than 239 mg/dL LDL Cholesterol Calculated 68 <100 mg/dL Desirable LDL: less than 100 mg/dL Near Optimal/Above Optimal LDL: 110-129 mg/dL Borderline High LDL: 130-159 mg/dL High LDL: 160-189 mg/dL Very High LDL: greater than or equal to 190 mg/dL HDL Cholesterol 44 >40 mg/dL Desirable HDL: greater than 40 mg/dL Note: This HDL assay may give artificially low results in patients with liver disease. PSA,Total (Free>4and<10) Reviewed date:03/22/2024 05:04:56 PM Interpretation: Performing Lab:[facility], [address] [place] [phone] Notes/Report: PSA,Total (Free>4and<10) 1.16 0.00-4.00 ng/mL A Free PSA was not [...] (CMIA) UA ClnCatch+Micro w/rflx Cul t Reviewed date:03/26/2024 01:33:19 PM Interpretation: Performing Lab:[facility], [address] [place] [address] Notes/Report: Urine, Clean Catch Color Urine Yellow Appearance Urine Clear PH 6.0 5.0-9.0 Glucose Urine UA Negative Negative mg/dL Urine Blood Negative Negative Specific [place] - Urine 1.025 1.005-1.025 Urine Protein Negative Neg-Trace mg/dL Urine Ketones Negative Negative mg/dL Nitrite Urine Negative Negative Leukocyte Esterase Urine Trace Negative RBC Urine 0-2 0-2 /HPF WBC Urine 0-5 0-5 /HPF Squamous Epithelial Cell Urine 0-2 0-2 /HPF Bacteria Urine None Seen None Seen Hyaline Casts Urine 0-2 0-2 /LPF REASON FOR VISIT FASTING LABS Encounters Encounter Location Date Provider Diagnosis Yeyo Mason MD [address] [place] [address] [place] [phone] 03/19/2024 Yeyo Mason Blood tests for rout ine general physical examination Z00.00 ; Essential hypertension I10 ; Pure hypercholesterolemia E78.00 ; Elevated PSA R97.20 and Lymphocytosis D72.820 Assessments Encounter Date Diagnosis (ICD Code) Assessment Notes Treatment Notes Treatment Clinical Notes Section Notes 03/19/2024 Blood tests for rout ine general physical examination (ICD-10 - Z00.00) 03/19/2024 Essential hypertensi on (ICD-10 - I10) 03/19/2024 Pure hypercholesterolemia (ICD-10 - E78.00) 03/19/2024 Elevated PSA (ICD-10 - R97.20) 03/19/2024 Lymphocytosis (ICD-1 0 - D72.820) Plan Of Treatment Next Appt Details Provider Name:Yeyo palacios, 03/21/2025 07:45:00 AM, [address] [place] [address], Suite [facility], [place], [place], [phone], Provider Name:Yeyo palacios, 03/28/2025 01:00:00 PM, [address] [place] [address], [address], [phone], Progress Notes * Faisal GARCIA MDOB:[birth year] (88 yo M)Acc No.[id number]:03/19/2024 Progress Note Patient: Faisal LONG Provider: Adelso Mason MD :1935 A ge:88 Y S ex:Male Date:03/19/2024 Address:[address] [place] [address] [id number] Subjective: * Chief Complaints: * 1 . FASTING LABS. * Medical History: Objective: * Vitals: Assessment: * Assessment: 1. B lood tests for routine general physical examination - Z00.00 (Primary) 2 .?Essential hypertension - I10 3 . P ure hypercholesterolemia - E78.00 ? 4 . E levated PSA - R97.20 5 . L ymphocytosis - D72.820 ? Plan: * Treatment: 2. E ssential hypertension L AB: Complete Blood Count Auto Diff (Collection Date & Time - 03/19/2024 07:30 AM) L AB: Comprehensive [place]. Panel Fast (Collection Date & Time - 03/19/2024 07:30 AM) L AB: Lipid Panel (Collection Date & Time - 03/19/2024 07:30 AM) L AB: PSA,Total (Free>4and<10) (Collection Date & Time - 03/19/2024 07:30 AM) L AB: UA ClnCatch+Micro w/rflx Cult (Collection Date & Time - 03/19/2024 07:30 AM) 3. P ure hypercholesterolemia L AB: Complete Blood Count Auto Diff (Collection Date & Time - 03/19/2024 07:30 AM) L AB: Comprehensive [place]. Panel Fast (Collection Date & Time - 03/19/2024 07:30 AM) L AB: Lipid Panel (Collection Date & Time - 03/19/2024 07:30 AM) L AB: PSA,Total (Free>4and<10) (Collection Date & Time - 03/19/2024 07:30 AM) L AB: UA ClnCatch+Micro w/rflx Cult (Collection Date & Time - 03/19/2024 07:30 AM) 4. E levated PSA L AB: Complete Blood Count Auto Diff (Collection Date & Time - 03/19/2024 07:30 AM) L AB: Comprehensive [place]. Panel Fast (Collection Date & Time - 03/19/2024 07:30 AM) L AB: Lipid Panel (Collection Date & Time - 03/19/2024 07:30 AM) L AB: PSA,Total (Free>4and<10) (Collection Date & Time - 03/19/2024 07:30 AM) L AB: UA ClnCatch+Micro w/rflx Cult (Collection Date & Time - 03/19/2024 07:30 AM) 5. L ymphocytosis L AB: Complete Blood Count Auto Diff (Collection Date & Time - 03/19/2024 07:30 AM) L AB: Comprehensive [place]. Panel Fast (Collection Date & Time - 03/19/2024 07:30 AM) L AB: Lipid Panel (Collection Date & Time - 03/19/2024 07:30 AM) L AB: PSA,Total (Free>4and<10) (Collection Date & Time - 03/19/2024 07:30 AM) L AB: UA ClnCatch+Micro w/rflx Cult (Collection Date & Time - 03/19/2024 07:30 AM) * Procedure Codes: 3 6415 VENIPUNCT, ROUTINE* * * The named appointment provid er may or may not be the originator of this progress note, and it is not deemed complete until electronically signed by the appointment provider. Sign off status: Pending * Provider: Adelso Mason MD Date: 0 03/19/2024 Generated for Saturnino gallegos/Sumeet/eTransmitting on: 1 10:40 AM EDT
--- OUTSIDE RECORDS SUMMARY | 2024-03-26 09:00 | XMS_ITS ---
Author Organization Yeyo Mason MD Address [address] [place] [id number] Care Team Providers Care Program Proposals Coordinator Name Role Phone Yeyo Mason Primary Care Provider [phone] Allergies Allergen (clinical drug ingredient) Drug/Non Drug Allergy documented on EMR Reaction Allergy Type Onset Date Status Substance with sulfonamide structure and antibacterial mechanism of action (substance) sulfa (uncoded) rash Allergy Active REASON FOR VISIT review labs, Accompanied by Medications Medication SIG (Take, Route, Frequency, Duration) Notes Start Date End Date Status Cipro 500 MG 1 tablet Orally ever y 12 hrs for 7 days 12/23/2021 Not-Taking Metoprolol Tartrate 50 MG TAKE ONE TABLE T BY MOUTH TWICE A DAY Active Atorvastatin Calcium 20 MG TAKE ONE TABLET BY MOUTH EVERY DAY Active Memantine HCl 5 MG 1 tablet Orally Twic e a day Active PreserVision AREDS - as directed Orally Active Isosorbide Mononitrate ER 30 MG 1 tablet in the morning Orally Once a day Active Xarelto 20 MG 1 tablet with food Orally Once a day 02/08/2022 Active Social History Tobacco Use: Social History Observation Description Date Details (start date - stop date) Former Smoker NA - NA Tobacco Use/Smoking Question Answer Notes Patient is a former smoker How long has it been since y ou last smoked? > 10 years Additional Findings: Tobacco Non-User Fo rmer smoker, currently using no form of tobacco Alcohol Screen Question Answer Notes Did you have a drink containing alcohol in the p ast year? No Points 0 Interpretation Negative Vital Signs Blood pressure systolic 132 mm Hg 03/26/19 25 Blood pressure diastolic 60 mm Hg 025 Height 69 in 03/26/2024 Weight 192 lbs 03/26/2024 BMI 28.35 kg/m2 03/26/2024 Encounters Encounter Location Date Provider Diagnosis Yeyo Mason MD [address] [place] [address] [address] [place], [place] [phone] 03/26/2024 Yeyo Mason Essential hypertensi on I10 ; Pure hypercholesterolemia E78.00 ; Atherosclerotic heart disease of [place] coronary artery without angina pectoris I25.10 ; Atrial fibrillation, unspecified type I48.91 ; Colon cancer screening Z12.11 and Depression screening Z13.31 Assessments Encounter Date Diagnosis (ICD Code) Assessment Notes Treatment Notes Treatment Clinical Notes Section Notes 03/26/2024 Essential hypertensi on (ICD-10 - I10) doing well with good control, ill continue current regiment 03/26/2024 Pure hypercholesterolemia (ICD-10 - E78.00) well controlled, will continue current regiment 03/26/2024 Atherosclerotic hear t disease of [place] coronary artery without angina pectoris (ICD-10 - I25.10) not having any complaints 03/26/2024 Atrial fibrillation, unspecified type (ICD-10 - I48.91) stable, will continue current regiment 03/26/2024 Colon cancer screeni ng (ICD-10 - Z12.11) guaiac negative 03/26/2024 Depression screening (ICD-10 - Z13.31) negative screen Plan Of Treatment Medication Medication Name Sig Start Date Stop Date Notes Metoprolol Tartrate 50 MG TAKE ONE TABLE T BY MOUTH TWICE A DAY Atorvastatin Calcium 20 MG TAKE ONE TABL ET BY MOUTH EVERY DAY Isosorbide Mononitrate ER 30 MG 1 tablet in the morning Orally Once a day Xarelto 20 MG 1 tablet with food O rally Once a day 02/08/2022 Treatment Notes Assessment Notes Essential hypertension doing well with g ood control, ill continue current regiment Pure hypercholesterolemia well controlle d, will continue current regiment Atherosclerotic heart diseas e of [place] coronary artery without angina pectoris not having any complaints Atrial fibrillation, unspecified type st able, will continue current regiment Colon cancer screening guaiac negative Depression screening negative screen Next Appt Details Follow Up: 6 Months, Reason: Provider Name:Yeyo palacios, 03/21/2025 07:45:00 AM, [address] [place] [address], [address], [place], [place], [phone], Provider Name:Yeyo palacios, 03/28/2025 01:00:00 PM, [address] [facility], [address], [place], [place], [phone], Progress Notes * Faisal GARCIA MDOB:[birth year] (88 yo M)Acc No.[id number]:03/26/2024 Patient: Cheikh Faisal MCCOY Provider: Adelso Mason MD :[id number] A ge:88 Y S ex:Male Date:03/26/2024 Address:[address] [place] [address] [id number] Subjective: * Chief Complaints: * R eview labsAccompanied by * HPI: D epression Screening: PHQ-9 L ittle interest or pleasure in doing things N ot at all, F eeling down, depressed, or hopeless N ot at all, T rouble falling or staying asleep, or sleeping too much N ot at all, F eeling tired or having little energy N ot at all, P oor appetite or overeating N ot at all, F eeling bad about yourself or that you are a failure, or have let yourself or your family down N ot at all, T rouble concentrating on things, such as reading the newspaper or watching television N ot at all, M oving or speaking so slowly that other people could have noticed; or the opposite, being so fidgety or restless that you have been moving around a lot more than usual N ot at all, T houghts that you would be better off or of hurting yourself in some way N ot at all, T otal Score 0 . I nterpretation and Intervention D epression Screening Findings N egative, F ollow-Up for Depression : review of PHQ-9 found negative result, no follow-up needed. C ommunication Needs: Communication Needs D oes the patient have a hearing impairment Y es, I f yes, what is the hearing impairment? H wally of hearing, Hearing Aids, D oes the patient have a vision impairment? Y es, I f yes, what is the vision impairment? G lasses, D oes the patient have a cognition impairment? N o. F all Risk: History H ave you had any falls with injury in the past year? N o, H ave you had two or more falls in the past year? N o. S EMILIA Questions: SDOH Questions I n the past year have you been worried about losing housing? N o, I n the past year have you or any family members you live with been unable to get any of the following when it was really needed? Check all that apply: N one. S ymptom(s): patient is a 88 yo male here for review of recent labs and follow up of chronic issues. * ROS: G eneral/Constitutional: Patient denies f atigue, headache. C hange in appetite?denies. C hills d enies. F ever d enies. O phthalmologic: Blurred vision d enies. D ischarge d enies. P ain d enies. E NT: Patient denies d ecreased sense of smell, any loss of taste, sore throat. D ecreased hearing d enies. S ore throat d enies. S wollen glands?denies. E ndocrine: Cold intolerance d enies. E xcessive thirst d enies. H eat intolerance d enies. W eight loss d enies. R espiratory: Cough d enies. S hortness of breath at rest d enies. S hortness of breath with exertion d enies. W heezing d enies. C ardiovascular: Chest pain at rest d enies. C hest pain with exertion?denies. I rregular heartbeat d enies. S hortness of breath d enies. ? G astrointestinal: Abdominal pain d enies. C hange in bowel habits d enies. D iarrhea d enies. N ausea d enies. R ectal bleeding d enies. V omiting d enies . G enitourinary: Blood in urine d enies. D ifficulty urinating d enies. F requent urination d enies. M usculoskeletal: Patient denies m uscle aches. P ainful joints d enies. W eakness d enies. P eripheral Vascular: Patient denies r ed and blue toes. S kin: Dry skin d enies. I tching d enies. D enies?Mole(s), changes in moles, new moles or any lesions of concern. D enies P hotosensitivity. R brian d enies. N eurologic: Dizziness d enies. F ainting d enies. H eadache?denies. * Medical History: * Surgical History: * Hospitalization/Major Diagno stic Procedure: * Family History: F ather: , not known. M other: 84 yrs, colon cancer, coronary artery disease. 1 daughter(s) - healthy. . Brother - cancer all over; sister in [facility] - leg amputation Son - car accident 1 sister 87 Cancer, No pertinent family medical history, Denies mental health/substance abuse family history, Denies mental health/substance abuse family history, Denies mental health/substance abuse family history. * Social History: T obacco Use: T obacco Use/Smoking P atient is a f ormer smoker, H ow long has it been since you last smoked? > 10 years, A dditional Findings: Tobacco Non-User F ormer smoker, currently using no form of tobacco. D rugs/Alcohol: A lcohol Screen D id you have a drink containing alcohol in the past year? N o, P oints 0 , I nterpretation N egative. M iscellaneous: C affeine: no. Children: yes. Community involvements: no. Exercise: yes, walks a mile [employer]. Home smoke detector use: yes. Housing: owning. Living with: spouse. Marital status: . Occupation: retired. Pets: none, 1 cat. Travel outside of the [place]: no. * Medications: T akingIsosorbide Mononitrate ER 30 MG Tablet Extended Release 24 Hour 1 tablet in the morning Orally Once a day PreserVision AREDS - Capsule as directed Orally Memantine HCl 5 MG Tablet 1 tablet Orally Twice a day Xarelto 20 MG Tablet 1 tablet with food Orally Once a day Atorvastatin Calcium 20 MG Tablet TAKE ONE TABLET BY MOUTH EVERY DAY Metoprolol Tartrate 50 MG Tablet TAKE ONE TABLET BY MOUTH TWICE A DAY Taking Isosorbide Mononitrate ER 30 MG Tablet Extended Release 24 Hour 1 tablet in the morning Orally Once a day Taking PreserVision AREDS - Capsule as directed Orally Taking Memantine HCl 5 MG Tablet 1 tablet Orally Twice a day Taking Xarelto 20 MG Tablet 1 tablet with food Orally Once a day Taking Atorvastatin Calcium 20 MG Tablet TAKE ONE TABLET BY MOUTH EVERY DAY Taking Metoprolol Tartrate 50 MG Tablet TAKE ONE TABLET BY MOUTH TWICE A DAY Not-Taking/PRNCipro 500 MG Tablet 1 tablet Orally every 12 hrs Medication List reviewed and reconciled with the patientNot-Taking/PRN Cipro 500 MG Tablet 1 tablet Orally every 12 hrs Medication List reviewed and reconciled with the patient * Allergies: s amos: henrique[Allergies Verified] Objective: * Vitals: H t: 69, Wt: 192, BMI:28.35, BP:132/60, Wt-k.09. * P ast Orders: L ab:PSA,Total (Free>4and<10) (Order Date - 03/19/2024) (Collection Date & Time - 03/19/2024 07:30 AM) Value Reference Range PSA,Total (Free>4and<10) 1.16 0.00-4.00 - ng/ mL L ab:UA ClnCatch+Micro w/rflx Cult (Order Date - 03/19/2024) (Collection Date & Time - 03/19/2024 07:30 AM) Value Reference Range Color Urine Yellow - Appearance Urine Clear - PH 6.0 5.0-9.0 - Glucose Urine UA Negative Negative - mg/dL Urine Blood Negative Negative - Specific [place] - Urine 1.025 1.005-1.025 - Urine Protein Negative Neg-Trace - mg/dL Urine Ketones Negative Negative - mg/dL Nitrite Urine Negative Negative - Leukocyte Esterase Urine Trace A Negative - RBC Urine 0-2 0-2 - /HPF WBC Urine 0-5 0-5 - /HPF Squamous Epithelial Cell Urine 0-2 0-2 - /HP F Bacteria Urine None Seen None Seen - Hyaline Casts Urine 0-2 0-2 - /LPF L ab:Complete Blood Count Auto Diff (Order Date - 03/19/2024) (Collection Date & Time - 03/19/2024 07:30 AM) Value Reference Range White Blood Count 6.0 4.8-10.8 - X10*3/uL Red Blood Count 4.74 4.60-5.80 - X10*6/uL Hemoglobin 15.3 14.0-18.0 - g/dl Hematocrit 46.0 42.0-52.0 - % Mean Corpuscular Volume 97.0 80.0-98.0 - fL Mean Corpuscular Hemoglobin 32.3 27.0-33.0 - pg Mean Corpuscular HGB Conc 33.3 31.0-36.0 - g/ dl Red Cell Distribution Width 12.7 11.0-16.0 - % Platelet Count 153 L 160-400 - X10*3/uL Mean Platelet Volume 9.5 9.4-12.4 - fL Neutrophils Percent Auto 50.5 45-73 - % Imm Gran Pct Auto 0.2 0.0-0.4 - % Lymphocytes Percent Auto 37.2 20-40 - % Monocytes Percent Auto 10.9 2-11 - % Eosinophils Percent Auto 0.7 0-4 - % Basophils Percent Auto 0.5 0-2 - % NRBC Pct Auto 0.0 0.0-0.2 - /100WBC Neutrophils Absolute Auto 3.0 2.0-8.3 - x10* 3/uL Imm Gran Abs Auto 0.01 0.00-0.03 - X10*3/uL Lymphocytes Absolute Auto 2.2 1.2-4.9 - X10* 3/uL Monocytes Absolute Auto 0.7 0.1-1.2 - X10*3/ uL Eosinophils Absolute Auto 0.0 0.0-0.4 - X10* 3/uL Basophils Absolute Auto 0.0 0.0-0.2 - X10*3/ uL NRBC Abs Auto 0.000 0.0-0.012 - X10*3/uL L ab:Lipid Panel (Order Date - 03/19/2024) (Collection Date & Time - 03/19/2024 07:30 AM) Value Reference Range Triglycerides 82 <150 - mg/dL Cholesterol 128 <200 - mg/dL LDL Cholesterol Calculated 68 <100 - mg/dL HDL Cholesterol 44 >40 - mg/dL L ab:Comprehensive [place]. Panel Fast (Order Date - 03/19/2024) (Collection Date & Time - 03/19/2024 07:30 AM) Value Reference Range Sodium 144 135-145 - mmol/L Bilirubin Total 1.2 H 0.0-1.0 - mg/dL Aspartate Amino Transferase 24 5-37 - U/L Alanine Aminotransferase 19 0-40 - U/L Total Protein 6.6 6.5-8.0 - g/dL Albumin Level 4.0 3.5-5.0 - g/dL Alkaline Phosphatase 78 39-117 - U/L Potassium 4.0 3.3-5.1 - mmol/L Chloride 113 H 96-108 - mmol/L Carbon Dioxide 27 22-29 - mmol/L Anion Gap 8 L 12-20 - Blood Urea Nitrogen 19 H 9-16 - mg/dL Creatinine 0.96 0.5-1.4 - mg/dL Estimated Glomerular Filt Rate > 60 - Glucose Fasting 96 60-99 - mg/dL Calcium 8.6 8.4-10.2 - mg/dL * Examination: G eneral Examination: GENERAL APPEARANCE: w ell developed, well nourished, in no acute distress. HEAD: n ormocephalic, atraumatic. EYES: p upils equal, round, reactive to light and accommodation, sclera non-icteric. EARS: n ormal. ORAL CAVITY: m uc[place] moist. THROAT: c lear. NECK/THYROID: n marsha supple, full range of motion, no cervical lymphadenopathy, no bruits. SKIN: w arm and dry, no suspicious lesions. HEART: r egular rate and rhythm, S1, S2 normal, no murmurs.? LUNGS: c lear to auscultation bilaterally. ABDOMEN: s oft, nontender, nondistended, bowel sounds present, normal, no organomegaly , no masses palpable. RECTAL EXAM: n ormal tone, no external hemorrhoids, no masses palpable, prostate normal, stool guaiac negative. MALE GENITOURINARY: c ircumcised, testes descended bilaterally. EXTREMITIES: n o clubbing, cyanosis, or edema. NEUROLOGIC: n onfocal, motor strength normal upper and lower extremities, sensory exam intact. Assessment: * Assessment: 1. E ssential hypertension - I10 (Primary) 2 . P ure hypercholesterolemia - E78.00 3 . 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 A trial fibrillation, unspecified type - I48.91 & #160; 5 . C olon cancer screening - Z12.11 6 . D epression screening - Z13.31 Plan: * Treatment: 2. P ure hypercholesterolemia Continue Atorvastatin Calcium Tablet, 20 MG, TAKE ONE TABLET BY MOUTH EVERY DAY. Notes: well controlled, will continue current regiment 3. A therosclerotic heart disease of [place] coronary artery without angina pectoris Notes: not having any complaints 4. A trial fibrillation, unspecified type Continue Xarelto Tablet, 20 MG, 1 tablet with food, Orally, Once a day; C ontinue Metoprolol Tartrate Tablet, 50 MG, TAKE ONE TABLET BY MOUTH TWICE A DAY. Notes: stable, will continue current regiment 5. C olon cancer screening Notes: guaiac negative 6. D epression screening Notes: negative screen * Procedure Codes: * Preventive Medicine: Counseling: C are goal follow-up plan: Alden marshall for abnormal BMI provided?Yes, Ginny mauro Normal BMI Follow-up Adelso woodard encouragement to exercise. * Follow Up: 6 Months * * Sign off status: Completed true * Provider: Adelso Mason MD Date: 03/26/2024 Generated for Saturnino gallegos/Sumeet/George on: 1 10:40 AM EDT History and Physical Notes * HPI (History of Present Illness) Category Sub-Category Detail Notes Category Not es Symptom(s) patient is a 88 yo male here for review of recent labs and follow up of chronic issues. Depression Screening PHQ-9 Little inte rest or pleasure in doing things: Not at all Feeling down, depressed, or hopeless: No t at all Trouble falling or staying asleep, or sl eeping too much: Not at all Feeling tired or having little energy: N ot at all Poor appetite or overeating: Not at all Feeling bad about yourself o r that you are a failure, or have let yourself or your family down: Not at all Trouble concentrating on thi ngs, such as reading the newspaper or watching television: Not at all Moving or speaking so slowly that other people could have noticed; or the opposite, being so fidgety or restless that you have been moving around a lot more than usual: Not at all Thoughts that you would be b binta off or of hurting yourself in some way: Not at all Total Score: 0 Interpretation and Intervention Depression Yinge windy Findings: Negative Follow-Up for Depression: : review of PH Q-9 found negative result, no follow-up needed SDOH Questions SDOH Questions In the past year have you been worried about losing housing?: No In the past year have you or any family members you live with been unable to get any of the following when it was really needed? Check all that apply:: None Fall Risk History Have you had any falls with injury i n the past year?: No Have you had two or more falls in the st year?: No Communication Needs Communication Needs Does the patient have a hearing impairment: Yes If yes, what is the hearing impairment?: Hard of hearing, Hearing Aids Does the patient have a vision impairmen t?: Yes If yes, what is the vision impairment?: Glasses Does the patient have a cognition impair ment?: No Examination Category Sub-Category Detail Notes Category Not es General Examination GENERAL APPEARANCE: well dev eloped, well nourished, in no acute distress HEAD: normocephalic, atrau matic EYES: pupils equal, round, reactive to light and accommodation, sclera non-icteric EARS: normal THROAT: clear NECK/THYROID: neck supple, full ra nge of motion, no cervical lymphadenopathy, no bruits HEART: regular rate and rhy thm, S1, S2 normal, no murmurs LUNGS: clear to auscultatio n bilaterally ABDOMEN: soft, nontender, non distended, bowel sounds present, normal, no organomegaly , no masses palpable NEUROLOGIC: nonfocal, motor stre ngth normal upper and lower extremities, sensory exam intact SKIN: warm and dry, no eden picious lesions EXTREMITIES: no clubbing, cyanosi s, or edema MALE GENITOURINARY: circumcised, testes descended bilaterally RECTAL EXAM: normal tone, no exte rnal hemorrhoids, no masses palpable, prostate normal, stool guaiac negative ORAL CAVITY: mucosa moist
--- OUTSIDE RECORDS SUMMARY | 2024-05-17 07:15 | XMS_ITS ---
Author Organization Yeyo Mason MD Address [address] [place] [phone] Care Team Providers Care Counter Clerk Name Role Phone Yeyo Mason Primary Care Provider REASON FOR VISIT Discharge Encounters Encounter Location Date Provider Diagnosis Yeyo Mason MD [address] [facility] [address] [place] [phone] 05/17/2024 Yeyo Mason Plan Of Treatment Next Appt Details Provider Name:Yeyo palacios, 03/21/2025 07:45:00 AM, [address] [place] [address], [address], [phone], Provider Name:Yeyo palacios, 03/28/2025 01:00:00 PM, [address] [place] [address], [address], [phone], Progress Notes * Faisal GARCIA MDOB:[birth year] (88 yo M)Acc No.[id number]:05/17/2024 Patient: Cheikh MCCOY Faisal Shayla :1935 A ge:88 Y S ex:Male Address:[address] [place] [address] ELISABETH Hawley [address] * true * Date: Generated for Saturnino gallegos/Sumeet/eTransmitting on: 10:39 AM EDT
--- OUTSIDE RECORDS SUMMARY | 2024-05-23 04:57 | XMS_ITS ---
Author Organization Yeyo Mason MD Address [address] [place] [phone] Care Team Providers Care Aircraft Maintenance Supervisor Name Role Phone Yeyo Mason Primary Care Provider [phone] REASON FOR VISIT blood pressure Encounters Encounter Location Date Provider Diagnosis Yeyo Mason MD 10 [facility] [address] [place] [phone] 05/23/2024 Yeyo Mason Plan Of Treatment Next Appt Details Provider Name:Yeyo palacios, 03/21/2025 07:45:00 AM, [address] [place] [address], [address] [address], [place], [place], [phone], Provider Name:Yeyo palacios, 03/28/2025 01:00:00 PM, [address] [place] [address], [address] [address], [place], [phone], Progress Notes * Fiasal GARCIA MDOB:[birth year] (88 yo M)Acc No.[id number]:05/23/2024 Patient: Cheikh MCCOY Faisal Shayla :1935 A ge:88 Y S ex:Male Address:[address] [place] [address] EL[place] Hawley [address] * true * Date: Generated for Saturnino gallegos/Sumeet/eTransmitting on: 1 10:41 AM EDT
--- OUTSIDE RECORDS SUMMARY | 2024-05-31 05:00 | XMS_ITS ---
Author Organization Yeyo Mason MD Address [address] [place] [phone] Care Team Providers Care Assistant Professor Of Mathematics Name Role Phone Yeyo Mason Primary Care [...] Date Provider Diagnosis Yeyo Mason MD [address] [place], [place] [phone] 05/31/2024 Yeyo Mason Essential hypertensi on I10 and Atherosclerotic heart disease of [place] coronary artery without angina pectoris I25.10 Assessments Encounter Date Diagnosis (ICD Code) Assessment Notes Treatment Notes Treatment Clinical Notes Section Notes 05/31/2024 Essential hypertension (ICD-10 - I10) seems likely the cause of his pain according to the charts. review of all the records failed to show signjificant cad 05/31/2024 Atherosclerotic heart disease of [place] coronary artery without angina pectoris (ICD-10 - [...] signjificant cad Atherosclerotic heart diseas e of [place] coronary artery without angina pectoris is going [...] Provider Name:Yeyo palacios, 03/21/2025 07:45:00 AM, [address], [address], [place], [place], [phone], Provider Name:Yeyo palacios, 03/28/2025 01:00:00 PM, [address] [facility], [address], [place], [place], [phone], Progress Notes * Faisal GARCIA MDOB:[birth year] (88 yo M)Acc No.[id number]:05/31/2024 Patient: Faisal LONG Provider: Adelso Mason MD :1935 A ge:88 Y S ex:Male Date:05/31/2024 Address:[address] [place] [address] [id number] Subjective: * Chief Complaints: * P H/TCMAccompanied [...] 2 . A therosclerotic heart disease of [place] coronary artery without angina pectoris - I25.10 Plan: * Treatment: 2. A therosclerotic heart disease of [place] coronary artery without angina pectoris Continue Atorvastatin [...] true * Provider: Adelso Mason MD Date: 0 05/31/2024 Generated for Saturnino gallegos/Sumeet/Marisabelitting on: 10:39 AM EDT History and Physical Notes * [...]
--- OUTSIDE RECORDS SUMMARY | 2024-09-13 05:00 | XMS_ITS ---
Author Organization Yeyo Mason MD Address [address] [place] [phone] Care Team Providers Care Truck Engine Technician Name Role Phone Yeyo Mason Primary Care Provider Results Component Value Reference Range Notes Liver Panel Reviewed date:09/13/2024 04:31:04 PM Interpretation: Performing Lab:[facility], [address] [place] [phone] Notes/Report: Bilirubin Total 0.8 0.0-1.0 mg/dL Bilirubin Direct 0.3 0.0-0.5 mg/dL Aspartate Amino Transferase 38 5-37 U/L Slight Hemolysis.Interpret result with caution. Alanine Aminotransferase 30 0-40 U/L Total Protein 6.7 6.5-8.0 g/dL Albumin Level 4.2 3.5-5.0 g/dL Alkaline Phosphatase 92 39-117 U/L Lipid Panel with Reflex Reviewed date:09/13/2024 04:30:43 PM Interpretation: Performing Lab:[facility], [address] [place] [phone] Notes/Report: Triglycerides 77 <150 mg/dL Desirable Triglyceride: [...] Location Date Provider Diagnosis Yeyo Mason MD [address] [place] [phone] 09/13/2024 Yeyo Mason Pure hypercholestero lemia E78.00 Assessments Encounter Date Diagnosis (ICD Code) Assessment Notes Treatment Notes Treatment Clinical Notes Section Notes 09/13/2024 Pure hypercholesterolemia (ICD-10 - E78.00) Plan Of Treatment Next Appt Details Provider Name:Yeyo palacios, 03/21/2025 07:45:00 AM, [address] [place] [address], [address], [phone], Provider Name:Yeyo palacios, 03/28/2025 01:00:00 PM, [address] [place] [address], [address], [phone], Progress Notes * Faisal GARCIA MDOB:[birth year] (88 yo M)Acc No.[id number]:09/13/2024 Progress Note Patient: Cheikh DARIUS Faisal Mcguire Provider: Adelso Mason MD :1935 A ge:88 Y S ex:Male Date:09/13/2024 Address:[address] [place], [place] [address]che[id number] Subjective: * Chief Complaints: * 1 . [...] 0 09/13/2024 Generated for Saturnino gallegos/Sumeet/Marisabelitting on: 10:40 AM EDT
--- OUTSIDE RECORDS SUMMARY | 2024-09-23 09:30 | XMS_ITS ---
Author Organization Yeyo Mason MD Address [address] [place] [phone] Care Team Providers Care Facer Operator Name Role Phone Yeyo Mason Primary Care Provider [phone] Allergies Allergen (clinical drug ingredient) Drug/Non Drug Allergy documented on EMR Reaction Allergy Type Onset Date Status Substance with sulfonamide structure and antibacterial mechanism of action (substance) sulfa (uncoded) rash Allergy Active REASON FOR VISIT 6 month Medications Medication SIG (Take, Route, Frequency, Duration) Notes Start Date End Date Status Memantine HCl 5 MG 1 tablet Orally Twic e a day Active PreserVision AREDS - as directed Orally Active Xarelto 20 MG 1 tablet with food O rally Once a day 02/08/2022 Active Atorvastatin Calcium 20 MG TAKE ONE TABL ET BY MOUTH EVERY DAY Active amLODIPine Besylate 10 MG 1 tablet Orall y Once a day Active Metoprolol Tartrate 50 MG TAKE ONE TABLE T BY MOUTH TWICE A DAY Active Vital Signs Blood pressure systolic 138 mm Hg 09/24/19 25 Blood pressure diastolic 60 mm Hg 025 Height 69 in 09/23/2024 Weight 204 lbs 09/23/2024 BMI 30.12 kg/m2 09/23/2024 weight is up 6 pounds since 05-31-24 Encounters Encounter Location Date Provider Diagnosis Yeyo Mason MD [address] [place] [phone] 09/23/2024 Yeyo Mason 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 does not appear to have any dementia at all 09/23/2024 Atrial fibrillation, unspecified type (ICD-10 - I48.91) taking blood thinner 09/23/2024 Elevated serum cholesterol (ICD-10 - E78.9) well controlled, will continue current regiment Plan Of Treatment Medication Medication Name Sig Start Date Stop Date Notes Xarelto 20 MG 1 tablet with food O rally Once a day 02/08/2022 Atorvastatin Calcium 20 MG TAKE ONE TABL ET BY MOUTH EVERY DAY Treatment Notes Assessment Notes Neurocognitive disorder with Lewy bodies doing well. does not appear to have any dementia at all Atrial fibrillation, unspecified type ta sheree blood thinner Elevated serum cholesterol well controll ed, will continue current regiment Next Appt Details Provider Name:Yeyo palacios, 03/21/2025 07:45:00 AM, [address] [place] [address], [place] [address], [place], [place], [phone], Provider Name:Yeyo palacios, 03/28/2025 01:00:00 PM, [address] [place] [address], [place] [address], [place], [place], [phone], Progress Notes * Faisal GARCIA MDOB:[birth year] (88 yo M)Acc No.[id number]:09/23/2024 Progress Notes Patient: Cheikh Faisal MCCOY Provider: Adelso Mason MD :1935 A ge:88 Y S ex:Male Date:09/23/2024 Address:[address] [place] [address] [id number] Subjective: * Chief Complaints: * 6 month * HPI: S ymptom(s): patient is a 88 yo male here for 6 month follow up visit/ everything is doing well. * ROS: G eneral/Constitutional: Denies C [place]. [...] Hospitalization/Major Diagno stic Procedure: * Medications: T akingPreserVision AREDS - Capsule as directed Orally Memantine HCl 5 MG Tablet 1 tablet Orally Twice a day Xarelto 20 MG Tablet 1 tablet with food Orally Once a day Metoprolol Tartrate 50 MG Tablet TAKE ONE TABLET BY MOUTH TWICE A DAY amLODIPine Besylate 10 MG Tablet 1 tablet Orally Once a day Atorvastatin Calcium 20 MG Tablet TAKE ONE TABLET BY MOUTH EVERY DAY Medication List reviewed and reconciled with the patientTaking PreserVision AREDS - Capsule as directed Orally Taking Memantine HCl 5 MG Tablet 1 tablet Orally Twice a day Taking Xarelto 20 MG Tablet 1 tablet with food Orally Once a day Taking Metoprolol Tartrate 50 MG Tablet TAKE ONE TABLET BY MOUTH TWICE A DAY Taking amLODIPine Besylate 10 MG Tablet 1 tablet Orally Once a day Taking Atorvastatin Calcium 20 MG Tablet TAKE ONE TABLET BY MOUTH EVERY DAY Medication List reviewed and reconciled with the patient * Allergies: s ulfa: rashyes[Allergies Verified] Objective: * Vitals: H t: 69, Wt: 204, BMI:30.12, BP:138/60, Wt-k.53. weight is up 6 pounds since 05-31-24. * P ast Orders: L ab:Liver Panel (Order Date - 09/13/2024) (Collection Date & Time - 09/13/2024 08:30 AM) Value Reference Range Bilirubin Total 0.8 0.0-1.0 - mg/dL Bilirubin Direct 0.3 0.0-0.5 - mg/dL Aspartate Amino Transferase 38 H 5-37 - U/L Alanine Aminotransferase 30 0-40 - U/L Total Protein 6.7 6.5-8.0 - g/dL Albumin Level 4.2 3.5-5.0 - g/dL Alkaline Phosphatase 92 39-117 - U/L L ab:Lipid Panel with Reflex (Order Date - 09/13/2024) (Collection Date & Time - 09/13/2024 08:30 AM) Value Reference Range Triglycerides 77 <150 - mg/dL Cholesterol 134 <200 - mg/dL LDL Cholesterol Calculated 71 <100 - mg/dL HDL Cholesterol 48 >40 - mg/dL * Examination: G eneral Examination: GENERAL APPEARANCE: a lert, well hydrated, in no distress.? HEAD: n ormocephalic. SKIN: g ood turgor. HEART: r egular rate and rhythm, no murmurs, rubs, gallops.? LUNGS: n o wheezes, rales, rhonchi, good air movement, clear to auscultation bilaterally. Assessment: * Assessment: 1. N eurocognitive disorder with Lewy bodies - G31.83 (Primary) 2 . A trial fibrillation, unspecified type - I48.91 3 . E levated serum cholesterol - E78.9? Plan: * Treatment: 2. A trial fibrillation, unspecified type Continue Xarelto Tablet, 20 MG, 1 tablet with food, Orally, Once a day. Notes: taking blood thinner 3. E levated serum cholesterol Continue Atorvastatin Calcium Tablet, 20 MG, TAKE ONE TABLET BY MOUTH EVERY DAY. Notes: well controlled, will continue current regiment * Procedure Codes: * * Sign off status: Completed true * Provider: Adelso Mason MD Date: 0 09/23/2024 Generated for Saturnino gallegos/Sumeet/Marisabelitting on: 1 10:41 AM EDT History and Physical Notes * HPI (History of Present Illness) Category Sub-Category Detail Notes Category Not es Symptom(s) patient is a 88 yo male here for 6 month follow up visit/ everything is doing well. Examination Category Sub-Category Detail Notes Category Not es General Examination GENERAL APPEARANCE: alert, w ell hydrated, in no distress HEAD: normocephalic HEART: regular rate and rhy thm, no murmurs, rubs, gallops LUNGS: no wheezes, rales, r honchi, good air movement, clear to auscultation bilaterally SKIN: good turgor
--- OUTSIDE RECORDS SUMMARY | 2024-10-21 09:28 | XMS_ITS ---
Author Organization Yeyo Mason MD Address [address] [place] [phone] Care Team Providers Care Health Support Specialist Name Role Phone Yeyo Mason Primary Care Provider REASON FOR VISIT ER Encounters Encounter Location Date Provider Diagnosis Yeyo Mason MD [address] [facility] [address] [place] [phone] 10/21/2024 Yeyo Mason Plan Of Treatment Next Appt Details Provider Name:Yeyo palacios, 03/21/2025 07:45:00 AM, [address] [place] [address], [address], [phone], Provider Name:Yeyo palacios, 03/28/2025 01:00:00 PM, [address] [place] [address], [place] [address], [place], [place], [phone], Progress Notes * Faisal GARCIA MDOB:[birth year] (88 yo M)Acc No.[id number]:10/21/2024 Patient: Cheikh MCCOY Faisal Shayla :1935 A ge:88 Y S ex:Male Address:[address] [place] [address] [place] [address] * true * Date: Generated for Saturnino gallegos/Sumeet/eTransmitting on: 1 10:41 AM EDT
--- OUTSIDE RECORDS SUMMARY | 2024-10-28 07:45 | XMS_ITS ---
Author Organization Yeyo Mason MD Address [address] [place] [phone] Care Team Providers Care Telegraph Inspector Name Role Phone Yeyo Mason Primary Care Provider Allergies Allergen (clinical drug ingredient) Drug/Non Drug Allergy documented on EMR Reaction Allergy Type Onset Date Status Substance with sulfonamide structure and antibacterial mechanism of action (substance) sulfa (uncoded) rash Allergy Active REASON FOR VISIT F/U ERV suture removal, going to pharmacy with his in November, c/o bilateral leg edema Medications Medication SIG (Take, Route, Frequency, Duration) Notes Start Date End Date Status amLODIPine Besylate 10 MG 1 tablet Orall y Once a day Active Xarelto 20 MG 1 tablet with food O rally Once a day 02/08/2022 Active Atorvastatin Calcium 20 MG TAKE ONE TABL ET BY MOUTH EVERY DAY Active PreserVision AREDS - as directed Orally Active Memantine HCl 5 MG 1 tablet Orally Twic e a day Active Metoprolol Tartrate 50 MG TAKE ONE TABLE T BY MOUTH TWICE A DAY for 90 Active Social History Tobacco Use: Social History Observation Description Date Details (start date - stop date) Former Smoker NA - NA Tobacco Use/Smoking Question Answer Notes Patient is a former smoker How long has it been since y ou last smoked? > 10 years Additional Findings: Tobacco Non-User Fo rmer smoker, currently using no form of tobacco Vital Signs Blood pressure systolic 132 mm Hg 10/29/19 25 Blood pressure diastolic 64 mm Hg 025 Height 69 in 10/28/2024 Weight 202 lbs 10/28/2024 BMI 29.83 kg/m2 10/28/2024 weight is down 2 pounds [facility] 09-[facility]-24 Encounters Encounter Location Date Provider Diagnosis Yeyo Mason MD [address] [place] [phone] 10/28/2024 Yyeo Mason Facial injury, subsequent encounter S09.93XD and Leg edema R60.0 Assessments Encounter Date Diagnosis (ICD Code) Assessment Notes Treatment Notes Treatment Clinical Notes Section Notes 10/28/2024 Facial injury, subsequent encounter (ICD-10 - S09.93XD) well healed. siutures removed 10/28/2024 Leg edema (ICD-10 - R60.0) seems related to his amlodipine will just observe Plan Of Treatment Treatment Notes Assessment Notes Facial injury, subsequent encounter well healed. siutures removed Leg edema seems related to his amlodipine will just observe Next Appt Details Provider Name:Yeyo palacios, 03/21/2025 07:45:00 AM, [address] [place] [address], [place] [address], [place], [place], [phone], Provider Name:Yeyo palacios, 03/28/2025 01:00:00 PM, [address] [place] [address], [place] [address], [place], [place], [phone], Progress Notes * Faisal GARCIA MDOB:[birth year] (88 yo M)Acc No.[id number]:10/28/2024 Progress Notes Patient: Cheikh Faisal MCCOY Provider: Adelso Mason MD :1935 A ge:88 Y S ex:Male Date:10/28/2024 Address:[address] [place] [address] [id number] Subjective: * Chief Complaints: * F /U ERV suture removalgoing to pharmacy with his in NovemberC/o bilateral leg edema * HPI: S ymptom(s): patient is a 88 yo male here for suture removal. F all Risk: History H ave you had any falls with injury in the past year? Y es 10-21-24 turned around after pulling down his shade , foot got stuck on the rub fell forward on to a table. Went to the ER , requiring 7 sutures over right eye.. * ROS: G eneral/Constitutional: Patient complaining of s welling in legs. spoke with dr gay and he thought it was the amlodipine. not having any breathing problems. D enies C hills.?Denies F atigue. D enies F ever. D enies H eadache. E NT: Denies S ore throat. R espiratory: Denies C ough. D enies S hortness of breath at rest. D enies S hortness of breath with exertion. C ardiovascular: Patient denies d yspnea on exertion. G astrointestinal: Denies D iarrhea. D enies N ausea. * Medical History: * Surgical History: * Hospitalization/Major Diagno stic Procedure: * Social History: T obacco Use: T obacco Use/Smoking P atient is a f ormer smoker, H ow long has it been since you last smoked? > 10 years, A dditional Findings: Tobacco Non-User F ormer smoker, currently using no form of tobacco. * Medications: T akingPreserVision AREDS - Capsule as directed Orally Memantine HCl 5 MG Tablet 1 tablet Orally Twice a day amLODIPine Besylate 10 MG Tablet 1 tablet Orally Once a day Xarelto 20 MG Tablet 1 [...] 1 tablet Orally Twice a day Taking amLODIPine Besylate 10 MG Tablet 1 tablet Orally Once a day Taking Xarelto 20 MG Tablet 1 tablet with food Orally Once a day Taking Atorvastatin Calcium 20 MG Tablet TAKE ONE TABLET BY MOUTH EVERY DAY Taking Metoprolol Tartrate 50 MG Tablet TAKE ONE TABLET BY MOUTH TWICE A DAY Medication List reviewed and reconciled with the patient * Allergies: s ulfa: rashyes[Allergies Verified] Objective: * Vitals: H t: 69, Wt: 202, BMI:29.83, BP:132/64, Wt-k.63. weight is down 2 pounds since 09-23-24. * Examination: G eneral Examination: GENERAL APPEARANCE: a lert, well hydrated, in no distress.? SKIN: w ound over eye is well healed sutures removed and has a scab that may have a suture buried if it does when it comes off to returm. HEART: r egular rate and rhythm, no murmurs, rubs, gallops.? LUNGS: n o wheezes, rales, rhonchi. Assessment: * Assessment: 1. F acial injury, subsequent encounter - S09.93XD (Primary) 2 . L eg edema - R60.0 Plan: * Treatment: 2. L eg edema Notes: seems related to his amlodipine will just observe * Procedure Codes: * * Sign off status: Completed true * Provider: Adelso Mason MD Date: 0 10/28/2024 Generated for Saturnino gallegos/Sumeet/Marisabelitting on: 10:40 AM EDT History and Physical Notes * HPI (History of Present Illness) Category Sub-Category Detail Notes Category Not es Symptom(s) patient is a 88 yo male here for suture removal Fall Risk History Have you had any falls with injury in the past year?: Yes 10-21-24 turned around after pulling down his shade , foot got stuck on the rub fell forward on to a table. Went to the ER , requiring 7 sutures over right eye. Examination Category Sub-Category Detail Notes Category Not es General Examination GENERAL APPEARANCE: alert, w ell hydrated, in no distress HEART: regular rate and rhy thm, no murmurs, rubs, gallops LUNGS: no wheezes, rales, r honchi SKIN: wound over eye is we ll healed sutures removed and has a scab that may have a suture buried if it does when it comes off to [facility]
--- OUTSIDE RECORDS SUMMARY | 2024-11-07 10:00 | XMS_ITS ---
Author Organization Yeyo Mason MD Address [address] [place] [phone] Care Team Providers Care Cork Molder Name Role Phone Yeyo Mason Primary Care Provider Allergies Allergen (clinical drug ingredient) Drug/Non Drug Allergy documented on EMR Reaction Allergy Type Onset Date Status Substance with sulfonamide structure and antibacterial mechanism of action (substance) sulfa (uncoded) rash Allergy Active Results Component Value Reference Range Notes Vitamin B12 and Folate Reviewed date:11/08/2024 11:44:48 AM Interpretation: Performing Lab:[facility], [address] [place] [phone] Notes/Report: Vitamin B12 248 200-900 pg/mL NORMAL 200-900 PG/ML INDETERMINATE 160-199 PG/ML DEFICIENT < 160 PG/ML Folate 10.6 > or = 4.0 ng/mL Reference Values: > or = 4.0 ng/mL < 4.0 ng/mL suggests folate deficiency Methotrexate, aminopterin and folinic acid (leucovorin) are chemotherapeutic agents whose molecular structures are similar to folate; therefore, the Tipple Boss folate assay cannot be used for patients using these drugs. TSH reflex Free T4 Reviewed date:11/07/2024 04:20:14 PM Interpretation: Performing Lab:[facility], [address] [place] [phone] Notes/Report: TSH reflex Free T4 2.08 0.32-4.0 uIU/mL Reason For Referral Reason Balance disorder Diagnosis 1 Balance disorder (R2 6.89) Referral Organization Yeyo Mason MD Referring Provider First Name Yeyo Referring Provider Last Name Marlon Referring Provider Speciality Internal M edicine Referred Provider [facility] JEANNE [place], [facility] JE[facility]NE [place] Referred Provider Specialty Physical The rapist General Notes Christin Elliott 1 02:12:48 PM >patient will be making his own appt Referral Priority Routine Referral Appointment Date 11/19/2024 REASON FOR VISIT must see follow up appt from seeing Dr. Lees, Accompanied by Medications Medication SIG (Take, Route, Frequency, Duration) Notes Start Date End Date Status PreserVision AREDS - as directed Orally Active Memantine HCl 5 MG 1 tablet Orally Twic e a day Active amLODIPine Besylate 10 MG 1 tablet Orall y Once a day Active Xarelto 20 MG 1 tablet with food O rally Once a day 02/08/2022 Active Atorvastatin Calcium 20 MG TAKE ONE TABL ET BY MOUTH EVERY DAY for 90 Active Metoprolol Tartrate 50 MG TAKE ONE TABLE T BY MOUTH TWICE A DAY for 90 Active Immunizations Vaccine Route Administration Date Status Comme nts Influenza High Dose IM Intramuscular 11/07/2024 Administer ed Problems Problem Type SNOMED Code ICD Code Onset Dates Problem Status W/U Status Risk Notes Problem Abnormal gait (68478730) Balance disorder (R26.89) Active confirmed Problem Dementia (34449587) Dementia (F03.90) Active confirmed Vital Signs Blood pressure systolic 118 mm Hg 11/08/19 25 Blood pressure diastolic 54 mm Hg 025 Height 69 in 11/07/2024 Weight 201 lbs 11/07/2024 BMI 29.68 kg/m2 11/07/2024 Encounters Encounter Location Date Provider Diagnosis Yeyo Mason MD [address] [place] [address] [place] [phone] 11/07/2024 Yeyo Mason Balance disorder R26.89 ; Dementia F03.90 and Encounter for administration of vaccine Z23 Assessments Encounter Date Diagnosis (ICD Code) Assessment Notes Treatment Notes Treatment Clinical Notes Section Notes 11/07/2024 Balance disorder (ICD-10 - R26.89) refer to physical therapy [facility] [place] 11/07/2024 Dementia (ICD-10 - F03.90) pending labs 11/07/2024 Encounter for administration of vaccine (ICD-10 - Z23) HD flu vaccine administered Plan Of Treatment Treatment Notes Assessment Notes Balance disorder refer to physical th erapy [facility] [place] Dementia pending labs Encounter for administration of vaccine HD flu vaccine administered Referrals Referral Date Details 11/07/2024 11/07/2024, Balance disorder, [facility] [place] [place] Next Appt Details Provider Name:Yeyo palacios, 03/21/2025 07:45:00 AM, [address] [place] [address], Suite [facility], [place], [place], [phone], Provider Name:Yeyo palacios, 03/28/2025 01:00:00 PM, [address] [place] [address], Suite [facility], [place], [place], [phone], Progress Notes * Faisal GARCIA MDOB:[birth year] (88 yo M)Acc No.[id number]:11/07/2024 Patient: Maxwell LONGmond Shayla Provider: Adelso Mason MD :1935 A ge:88 Y S ex:Male Date:11/07/2024 Address:[address] [place] [address] [id number] Subjective: * Chief Complaints: * m ust see follow up appt from seeing Dr. Shermanompanied by * HPI: S ymptom(s): patient is a 88 yo male here for follow up visit after seeing Dr Lees. * ROS: G eneral/Constitutional: Denies C hills. D enies F atigue. D enies F ever. D enies H eadache. E NT: Denies S ore throat. R espiratory: Denies C ough. D enies S hortness of breath at rest. G astrointestinal: Denies D iarrhea. D enies [...] Objective: * Vitals: H t: 69, Wt: 201, BMI:29.68, BP:118/54, Wt-k.17. * Examination: G eneral Examination: GENERAL APPEARANCE: a lert, well hydrated, in no distress.? HEAD: n ormocephalic. SKIN: g ood turgor. HEART: n o murmurs, rubs, gallops. LUNGS: , clear to auscultation bilaterally. ? Assessment: * Assessment: 1. B alance disorder - R26.89 (Primary) 2 . D ementia - F03.90 ?3. E ncounter for administration of vaccine - Z23 Plan: * Treatment: 2. D ementia L AB: Vitamin B12 and Folate (Collection Date & Time - 11/07/2024 02:00 PM) L AB: TSH reflex Free T4 (Collection Date & Time - 11/07/2024 02:00 PM) Notes: pending labs 3. E ncounter for administration of vaccine Notes: HD flu vaccine administered * Immunizations: Influenza High Dose : 0.5 mL (Dose No:1) (Route: Intramuscular) given by Crystal Cuba , Office Staff on Left Deltoid * Procedure Codes: 9 0662 FLU VACC PRSV FREE INC [id number] VENIPUNCT, ROUTINE*G0008 ADMN FLU VAC NO FEE SCHED SAME DAY * Preventive Medicine: Immunizations: I nfluenza H ave you had a flu shot since the most recent October 07? Y es. * * Sign off status: Completed true * Provider: Adelso Mason MD Date: Generated for Saturnino gallegos/Sumeet/George on: 10:40 AM EDT History and Physical Notes * HPI (History of Present Illness) Category Sub-Category Detail Notes Category Not es Symptom(s) patient is a 88 yo male here for follow up visit after seeing Dr Lees Examination Category Sub-Category Detail Notes Category Not es General Examination GENERAL APPEARANCE: alert, w ell hydrated, in no distress HEAD: normocephalic HEART: no murmurs, rubs, ga llops LUNGS: , clear to auscultat ion bilaterally SKIN: good turgor Consultation Request Notes Referral Date Referring Provider Referred Provider Not es 11/07/2024 Yeyo Mason PT [facility] [place] Balance disorder
--- OUTSIDE RECORDS SUMMARY | 2024-11-23 10:40 | XMS_ITS | Data Portability ---
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 [place]riot senior materials scientist and philosopher who first described the [...] dysfunction: Never Reviewed hospital admission: admitted to [facility] 01/12/22 after an episode of gibberish, [...] Reviewed: Finances: would work with real estate intern to ensure that assets are in a [...] Bonnet syndrome (CBS), 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 d. MOLST: they will ask Dr Mason for the MOLST form. He would want to be DNR/DNI e. POA: Working on this f. Is there an emergency plan in case the caregiver is unable to provide care?: They have a daughter in [place]. 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 Could consider further neuropsych testing for [...] 2. Function: a. Campo ADL: 6 b. Fairview-Lio IADL: 4 from 4 - help with [...] care recommendations Maxwell is eligible for the [facility] and has the packet completed. Nia [...] caregiver support session - would look at [employer]. Nia is due to get TKR and [...] provide care?: They have a daughter in [place]. Patient and caregiver resources discussed and/or handed [...] for repeat CCP Not available 04/24/2024 15:45:37 10/30/2024 10/30/2024 Assessment and p yu based on Geriatric 5 M framework (Mind, Mobility, Multicomplexity, Medications, and Matters Most) This is an 88 y/o man with PMH sig for HTN, pacemaker 01/13/2017, kidney stones, arthritis, h/o wrist fracture, hearing loss, macular degeneration, dementia, seen for geriatric evaluation f/u. Cognitive Care Plan Elements: 1. Cognition: Cognitive impairment which seems consistent with dementia, mild, which may be mixed, Vascular + Neurodegenerative based on history. The pattern of cognitive changes and stability suggests a possible vascular etiology rather than Lewy body dementia, which was previously considered. Patient experienced delirium during a 2021 hospitalization due to COVID and hypoxia, which may have contributed to cognitive changes. Reviewed that I do not think he has Dementia with Lewy Bodies - he does have VH (sees things in peripheral vision but turns head and they are gone as opposed to definitive objects) but no falls or times of absence. With regards to the Visual hallucinations, it is noted that Up to half of all people with macular degeneration are thought to experience visual hallucinations at some time. 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 We do not have results of most recent head ct from fall ~ 2 weeks ago. MOCA 8.1, done 08/21/23 score VIsuospatial/execut yanet: 2/5 could draw contour and put in numbers Namin/3 Attention: 5/6 difficulty with serial 7 Language: 2/3 Abstraction: 1/2 Delayed recall: 0/5; MIS = 07/21 Orientation: 6 Score: 19+1=2030 MOCA 8.3, done today, 9.24.25 VIsuospatial/execut yanet: 3/5 difficulty with trails, copy bed Namin/3 Attention: 6/6 Language:3/3 Abstraction: 2/2 Delayed recall: 2/5; MIS = 10/21 Orientation: 5/6 didnt know date Score: 24+1= LBD Score: maybe 2-4/10 (done at prior visit) 1. Slowness: No slower initiating movement 2. [...] a little jumpy 10. Autonomic dysfunction: Never Since last visit, dtr reports patient is functioning well for his age, remembering past events and names. Cognition and function seem stable overall aside from two recent falls which happened when he tripped going from floor to rug in a dark room. He has newer onset leg edema and dtr feels he is not picking up his feet in the same way. Faisal is in a good mood, remembers what we talked about on prior visits, and dtr is not concerned about his overall cognition. Plan: W/u: Ensure B12, TSH, folate, MMA have been checked - we will check in [employer] system. They do not want to pursue further neuropsych work up. I do not think there is a medication that will reverse his symptoms, unfortunately. Current medications may slow down progression by about 6 months. Currently memantine 10 mg bid. Would consider staring donepezil - indicated for mild-moderate dementia - they want to think about it. Great he is wearing his hearing aides. Consider getting assessed for sleep apnea if not done already He does meds and has a system - doesnt think there are any concerns but I would make sure she monitors that refills are being done in a timely manner. Treat cardiovascular risk factors as you are. Diagnosis reviewed? yes 2. Function: a. Campo ADL: 6 from 6 b. Fairview-Lio IADL: 3 from 4 from 4 - help with driving, shopping, never did food prep, never managed finances, rarely wrote checks. He is able to microwave meals. c. Plan: manages everything though has been harder recently due to her own health issues/knee surgery. She was going to get someone to clean the house which is great Maxwell does a lot - folds laundry, dries dishes, takes care of the cat, Velvet - She is watching him pay bills and oversees his medications. 3. Stage of cognitive impairment: a. Dementia Severity Rating Scale (DSRS) : Mild - 11 from 10 from 3 some impairment of memory, speech, time, ability to make decisions, social activity, home activities. b. Plan: i. Continue to think about planning for the future based on stages and care recommendations Maxwell is eligible for the [facility] and has the packet completed. Nia thinks his memory is about the same but monitors things closely 4. Decision-making: a. 3 level rating scale [...] a. Assessment tool: NPI-Q (12 items) Severity: 7 from 5/ Distress to caregiver: 10 (no answer last time) b. Plan: Consider starting a SSRI like sertraline to help with mood and irritabilty. However, he feels he is in a good mood and doesnt get down very often. 6. Medication review and reconciliation: a. Medications [...] the patient experienced unsteadiness or sustained falls? yes (change from prior) vii. Does the patient live alone? no Has has two recent falls, both times catching his feet on rugs. He is walking one mile daily Plan: - Would ask PCP to refer to physical therapy and occupational therapy for fall prevention and home safety evaluation - Advise patient to use adequate lighting at home to prevent falls - Recommend regular walking for strength maintenance, preferably on safe surfaces like bike paths - Educate on proper walking technique: keeping feet and head up 8. Caregiver identification and needs assessment: a. Assessment tool: Stress thermometer: a little ; ZARIT-12: 20 from 16 from 9 Nia was nervous about getting her TKR - but that is done. There is an increase in her zarit score but overall stress is decreased. b. Plan: Legal things are in order which are great. is going to support/caregiver services. Reviewed that we have resources on her website. 9. Advance care planning: a. Checklist reviewed b. Plan (Preferences and legal needs): c. HCP: Completed, Nia hubbard, ovi wen MOLST: completed, DNR/DNI e. POA: Completed. f. Is there an emergency plan in case the caregiver is unable to provide care?: They have a daughter in [place]. Patient and caregiver resources discussed and/or handed out More than 50% of this 70 minute visit was spent face to face with the patient and/or family caregiver, providing counseling, decision making, and coordination of care. Written plan discussed with and given to the patient and/or family caregiver. Written plan shared with PCP Will f/u in 6 months for repeat CCP Not available 10/30/2024 18:42:45 Plan of Treatment Reminders Order Date Submit Date Provider Last Modified By Organization Details Last Modified Time Details Appointments COGNITIVE CARE PLANS 2025 02:00P M Anat [facility] MD Not available Not available Not available Lab None recorded. Referral None recorded. Procedures None recorded. Surgeries None recorded. Imaging None recorded. Medication Orders memantine 10 mg tablet 2024 025 [facility], [address] [place], [address], 04/24/2024 15:22:13 Patient TargetsNo targets recorded. Patient Instructions Encounter Date Encounter Id Patient Instructions Last Modified By Organization Details Last Modified Time 08/21/2023 [id number] hearing loss: care instructions Not available 08/27/2023 [...] Address Organization Details Recorded Time Impaired cognition 093453101 Active 2023 Anat Lees MD [address], [place], [address], [employer] [place] - [facility] 5 18:42:18 Visual hallucinations 81653261 Active 2023 Anat Lees MD [address], [place], [address], [place] - [facility] 4 17:20:17 Hearing loss 23016834 Active 2023 Anat [facility] MD [address], [place], [address], [employer] [place] [facility] [place] 4 17:20:32 Hypertensive disorder 73825802 Active 2023 Anat [facility] MD [address], [place], [address], [employer] [place] [facility] [place] [facility] 4 17:20:39 Disorder of cardiovascular system 74520225 Active 2023 Anat [facility] MD [address], [place], [address], [employer] [place] [facility] [place] 4 17:20:47 Abnormal gait 88874171 Active 2023 Anat [facility] MD [address], [place], [address], [employer] [place] [facility] [place] 5 18:42:16 Degenerative disorder of macula 711863315 Active 2023 Anat [facility] MD [address], [place], [address], [employer] [place] [employer] [facility] [place] 4 07:43:28 Problem Notes None recorded. Medical Equipment None Reported. Allergies Allergen ID Allergen Name Allergen Category Reaction Reaction Severity Criticality Documentation Date Start Date Code Code System Note Provider Name and Address Organization Details Recorded Time 251 Substance with sulfonami de structure and antibacte rial mechanism of action (substanc e) medicatio n rash Not available Not available 08/21/2023 99758 8003 SNOMED Anat [facility] MD [address], [place], [address], [employer] 4 10:52:45 Medications Name Sig Start Date Stop Date Status Note LastModified by Organization Details LastModified Time atorvastati n 20 mg tablet TAKE ONE TABLET BY MOUTH EVERY DAY active Not Available Not Available No t Available isosorbide mononitrate ER 30 mg tablet,exte nded release 24 hr TAKE ONE TABLET BY MOUTH EVERY DAY active Not Available Not Available No t Available amlodipine 5 mg tablet TAKE 1 TABLET BY MOUTH EVERY DAY. REFILL WITH WITH YOUR PCP OR CARDIOLOG IST 10/30 completed Not Available Not Available Not Available amlodipine 10 mg tablet TAKE ONE TABLET BY MOUTH [...] completed Not Available Not Available Not Available furosemide 20 mg tablet TAKE ONE TABLET BY MOUTH EVERY DAY active Not Available Not Available No t Available memantine 10 mg tablet Take 1 tablet twice a day by oral route for 90 days. 2024 active Not Available Not Available Not Avai lable memantine 5 mg tablet TAKE ONE TABLET BY MOUTH TWICE A DAY 10/24 completed Not Available Not Available Not Available [employer] AREDS active Not Available Not Available Not Available Xarelto 20 mg tablet TAKE ONE TABLET BY MOUTH EVERY EVENING active Not Available Not Available No t [...] Updated DateTime 5 173.99 cm 29.2 kg/m2 82935.7 9 g 95 % 95 % 64 /min Brent Grijalva [employer] [place] 5 14:33:20 Date Recorded Body weight Oxygen saturation Oxygen saturation in Arterial blood by Pulse oximetry Body mass index (BMI) Body height Provider Name and Address Organization Details Last Updated DateTime 08/21/2023 59460.47 g 96 % 96 % 30 kg/m2 173.99 cm [employer] 4 14:33:40 Date Recorded Body height Body mass index (BMI) Body weight Heart rate Oxygen saturation Oxygen saturation in Arterial blood by Pulse oximetry Systolic And Diastolic Provider Name and Address Organization Details Last Updated DateTime 4 173.99 cm 29.8 kg/m2 42334.8 8 g 90 /min 95 % 95 % 118/80 mm[Hg] [employer] 4 13:09:53 Date Recorded Body height Body mass index (BMI) Body weight Heart rate Systolic And Diastolic Provider Name and Address Organization Details Last Updated DateTime 10/30/2024 173.99 cm 30.6 kg/m2 29490.84 g 62 /min 142/62 mm[Hg] [employer] 10/30/2024 14:41:14 Social History None recorded. Functional Status None recorded. Mental Status None recorded. Family History Nothing Reported. Medical History No medical history recorded. 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 Abnormal gait 95104185 R 26.9 notes gait changes x ~ 6 months, unclear etiology, does not appear to be shuffling gait but more like a steppage gaitWould ensure that she notifies PCP and Neurologis t - she is aware and will do so. 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 Impaired cognition 43912 6002 R41.89 [id number] MD Yoana Waddell [facility] [address] [address] 04/24/2024 14:13:19 04/24/2024 15:46:23 Impaired cognition 034431066 R41.89 as above. Abnormal gait 42732326 R 26.9 notes gait changes x ~ 6 months, unclear etiology, does not appear to be shuffling gait but more like a steppage gaitAs before, would ensure that she notifies PCP and Neurologis t - she is aware and will do so. [id number] Anat [facility] MD [facility] [address] [address] 10/30/2024 14:00:55 10/30/2024 18:50:42 Impaired cognition 419879573 R41.89 as above. Edema of l ower extremity 382390906 R60.0 45473 Assessment : Patient is currently on amlodipine 10 mg daily for hypertensi on, which is causing significan t leg swelling. This edema may be contributi ng to gait issues and increased fall risk. Patient has gained approximat laura 10 pounds, likely due to fluid retention. Current management with amlodipine appears suboptimal due to side effects.Pl an:- Consider switching from amlodipine to an DEVIN inhibitor or ARB for blood pressure management - would ask cardiology if this is possibleTh is seems better than adding on furosemide due to potential side effects- Recommend compressio n socks for leg swelling- Advise leg elevation for 30 minutes twice daily and use of 3 pillows when lying in bed Recurrent falls 21204672 2 R29.6 16004 FallsRaymalina mckeon has had two recent falls, one resulting in a head injury and emergency room visit. Contributi ng factors may include shuffling gait, possible medication side effects from amlodipine -induced leg swelling, and environmen dede hazards such as walking in the dark. Patient uses a cane intermitte ntly and walks independen tly. Gait assessment during the visit didnt show shuffling - but he does take deliberate steps. Head CT from 2022 showed moderate ischemic changes and signs of old strokes, which may contribute to fall risk.Plan: - Reviewed mgmt of edema-Anusha d ask for PT/OT consult Health Concerns Section Related Observation LastModified by Organization Detai ls LastModified Time None Recorded Concern Status LastModified by Organization Details LastModified Time None Recorded Advance Directives Directive None Recorded Payers Insurance Date Sequence Insurance Name Policy Number Policy Pinto Covered Member ID Pinto Member ID Guarantor Name 10/30/2024 2 [place] [id number] Faisal [facility] [id number] 59 [facility] 10/30/2024 1 [place] [employer] Faisal [facility] [id number] 1 [facility] Notes Date Note Type Note Provider Name and Address Organization Details Recorded Time 4 text/html ROS as noted in the HPI PCP: Edward Mason MD Referred by: Lillian Jones NP Person to contact for follow up visits: Maxwell or Nia Viet, spouse Goals for visit: to obtain a [...] and optho said there was something wrong u pstairs , not with his eyes.They went to [...] ornery.In Jan 2023, they took him to [facility] because he was quite confused. It was a terrible experience he was put in a room with someone who had killed someone and was in [facility]. Maxwell found the entire experience quite traumatic [...] focusing at walking, only gazing elsewhereHearing aids t oo much trouble Doesn t take kindly to [...] > 5 illnesses(HTN, DM, CA, chronic respiratorydisease, [place], CVA, arthritis (or RA), CKD, or liver disease): NoWeight loss > 5% in the past 6 months: noneScore: 1 (Robust: 0, Pre-frail: 1-2, Frail: >=3) Social History:[place] level[place] HSLiving situation: [facility]exual orientation: straightPartnership status: marriedOccupation:retire d, [facility] Medical Centerren: 2In contact with them? yesETOH: used to drink but quitConcern about amount of ETOH? noTobacco: no, used to smoke a pipeOther drugs: n/a FH: non contributoryFather left family when Maxwell was very young Anat [facility] MD [address] [address], [place], [address], [facility] 08/27/2023 07:56:28 4 text/html ROS as noted in the HPI Subjective:Since last visit: date: 08/2023 Falls/change in [...] okay, denies anxiety. Anat [facility] MD [address] [facility] [address], [place], [address], [facility] 10/18/2023 14:07:55 5 text/html ROS as noted in the HPI Subjective:Since last visit: date: CCP 10.18.23 They have lived in their own house for 57 years, 2 [facility] but bedroom on main floor.Faisal has signed up for the [facility]. He is walking a mile every day - he walks at [employer]. He feels like he is grat. He doesnt get irritable so much. Memory: good days and bad days. Short term memory is not great. Nia:They talk about the future; Maxwell [facility]She would like to go to a [facility] jail - she loves Kaitlyn Bliss. She has not looked into this yet. They had a will made out and a trust. Falls/change in gait:ED visits/hospitalizations: Changes in function:Changes in medication:Was diagnosis from initial visit discussed?: Anat [facility] MD [address] [facility], [place], [address], [facility] 04/24/2024 15:46:00 text/html ROS as noted in the HPI Subjective:Since last visit: date: [facility] 04.24.24 History of Present Illness Faisal presents for follow-up after his last visit in April 2024 His memory appears stable on memantine 10 mg twice daily. He reports thinking he is doing pretty good with his memory, and friends tell him there is nothing wrong with him. His organizes his medications, which he keeps in bottles rather than a pillbox. He is adherent to his medications including memantine, amlodipine, and metoprolol. He denies feeling down, depressed, irritable, or cranky. He reports leg swelling from amlodipine 10 mg, which his criminal intelligence specialist has deemed acceptable. He elevates his legs during the day using a lounge chair and does not wake frequently at night to use the bathroom. He has gained approximately 10 pounds, likely from fluid retention. He did have 2 recent falls and concerns about shuffling gait. He reports a recent fall that occurred when he pulled a shade down, turned around, and fell. He sustained bleeding and went to the emergency room. Following the fall, he experienced swelling around his eye which made it difficult to see and walk. Per dtr, he also reported visual hallucinations during this period, seeing things like saran wrap and a tree in the room, and thought his dtr had a cut on her nose - all of which resolved after two days. He felt down and negative the day after the fall but has not had any recent falls since then. Regarding his mobility, he reports that he walks alone and uses a cane sometimes. He acknowledges shuffling more when walking as noted by others. He has not been working with physical therapy but continues to walk independently. He completed 36 sessions of cardiac rehab over the summer. Anat [facility] MD [address] [facility] [address], [place], [address], [employer] 10/30/2024 18:47:57
--- OUTSIDE RECORDS SUMMARY | 2024-11-23 10:41 | XMS_ITS | Patient Health Record ---
Author Organization [facility] Address [address] [place] [address] Care Team Providers Care [employer] Cook Head Name Role Phone Yeyo Mason MD Primary Care Provider Oscar Ellsworth [phone] Allergies Allergen (clinical drug ingredient) Drug/Non Drug Allergy documented on EMR Reaction Allergy Type Onset Date Status Sulfa Unknown Drug Allergy Active Reason For Referral No Information Medications Medication SIG (Take, Route, Frequency, Duration) Notes Start Date End Date Status Colyte w Flavor Packs 240 GM as directed Orally as directed; Duration: 1 day(s) 11/30/2013 Active Atorvastatin Calcium 20 MG 1 tablet Oral ly Once a day Active Aspir-81 81 MG 1 tablet Orally Once a day Active Metoprolol Tartrate 50 MG 1 tablet Orall y Twice a day Active Problems Problem Type SNOMED Code ICD Code Onset Dates Problem Status W/U Status Risk Notes Problem History of adenomatous polyp of colon (072657414) History of adenomatous polyp of colon (V12.72) Active confirmed Problem Feces contents abnormal (427668207) Heme + stool (792.1) Active confirmed Plan Of Treatment Future Test Test Name Order Date COLONOSCOPY 11/29/2013 Insurance Providers Payer Name Payer Address Payer Phone Subscriber Number Group Number Insured Name Patient Relationship to Insured Coverage Start Date Coverage End Date MEDICARE OF [place] [address] [place] [address] [id number] SAEED GARCIA Self - patient is the insured MEDEX ATTN CLAIMS [address] [place] [address] [phone] [id number] HOPFE, SAEED Self - patient is the insured Medical (General) History Medical History History ICD Code Colonoscoy 12-22-2008--neg e xcept for diverticulosis and internal hemorrhoids Colon polyps--tubular adenomas removed i n 1998, 2001 and 2005 HTN Denies DM,CVA,Lung disease,renal disease CAD-stent placed in 2003-? Of preceding [place] Hyperlipidemia Surgical History Surgery Date(Month/Year) appendectomy cholecystectomy 05/21/2007 cataract-lens implants
--- OUTSIDE RECORDS SUMMARY | 2024-11-23 10:42 | XMS_ITS | Patient Health Record ---
Author Organization Yeyo Mason MD Address [address] [place], [place] [id number] Care Team Providers Care Door Hanger Name Role Phone Yeyo Mason Primary Care Provider Allergies Allergen (clinical drug ingredient) Drug/Non Drug Allergy documented on EMR Reaction Allergy Type Onset Date Status Substance with sulfonamide structure and antibacterial mechanism of action (substance) sulfa (uncoded) rash Allergy Active Results Component Value Reference Range Notes Complete Blood Count Auto Di ff Reviewed date:03/22/2024 05:34:13 PM Interpretation: Performing Lab:[facility], [address] [place] [phone] Notes/Report: White Blood Count 6.0 4.8-10.8 X10*3/uL [...] 0.0-0.2 /100WBC Neutrophils Absolute Auto 3.0 2.0-8.3 x10*3/uL Imm Gran Abs Auto 0.01 0.00-0.03 X10*3/uL Lymphocytes Absolute Auto 2.2 1.2-4.9 X10*3/uL Monocytes Absolute Auto 0.7 0.1-1.2 X10*3/uL Eosinophils Absolute Auto 0.0 0.0-0.4 X10*3/uL Basophils Absolute Auto 0.0 0.0-0.2 X10*3/uL NRBC Abs Auto 0.000 0.0-0.012 X10*3/uL Comprehensive [place]. Panel Fa st Reviewed date:03/22/2024 05:05:12 PM Interpretation: Performing Lab:[facility], [address] [place] [phone] Notes/Report: Sodium 144 135-145 mmol/L Potassium 4.0 [...] Panel Reviewed date:03/22/2024 05:04:48 PM Interpretation: Performing Lab:[address] [phone] Notes/Report: Triglycerides 82 <150 mg/dL Desirable Triglyceride: [...] (Free>4and<10) Reviewed date:03/22/2024 05:04:56 PM Interpretation: Performing Lab:[address] [phone] Notes/Report: PSA,Total (Free>4and<10) 1.16 0.00-4.00 ng/mL A [...] t Reviewed date:03/26/2024 01:33:19 PM Interpretation: Performing Lab:[address] [phone] Notes/Report: Urine, Clean Catch Color Urine Yellow Appearance Urine Clear PH 6.0 5.0-9.0 Glucose Urine UA Negative Negative mg/dL Urine Blood Negative Negative Specific [place] - Urine 1.025 1.005-1.025 Urine Protein Negative Neg-Trace mg/dL Urine Ketones Negative Negative mg/dL Nitrite Urine Negative Negative Leukocyte Esterase Urine Trace Negative RBC Urine 0-2 0-2 /HPF WBC Urine 0-5 0-5 /HPF Squamous Epithelial Cell Urine 0-2 0-2 /HPF Bacteria Urine None Seen None Seen Hyaline Casts Urine 0-2 0-2 /LPF Liver Panel Reviewed date:09/13/2024 04:31:04 PM Interpretation: Performing Lab:[facility], [address] [place] [phone] Notes/Report: Bilirubin Total 0.8 0.0-1.0 mg/dL Bilirubin Direct 0.3 0.0-0.5 mg/dL Aspartate Amino Transferase 38 5-37 U/L Slight Hemolysis.Interpret result with caution. Alanine Aminotransferase 30 0-40 U/L Total Protein 6.7 6.5-8.0 g/dL Albumin Level 4.2 3.5-5.0 g/dL Alkaline Phosphatase 92 39-117 U/L Lipid Panel with Reflex Reviewed date:09/13/2024 04:30:43 PM Interpretation: Performing Lab:[address] [phone] Notes/Report: Triglycerides 77 <150 mg/dL Desirable Triglyceride: [...] low results in patients with liver disease. Vitamin B12 and Folate Reviewed date:11/08/2024 11:44:48 AM Interpretation: Performing Lab:[facility], [address] [place] [phone] Notes/Report: Vitamin B12 248 200-900 pg/mL NORMAL 200-900 PG/ML INDETERMINATE 160-199 PG/ML DEFICIENT < 160 PG/ML Folate 10.6 > or = 4.0 ng/mL Reference Values: > or = 4.0 ng/mL < 4.0 ng/mL suggests folate deficiency Methotrexate, aminopterin and folinic acid (leucovorin) are chemotherapeutic agents whose molecular structures are similar to folate; therefore, the Head Shipper folate assay cannot be used for patients using these drugs. TSH reflex Free T4 Reviewed date:11/07/2024 04:20:14 PM Interpretation: Performing Lab:[facility], [address] [place] [phone] Notes/Report: TSH reflex Free T4 2.08 0.32-4.0 uIU/mL Complete Blood Count no Diff Reviewed date:05/16/2024 06:11:58 PM Interpretation: Performing Lab:[facility], [address] [place] [phone] Notes/Report: White Blood Count 7.3 4.8-10.8 X10*3/uL [...] ff Reviewed date:05/16/2024 06:19:04 PM Interpretation: Performing Lab:[facility], [address] [place] [phone] Notes/Report: White Blood Count 6.6 4.8-10.8 X10*3/uL [...] 0.0-0.2 /100WBC Neutrophils Absolute Auto 4.1 2.0-8.3 x10*3/uL Imm Gran Abs Auto 0.03 0.00-0.03 X10*3/uL Lymphocytes Absolute Auto 1.7 1.2-4.9 X10*3/uL Monocytes Absolute Auto 0.7 0.1-1.2 X10*3/uL Eosinophils Absolute Auto 0.1 0.0-0.4 X10*3/uL Basophils Absolute Auto 0.0 0.0-0.2 X10*3/uL NRBC Abs Auto 0.000 0.0-0.012 X10*3/uL Prothrombin Time INR Reviewed date:05/16/2024 06:20:38 PM Interpretation: Performing Lab:[facility], [address] [place] [phone] Notes/Report: Prothrombin Time 16.9 10.9-12.4 SEC INTERNATIONAL [...] Drip Reviewed date:05/16/2024 06:12:11 PM Interpretation: Performing Lab:[facility], [address] [place] [phone] Notes/Report: PTT Heparin Drip 38.3 53-77.9 SEC For information regarding the monitoring of heparin therapy, please refer to Pharmacy. Liver Panel Reviewed date:05/16/2024 06:13:54 PM Interpretation: Performing Lab:[facility], [address] [place] [phone] Notes/Report: Bilirubin Total 0.9 0.0-1.0 mg/dL Bilirubin Direct 0.3 0.0-0.5 mg/dL Aspartate Amino Transferase 21 5-37 U/L Alanine Aminotransferase 22 0-40 U/L Total Protein 6.1 6.5-8.0 g/dL Albumin Level 3.9 3.5-5.0 g/dL Alkaline Phosphatase 82 39-117 U/L Basic Metabolic Panel Reviewed date:05/16/2024 06:21:01 PM Interpretation: Performing Lab:[address] [phone] Notes/Report: Sodium 144 135-145 mmol/L Potassium 4.0 [...] Magnesium Reviewed date:05/16/2024 06:13:11 PM Interpretation: Performing Lab:[facility], [address] [place] [phone] Notes/Report: Magnesium 2.2 1.6-2.6 mg/dL Troponin-I High Sensitivity Reviewed date:05/16/2024 06:11:28 PM Interpretation: Performing Lab:[facility], [address] [place] [phone] Notes/Report: Troponin-I High Sensitivity 5.7 <3.5-35.0 ng/L [facility] [place] high sensitivity Troponin-I results should be used in conjunction with other diagnostic information such as ECG, clinical observations and information, and patient symptoms to aid in the diagnosis of [place]. SARS-CoV2/FLU/RSV Reviewed date:05/16/2024 06:11:13 PM Interpretation: Performing Lab:[facility], [address] [place] [phone] Notes/Report: Influenza A PCR NEGATIVE Negative Influenza [...] by authorized laboratories. Testing performed on the [employer] GeneXpert utilizing real-time RT-PCR. All SARS CoV2 and positive influenza A/B results are reported to [facility]. XR chest 2V Reviewed date:05/16/2024 06:12:54 PM Interpretation: Performing Lab: Notes/Report: [address] [address] XRay Report Signed Patient: Faisal Leiva MR#: [id number] 714 : 1935 Acct:[id number] Age/Sex: 88 / M ADM Date: 05/16/24 Loc: HO.ED Attending Dr: Ordering Physician: Natalie August Date of Service: 05/16/24 Procedure(s): XR chest 2V Accession Number(s): [id number] cc: Yeyo Mason MD; Natalie August EXAMINATION: [...] 05/16/24 1229 DD/ 1154 TD/TT: 05/16/24 1214 Safety Intern: [address] [address] XRay Report Signed Patient: Ashley Leiva nd MR#: [id number] 714 : 1935 Acct:[id number] Age/Sex: 88 / M ADM Date: 05/16/24 Loc: .ED Attending Dr: Ordering Physician: Natalie August Date of Service: 05/16/24 Procedure(s): XR sarah st 2V Accession Number(s): [id number] cc: Yeyo Mason MD; Natalie August EXAMINATION: [...] 05/16/24 1229 DD/ 1154 TD/TT: 05/16/24 1214 Safety Intern: Troponin-I High Sensitivity Reviewed date:05/16/2024 06:11:39 PM Interpretation: Performing Lab:[facility], [address] [place] [phone] Notes/Report: Troponin-I High Sensitivity 8.0 <3.5-35.0 ng/L [facility] [place] high sensitivity Troponin-I results should be used in conjunction with other diagnostic information such as ECG, clinical observations and information, and patient symptoms to aid in the diagnosis of [place]. Troponin-I High Sensitivity Reviewed date:05/16/2024 06:10:59 PM Interpretation: Performing Lab:[facility], [address] [place] [phone] Notes/Report: Troponin-I High Sensitivity 8.2 <3.5-35.0 ng/L [facility] [place] high sensitivity Troponin-I results should be used in conjunction with other diagnostic information such as ECG, clinical observations and information, and patient symptoms to aid in the diagnosis of [place]. Prothrombin Time INR Reviewed date:05/16/2024 06:10:51 PM Interpretation: Performing Lab:[facility], [address] [place] [phone] Notes/Report: Prothrombin Time 16.1 10.9-12.4 SEC INTERNATIONAL [...] date:07/04/2024 04:28:46 PM Interpretation: Performing Lab: Notes/Report: [facility] [address] [place] [address] XRay Report Signed Patient: Faisal Leiva MR#: [id number] 714 : 1935 Acct:[id number] Age/Sex: 88 / M ADM Date: 07/02/24 [facility] Attending Dr: Trish Carr PA-C Ordering Physician: Trish Carr PA-C Date of Service: 07/02/24 Procedure(s): XR ankle LT min 3V Accession Number(s): [id number] cc: Yeyo Mason MD; Trish Carr PA-C [...] by Christoph Parnell MD in OV> 07/02/24 140 DD/ 28 TD/TT: 07/02/241333 Safety Intern: [facility] [address] [place] [address] [place] [address] XRay Report Signed Patient: Ashley Leiva nd MR#: [id number] 714 : 1935 Acct:[id number] Age/Sex: 88 / M ADM Date: 07/02/24 Loc: HO.[facility] Attending Dr: Gianna Carr PA-C Ordering Physician: Trish Carr PA-C Date of Service: 07/02/24 Procedure(s): XR ank le LT min 3V Accession Number(s): [id number] cc: Yeyo Mason MD; Trish Carr PA-C [...] Parnell MD in OV> 07/02/24 1403 DD/ 28 TD/TT: 07/02/241333 Safety Intern: Daylin Najera Reviewed date:09/13/2024 04:37:48 PM Interpretation: Performing Lab:[facility], [address] [place] [phone] Notes/Report: Daylin Najera See Note Specimen held untested for 24 hours; Call to request Chemistry testing. Basic Metabolic Panel Reviewed date:10/22/2024 02:40:26 PM Interpretation: Performing Lab:[facility], [address] [place] [phone] Notes/Report: Sodium 144 135-145 mmol/L Potassium 4.4 [...] pt Reviewed date:10/22/2024 02:40:11 PM Interpretation: Performing Lab:[facility], [address] [place] [phone] Notes/Report: NT Pro B Type Natriuretic Pept [...] of other clinical information. Reason For Referral Reason Balance disorder Diagnosis 1 Balance disorder (R2 6.89) Referral Organization Yeyo Mason MD Referring Provider First Name Yeyo Referring Provider Last Name Marlon Referring Provider Speciality Internal M edicine Referred Provider [facility] PT Ortiz Hawley, AT I PT Ortiz Hawley Referred Provider Specialty Physical The rapist General Notes Christin Elliott 1 02:12:48 PM >patient will be making his own appt Referral Priority Routine Referral Appointment Date 11/19/2024 Medications Medication SIG (Take, Route, Frequency, Duration) Notes Start Date End Date Status PreserVision AREDS - as directed Orally Active Memantine HCl 5 MG 1 tablet Orally Twic e a day Active amLODIPine Besylate 10 MG 1 tablet Orall y Once a day Active Xarelto 20 MG 1 tablet with food O rally Once a day 02/08/2022 Active Metoprolol Tartrate 50 MG TAKE ONE TABLE T BY MOUTH TWICE A DAY for 90 Active Atorvastatin Calcium 20 MG TAKE ONE TABL ET BY MOUTH EVERY DAY for 90 Active Immunizations Vaccine Route Administration Date Status Comme nts Flu Vaccine Unknown 11/16/2011 Administered [facility] Fluarix Quadrivalent IM Intramuscular 12/01/2014 Administered Flu Vaccine Unknown 11/26/2015 Administered thinks abou t 4 days ago at [facility] Flu Vaccine IM Intramuscular 11/21/2016 Administered pt wa s given the vaccine at [facility] in [place]. Tetanus Unknown 03/13/2017 Administered Pt was given the vaccine in [facility] urgent [facility] Influenza High Dose IM Intramuscular 10/26/2017 Administered pt was given th e vaccine at [facility]. Fluarix Quadrivalent Unknown 11/13/2017 Administered [facility] Fluarix Quadrivalent Unknown 11/01/2018 Administered [facility] Influenza High Dose Unknown 11/18/2019 Administered [facility] SARS-COV-2 Moderna Unknown 03/17/2020 Administered SARS-COV-2 Moderna Unknown 04/14/2020 Administered SARS-COV-2 Moderna Unknown 12/16/2020 Administered Influenza High Dose Unknown 11/04/2020 Administered Influenza High Dose Unknown 11/30/2021 Administered [facility] Influenza High Dose IM Intramuscular 11/07/2024 Administered Flu Vaccine Unknown 11/05/2013 Refused PPSV23 (Pnemovax) [...] W/U Status Risk Notes Problem Pure hypercholesterolemia (369870755) Pure hypercholesterolemia (E78.0) Active confirmed Problem 52223411 Atherosclerotic heart disease of [place] coronary artery without angina pectoris (I25.10) Active confirmed Problem 65678155 Lymphocytosis (D72.820) Active confirmed Problem 01887296 Essential hypertension (I10) Active confirmed Problem 76119326 Memory loss (R41.3) Active confirmed Problem Dementia (55533126) Dementia (F03.90) Active co nfirmed Problem 183117390 History of coron desiree artery stent placement (Z95.5) Active confirmed Problem 426342079 Angina pectoris (I20.9) Active confirmed Problem 751485243 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) Active confirmed Problem 13350374 Atrial fibrillat ion, unspecified type (I48.91) Active confirmed Problem 80264941 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) Active confirmed Problem 079268654 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) Active confirmed Problem 562745027 Pure hypercholesterolemia (E78.00) Active confirmed Problem 427865945 Elevated PSA (R97.20) Active confirme d Problem 63883242 CHRISTINE (obstructive sleep apnea) (G47.33) Active confirmed Problem 8517017 Hallucination (R44.3) Active confirmed Problem Abnormal gait (27940553) Balance disorder (R26.89) Active confirmed Problem 894017311 Elevated serum cholesterol (E78.9) Active confirmed Problem 351672341 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 Vital Signs Blood pressure diastolic 54 mm Hg 11/07/2024 Height 69 in 11/07/2024 Blood pressure systolic 118 mm Hg 11/07/2024 Weight 201 lbs 11/07/2024 BMI 29.68 kg/m2 11/07/2024 Encounters Encounter Location Date Provider Diagnosis Yeyo Mason MD [address] [place] [address] [id number] 12/28/2023 Yeyo Mason Memory loss R41.3 ; 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 and Advance care planning Z71.89 Yeyo Mason MD [address] [place] [address] [id number] 03/19/2024 Yeyo Mason Blood tests for rout ine general physical examination Z00.00 ; Essential hypertension I10 ; Pure hypercholesterolemia E78.00 ; Elevated PSA R97.20 and Lymphocytosis D72.820 Yeyo Mason MD [address] [place] [address] [id number] 09/13/2024 Yeyo Mason Pure hypercholestero lemia E78.00 Yeyo Mason MD [address] [place] [address] [id number] 03/26/2024 Yeyo Mason Essential hypertensi on I10 ; Pure hypercholesterolemia E78.00 ; Atherosclerotic heart disease of [place] coronary artery without angina pectoris I25.10 ; Atrial fibrillation, unspecified type I48.91 ; Colon cancer screening Z12.11 and Depression screening Z13.31 Yeyo Mason MD [address] [place] [address] [id number] 05/31/2024 Yeyo Mason Essential hypertensi on I10 and Atherosclerotic heart disease of [place] coronary artery without angina pectoris I25.10 Yeyo Mason MD [address] [place] [address] [id number] 09/23/2024 Yeyo Mason Neurocognitive disor juno with Lewy bodies G31.83 ; Atrial fibrillation, unspecified type I48.91 and Elevated serum cholesterol E78.9 Yeyo Mason MD [address] [place] [address] [id number] 10/28/2024 Yeyo Mason Facial injury, subse quent encounter S09.93XD and Leg edema R60.0 Yeyo Mason MD [address] [place] [address] [id number] 11/07/2024 Yeyo Mason Balance disorder R26 .89 ; Dementia F03.90 and Encounter for administration of vaccine Z23 Yeyo Mason MD [address] [place], [place] [id number] 05/17/2024 Yeyo Mason MD [address] [place] [address] [id number] 05/23/2024 Yeyo Mason MD [address] [place] [address] [id number] 10/21/2024 Yeyo Mason Assessments Encounter Date Diagnosis [...] appear to have any dementia at all 10/28/2024 Facial injury, subsequent encounter (ICD-10 - S09.93XD) well healed. siutures removed 10/28/2024 Leg edema (ICD-10 - R60.0) seems related to his amlodipine will just observe 11/07/2024 Balance disorder (ICD-10 - R26.89) refer to physical therapy [facility] in [place] 11/07/2024 Dementia (ICD-10 - F03.90) pending labs 12/28/2023 Advance care plannin joi (ICD-10 - Z71.89) discused MOLST with patient and , patient verbalized understanding, document signed and scanned into chart. 03/19/2024 Essential hypertensi on (ICD-10 - I10) 03/26/2024 Atherosclerotic hear t disease of mak[place] coronary artery without angina pectoris (ICD-10 - I25.10) not having any complaints 05/31/2024 Atherosclerotic hear t disease of mak[place] coronary artery without angina pectoris (ICD-10 - [...] type (ICD-10 - I48.91) taking blood thinner 11/07/2024 Encounter for administration of vaccine (ICD-10 - Z23) HD flu vaccine administered 03/19/2024 Pure hypercholesterolemia (ICD-10 - E78.00) 03/26/2024 [...] Details Provider Name:Yeyo palacios, 03/21/2025 07:45:00 AM, [address] [place] [address], [place] [address], [place], [place], [phone], Provider Name:Yeyo palacios, 03/28/2025 01:00:00 PM, [address] [place] [address], [facility] [address], [place], [place], [phone], Insurance Providers Payer Name Payer Address Payer Phone Subscriber Number Group Number Insured Name Patient Relationship to Insured Coverage Start Date Coverage End Date [employer] [address] [place] [address] [id number] Faisal Leiva Self - patient is the insured [place] [address] [place] [address] [id number] Faisal Leiva Self - patient is the insured Medical (General) History Medical History History ICD Code angioplasty 2004 colonoscopy 2008; colonoscop y - 01/20/2014 Dr. Sanchez - no further colonoscopies necessary; HX of tubular adenoma of colon Hx Bloody Stools
[2024-11-23 11:26] VITALS: BP 120/60; PULSE 66; RESP 16; TEMP 37; O2SAT 96; BMI 27.3
--- NOTE | 2024-11-23 11:26 | MHC.OFFWIV ---
Intake Vital Signs 11/23/24 11:26 Height 5 ft 11 in Weight 196 lb BMI 27.3 BP 120/60 Blood Pressure Location Rt brachial Position Sitting Respiration 16 Pulse 66 Pulse Source Pulse Oximeter Temp 98.6 F Temp Source Oral Pulse Oximetry (%) 96 Oxygen Delivery Method Room Air Intake Visit Reasons: EP, sinus congestion, coughing Intake Note: Pt is here today c/o sinus congestion and coughing x3days Patient Tobacco Use Status: Former Tobacco user Allergies apixaban (From Eliquis) Allergy (Mild, Verified 11/23/24 11:30) Rash Sulfa (Sulfonamide Antibiotics) (Sulfa (Sulfonamides)) Allergy (Mild, Verified 11/23/24 11:30) RASH HPI HPI Comments History of Present Illness Details This is an 88-year-old male who presented to the walk-in clinic complaining of viral URI symptoms times 2-3 days. Patient states his symptoms started with nasal congestion and rhinorrhea. He states that his nasal discharge/drainage is clear. He states that he then developed a cough yesterday, which is occasionally productive of yellow sputum although is typically nonproductive. He denies any fevers or chills. He denies any sore throat. He denies any otalgia. Denies any shortness of breath or chest pain. Denies any abdominal pain or nausea/vomiting/diarrhea. He denies any known sick contacts. [facility] Medical History Angina of effort Unstable angina CAD (coronary artery disease) Left bundle branch block Hyperlipidemia HTN (hypertension) Cardiac pacemaker in situ Second degree AV block, Mobitz type II Surgical History History of permanent cardiac pacemaker placement History of eye surgery History of heart artery stent Hx of cholecystectomy Family History Father No problems noted. Mother Cancer Brother Cancer Social History Alcohol intake: former Patient Tobacco Use Status: Former Tobacco user Tobacco use type: Pipe Years Smoked: 20 +/- Review of Systems Const All systems reviewed & are unremarkable except as noted in HPI and below Reports no additional complaints Eyes Reports no additional complaints ENT Reports no additional complaints Card Reports no additional complaints Resp Reports no additional complaints GI Reports no additional complaints Reports no additional complaints Musc Reports no additional complaints Skin/Breast Reports system reviewed and no additional complaints, except as documented Neuro Reports no additional complaints Psych Reports no additional complaints Endo Reports no additional complaints James/Lymph Reports no additional complaints Aller/Immun Reports no additional complaints Physical Exam Exam Exam: Vital signs reviewed. Constitutional: Non-toxic appearing. No acute distress. Well-developed and well-nourished. HEENT: Normocephalic and atraumatic. Tympanic membranes without erythema, edema, or bulging bilaterally. External auditory canals without erythema or edema bilaterally. Moist mucous membranes. No pharyngeal erythema or exudates. Skin: Warm and dry. No rashes or lesions noted. Neck: Full and painless range of motion. No cervical lymphadenopathy. Cardio: Regular rate and rhythm. No murmurs, gallops, or rubs. No lower extremity edema. No JVD. Pulmonary: No respiratory distress. No accessory muscle usage. Clear to auscultation bilaterally without wheezing, crackles, or rhonchi. Gastrointestinal: Soft, nontender, and nondistended in all 4 quadrants. Normoactive bowel sounds in all 4 quadrants. Musculoskeletal: Normal range of motion in joints throughout the body. No deformity or other signs of injury. Neuro: Alert and oriented x4. Cranial nerves 2-12 grossly intact. No focal deficits appreciated. Psych: Normal mood and affect. Vital Signs: Last Vital Signs Temp 98.6 F 11/23/24 11:26 Pulse 66 11/23/24 11:26 Resp 16 11/23/24 11:26 BP 120/60 11/23/24 11:26 Pulse Ox 96 11/23/24 11:26 Oxygen Delivery Method Room Air 11/23/24 11:26 BMI result Body Mass Index 27.3 Assessment & Plan Assessment & Plan (1) Acute upper respiratory infection, unspecified: Code(s): J06.9 - Acute upper respiratory infection, unspecified Plan This is an 88-year-old male who presented to the walk-in clinic complaining of viral URI symptoms x 2-3 days. Patient's vital signs are stable and his physical exam is benign. History and physical most consistent with an acute viral upper respiratory tract infection. I have low suspicion for bacterial rhinosinusitis and low suspicion for pneumonia at this time.Patient presenting with signs and symptoms most consistent with acute respiratory tract infection. Recommended symptomatic management including rest, increased fluids, advil/tylenol for pain/fever, normal saline or fluticasone nasal spray, humidification at bedtime, and over the counter throat lozenges/decongestants. Patient advised to follow up here or go to the emergency room for worsening/persistent symptoms such as shortness of breath, fever/chills, worsening sputum production or purulence, or altered mental status. Patient verbalized understanding and is agreeable with the plan. Orders: Orders SARS-CoV2/FLU/RSV Today J06.9 - Acute upper respiratory infection, unspecified Coding Level of Care Code Est Pt Level 3 (59381) Diagnoses Acute upper respiratory infection, unspecified J06.9
== END 2024-11-23 12:04 | disposition home or self-care (01) ==
PROVIDERS: PCP Internal Medicine; Visit Provider Physician Assistant Medical
DX: J06.9 Acute upper respiratory infection, unspecified (principal)